=== PATIENT | female | born 1995 | race Caucasian/White ===

== ENCOUNTER 2023-06-14 14:07 | Emergency (ER) | payer BC, SELFPAY ==
[2023-06-14 14:11] VITALS: BP 110/70; PULSE 94; RESP 22; TEMP 37.3; O2SAT 100; BMI 15.0
[2023-06-14 14:19] VITALS: O2SAT 99
[2023-06-14 15:02] LABS: Basophils Percent Auto 0.6 % (0.2-2.0); Eosinophils Percent Auto 0.6 % (0.9-7.0); Hematocrit 40.5 % (36.0-48.0); Immature Granulocytes Abs Auto 0.01 10^3/uL (0.00-0.03); Immature Granulocytes Pct Auto 0.1 % (0.0-0.5); Lymphocytes Absolute Auto 2.2 10^3/uL (1.2-3.8); Lymphocytes Percent Auto 32.3 % (20.5-60.0); Mean Corpuscular HGB Conc 34.6 g/dL (29.9-35.2); Mean Corpuscular Hemoglobin 31.1 pg (26.7-34.0); Mean Platelet Volume 10.4 fL (9.5-13.5); Monocytes Absolute Auto 0.4 10^3/uL (0.3-0.8); Monocytes Percent Auto 5.6 % (1.7-12.0); Neutrophils Absolute Auto 4.1 10^3/uL (1.4-6.5); Neutrophils Percent Auto 60.8 % (43.0-75.0); Platelet Count 269 10^3/uL (150-450); Red Cell Distribution Width 12.1 % (11.0-15.0); White Blood Count 6.8 10^3/uL (4.0-11.0)
--- NOTE | 2023-06-14 15:06 | ED_ITS ---
HPI - General Adult General Chief complaint: Anxiety Stated complaint: SHORTNESS OF BREATH AND NUMBNESS Time Seen by Provider: 06/14/23 14:15 Source: patient and family Mode of arrival: walk-in Limitations: no limitations History of Present Illness HPI narrative: The patient have no previous medical history presented to the ER after she had an episode of numbness that was surrounding her mouth and nose associated with numbness and bilateral hand and generalized weakness that started while she was getting home from practice The patient denies any chest pain nausea vomiting or any other complaints she also denies any similar symptoms before and any symptoms preceding the symptoms earlier today Related Data Home Medications Medication Instructions Recorded Confirmed dextroamphetamine-amphetamine ER 30 mg PO DAILY 06/14/23 06/14/23 20 mg 24hr capsule,extend release norethindrone acetate 1 mg-ethinyl 1 tab PO DAILY 06/14/23 06/14/23 estradiol 20 mcg tablet Allergies Allergy/AdvReac Type Severity Reaction Status Date / Time No Known Drug Allergies Allergy Verified 06/14/23 14:11 Review of Systems ROS Status of ROS 10 or more systems reviewed and unremarkable except as noted in history and below PFSH [facility] Social History Smoking status: Never smoker Exam Narrative Exam Narrative: Nurses notes and vital signs reviewed and patient is not hypoxic. General: Well-appearing and in no apparent distress. Skin: Warm, dry, no pallor noted. No rash. Head: Normocephalic, atraumatic. Neck: Supple, non-tender. Eye: Pupils are equal, round and EOMI. No scleral icterus. Ears, Nose, Mouth, and Throat: TM are clear, no nasal mucosal hypertrophy. Oral mucosa is moist, no posterior oropharynx erythema, uvula is mid-line Cardiovascular: Regular Rate and Rhythm without murmur, gallop or rub. Respiratory: No accessory muscle use or respiratory distress. Lungs are clear to auscultation, no wheezing, rales or rhonchi Chest Wall: no tenderness Back: No midline thoracic or lumbar vertebral tenderness. No CVA tenderness Musculoskeletal: normal ROM, no calf or popliteal tenderness, no lower extremity edema/swelling GI: Abdomen is soft, non-distended. Normal bowel sounds. No masses appreciated. No tenderness to palpation. No rebound, guarding, or rigidity noted. Neurological: A&O x4. No cranial nerve dysfunction observed. No truncal ataxia. Moves all extremities. Sensation intact. Psychiatric: Cooperative and interactive. Normal mood and affect. Constitutional Vital Signs, click to edit/add: Last Vital Signs Temp 99.1 F 06/14/23 14:11 Pulse 94 H 06/14/23 14:11 Resp 22 06/14/23 14:11 BP 110/70 06/14/23 14:11 Pulse Ox 99 06/14/23 14:19 O2 Del Method Room Air 06/14/23 14:19 Course Vital Signs Vital signs: Vital Signs Temperature 99.1 F 06/14/23 14:11 Pulse Rate 94 H 06/14/23 14:11 Respiratory Rate 22 06/14/23 14:11 Blood Pressure 110/70 06/14/23 14:11 Pulse Oximetry 100 06/14/23 14:11 Oxygen Delivery Method Room Air 06/14/23 14:11 Temperature 99.1 F 06/14/23 14:11 Pulse Rate 94 H 06/14/23 14:11 Respiratory Rate 22 06/14/23 14:11 Blood Pressure 110/70 06/14/23 14:11 Pulse Oximetry 99 06/14/23 14:19 Oxygen Delivery Method Room Air 06/14/23 14:19 Medical Decision Making MDM Narrative Medical decision making narrative: The patient blood work-up showed no acute significant pathology I did speak with the patient extensively and she did mention that she had been having similar issues before when she hold her breath while running She will usually get numbness around the face but she never had numbness in her hand right now the patient examination is completely benign The patient numbness and tingling was around the nose as well as bilaterally in the hands The patient was advised with coping mechanisms for anxiety she still need to follow-up with her primary care doctor for further evaluation management The patient is to follow up with primary care physician in next 2-3 days or to return to the emergency department should any of the signs or symptoms worsen or new symptoms develop. The patient agrees with the following Diagnosis and Treatment plan and the patient will be discharged home. At this time the patient is without objective evidence of an acute process requiring hospitalization or inpatient management. The patient has remained hemodynamically stable. No additional indication for emergent studies at this time. I answered all questions. Discussed discharge instructions including standard anticipatory guidance and what should prompt a return to the emergency department, including if they get worse are not getting better or develops any new or concerning symptoms. I've given them specific time frame in which to follow-up, and who to follow-up with. The patient demonstrates understanding. Patient is nontoxic and stable for discharge with outpatient follow-up. Lab Data Labs: Lab Results 06/14/23 Range/Units 14:45 WBC 6.8 (4.0-11.0) 10^3/uL RBC 4.50 (4.20-5.40) 10^6/uL Hgb 14.0 (12.0-16.0) g/dL Hct 40.5 (36.0-48.0) % MCV 90.0 (81.0-99.0) fL MCH 31.1 (26.7-34.0) pg MCHC 34.6 (29.9-35.2) g/dL RDW 12.1 (11.0-15.0) % Plt Count 269 (150-450) 10^3/uL MPV 10.4 (9.5-13.5) fL Neut % (Auto) 60.8 (43.0-75.0) % Lymph % (Auto) 32.3 (20.5-60.0) % [place]annin % (Auto) 5.6 (1.7-12.0) % Eos % (Auto) 0.6 L (0.9-7.0) % Baso % (Auto) 0.6 (0.2-2.0) % Neut # (Auto) 4.1 (1.4-6.5) 10^3/uL Lymph # (Auto) 2.2 (1.2-3.8) 10^3/uL Fannin # (Auto) 0.4 (0.3-0.8) 10^3/uL Eos # (Auto) 0.0 (0.0-0.7) 10^3/uL Baso # (Auto) 0.0 (0.0-0.1) 10^3/uL Abs Immat Gran (auto) 0.01 (0.00-0.03) 10^3/uL Imm/Tot Granulo (auto) 0.1 (0.0-0.5) % Sodium 140 (136-145) mmol/L Potassium 3.9 (3.5-5.1) mmol/L Chloride 107 (98-107) mmol/L Carbon Dioxide 21.1 (21.0-32.0) mmol/L Anion Gap 15.8 BUN 10.0 (7.0-18.0) mg/dL Creatinine 1.07 H (0.55-1.02) mg/dL Est GFR ( Amer) >60 (>=60) Est GFR (Non-Af Amer) >60 (>=60) BUN/Creatinine Ratio 9.3 Glucose 101 (74-106) mg/dL Calcium 8.9 (8.5-10.1) mg/dL Magnesium 2.0 (1.8-2.4) mg/dL Total Bilirubin 0.6 (0.2-1.0) mg/dL AST 15 (15-37) U/L ALT <6 L (14-59) U/L Alkaline Phosphatase 44 L (46-116) U/L Total Protein 7.6 (6.4-8.2) g/dL Albumin 4.1 (3.4-5.0) g/dL Globulin 3.5 g/dL Albumin/Globulin Ratio 1.2 Urine HCG, Qual Negative (NEGATIVE) Discharge Plan Discharge Chief Complaint: Anxiety Clinical Impression: Hyperventilation, Panic disorder Patient Disposition: Home, Self-Care Time of Disposition Decision: 16:01 Mode of Transportation: Private Vehicle Prescriptions / Home Meds: No Action norethindrone ac-eth estradiol 1-20 mg-mcg tablet 1 tab PO DAILY dextroamphetamine-amphetamine 20 mg capsule,extended release 24hr 30 mg PO DAILY Instructions: Anxiolysis in Adults (ED) Stand Alone Forms: Portal Instructions Referrals: Caron Ramos MD [Primary Care Provider] - 1 week Discharge Date/Time: 06/14/23 16:05
[2023-06-14 15:19] LABS: Alanine Aminotransferase <6 U/L (14-59); Albumin Globulin Ratio 1.2; Albumin Level 4.1 g/dL (3.4-5.0); Alkaline Phosphatase 44 U/L (46-116); Anion Gap 15.8; Aspartate Amino Transferase 15 U/L (15-37); BUN Creatinine Ratio 9.3; Bilirubin Total 0.6 mg/dL (0.2-1.0); Calcium 8.9 mg/dL (8.5-10.1); Carbon Dioxide 21.1 mmol/L (21.0-32.0); Chloride 107 mmol/L (98-107); Estimated GFR (African America >60 (>=60); Estimated GFR (Non-African Ame >60 (>=60); Globulin 3.5 g/dL; Glucose 101 mg/dL (74-106); Potassium 3.9 mmol/L (3.5-5.1); Sodium 140 mmol/L (136-145); Total Protein 7.6 g/dL (6.4-8.2)
[2023-06-14 15:50] LABS: HCG Qualitative NEGATIVE (NEGATIVE)
== END 2023-06-14 16:05 | disposition home or self-care (01) ==
PROVIDERS: Emergency Provider Emergency Medicine; PCP Family Medicine
DX: R06.4 Hyperventilation (principal); F41.0 Panic disorder [episodic paroxysmal anxiety]
CPT/HCPCS: 36415; 80053; 83735; 84703; 85025; 99283

== ENCOUNTER 2023-09-04 10:51 | Outpatient (OUT) | payer BC, SELFPAY ==
--- NOTE | 2023-09-04 | US_ITS ---
[address] [address] Patient Name: DEJAN ESCOBEDO MRN: [id number] date: 1995 Sex: F Assigned Patient Location: [place] Current Patient Location: [place] Accession/Order Number: [id number] Exam Date: 09/04/2023 11:04 Report Date: 09/04/2023 12:03 At the request of: DANICA PARADA Procedure: US abdomen limited EXAM: US abdomen limited HISTORY: R10.32 COMPARISON: None. TECHNIQUE: Targeted ultrasound of the left lower quadrant FINDINGS/IMPRESSION: No sonographic evidence of hernia within the left lower abdominal quadrant or inguinal canal. A few prominent lymph nodes. Electronically authenticated by: MARY JANE GIL Date: 09/04/2023 12:03
== END 2023-09-04 10:52 | disposition home or self-care (01) ==
LOC: US 10:51
PROVIDERS: PCP Family Medicine; Visit Provider Family Medicine
DX: R10.32 Left lower quadrant pain (principal)
CPT/HCPCS: 76705

== ENCOUNTER 2023-09-21 08:18 | Outpatient (RCR) | payer BC, SELFPAY | END 2023-09-22 15:50 | disposition home or self-care (01) | LOC: PT 08:18 | PROVIDERS: PCP Family Medicine; Visit Provider Family Medicine | DX: S39.011D Strain of muscle, fascia and tendon of abdomen, subsequent encounter (principal) | CPT/HCPCS: 97161 ==

== ENCOUNTER 2024-08-05 07:50 | Outpatient (OUT) | payer BC, SELFPAY ==
--- NOTE | 2024-08-05 | CT_ITS ---
The [address] [address] Patient Name: DEJAN ESCOBEDO MRN: [id number] date: 1995 Sex: F Assigned Patient Location: CT Current Patient Location: CT Accession/Order Number: [id number] Exam Date: 08/05/2024 08:05 Report Date: 08/05/2024 15:52 At the request of: LASHANDA RICHMOND Procedure: CT soft tissue neck w con EXAMINATION: CT soft tissue neck w con HISTORY: Neck mass. R22.1. Patient states lymph node, BB marker. COMPARISON: None. TECHNIQUE: Axial CT images through the neck with intravenous contrast. Dose reduction techniques were achieved by using: automated exposure control and/or adjustment of mA and /or kV according to patient size and/or use of iterative reconstruction technique. FINDINGS: Metallic BBs visualized in the skin overlying the right side of the neck. There is a right level II lymph node measuring 6 x 12 mm subjacent to the marker. Additional multiple small nonenlarged lymph nodes in the remaining soft tissues of the neck. No abnormal inflammation or fluid collection. The adjacent submandibular glands appear normal. Tiny left thyroid nodule. No lesions in the parotid glands. No lesions in the included lower brain. No lesions in the nasopharynx. Mild prominence of the bilateral palatine tonsils. No lesions. No lesions in the oral cavity, hypopharynx, larynx, or upper trachea. CT/CT soft tissue neck w con IMPRESSION: 1. Multiple small lymph nodes are visualized in the soft tissues of the neck, nonenlarged. This includes a 6 x 12 mm lymph node subjacent to the marker placed at the right side of the neck. 2. No mass lesions, fluid collection in the soft tissues adjacent to the right-sided marker. No right-sided sialoadenitis. Electronically authenticated by: DEMETRIO KWONG Date: 08/05/2024 15:52
--- OUTSIDE RECORDS SUMMARY | 2024-08-05 07:53 | XMS_ITS | CCD ---
Author Organization [facility] Care Team Providers Care Training Administrator Name Role Phone CARIDAD ZAMBRANO Attending Unavailable CARON PARADA Primary Care Unavaila CARON Pierson Primary Care Unavailable SHAN PHILLIP Attending CARON Ayon Primary Care Unavailable SHAN PHILLIP Admitting UnaDR CARON Stewart Attending Unavailable DR CARON PARADA Consulting Unavailable DR CARON PARADA Primary Care Unavailable DR CARON PARADA Admitting Unavailable Caron Parada LASHANDA RICHMOND Attending Unavailable CARON PARADA Allergies Allergy Classification Reported Allergen(s) Allergy Type Date of Onset Reaction(s) Facility (2 sources) patient allergy list reviewed by nurse or physicia Propensity to adverse reactions 9 Comment:Done [employer] Other (2 sources) Allergies Reconciled Propensity to adverse reactions Unknown [employer] Other Medications Current Medications Medication Drug Class(es) Dates Sig (Normalized) Sig (Original) [id number] 200 actuat albuterol 0.09 mg/actuat metered dose inhaler (8 sources) beta2-Adrenergic Agonist Start: 04-21-2024 take 2 puff(s) by inhalation every four hours as needed Albuterol Sulfate Active 2 PUFF INHALATION Every 4 hours April 21, 2024 12:00am [employer] puffs as needed Inhalation every 4 hrs; Note: Source Status: Start; Refills: 1; Qty: 1 Each; Provider: Richard Waite take 2 puff(s) by in halation every four hours as needed Albuterol Sulfate HFA 108 (90 Base) MCG/ACT 2 puffs as needed Inhalation every 4 hrs for 30 days Active take 2 puff(s) by in halation every four hours as needed Albuterol Sulfate HFA 108 (90 Base) MCG/ACT 2 puffs as needed Inhalation every 4 hrs for 30 days Active cefdinir 300 mg oral capsule (2 sources) Cephalosporin Antibacterial Start: 06-22-2024 take 300 mg by mouth twice daily Cefdinir Active 300 MG PO Twice daily June 22, 2024 12:00am doxycycline monohydrate 100 mg oral capsule (4 sources) Tetracycline-class Drug take 1 capsule by mouth every twenty-four hours Doxycycline Monohydrate 100 MG 1 capsule Orally Once a day for 30 days Active Norethindrone Ac-Eth Estradiol (20 sources) Estrogen Start: 06-13-2024 take 1 tablet by mouth once daily Norethindrone Ac-Eth Estradiol Active 0 .ROUTE .COMPLEX June 13, 2024 12:42pm take 1 tablet by mouth once daily Start: 02-08-2024 End: 06-13-2024 take 1 tablet by mouth once daily Norethindrone Ac-Eth Estradiol Discontinued 0 .ROUTE .COMPLEX February 08, 2024 4:40pm June 13, 2024 12:42pm take 1 tablet by mouth once daily Start: 02-08-2024 take 1 tablet by sherri th once daily Norethindrone Ac-Eth Estradiol Active 0 .ROUTE .COMPLEX February 08, 2024 4:40pm take 1 tablet by mouth once daily Start: 01-25-2024 End: 02-08-2024 take 1 tablet by mouth once daily Norethindrone Ac-Eth Estradiol Discontinued 0 .ROUTE .COMPLEX January 25, 2024 4:41pm February 08, 2024 4:40pm take 1 tablet by mouth once daily Start: 01-25-2024 End: 01-25-2024 take 1 tablet by mouth once daily Norethindrone Ac-Eth Estradiol Discontinued 1 TAB PO Daily January 25, 2024 1:00am January 25, 2024 4:41pm take 1 tablet by sherri th every twenty-four hours Loestrin 1/20 (21) 1-20 MG-MCG 1 tablet Orally Once a day for 90 days Active take 1 tablet by sherri th every twenty-four hours Loestrin 12/12 (21) 1-20 MG-MCG 1 tablet Orally Once a day for 90 days Active lisdexamfetamine dimesylate 30 mg oral capsule (20 sources) Central Nervous System Stimulant Start: 06-07-2024 End: 06-28-2024 take 1 capsule by mouth once daily Lisdexamfetamine (Vyvanse) 30 mg capsule Active 30 MG PO Daily June 28, 2024 Start: 01-07-2024 End: 05-30-2024 take 1 capsule by mouth once daily Lisdexamfetamine (Vyvanse) 30 mg capsule Discontinued 30 MG PO Daily January 07, 2024 February 08, 2024 4:40pm Start: 12-10-2023 take 1 capsule by mo uth once daily in the morning Vyvanse 30 MG take 1 capsule by mouth every morning for 30 days Nov, Active Start: 12-09-2023 take 1 capsule by mo uth once daily in the morning Vyvanse 30 MG take 1 capsule by mouth every morning for 30 Nov, Active Start: 11-10-2023 take 1 capsule by mo uth once daily in the morning Vyvanse 30 MG take 1 capsule by mouth every morning for 30 Oct, Active Start: 11-04-2023 take 1 capsule by mo uth once daily in the morning Vyvanse 30 MG take 1 capsule by mouth every morning for 30 Oct, Active Start: 10-05-2023 take 1 capsule by mo uth once daily in the morning Vyvanse 30 MG take 1 capsule by mouth every morning for 30 Sep, Active Start: 09-07-2023 take 1 capsule by mo uth once daily in the morning Vyvanse 30 MG take 1 capsule by mouth every morning for 30 Aug, Active Start: 08-07-2023 take 1 capsule by mo uth once daily in the morning Vyvanse 30 MG take 1 capsule by mouth every morning for 30 Jul, Active Start: 07-06-2023 take 1 capsule by mo uth once daily in the morning Vyvanse 30 MG take 1 capsule by mouth every morning for 30 Jun, Active Start: 05-06-2023 take 1 capsule by mo uth every twenty-four hours Vyvanse 30 MG 1 capsule in the morning Orally Once a day for 30 days Apr, Active Start: 02-26-2023 take 1 capsule by mo uth every twenty-four hours Vyvanse 30 MG 1 capsule in the morning Orally Once a day for 30 days Feb, Active Problems Active Problems Problem Classification Problem Date Documented Date Episodic/Chronic Abdominal pain (3 sources) Right lower quadrant pain; Translations: [Right lower quadrant pain] Onset: 09-06-2014 Episodic Adjustment disorders (2 sources) Adjustment disorder; Translations: [Unspecified adjustment reaction] Onset: 01-20-2017 Chronic Administrative/social admission (2 sources) Pre-employment screening; Translations: [Encounter for pre-employment examination] Episodic Anxiety disorders (2 sources) Anxiety disorder; Translations: [Other specified anxiety disorders] Onset: 01-20-2017 Chronic Asthma (2 sources) Uncomplicated asthma; Translations: [Unspecified asthma, uncomplicated] Chronic Attention-deficit, conduct, and disruptive behavior disorders (3 sources) Attention deficit hyperactivity disorder; Translations: [Attention-deficit hyperactivity disorder, unspecified type] 01-07-2024 Chronic Attention-deficit, conduct, and disruptive behavior disorders (2 sources) Attention-deficit hyperactivity disorder, unspecified type; Translations: [Attention deficit disorder with hyperactivity] 04-22-2024 Chronic Chronic obstructive pulmonary disease and bronchiectasis (2 sources) Bronchitis; Translations: [Bronchitis, not specified as acute or chronic] Episodic Contraceptive and procreative management (2 sources) Surveillance of contraception; Translations: [Encounter for contraceptive management, unspecified] Episodic Deficiency and other anemia (1 source) Anemia, unspecified; Translations: [ANEMIA UNSPECIFIED] Onset: 11-09-2022 Episodic Disorders usually diagnosed in infancy, childhood, or adolescence (17 sources) Other specified behavioral and emotional disorders with onset usually occurring in childhood and adolescence; Translations: [Behavioral and emotional disorder with onset in childhood] Chronic Genitourinary symptoms and ill-defined conditions (4 sources) Genitourinary symptoms; Translations: [Unspecified symptoms and signs involving the genitourinary system] Onset: 05-15-2015 Episodic Headache; including migraine (2 sources) Migraine; Translations: [Migraine, unspecified, not intractable, without status migrainosus] 06-22-2024 Chronic Headache; including migraine (1 source) Headache; including migraine; Translations: [Headache, unspecified] Onset: 11-14-2015 Lymphadenitis (2 sources) Cervical lymphadenopathy; Translations: [Localized enlarged lymph nodes] 06-22-2024 Episodic Menstrual disorders (14 sources) Irregular periods; Translations: [Irregular menstruation, unspecified] Chronic Nonspecific chest pain (2 sources) Chest pain; Translations: [Chest pain, unspecified] Episodic Other connective tissue disease (2 sources) Neuralgia; Translations: [Neuralgia and neuritis, unspecified] Episodic Other endocrine disorders (5 sources) Hypoglycemia, unspecified; Translations: [HYPOGLYCEMIA UNSPECIFIED] Onset: 11-04-2022 Chronic Other endocrine disorders (14 sources) Hypoglycemia; Translations: [Hypoglycemia, unspecified] Chronic Other infections; including parasitic (13 sources) Enterobiasis; 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] Episodic Other infections; including parasitic (2 sources) Enterobiasis; 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] Episodic Other nutritional; endocrine; and metabolic disorders (2 sources) Abnormal weight loss; Translations: [ABNORMAL WEIGHT LOSS] Onset: 11-09-2022 Episodic Other nutritional; endocrine; and metabolic disorders (14 sources) Abnormal weight loss; Translations: [Abnormal weight loss] Episodic Other nutritional; endocrine; and metabolic disorders (1 source) Body mass index less than 20; Translations: [Body mass index (BMI) 19.9 or less, adult] Episodic Other nutritional; endocrine; and metabolic disorders (2 sources) Underweight; Translations: [Underweight] Episodic Other nutritional; endocrine; and metabolic disorders (1 source) Body mass index (BMI) 19.9 or less, adult; Translations: [Body mass index (BMI) 19 or less, adult] Episodic Other skin disorders (1 source) Acne vulgaris Episodic Other skin disorders (2 sources) Acne; Translations: [Acne, unspecified] Episodic Other upper respiratory infections (17 sources) Pharyngitis; Translations: [Acute pharyngitis, unspecified] Onset: 04-29-2016 Episodic Unclassified (2 sources) Need for prophylactic vaccination and inoculation against unspecified single bacterial disease; Translations: [Need for prophylactic vaccination and inoculation against unspecified single bacterial disease] Onset: 03-20-2016 Unclassified (2 sources) Carbuncle and furuncle of upper arm; Translations: [Carbuncle and furuncle of upper arm] Onset: 05-28-2018 Unclassified (1 source) Contact dermatitis and other eczema due to sunburn; Translations: [Contact dermatitis and other eczema due to sunburn] Onset: 04-17-2017 Unclassified (1 source) Personal history of traumatic brain injury; Translations: [Personal history of traumatic brain injury] Onset: 11-13-2015 Viral infection (2 sources) Disease caused by 2019-nCoV; Translations: [COVID-19] Past or Other Problems Problem Classification Problem Date Documented Date Episodic/Chronic Headache; including migraine (1 source) Headache; Translations: [Headache, unspecified] Onset: 11-14-2015 Episodic Intracranial injury (1 source) History of traumatic brain injury; Translations: [Personal history of traumatic brain injury] Onset: 11-13-2015 Episodic Noninfectious gastroenteritis (2 sources) Non-infective enteritis and colitis; Translations: [Noninfective gastroenteritis and colitis, unspecified] Onset: 11-24-2018 Episodic Nonmalignant breast conditions (2 sources) Breast lump; Translations: [Unspecified lump in unspecified breast] Onset: 05-04-2018 Episodic Other inflammatory condition of skin (1 source) Solar erythema; Translations: [Contact dermatitis and other eczema due to sunburn] Onset: 04-17-2017 Episodic Other lower respiratory disease (1 source) Cough; Translations: [Cough] Onset: 01-17-2016 Episodic Other lower respiratory disease (1 source) Cough; Translations: [Cough] Onset: 01-17-2016 Episodic Other non-traumatic joint disorders (2 sources) Arthralgia of the ankle and/or foot; Translations: [Pain in unspecified ankle and joints of unspecified foot] Onset: 01-11-2015 Episodic Other skin disorders (2 sources) Mass in head or neck; Translations: [Swelling, mass, or lump in head and neck] Onset: 05-28-2018 Episodic Unclassified (1 source) SENT BY FOR CAT SCAN Onset: 12-25-2018 Results Test Name Value Interpretation Reference Range Facility INSULINon 11-05-2022 Insulin 2.1 uIU/mL Critically low 2.6-24.9 [facility] Comment on above: Performed By: #### I NSULIN #### [facility] [address] [place] [address] Dr. Smitha Batista CBC AUTO DIFFon 11-04-2022 BASO # 0.0 103/ul Normal 0.0-0.1 [facility] Comment on above: Performed By: #### C BC #### [facility] [address] [place] [address] Dr. Smitha Batista Basophils/100 WBC (Bld) 0.9 % Normal 0.2-2.0 [facility] Comment on above: Performed By: #### C BC #### [facility] [address] [place] [address] Dr. Smitha Batista EO # 0.2 103/ul Normal 0.0-0.7 [facility] Comment on above: Performed By: #### C BC #### [facility] [address] [place] [address] Dr. Smitha Batista Eosinophils/100 WBC (Bld) 3.9 % Normal 0.9-7.0 [facility] Comment on above: Performed By: #### C BC #### [facility] [address] [place] [address] Dr. Smitha Batista Erythrocyte distribution width (RBC) [Ratio] 12.3 % Normal 11.0-15.0 [facility] Comment on above: Performed By: #### C BC #### [facility] [address] [place] [address] Dr. Smitha Batista Hematocrit (Bld) [Volume fraction] 40.1 % Normal 36.0-48.0 [facility] Comment on above: Performed By: #### C BC #### [facility] [address] [place] [address] Dr. Smitha Batista Hemoglobin (Bld) [Mass/Vol] 13.8 g/dL Normal 12.0-16.0 [facility] Comment on above: Performed By: #### C BC #### [facility] [address] [place] [address] Dr. Smitha Batista IG # 0.01 10e3/ul Normal 0.00-0.03 [facility] Comment on above: Performed By: #### C BC #### [facility] [address] [place] [address] Dr. Smitha Batista IG % 0.2 % Normal 0.0-0.5 [facility] Comment on above: Performed By: #### C BC #### [facility] [address] [place] [address] Dr. Smitha Batista LYMPH # 2.0 103/ul Normal 1.2-3.8 [facility] Comment on above: Performed By: #### C BC #### [facility] [address] [place] [address] Dr. Smitha Batista Lymphocytes/100 WBC (Bld) 46.4 % Normal 20.5-60.0 [facility] Comment on above: Performed By: #### C BC #### [facility] [address] [place] [address] Dr. Smitha Batista MANUAL DIFF REQ NO Normal [facility] Comment on above: Performed By: #### C BC #### [facility] [address] [place] [address] Dr. Smitha Batista MCH (RBC) [Entitic mass] 31.0 pg Normal 26.7-34.0 [facility] Comment on above: Performed By: #### C BC #### [facility] [address] [place] [address] Dr. Smitha Batista MCHC (RBC) [Mass/Vol] 34.4 g/dL Normal 29.9-35.2 [facility] Comment on above: Performed By: #### C BC #### [facility] [address] [place] [address] Dr. Smitha Batista MCV (RBC) [Entitic vol] 90.1 fL Normal 81.0-99.0 [facility] Comment on above: Performed By: #### C BC #### [facility] [address] [place] [address] Dr. Smitha Batista MONO # 0.3 103/ul Normal 0.3-0.8 [facility] Comment on above: Performed By: #### C BC #### [facility] [address] [place] [address] Dr. Smitha Batista Monocytes/100 WBC (Bld) 6.9 % Normal 1.7-12.0 [facility] Comment on above: Performed By: #### C BC #### [facility] [address] [place] [address] Dr. Smitha Batista NEUT # 1.8 103/ul Normal 1.4-6.5 [facility] Comment on above: Performed By: #### C BC #### [facility] [address] [place] [address] Dr. Smitha Batista Neutrophils/100 WBC (Bld) 41.7 % Critically low 43.0-75.0 [facility] Comment on above: Performed By: #### C BC #### [facility] [address] [place] [address] Dr. Smitha Batista Platelet mean volume (Bld) [Entitic vol] 12.2 fL Normal 9.5-13.5 [facility] Comment on above: Performed By: #### C BC #### [facility] [address] [place] [address] Dr. Smitha Batista PLT 164 103/ul Normal 150-450 [facility] Comment on above: Performed By: #### C BC #### [facility] [address] [place] [address] Dr. Smitha Batista RBC 4.45 106/ul Normal 4.20-5.40 [facility] Comment on above: Performed By: #### C BC #### [facility] [address] [place] [address] Dr. Smitha Batista WBC 4.3 103/ul Normal 4.0-11.0 [facility] Comment on above: Performed By: #### C BC #### [facility] [address] [place] [address] Dr. Smitha Batista FERRITINon 11-04-2022 Ferritin [Mass/Vol] 105.0 ng/mL Normal 6.2-137.0 [facility] Comment on above: Performed By: #### F T4, FERR #### [facility] [address] [place] [address] Dr. Smitha Batista FREE T4on 11-04-2022 Free T4 [Mass/Vol] 0.98 ng/dL Normal 0.76-1.46 [facility] Comment on above: Performed By: #### F T4, FERR #### [facility] [address] [address] [address] Smitha Batista PROF CHEM 8 (BAS METB)on Anion gap [Moles/Vol] 14.6 mmol/L Normal [facility] Comment on above: Performed By: #### B MP, TSH #### [facility] [address] [address] [address] Smitha Batista Calcium [Mass/Vol] 8.9 mg/dL Normal 8.5-10.1 [facility] Comment on above: Performed By: #### B MP, TSH #### [facility] [address] [address] [address] Smitha Batista Chloride [Moles/Vol] 107 mmol/L Normal 98-107 [facility] Comment on above: Performed By: #### B MP, TSH #### [facility] [address] [address] [address] Smitha Batista CO2 [Moles/Vol] 24.3 mmol/L Normal 21.0-32.0 [facility] Comment on above: Performed By: #### B MP, TSH #### [facility] [address] [address] [address] Smitha Batista Creatinine [Mass/Vol] 0.82 mg/dL Normal 0.55-1.02 [facility] Comment on above: Performed By: #### B MP, TSH #### [facility] [address] [address] [address] Smitha Batista EGFR-AF MAURITIAN >60 Normal >=60 [facility] Comment on above: Performed By: #### B MP, TSH #### [facility] [address] [address] [address] Smitha Batista EGFR-NON AF MAURITIAN >60 Normal >=60 [facility] Comment on above: Performed By: #### B MP, TSH #### [facility] [address] [address] [address] Smitha Batista Glucose [Mass/Vol] 81 mg/dL Normal 74-106 [facility] Comment on above: Performed By: #### B MP, TSH #### [facility] [address] [address] [address] Smitha Batista Potassium [Moles/Vol] 3.9 mmol/L Normal 3.5-5.1 [facility] Comment on above: Performed By: #### B MP, TSH #### [facility] [address] [address] [address] Smitha Batista Sodium [Moles/Vol] 142 mmol/L Normal 136-145 [facility] Comment on above: Performed By: #### B MP, TSH #### [facility] [address] [address] [address] Smitha Batista Urea nitrogen [Mass/Vol] 8.0 mg/dL Normal 7.0-18.0 [facility] Comment on above: Performed By: #### B MP, TSH #### [facility] [address] [address] [address] Smitha Batista Urea nitrogen/Creatinine [Mass ratio] 9.8 mg/mg Normal [facility] Comment on above: Performed By: #### B MP, TSH #### [facility] [address] [place] [address] Dr. Smitha Batista TSHon 11-04-2022 TSH 1.299 uIU/mL Normal 0.358-3.740 [facility] Comment on above: Performed By: #### B MP, TSH #### [facility] [address] [address] [address] Smitha Batista Basic Metabolic Panelon Anion gap molar conc 9.0 mmol/L Normal 6.0-18.0 [facility] Comment on above: Performed By: #### 6 9405-9, 65139-2v2, 26926-9, 03755-7 #### [facility], [address] [place] [address], [place]. Calcium mass conc 9.4 mg/dL Normal 8.9-10.3 [facility] Comment on above: Performed By: #### 6 9405-9, 21422-8i9, 53515-4, 93753-3 #### [facility], [address], [place]. Chloride molar conc 107 mmol/L Normal 98-107 [facility] Comment on above: Performed By: #### 6 9405-9, 86760-0e6, 63361-2, 17253-3 #### [facility], [address] [place] [place], [place]. CO2 molar conc 23 mmol/L Normal 22-32 [facility] Comment on above: Performed By: #### 6 9405-9, 36750-4u2, 98488-9, 31396-0 #### [facility], [address] [place], [place]. Creatinine mass conc 0.91 mg/dL Normal 0.66-1.30 [facility] Comment on above: Performed By: #### 6 9405-9, 29770-6f8, 16007-9, 10011-4 #### [facility], [address]. Glucose mass conc 91 mg/dL Normal 70-99 [facility] Comment on above: Result Comment: U pdated ADA Reference Range A normal fasting glucose concentration is less than 100 mg/dL. An impaired fasting glucose concentration is 100-125 mg/dL. A provisional diagnosis of diabetes mellitus can be made when a fasting glucose concentration is greater than 125 mg/dL. Performed By: #### 6 9405-9, 25654-6z7, 75989-8, 52879-5 #### [facility], [address] [place]. Potassium molar conc 3.8 mmol/L Normal 3.6-5.1 [facility] Comment on above: Performed By: #### 6 9405-9, 37638-8r2, 33291-8, 77427-7 #### [facility], [address] [place], [place]. Sodium molar conc 139 mmol/L Normal 136-145 [facility] Comment on above: Performed By: #### 6 9405-9, 31586-6t5, 56187-3, 43792-2 #### [facility], [address] [place], [place]. Urea nitrogen mass conc (BldV) 10 mg/dL Normal 8-20 [facility] Comment on above: Performed By: #### 6 9405-9, 87308-7v5, 61672-6, 44544-5 #### [facility], [address], [place]. CBC with Differentialon - Basophils #/vol (Bld) 0.00 thou/mcL Normal 0.00-0.20 [facility] Comment on above: Performed By: #### 5 7021-8 #### [facility], [address] [place] [address]. Basophils #/vol (Bld) 0.4 % Normal 0.0-2.0 [facility] Comment on above: Performed By: #### 5 7021-8 #### [facility], [address] [place] [place], [place]. Eosinophils #/vol (Bld) 0.20 thou/mcL Normal 0.00-0.70 [facility] Comment on above: Performed By: #### 5 7021-8 #### [facility], [address], [place]. Eosinophils/100 WBC (Bld) 3.0 % Normal 0.0-7.0 [facility] Comment on above: Performed By: #### 5 7021-8 #### [facility], [address], [place]. Erythrocyte distribution width Entitic volume (RBC) 12.4 % Normal 11.0-14.8 [facility] Comment on above: Performed By: #### 5 7021-8 #### [facility], [address] [place], [place]. Hematocrit Volume Fraction (Bld) 43.2 % Normal 35.0-45.0 [facility] Comment on above: Performed By: #### 5 7021-8 #### [facility], [address] [place], [place]. Hemoglobin mass conc (Bld) 14.5 g/dL Normal 12.0-16.0 [facility] Comment on above: Performed By: #### 5 7021-8 #### [facility], [address] [place], [place]. Lymphocytes #/vol (Bld) 2.20 thou/mcL Normal 1.00-4.80 [facility] Comment on above: Performed By: #### 5 7021-8 #### [facility] [facility], [address] [place], [place]. Lymphocytes/100 WBC (Bld) 37.3 % Normal 22.0-44.0 [facility] Comment on above: Performed By: #### 5 7021-8 #### [facility], [address] [place], [place]. MCH Entitic mass (RBC) 30.9 Picograms Normal 27.0-34.0 [facility] Comment on above: Performed By: #### 5 7021-8 #### [facility], [address] [place], [place]. MCHC mass conc (RBC) 33.5 g/dL Normal 32.0-36.0 [facility] Comment on above: Performed By: #### 5 7021-8 #### [facility], [address] [place], [place]. MCV Entitic volume (RBC) 92.3 fL Normal 80.0-97.0 [facility] Comment on above: Performed By: #### 5 7021-8 #### [facility], [address] [place], [place]. Monocytes #/vol (Bld) 0.50 thou/mcL Normal 0.00-0.90 [facility] Comment on above: Performed By: #### 7021-8 #### [facility], [address] [place], [place]. Monocytes/100 WBC (Bld) 8.2 % Normal 0.0-12.0 [facility] Comment on above: Performed By: #### 7021-8 #### [facility], [address] [place]. Neutrophils #/vol (Bld) 3.10 thou/mcL Normal 1.80-7.70 [facility] Comment on above: Performed By: #### 7021-8 #### [facility], [address] [place], [place]. Neutrophils/100 WBC (Bld) 51.1 % Normal 40.0-70.0 [facility] Comment on above: Performed By: #### 7021-8 #### [facility], [address] [place]. Platelet mean volume Entitic volume (Bld) 8.3 fL Normal 6.2-12.1 [facility] [place] [facility] Comment on above: Performed By: #### 7021-8 #### [facility], [address] [place], [place]. Platelets #/vol (Bld) 221 thou/mcL Normal 142-424 [facility] Comment on above: Performed By: #### 5 7021-8 #### [facility], [address] [place]. RBC #/vol (Bld) 4.68 million/mcL Normal 3.80-5.10 [facility] Comment on above: Performed By: #### 5 7021-8 #### [facility], [address], [place]. WBC #/vol (Bld) 6.0 thou/mcL Normal 4.6-10.2 [facility] Comment on above: Performed By: #### 5 7021-8 #### [facility], [address] [place], [place]. CT Ang Chest w and/or w/o Co ntraston 12-25-2018 CTA Chest vessels WO and W contrast IV EXAMINATION TYPE: CT Ang Chest w and/or w/o Contrast DATE OF EXAM: 12/25/2018 1:48 PM HISTORY: Pulmonary Embolism, COMPARISON: NONE FINDINGS: No pulmonary embolus is identified. No thoracic aortic aneurysm or dissection is seen. No mediastinal or hilar adenopathy is identified. The lung stallworth appear clear. No pleural effusion is identified. IMPRESSION: No acute findings. No pulmonary embolus is identified. [place] thanks you for the opportunity to care for your patient. Workstation ID: [id number] - [id number] FINAL REPORT Dictated By: Billy Guzman MD 12/25/2018 13:59 Assigned Physician: Billy Guzman MD Reviewed and Electronically Signed By: Billy Guzman MD 12/25/2018 14:05 Transcribed by: CHRISTIANO 12/25/2018 13:59 Technologist: JASON PARIKH Normal [facility] Comment on above: Order Comment: For i npatients, Nursing to order and initiate prep per [facility] Prep protocol D-Dimer Quantitativeon 12-25 Fibrin D-dimer Qn (PPP) <150 Normal 150-230 [facility] Comment on above: Result Comment: NORM AL REFERENCE RANGE 150-230 NG/ML CUT OFF 230 NG/ML At this cut off level the negative predictive value for this test is 96-100% for venous thromboembolism(VTE) in patients with a low pre-test probability of deep vein thrombosis(DVT)/pulmonary embolism(PE). Clinical correlation is essential. When utilizing this test to rule out DVT or PE, this test is best used in the Emergency Department setting. These units correspond to ng/mL of D-DU or D-Dimer Units. Performed By: #### 4 8065-7 #### [facility], [address] [place] [address]. ED Pat Vega 12-25-[address] [address] Emergency Department Discharge Instructions FANNY VINNY , Please provide this information to your Primary Care/Specialist Name : VINNY SUAREZ Current Date : 12/25/2018 15:52:28 : 1995 12:00 PM Primary Care Physician: Caron Parada MD Diagnosis : Follow-Up Instructions: FANNYVINNY has been given these follow-up instructions: FOLLOW-UP APPOINTMENTS: Provider: Specialty: Address: Date: Caron Parada MD [facility] [address] [address] (1) Call for an Appointment Comment: early this week or the [facility] Laboratory Orders: Name: Status: Basic Metabolic Panel Completed CBC with Differential Completed D-Dimer Quantitative Completed Urinalysis Manual POCT (CO) Completed Urine Test POCT (CO) Completed Troponin I Completed GFRaa Completed GFRbb Completed Troponin I Completed Radiology Orders: Name: Status: CT Ang Chest w and/or w/o Contrast Completed XR Chest 2 Views Completed Diagnostic Tests: Name: Status: ECG 12 Lead Completed Procedure(s) and Patient Education(s) : Work Release (CO-S) (Custom); Nonspecific Chest Pain EMERGENCY SERVICES MEDICATION LIST Lista de Medicaciones de los Servicios de Emergencia Name VINNY SUAREZ MRN (COL)-[id number] PLEASE READ THE FOLLOWING REGARDING YOUR MEDICATIONS Based on the information available during your visit we have given you the medication instructions below. Continue taking medications you took prior to your visit unless you have been told to change. Please share this information with your own doctor. Carry a list of your medications with you in case of an emergency. Update it when medications are stopped, doses are changed, or new medications (including clyd-fdw-tkqpbye products) are added. If you have any questions, check with your doctor. Por la informaci??n disponible yvon cruz visita, las instrucciones de medicaci??n aparecen debajo. Favor de continuar tomando las medicaciones Ud. angelic?? antes de cruz visita por lo menos que hay cambios. Favor de compartir esta informaci??n con cruz medico. Lleva anderson lista de medicaciones consigo por tanesha de emergenc??a. Actualiza la lista cuando Ud. chi de andrea las medicaciones, si cambian las dosis, o si hay nuevas medicaciones a??adidas (incluyendo medicaciones vendidas sin prescripci??n). Favor de preguntar a cruz medico por cualquier elizabeth. THESE ARE THE MEDICATIONS YOU SHOULD BE TAKING meloxicam (Mobic 7.5 mg oral tablet) 1 Tab(s) By Mouth once a day. Refills: 0. MEDICATIONS GIVEN DURING MEDICAL VISIT None NON-MEDICATION PRESCRIPTION SCHEDULING PHONE NUMBER: MEDICATION CHANGE DETAILS (Not your Final Home Medication List) During the course of your visit, your home medication list was updated with the most current information. The details of those changes are shown below: NEW MEDICATIONS Printed Prescriptions meloxicam (Mobic 7.5 mg oral tablet) 1 Tab(s) By Mouth once a day. Refills: 0. Comment __ UPDATED MEDICATIONS None UNCHANGED MEDICATIONS None STOP TAKING THESE MEDICATIONS None DO NOT TAKE UNTIL YOU TALK TO YOUR DOCTOR None [address] [id number] Emergency Department Discharge Instructions Name: VINNY SUAREZ Current Date: 12/25/2018 15:52:28 : 1995 12:00 PM Primary Physician: Richard LAMBERT , Caron Brower We would like to thank you for choosing [facility] for your emergency medical needs. We examined and treated you today on an emergency basis only. This was not a substitute for, or an effort to provide, complete medical care. In most cases, you must let your doctor (or the doctor we referred you to) check you again. Tell your doctor about any new or lasting problems. We cannot recognize and treat all injuries or illnesses in one emergency department visit. After you leave, you should follow the directions attached. Instructions for obtaining X-rays: When following up with your doctor, you may need to take copies of your x-rays that were done in the Emergency Department. If you didn't receive these upon your discharge from the emergency department, please call . When the final report becomes available and it is reviewed, the emergency department will attempt to contact you if there are any changes in your instructions. It is important that you leave accurate information with us on how to contact you. IF you cannot be contacted, YOU must contact the follow-up doctor that you were assigned to make sure that the final official x-ray report does not require a change in your treatment. Instructions for obtaining medical records: If you need a copy of your medical records for follow-up, please contact the Health Information Management Department at . Their office hours are 8 AM- 4:30 PM, Thursday through Thursday. Please note: Results are not immediately available. Please allow a minimum of 36 hours for documentation and results. If you were prescribed an antibiotic: Antibiotics are life-saving drugs and they need to be used properly. Your team might change your antibiotic because test results show that a different antibiotic would be better to treat your infection. Like all medications, antibiotics have side effects. Some can be serious. This includes the risk of getting an antibiotic-resistant infection later, which may be difficult to treat. Remember to take your antibiotics as prescribed. If you have any questions please talk to your healthcare team. Seatbelts: There is no doubt that seatbelts save lives. Every day, people without seatbelts have more serious injuries. Have everyone buckle up, using age appropriate seatbelts or car seats, to reduce their risk of injury. Smoking: If you do smoke, we encourage you to stop. Smoking affects all aspects of your health and the health of those around you. Call the [employer] at 6-669-PWCK-USA or the [employer] at 5-123-TIZ-0579 for more information. High blood pressure: Your screening blood pressure today was 96 mm Hg / . Hypertension (high blood pressure) is blood pressure over 120/80. People with hypertension should contact their primary care provider within 30 days to follow up. Check your patient portal for additional blood pressure information. Immunizations: Immunization is a way to protect against deadly infections. Discuss this with your child's rear admiral, or Public Health Department. Your family practice doctor can determine if you need pneumonia or flu vaccine. The [facility] Department can be reached at . Domestic Violence: If you are a victim of domestic violence (physical, verbal, or emotional), you are not alone. Discuss this with your physician or a friend and call Choices Hotline ( for assistance and support. You are the most important factor in your recovery. Follow the provided instructions carefully. Take your medications as prescribed. Most importantly, see a doctor again as discussed. If you have problems that we have not discussed, call or visit your doctor right away. If you do not have a primary care physician, we have provided one for you to follow up with. When you call for an appointment, please inform them that you were seen in the emergency department and the date of your visit. If you are unable to reach your doctor and are still experiencing problems, return to the emergency department. For assistance finding a primary care physician, call the Physician Referral Line at . Suicide Hotline: Your mental and emotional well-being is important. If you are in a mental health crisis or are having thoughts of suicide, please call the nationwide suicide hotline, anytime day or night, at 3-275-234-RVIM. Pharmacy Information: Below is a list of 24 hour pharmacies that we are aware of. We suggest that you call the specific pharmacy for their hours before traveling to a location. Hours may vary on holidays. [facility] [address], [place] [address] [phone] [address] [place], [place] [address] [phone] [address] [place], [place] [address] [phone] [address] [place], [place] [phone] [address], [place] [phone] [address] [place], [place] [phone] [place] [address] [phone] Take all medications as directed. If you need prescription assistance, contact the following agencies: ?? Partnership for Prescription Assistance at or www.pparx.org ?? [place] [facility] at or www.Dasdakbestrx.org ?? www.[employer] is a site with many valuable coupons Patient Education Materials VINNY SUAREZ has been given the following patient education materials: [facility] Emergency Department [address] [place], [place] [address] Work Release Form This notice verifies that your employee ~Vinny Suarez~ was seen in this facility on ~12/25/18~. He/she may return to work on 12/26/18 ____with the following restrictions: None: No heavy lifting: (over # pounds) No prolonged standing: Desk Work Only: Other: These restrictions apply through ___. After this date, your employee should be able to participate fully in all work duties. NOTE: If symptoms continue and the employee is unable to perform the full duties of their job by this date, please advise the employee to return to this facility or make an appointment with the referral physician for further evaluation. ~Caridad Zambrano MD~ ED Physician/Provider Cardiovascular Nonspecific Chest Pain Chest pain can be caused by many different conditions. There is always a chance that your pain could be related to something serious, such as a heart attack or a blood clot in your lungs. Chest pain can also be caused by conditions that are not life-threatening. If you have chest pain, it is very important to follow up with your health care provider. CAUSES Chest pain can be caused by: ???Heartburn. ???Pneumonia or bronchitis. ???Anxiety or stress. ???Inflammation around your heart (pericarditis) or lung (pleuritis or pleurisy). ???A blood clot in your lung. ???A collapsed lung (pneumothorax). It can develop suddenly on its own (spontaneous pneumothorax) or from trauma to the chest. ???Shingles infection (varicella-zoster virus). ???Heart attack. ???Damage to the bones, muscles, and cartilage that make up your chest wall. This can include: ???Bruised bones due to injury. ???Strained muscles or cartilage due to frequent or repeated coughing or overwork. ???Fracture to one or more ribs. ???Sore cartilage due to inflammation (costochondritis). RISK FACTORS Risk factors for chest pain may include: ???Activities that increase your risk for trauma or injury to your chest. ???Respiratory infections or conditions that cause frequent coughing. ???Medical conditions or overeating that can cause heartburn. ???Heart disease or family history of heart disease. ???Conditions or health behaviors that increase your risk of developing a blood clot. ???Having had chicken pox (varicella zoster). SIGNS AND SYMPTOMS Chest pain can feel like: ???Burning or tingling on the surface of your chest or deep in your chest. ???Crushing, pressure, aching, or squeezing pain. ???Dull or sharp pain that is worse when you move, cough, or take a deep breath. ???Pain that is also felt in your back, neck, shoulder, or arm, or pain that spreads to any of these areas. Your chest pain may come and go, or it may stay constant. DIAGNOSIS Lab tests or other studies may be needed to find the cause of your pain. Your health care provider may have you take a test called an ambulatory ECG (electrocardiogram). An ECG records your heartbeat patterns at the time the test is performed. You may also have other tests, such as: ???Transthoracic echocardiogram (TTE). During echocardiography, sound waves are used to create a picture of all of the heart structures and to look at how blood flows through your heart. ???Transesophageal echocardiogram (JIA).?This is a more advanced imaging test that obtains images from inside your body. It allows your health care provider to see your heart in finer detail. ???Cardiac monitoring. This allows your health care provider to monitor your heart rate and rhythm in real time. ???Holter monitor. This is a portable device that records your heartbeat and can help to diagnose abnormal heartbeats. It allows your health care provider to track your heart activity for several days, if needed. ???Stress tests. These can be done through exercise or by taking medicine that makes your heart beat more quickly. ???Blood tests. ???Imaging tests. TREATMENT Your treatment depends on what is causing your chest pain. Treatment may include: ???Medicines. These may include: ???Acid blockers for heartburn. ???Anti-inflammatory medicine. ???Pain medicine for inflammatory conditions. ???Antibiotic medicine, if an infection is present. ???Medicines to dissolve blood clots. ???Medicines to treat coronary artery disease. ???Supportive care for conditions that do not require medicines. This may include: ???Resting. ???Applying heat or cold packs to injured areas. ???Limiting activities until pain decreases. HOME CARE INSTRUCTIONS ???If you were prescribed an antibiotic medicine, finish it all even if you start to feel better. ???Avoid any activities that bring on chest pain. ???Do not use any tobacco products, including cigarettes, chewing tobacco, or electronic cigarettes. If you need help quitting, ask your health care provider. ???Do not drink alcohol. ???Take medicines only as directed by your health care provider. ???Keep all follow-up visits as directed by your health care provider. This is important. This includes any further testing if your chest pain does not go away. ???If heartburn is the cause for your chest pain, you may be told to keep your head raised (elevated) while sleeping. This reduces the chance that acid will go from your stomach into your esophagus. ???Make lifestyle changes as directed by your health care provider. These may include: ???Getting regular exercise. Ask your health care provider to suggest some activities that are safe for you. ???Eating a heart-healthy diet. A registered dietitian can help you to learn healthy eating options. ???Maintaining a healthy weight. ???Managing diabetes, if necessary. ???Reducing stress. SEEK MEDICAL CARE IF: ???Your chest pain does not go away after treatment. ???You have a rash with blisters on your chest. ???You have a fever. SEEK IMMEDIATE MEDICAL CARE IF: ???Your chest pain is worse. ???You have an increasing cough, or you cough up blood. ???You have severe abdominal pain. ???You have severe weakness. ???You faint. ???You have chills. ???You have sudden, unexplained chest discomfort. ???You have sudden, unexplained discomfort in your arms, back, neck, or jaw. ???You have shortness of breath at any time. ???You suddenly start to sweat, or your skin gets clammy. ???You feel nauseous or you vomit. ???You suddenly feel light-headed or dizzy. ???Your heart begins to beat quickly, or it feels like it is skipping beats. These symptoms may represent a serious problem that is an emergency. Do not wait to see if the symptoms will go away. Get medical help right away. Call your local emergency services (911 in the [place] Do not drive yourself to the hospital. This information is not intended to replace advice given to you by your health care provider. Make sure you discuss any questions you have with your health care provider. Document Released: 08/19/2006 Document Revised: 11/30/2015 Document Reviewed: 06/15/2015 [employer] Patient Education ?2016 [employer] <><><><><><><><><><><>< ><><><><><><><><><><><> <><> Patient Visit Summary Signature VINNY SUAREZ has been given the following list of patient education materials, prescriptions and follow-up instructions: FANNY Schumacher KENNEDY, have received the above patient education materials/instructions and have verbalized understanding: Date Time Patient Signature Date Time Provider Signature [facility] GFRaaon 12-25-2018 GFR/1.73 sq M predicted among blacks MDRD vol rate/area (S/P/Bld) mL/min/{1.73_m2} [facility] Comment on above: Result Comment: The MDRD equation has not been validated for those over 70 years, women, patients with serious co-morbid conditions, or with extremes of body size, muscle mass of nutritional status. Performed By: #### 6 9405-9, 97001-8s9, 79148-6, 09147-1 #### [facility], [address] [place] [address]. GFRbbon 12-25-2018 GFR/1.73 sq M predicted among non-blacks MDRD vol rate/area (S/P/Bld) mL/min/{1.73_m2} [facility] Comment on above: Performed By: #### 6 9405-9, 26246-5c7, 50477-3, 37311-6 #### [facility], [address] [place] [address]. Pre-Arrival Formon 9 Pre-Arrival Form Pre-Arrival Summary Name: Vinny Suarez Current Date: 12/25/2018 11:47:42 EST Gender: Female Date of : 1995 Age: 23 years Pre-Arrival Type: Referral ETA: 12/25/2018 11:53:00 EST Primary Care Physician: Presenting Problem: Pre-Arrival User: Queenie Bess CNP Referring Source: Location: PreArrival Emergency Department Pre Arrival Form ___ PHYSICIAN REFERRAL: Robert PAGAN Reason for Visit: 3 weeks of CP, SOB, left sided. worse with exertion, mother and father both have had dvt, mother with recent pe. Normal [facility] Troponin Ion 12-25-2018 Troponin I.cardiac mass conc ng/mL Normal <0.06 [facility] Comment on above: Performed By: #### 5 7021-8 #### [facility], [address], [place]. Troponin I.cardiac mass conc ng/mL Normal <0.06 [facility] Comment on above: Performed By: #### 6 9405-9, 83392-0u4, 17513-6, 03548-8 #### [facility], [address] [place], [place]. XR Chest 2 Viewson 9 XR Chest 2 views Two-view chest exam Indication: Chest Pain and shortness of breath COMPARISON: None FINDINGS: The lungs are clear and the costophrenic angles are sharp. The cardiomediastinal silhouette and bones are normal. IMPRESSION: Normal chest. [place] thanks you for the opportunity to care for your patient. Workstation ID: [id number] - [id number] FINAL REPORT Dictated By: Gabe Diaz MD 12/25/2018 13:17 Assigned Physician: Gabe Diaz MD Reviewed and Electronically Signed By: Gabe Diaz MD 12/25/2018 13:18 Transcribed by: [facility] 12/25/2018 13:17 Technologist: FRANTZ Normal [facility] Vital Signs Date Time Vital Sign Value Performing Clinician Facility 06-22-2024 [id number] Body height 167.64 cm [facility] 06-22-2024 09:44-0400 Body mass index (BMI) [Ratio] 15.8 kg/m2 [facility] 06-22-2024 09:44-0400 Body temperature 98.8 [degF] [facility] 06-22-2024 09:44-0400 Body weight 44.62 kg [facility] 06-22-2024 09:44-0400 Diastolic blood pressure 85 mm[Hg] [facility] 06-22-2024 09:44-0400 Heart rate 101 /min [facility] 06-22-2024 09:44-0400 Systolic blood pressure 125 mm[Hg] [facility] 04-22-2024 10:02-0400 Body height 167.64 cm [facility] 04-22-2024 10:02-0400 Body mass index (BMI) [Ratio] 15.7 kg/m2 [facility] 04-22-2024 10:02-0400 Body weight 44.22 kg [facility] 04-22-2024 10:02-0400 Diastolic blood pressure 74 mm[Hg] [facility] 04-22-2024 10:02-0400 Heart rate 82 /min [facility] 04-22-2024 10:02-0400 Systolic blood pressure 105 mm[Hg] [facility] 08-31-2023 09:45-0400 Body height 167.64 cm Caron Parada Other [employer] [facility] [employer] Other 08-31-2023 09:45-0400 Body mass index (BMI) [Ratio] 15.65 kg/m2 Caron Parada Other [employer] Other 08-31-2023 09:45-0400 Body weight 44 kg Caron Parada Other [employer] Other 08-31-2023 09:45-0400 Diastolic blood pressure 71 mm[Hg] Caron Parada Other [employer] Other 08-31-2023 09:45-0400 Systolic blood pressure 102 mm[Hg] Caron Parada Other [employer] Other 02-26-2023 11:30-0400 Body height 167.64 cm Caron Parada Other [employer] Other 02-26-2023 11:30-0400 Body mass index (BMI) [Ratio] 16.3 kg/m2 Caron Parada Other [employer] Other 02-26-2023 11:30-0400 Body weight 45.81 kg Caron Parada Other [employer] Other 02-26-2023 11:30-0400 Diastolic blood pressure 64 mm[Hg] Caron Parada Other [employer] Other 02-26-2023 11:30-0400 SaO2% (BldA) [Mass fraction] 95 % Caron Parada Other [employer] Other 02-26-2023 11:30-0400 Systolic blood pressure 102 mm[Hg] Caron Parada Other [employer] Other Encounters Encounter Date Encounter Type Care Provider Facility Start: 07-08-2024 End: 07-08-2024 ambulatory LASHANDA Brannon TIMMIS Not Available Start: [address] [facility] Work Phone: Start: 2024 Non-patient / Non-visit [facility] [employer] Work Phone: Start: 06-22-2024 End: 06-22-2024 ambulatory [facility] Work Phone: Start: 06-22-2024 End: 06-22-2024 Patient encounter procedure [facility] Work Phone: Start: 04-22-2024 End: 04-22-2024 ambulatory [facility] Work Phone: Start: 04-22-2024 End: 04-22-2024 Patient encounter procedure [facility] Work Phone: Start: 01-25-2024 Non-patient / Non-visit [facility] Work Phone: Start: 12-10-2023 End: 12-10-2023 ambulatory Caron Parada Other [employer] Other Start: 12-10-2023 Telephone encounter Caron Parada [facility] Start: 12-07-2023 End: 12-07-2023 ambulatory Caron Parada Other [employer] Other Start: 12-07-2023 Telephone encounter Caron Parada [facility] Start: 11-10-2023 End: 11-10-2023 ambulatory Caron Parada Other [facility] Other Start: 11-10-2023 Telephone encounter Caron Parada [facility] Start: 11-04-2023 End: 11-04-2023 ambulatory Caron Parada Other [employer] Other Start: 11-04-2023 Telephone encounter Caron Parada [facility] Start: 10-05-2023 End: 10-05-2023 ambulatory Caron Parada Other [employer] Other Start: 10-05-2023 Telephone encounter Caron Parada [facility] Start: 09-16-2023 End: 09-16-2023 ambulatory Caron Parada Other [employer] Other Start: 09-16-2023 Telephone encounter Caron Parada [facility] Start: 09-07-2023 End: 09-07-2023 ambulatory Caron Parada Other [employer] Other Start: 09-07-2023 Telephone encounter Caron Parada [facility] Start: 09-04-2023 End: 09-04-2023 ambulatory Caron Parada Other [employer] Other Start: 09-04-2023 Telephone encounter Caron Parada [facility] Start: 08-31-2023 End: 08-31-2023 ambulatory Caron Parada Other [employer] Other Start: 08-31-2023 Office outpatient vi sit 15 minutes Caron Parada [facility] Start: 08-07-2023 End: 08-07-2023 ambulatory Caron Parada Other [employer] Other Start: 08-07-2023 Telephone encounter Caron Parada [facility] Start: 07-03-2023 End: 07-03-2023 ambulatory Caron Parada Other [facility] Other Start: 07-03-2023 Telephone encounter Caron Parada [facility] Start: 05-06-2023 End: 05-06-2023 ambulatory Caron Parada Other [facility] Other Start: 05-06-2023 Telephone encounter Caron Parada [facility] Start: 02-26-2023 End: 02-26-2023 ambulatory Caron Parada Other [employer] Other Start: 02-26-2023 Office outpatient vi sit 15 minutes Caron Parada [facility] Start: 11-04-2022 End: 11-05-[address] CARON PARADA Facility: Start: 10-28-2022 Adult health examination Caron Parada Other [employer] Other Start: 03-01-2021 Patient encounter procedure CARON PARADA [facility] Start: 02-27-2021 End: 03-03-2021 Patient encounter procedure CARON PARADA [facility] Start: 12-25-2018 End: 12-25-2018 Emergency department patient visit CARIDAD ZAMBRANO Facility:[facility] Plan of Treatment Date Care Activity Detail Author Start: 2024 Patient referral [facility] Work Phone: Patient referral [facility] Work Phone: Immunizations Immunization Date Immunization Notes Care Provider Barb kramer 03-20-2016 meningococcal oligosaccharide (groups A, C, Y and W-135) diphtheria toxoid conjugate vaccine (MCV4O) Caorn Richard Other [facility] Payers Date Payer Category Payer [facility] [id number] 2020 Unknown [id number] 2017 Unknown [id number] 1997 Unknown [id number] 1997 Unknown [id number] 1997 Unknown [id number] [id number]. [id number] 1997 Unknown [id number] 1997 Unknown [id number] 1959 Unknown [id number] Social History Date Type Detail Facility Unknown if ever smoked [employer] Other Sex Assigned At Sex Assigned At Bir th [employer] Other Start: 04-22-2024 Tobacco smoking status NHIS Never smoked tobacco (finding) [facility] Start: 1995 Sex Assigned At Female F [facility] Evaluation note 08-31-2023 Note Date & Type Note Facility 08-31-2023 Evaluation note Encounter Date Diagnosis Assessment Notes Aug, LLQ abdominal pain (ICD-10 - R10.32) Discussed PT for muscle strain v. imaging. Pt opts for imaging w US to r/o enlarged LN or obvious hernia. [facility] Other Evaluation note 05-06-2023 Note Date & Type Note Facility 05-06-2023 Evaluation note Encounter Date Diagnosis Assessment Notes Apr, Attention deficit disorder (ADD) in adult (ICD-10 - F98.8) [facility] Other Evaluation note 02-26-2023 Note Date & Type Note Facility 02-26-2023 Evaluation note Encounter Date Diagnosis Assessment Notes Feb, Attention deficit disorder (ADD) in adult (ICD-10 - F98.8) Pt prefers stopping the Adderall and switching back to Vyvanse with the coupon. Feb, Acne vulgaris (ICD-10 - L70.0) Increase acne. Will continue ocp and add oral antibiotic for a few months. Feb, Irregular menses (ICD-10 - N92.6) continue OCP. Suggested appt w licensing and registration director. [employer] Other Evaluation note Note Date & Type Note Facility Evaluation note No Information [employer] Other Evaluation note Note Date & Type Note Facility Evaluation note No assessment information availa [facility] Work Phone: Evaluation note Note Date & Type Note Facility Evaluation note Diagnosis Onset Date ADHD (attention deficit hype ractivity disorder) [facility] Work Phone: Evaluation note Note Date & Type Note Facility Evaluation note Diagnosis Onset Date ADHD (attention deficit hype ractivity disorder) acute Cervical lymphadenopathy acu te Migraine [facility] Work Phone: History general Narrative - Reported Note Date & Type Note Facility History general Narrative - Reported Type Medical History Attention deficit disorder (ADD) in adult Medical History Pinworms Medical History Pharyngitis Medical History Hypoglycemia Medical History Abnormal loss of weight [facility] Other History general Narrative - Reported Note Date & Type Note Facility History general Narrative - Reported Type Medical History Attention deficit disorder (ADD) in adult Medical History Pinworms Medical History Pharyngitis Medical History Hypoglycemia Medical History Abnormal loss of weight Surgical History Problem Title : past surgical history reviewed, Problem Description : past surgical history reviewed, Problem Comment : reviewed - no changes required, Problem Status : Active, Surgical History Problem Title : surg ical procedures, hx of, Problem Description : surgical procedures, hx of, Problem Comment : none, Problem Status : Active, [facility] Other Hospital Discharge instructions Note Date & Type Note Facility Hospital Discharge instructions Ambulatory OrdersReferral to ENT Time Frame: 06/30/24, Location: None [facility] Work Phone: Summary Purpose Family History No Family History Records Found Relationship Condition Age at Onset Recorded Date/T yumiko Not Specified Malignant neoplasm Unknown Diabetes mellitus Unknown father Hypertension Unknown Relationship Condition Age at Onset Recorded Date/T yumiko maternal grandmother Malignant neoplasm Unknown Diabetes mellitus Unknown father Hypertension Unknown Advance Directives No Advanced Directives Records Found Advance Directive Response Recorded Date/ Time Advance Directives No April 22 9:55am Hospital Course Note EMERGENCY DEPARTMENT DISCHAR GE SUMMARY PATIENT NAME:VINNY SUAREZ AGE: 23 Years SEX: Female PHONE:[phone] DOS: 12/25/2018 11:36 AM : 1995 ATTENDING PHYSICIAN:Caridad Zambrano MD PCP: Richard LAMBERT , Caron Brower CHIEF COMPLAINT: Chest pain Allergies NKA Problems Active No Chronic Problems DISCHARGE DIAGNOSIS: DISCHARGE INSTRUCTIONS: Work Release (CO-S) (Custom); Nonspecific Chest Pain ED PHYSICIAN DOCUMENTATION: History of Present Illness Ms. Suarez is a 23 year old female presenting with chest pain. Patient was apparently referred to this emergency department form an urgent care to rule-out pulmonary embolism due to a family history of blood clots. Patient reports chest pain since 11/30/18, non-radiating, waxing and waning, currently rates it 2/10, though it gets up to 6/10 at night. She states it is not worsened with cough or inspiration, and she denies any hemoptysis. She denies any recent travel, bedrest, fractures, surgery, hormone treatments, or leg s (more content not included)... Chief Complaint and Reason for Visit Chief Complaint Amb Documentation medication discussion Chief Complaint medication discussio n neck, chin swelling , discuss headaches Reason for Visit ADHD (attention defi cit hyperactivity disorder) Chief Complaint medication discussio n neck, chin swelling , discuss headaches Reason for Visit ADHD (attention defi cit hyperactivity disorder) Cervical lymphadenopathy Migraine Additional Source Comments INFORMATION SOURCE (unrecogn ized section and content) DATE CREATED AUTHOR 01/11/2019 Cheryl Corrales [facility] DATE CREATED AUTHOR AUTHOR'S ORGANIZ ATION 03/01/2021 [facility] DATE CREATED AUTHOR AUTHOR'S ORGANIZ ATION 03/03/2021 [facility] DATE CREATED AUTHOR AUTHOR'S ORGANIZ ATION 01/19/2023 [facility] DATE CREATED AUTHOR AUTHOR'S ORGANIZ ATION 07/10/2024 [facility] EPIC REASON FOR VISIT (unrecogniz ed section and content) MEDICATION CHANGESRefillRefi llRefillherniarefillnormal USPT orderrefillrefillrefillrefillRefill Care Teams (unrecognized sec tion and content) Team Status: Active Member Role Status Dates Caron Parada MD Primary Care Provider Active Team Status: Inactive Member Role Status Dates Caron Parada MD Primary Care Provide r, Attending Provider Active Start: April 22, 2024 End: April 22, 2024 Team Status: Inactive Member Role Status Dates Caron Parada MD Primary Care Provide r, Attending Provider Active Start: June 22, 2024 End: June 22, 2024 Team Status: Active Member Role Status Dates Caron Parada MD Primary Care Provider Active Start: January 25, 2024 MARIAN Knapp Attending Provider Active Start : January 25, 2024 Team Status: Active Member Role Status Dates Caron Parada MD Primary Care Provide r, Attending Provider Active Start: 2024 Goals (unrecognized section and content) Goals may be documented in a n alternate section FOR RECORDS PERTAINING TO PATIENTS WHO ARE OR HAVE BEEN ENROLLED IN A CHEMICAL DEPENDENCY/SUBSTANCEABUSE PROGRAM, SOME INFORMATION MAY BE OMITTED. This clinical summary was aggregated from multiple sources. Caution should be exercised in using it in the provision of clinical care. This summary normalizes information from multiple sources, and as a consequence, information in this document may materially change the coding, format and clinical context of patient data. In addition, data may be omitted in some cases. CLINICAL DECISIONS SHOULD BE BASED ON THE PRIMARY CLINICAL RECORDS. [facility]. provides no warranty or guarantee of the accuracy or completeness of information in this document.
== END 2024-08-05 07:51 | disposition home or self-care (01) ==
LOC: CT 07:50
PROVIDERS: PCP Family Medicine; Visit Provider Otolaryngology
DX: R22.1 Localized swelling, mass and lump, neck (principal)
CPT/HCPCS: 70491; Q9967

== ENCOUNTER 2024-12-12 09:06 | Outpatient (OUT) | payer BC, SELFPAY ==
--- OUTSIDE RECORDS SUMMARY | 2024-12-12 09:11 | XMS_ITS | CCD ---
Author Organization [facility] Care Team Providers Care [employer] Name Role Phone CARIDAD ZAMBRANO Attending Unavailable CARON PARADA Primary Care Unavaila ble CARON PARADA Primary Care Unavailable SHAN PHILLIP Attending Unava ilCARON Reddy Primary Care Unavailable SHAN PHILLIP Admitting Unava iljames PARADA, DR CARON Waite Attending Unavailable KARMA, DR CARON Waite Consulting Unavailable KARMA, DR CARON Waite Primary Care Unavailable KARMA, DR CARON Waite Admitting Unavailable Caron Parada Unavailable MARTHA RICHMOND Attending Unavailable CARON PARADA Referring Unavailable MARTHA RICHMOND Attending Unavailable CARON PARADA Referring Unavailable SELF, SELF Referring Unavailable SAM MASTERSON Attending Unavailable Unavailable Primary Care Provider Unavailtali Parada MD, Caron Primary Care Provider Allergies Allergy Classification Reported Allergen(s) Allergy Type Date of Onset Reaction(s) Facility (2 sources) patient allergy list reviewed by nurse or physicia Propensity to adverse reactions 9 Comment:Done [employer] Other (2 sources) Allergies Reconciled Propensity to adverse reactions Unknown [employer] Other (2 sources) Shellfish-Deriv ed Products Propensity to adverse reactions 4 Diarrhea, Itching, Unknown [facility] Medications Current Medications Medication Drug Class(es) Dates Sig (Normalized) Sig (Original) [id number] actuat albuterol 0.09 mg/actuat metered dose inhaler (11 sources) beta2-Adrenergic Agonist Start: 04-21-2024 take 2 puff(s) by inhalation every four hours as needed Albuterol Sulfate 90 mcg/actuation HFA aerosol inhaler Active 2 PUFF INHALATION Every 4 hours April 20, 2024 11:00pm [employer] puffs as needed Inhalation every 4 hrs; Note: Source Status: Start; Refills: 1; Qty: 1 Each; Provider: Karma Waite take 2 puff(s) by in halation every six hours albuterol HFA 90 mcg/act inhaler Inhale 2 puffs every 6 (six) hours if needed for shortness of breath Active take 2 puff(s) by in halation every four hours as needed Albuterol Sulfate HFA 108 (90 Base) MCG/ACT 2 puffs as needed Inhalation every 4 hrs for 30 days Active take 2 puff(s) by in halation every four hours as needed Albuterol Sulfate HFA 108 (90 Base) MCG/ACT 2 puffs as needed Inhalation every 4 hrs for 30 days Active doxycycline monohydrate 100 mg oral capsule (4 sources) Tetracycline-class Drug take 1 capsule b y mouth every twenty-four hours Doxycycline Monohydrate 100 MG 1 capsule Orally Once a day for 30 days Active ethinyl estradiol 0.02 mg / norethindrone acetate 1 mg oral tablet (20 sources) Estrogen Start: 024 norethindrone-eth inyl estradiol (Microgestin /20) 1-20 MG-MCG tablet Take 1 tablet by mouth Daily 06/13/2024 Active Start: 06-13-2024 take 1 tablet by sherri th once daily Norethindrone Ac-Eth Estradiol 1-20 mg-mcg tablet Active 0 .ROUTE .COMPLEX 84 June 13, 2024 11:42am take 1 tablet by mouth once daily Start: 06-13-2024 take 1 tablet by sherri th once daily Norethindrone Ac-Eth Estradiol Active 0 .ROUTE .COMPLEX June 13, 2024 12:42pm take 1 tablet by mouth once daily Start: 02-08-2024 End: 06-13-2024 take 1 tablet by mouth once daily Norethindrone Ac-Eth Estradiol 1-20 mg-mcg tablet Discontinued 0 .ROUTE .COMPLEX 84 February 08, 2024 3:40pm June 13, 2024 11:42am take 1 tablet by mouth once daily Start: 02-08-2024 End: 06-13-2024 take 1 tablet by mouth once daily Norethindrone Ac-Eth Estradiol Discontinued 0 .ROUTE .COMPLEX 84 February 08, 2024 4:40pm June 13, 2024 12:42pm take 1 tablet by mouth once daily Start: 02-08-2024 take 1 tablet by sherri th once daily Norethindrone Ac-Eth Estradiol Active 0 .ROUTE .COMPLEX February 08, 2024 4:40pm take 1 tablet by mouth once daily Start: 01-25-2024 End: 02-08-2024 take 1 tablet by mouth once daily Norethindrone Ac-Eth Estradiol 1-20 mg-mcg tablet Discontinued 0 .ROUTE .COMPLEX January 25, 2024 3:41pm February 08, 2024 3:40pm take 1 tablet by mouth once daily Start: 01-25-2024 End: 02-08-2024 take 1 tablet by mouth once daily Norethindrone Ac-Eth Estradiol Discontinued 0 .ROUTE .COMPLEX January 25, 2024 4:41pm February 08, 2024 4:40pm take 1 tablet by mouth once daily Start: 01-25-2024 End: 01-25-2024 take 1 tablet by mouth once daily Norethindrone Ac-Eth Estradiol 1-20 mg-mcg tablet Discontinued 1 TAB PO Daily January 25, 2024 12:00am January 25, 2024 3:41pm Start: 01-25-2024 End: 01-25-2024 take 1 tablet [...] (20 sources) Central Nervous System Stimulant Start: 09-29-2024 take 1 capsule by mouth once daily Lisdexamfetamine (Vyvanse) 30 mg capsule Active 30 MG PO Daily September 29, 2024 Start: 09-27-2024 End: 09-22-2024 take 1 capsule by mouth once daily Lisdexamfetamine (Vyvanse) 30 mg capsule Discontinued 30 MG PO Daily September 27, 2024 September 22, 2024 3:22pm Start: 06-07-2024 End: 09-22-2024 take 1 capsule by mouth once daily Lisdexamfetamine (Vyvanse) 30 mg capsule Discontinued 30 MG PO Daily August 29, 2024 September 22, 2024 3:17pm Start: 01-07-2024 End: 05-30-2024 take 1 capsule by mouth once daily Lisdexamfetamine (Vyvanse) 30 mg capsule Discontinued 30 MG PO Daily January 07, 2024 February 08, 2024 3:40pm Start: 12-10-2023 take 1 capsule by mo [...] every morning for 30 Jul, Active Start: 02-26-2023 take 1 capsule by mo uth once daily in the morning Vyvanse 30 MG take 1 capsule by mouth every morning for 30 Jun, Active Completed/Discontinued Medications Medication Drug Class(es) Dates Sig (Normalized) Sig (Original) cefdinir 300 mg oral capsule (3 sources) Cephalosporin Antibacterial Start: 06-22-2024 End: 10-10-2024 take 1 capsule by mouth twice daily Cefdinir 300 mg capsule Discontinued 300 MG PO Twice daily June 21, 2024 11:00pm October 10, 2024 8:34am Problems Active Problems Problem Classification Problem Date [...] Chronic Attention-deficit, conduct, and disruptive behavior disorders (6 sources) Attention deficit hyperactivity disorder; Translations: [Attention-deficit hyperactivity disorder, unspecified type] Onset: 07-05-2024 01-07-2024 Chronic Attention-deficit, conduct, and disruptive behavior [...] system] Onset: 05-15-2015 Episodic Headache; including migraine (5 sources) Migraine; Translations: [Migraine, unspecified, not intractable, without status migrainosus] Onset: 07-05-2024 06-22-2024 Chronic Headache; including migraine (1 source) Headache; including migraine; Translations: [Headache, unspecified] Onset: 11-14-2015 Lymphadenitis (6 sources) Cervical lymphadenopathy; Translations: [Localized enlarged lymph nodes] Onset: 07-05-2024 06-22-2024 Episodic Menstrual disorders (14 sources) Irregular periods; Translations: [Irregular menstruation, unspecified] Chronic Other connective tissue disease (2 sources) Neuralgia; [...] sources) Acne; Translations: [Acne, unspecified] Episodic Other skin disorders (2 sources) Localized swelling, mass and lump, neck; Translations: [Localized swelling, mass and lump, neck] Onset: 11-07-2024 Episodic Other skin disorders (1 source) Finding of neck region; Translations: [Localized swelling, mass and lump, neck] 11-06-2024 Episodic Other skin disorders (5 sources) Mass of neck; Translations: [Localized swelling, mass and lump, neck] Onset: 07-08-2024 11-07-2024 Episodic Other upper respiratory infections (17 sources) [...] lump in unspecified breast] Onset: 05-04-2018 Episodic Nonspecific chest pain (4 sources) Chest pain; Translations: [Chest pain, unspecified] Onset: 06-07-2020 07-05-2024 Episodic Other inflammatory condition of skin (1 [...] 11-05-2022 Insulin 2.1 uIU/mL Critically low 2.6-24.9 [facility] Comment on above: Performed By: #### I NSULIN #### [facility] [address] [place] [address] Dr. Smitha Batista CBC AUTO DIFFon 11-04-2022 BASO # 0.0 103/ul Normal 0.0-0.1 [facility] Comment on above: Performed By: #### C BC #### [facility] [address] [place] [address] Dr. Smitha Batista Basophils/100 WBC (Bld) 0.9 % Normal 0.2-2.0 [facility] Comment on above: Performed By: #### C BC #### [facility] [address] [place] [address] Dr. Smitha Batista EO # 0.2 103/ul Normal 0.0-0.7 [facility] Comment on above: Performed By: #### C BC #### [facility] [address] [place] [address] Dr. Smitha Batista Eosinophils/100 WBC (Bld) 3.9 % Normal 0.9-7.0 [facility] Comment on above: Performed By: #### C BC #### [facility] [address] [place] [address] Dr. Smitha Batista Erythrocyte distribution width (RBC) [Ratio] 12.3 % Normal 11.0-15.0 [facility] Comment on above: Performed By: #### C BC #### [facility] [address] [place] [address] Dr. Smitha Batista Hematocrit (Bld) [Volume fraction] 40.1 % Normal 36.0-48.0 [facility] Comment on above: Performed By: #### C BC #### [facility] [address] [place] [address] Dr. Smitha Batista Hemoglobin (Bld) [Mass/Vol] 13.8 g/dL Normal 12.0-16.0 [facility] Comment on above: Performed By: #### C BC #### [facility] [address] [place] [address] Dr. Smitha Batista IG # 0.01 10e3/ul Normal 0.00-0.03 [facility] Comment on above: Performed By: #### C BC #### [facility] [address] [place] [address] Dr. Smitha Batista IG % 0.2 % Normal 0.0-0.5 [facility] Comment on above: Performed By: #### C BC #### [facility] [address] [place] [address] Dr. Smitha Batista LYMPH # 2.0 103/ul Normal 1.2-3.8 [facility] Comment on above: Performed By: #### C BC #### [facility] [address] [place] [address] Dr. Smitha Batista Lymphocytes/100 WBC (Bld) 46.4 % Normal 20.5-60.0 [facility] Comment on above: Performed By: #### C BC #### [facility] [address] [place] [address] Dr. Smitha Batista MANUAL DIFF REQ NO Normal [facility] Comment on above: Performed By: #### C BC #### [facility] [address] [place] [address] Dr. Smitha Batista MCH (RBC) [Entitic mass] 31.0 pg Normal 26.7-34.0 [facility] Comment on above: Performed By: #### C BC #### [facility] [address] [place] [address] Dr. Smitha Batista MCHC (RBC) [Mass/Vol] 34.4 g/dL Normal 29.9-35.2 [facility] Comment on above: Performed By: #### C BC #### [facility] [address] [address] [address] Smitha Batista MCV (RBC) [Entitic vol] 90.1 fL Normal 81.0-99.0 [facility] Comment on above: Performed By: #### C BC #### [facility] [address] [address] [address] Smitha Batista MONO # 0.3 103/ul Normal 0.3-0.8 [facility] Comment on above: Performed By: #### C BC #### [facility] [address] [address] [address] Smitha Batista Monocytes/100 WBC (Bld) 6.9 % Normal 1.7-12.0 [facility] Comment on above: Performed By: #### C BC #### [facility] [address] [place] [address] Dr. Smitha Batista NEUT # 1.8 103/ul Normal 1.4-6.5 [facility] Comment on above: Performed By: #### C BC #### [facility] [address] [place] [address] Dr. Smitha Batista Neutrophils/100 WBC (Bld) 41.7 % Critically low 43.0-75.0 [facility] Comment on above: Performed By: #### C BC #### [facility] [address] [place] [address] Dr. Smitha Batista Platelet mean volume (Bld) [Entitic vol] 12.2 fL Normal 9.5-13.5 [facility] Comment on above: Performed By: #### C BC #### [facility] [address] [place] [address] Dr. Smitha Batista PLT 164 103/ul Normal 150-450 [facility] Comment on above: Performed By: #### C BC #### [facility] [address] [place] [address] Dr. Smitha Batista RBC 4.45 106/ul Normal 4.20-5.40 [facility] Comment on above: Performed By: #### C BC #### [facility] [address] [place] [address] Dr. Smitha Batista WBC 4.3 103/ul Normal 4.0-11.0 [facility] Comment on above: Performed By: #### C BC #### [facility] [address] [place] [address] Dr. Smitha Batista FERRITINon 11-04-2022 Ferritin [Mass/Vol] 105.0 ng/mL Normal 6.2-137.0 [facility] Comment on above: Performed By: #### F T4, FERR #### [facility] [address] [place] [address] Dr. Smitha Batista FREE T4on 11-04-2022 Free T4 [Mass/Vol] 0.98 ng/dL Normal 0.76-1.46 [facility] Comment on above: Performed By: #### F T4, FERR #### [facility] [address] [place] [address] Dr. Smitha Batista PROF CHEM 8 (BAS METB)on Anion gap [Moles/Vol] 14.6 mmol/L Normal [facility] Comment on above: Performed By: #### B MP, TSH #### [facility] [address] [place] [address] Dr. Smitha Batista Calcium [Mass/Vol] 8.9 mg/dL Normal 8.5-10.1 [facility] Comment on above: Performed By: #### B MP, TSH #### [facility] [address] [place] [address] Dr. Smitha Batista Chloride [Moles/Vol] 107 mmol/L Normal 98-107 [facility] Comment on above: Performed By: #### B MP, TSH #### [facility] [address] [place] [address] Dr. Smitha Batista CO2 [Moles/Vol] 24.3 mmol/L Normal 21.0-32.0 [facility] Comment on above: Performed By: #### B MP, TSH #### [facility] [address] [place] [address] Dr. Smitha Batista Creatinine [Mass/Vol] 0.82 mg/dL Normal 0.55-1.02 [facility] Comment on above: Performed By: #### B MP, TSH #### [facility] [address] [address] [address] Smitha Batista EGFR-AF SOUTH AFRICAN >60 Normal >=60 [facility] Comment on above: Performed By: #### B MP, TSH #### [facility] [address] [address] [address] Smitha Batista EGFR-NON AF SOUTH AFRICAN >60 Normal >=60 [facility] Comment on above: Performed By: #### B MP, TSH #### [facility] [address] [address] [address] Smitha Batista Glucose [Mass/Vol] 81 mg/dL Normal 74-106 [facility] Comment on above: Performed By: #### B MP, TSH #### [facility] [address] [address] [address] Smitha Batista Potassium [Moles/Vol] 3.9 mmol/L Normal 3.5-5.1 [facility] Comment on above: Performed By: #### B MP, TSH #### [facility] [address] [address] [address] Smitha Batista Sodium [Moles/Vol] 142 mmol/L Normal 136-145 [facility] Comment on above: Performed By: #### B MP, TSH #### [facility] [address] [address] [address] Smitha Batista Urea nitrogen [Mass/Vol] 8.0 mg/dL Normal 7.0-18.0 [facility] Comment on above: Performed By: #### B MP, TSH #### [facility] [address] [address] [address] Smitha Batista Urea nitrogen/Creatinine [Mass ratio] 9.8 mg/mg Normal [facility] Comment on above: Performed By: #### B MP, TSH #### [facility] [address] [address] [address] Smitha Batista TSHon 11-04-2022 TSH 1.299 uIU/mL Normal 0.358-3.740 [facility] Comment on above: Performed By: #### B MP, TSH #### [facility] [address] [place], [place] [address] Dr. Smitha Batista Basic Metabolic Panelon Anion gap molar conc 9.0 mmol/L Normal 6.0-18.0 [facility] Comment on above: Performed By: #### 6 9405-9, 56403-8f9, 72297-8, 84684-3 #### [facility], [address], [place]. Calcium mass conc 9.4 mg/dL Normal 8.9-10.3 [facility] Comment on above: Performed By: #### 6 9405-9, 89311-7e4, 70263-8, 83888-1 #### [facility], [address]. Chloride molar conc 107 mmol/L Normal 98-107 [facility] Comment on above: Performed By: #### 6 9405-9, 02738-0c2, 58180-5, 62510-5 #### [facility], [address] [place], [place]. CO2 molar conc 23 mmol/L Normal 22-32 [facility] Comment on above: Performed By: #### 6 9405-9, 12694-5i2, 09745-7, 80511-7 #### [facility], [address] [place], [place]. Creatinine mass conc 0.91 mg/dL Normal 0.66-1.30 [facility] Comment on above: Performed By: #### 6 9405-9, 69300-6e0, 30862-1, 32791-1 #### [facility], [address]. Glucose mass conc 91 mg/dL Normal 70-99 [facility] Comment on above: Result Comment: U pdated ADA Reference Range A normal fasting glucose concentration is less than 100 mg/dL. An impaired fasting glucose concentration is 100-125 mg/dL. A provisional diagnosis of diabetes mellitus can be made when a fasting glucose concentration is greater than 125 mg/dL. Performed By: #### 6 9405-9, 18128-5o1, 64973-8, 45990-7 #### [facility], [address] [place], [place]. Potassium molar conc 3.8 mmol/L Normal 3.6-5.1 [facility] Comment on above: Performed By: #### 6 9405-9, 73504-2g3, 44214-1, 72992-0 #### [facility], [address], [place]. Sodium molar conc 139 mmol/L Normal 136-145 [facility] Comment on above: Performed By: #### 6 9405-9, 85655-1f4, 65167-3, 63199-8 #### [facility], [address], [place]. Urea nitrogen mass conc (BldV) 10 mg/dL Normal 8-20 [facility] Comment on above: Performed By: #### 6 9405-9, 46940-7d5, 02846-8, 49043-7 #### [facility], [address], [place]. CBC with Differentialon 02-0 Basophils #/vol (Bld) 0.00 thou/mcL Normal 0.00-0.20 [facility] Comment on above: Performed By: #### 5 7021-8 #### [facility], [address], [place]. Basophils #/vol (Bld) 0.4 % Normal 0.0-2.0 [facility] Comment on above: Performed By: #### 5 7021-8 #### [facility], [address], [place]. Eosinophils #/vol (Bld) 0.20 thou/mcL Normal 0.00-0.70 [facility] Comment on above: Performed By: #### 5 7021-8 #### [facility], [address]. Eosinophils/100 WBC (Bld) 3.0 % Normal 0.0-7.0 [facility] Comment on above: Performed By: #### 70-8 #### [facility], [facility] [address]. Erythrocyte distribution width Entitic volume (RBC) 12.4 % Normal 11.0-14.8 [facility] Comment on above: Performed By: #### 7021-8 #### [facility], [facility] [place] [place]. Hematocrit Volume Fraction (Bld) 43.2 % Normal 35.0-45.0 [facility] Comment on above: Performed By: #### 7021-8 #### [facility], [facility] [place], [place]. Hemoglobin mass conc (Bld) 14.5 g/dL Normal 12.0-16.0 [facility] Comment on above: Performed By: #### 5 7021-8 #### [facility], [facility] [address] [place], [place]. Lymphocytes #/vol (Bld) 2.20 thou/mcL Normal 1.00-4.80 [facility] Comment on above: Performed By: #### 5 7021-8 #### [facility], [address] [facility] [address] [place], [place]. Lymphocytes/100 WBC (Bld) 37.3 % Normal 22.0-44.0 [facility] Comment on above: Performed By: #### 5 7021-8 #### [facility], [address]. MCH Entitic mass (RBC) 30.9 Picograms Normal 27.0-34.0 [facility] Comment on above: Performed By: #### 5 7021-8 #### [facility], [address] [facility] [address]. MCHC mass conc (RBC) 33.5 g/dL Normal 32.0-36.0 [facility] [place] [facility] Comment on above: Performed By: #### 5 7021-8 #### [facility], [address] [address] [place], [place]. MCV Entitic volume (RBC) 92.3 fL Normal 80.0-97.0 [facility] Comment on above: Performed By: #### 5 7021-8 #### [facility], [facility] [address] [address]. Monocytes #/vol (Bld) 0.50 thou/mcL Normal 0.00-0.90 [facility] Comment on above: Performed By: #### 5 7021-8 #### [facility], [facility] [place]. Monocytes/100 WBC (Bld) 8.2 % Normal 0.0-12.0 [facility] Comment on above: Performed By: #### 5 7021-8 #### [facility], [address] [facility] [address]. Neutrophils #/vol (Bld) 3.10 thou/mcL Normal 1.80-7.70 [facility] Comment on above: Performed By: #### 5 7021-8 #### [facility], [address] [facility] [address]. Neutrophils/100 WBC (Bld) 51.1 % Normal 40.0-70.0 [facility] Comment on above: Performed By: #### 5 7021-8 #### [facility], [address] [address]. Platelet mean volume Entitic volume (Bld) 8.3 fL Normal 6.2-12.1 [facility] Comment on above: Performed By: #### 5 7021-8 #### [facility], [address], [place]. Platelets #/vol (Bld) 221 thou/mcL Normal 142-424 [facility] Comment on above: Performed By: #### 5 7021-8 #### [facility], [address] [facility] [place], [place]. RBC #/vol (Bld) 4.68 million/mcL Normal 3.80-5.10 [facility] Comment on above: Performed By: #### 5 7021-8 #### [facility], [address], [place]. WBC #/vol (Bld) 6.0 thou/mcL Normal 4.6-10.2 [facility] Comment on above: Performed By: #### 5 7021-8 #### [facility], [address] [place] [address]. [address] Ang Chest w and/or w/o Co [...] acute findings. No pulmonary embolus is identified. [place] thanks you for the opportunity to care for your patient. Workstation ID: [id number] - [id number] FINAL REPORT Dictated By: Billy Guzman MD 12/25/2018 13:59 Assigned Physician: Billy Guzman MD Reviewed and Electronically Signed By: Billy Guzman MD 12/25/2018 14:05 Transcribed by: CHRISTIANO 12/25/2018 13:59 Technologist: KATI,JASON Normal [facility] Comment on above: Order Comment: For i npatients, Nursing to order and initiate prep per [facility] Prep protocol D-Dimer Quantitativeon 12-25 Fibrin D-dimer Qn (PPP) <150 Normal 150-230 [facility] Comment on above: Result Comment: NORM [...] Units. Performed By: #### 4 8065-7 #### [facility], [address] [place] [address]. ED Pat Eduon 12-25-2018 ED Pat [address] [address] Emergency Department Discharge Instructions VINNY SUAREZ , Please provide this information to your Primary Care/Specialist Name : VINNY SUAREZ Current Date : 12/25/2018 15:52:28 : 1995 12:00 PM Primary Care Physician: Caron Parada MD Diagnosis : Follow-Up Instructions: VINNY SUAREZ has been given these follow-up instructions: FOLLOW-UP APPOINTMENTS: Provider: Specialty: Address: Date: Caron Parada MD [facility] [address] [place] [address] (1) Call for an Appointment Comment: early this week or the [facility] Laboratory Orders: Name: Status: Basic Metabolic Panel [...] [facility] Name VINNY SUAREZ MRN [facility]-[id number] PLEASE READ THE FOLLOWING REGARDING YOUR MEDICATIONS [...] doses are changed, or new medications (including bwgu-[id number] products) are added. If you have any [...] UNTIL YOU TALK TO YOUR DOCTOR None [place] [address] [place] [address] Emergency Department Discharge Instructions Name: VINNY SUAREZ Current Date: 12/25/2018 15:52:28 : 1995 12:00 PM Primary Physician: Karma LAMBERT , Caron Brower We would like to thank you for choosing [facility] for your emergency medical needs. We examined [...] health of those around you. Call the [place] [employer] at 5-525-EOQA-USA or the [place] [employer] at 5-379-IPS-3066 for more information. High blood pressure: Your [...] deadly infections. Discuss this with your child's picu nurse, or Public Health Department. Your family practice doctor can determine if you need pneumonia or flu vaccine. The [facility] Department can be reached at . Domestic [...] suicide hotline, anytime day or night, at 9-020-366-KGAM. Pharmacy Information: Below is a list of 24 hour pharmacies that we are aware of. We suggest that you call the specific pharmacy for their hours before traveling to a location. Hours may vary on holidays. [facility] Pharmacy [facility] [address] [place], [place] [phone] [place], [place] [address] [phone] [place], [place] [phone] [address], [place] [phone] [address], [place] [phone] [address], [place] [phone] [address] [place], [place] [phone] Take all medications as directed. If you need prescription assistance, contact the following agencies: ?? Partnership for Prescription Assistance at or www.Conmiox.org ?? [place] [facility] at or www.Ikariarx.org ?? www.DrivenBIRParantez.Giggem is a site with many valuable coupons Patient Education Materials VINNY SUAREZ has been given the following patient education materials: [facility] Emergency Department [address], [place] [address] Work Release Form This notice verifies that [...] 08/19/2006 Document Revised: 11/30/2015 Document Reviewed: 06/15/2015 [employer] Interactive Patient Education ?2016 [employer] <><><><><><><><><><><>< ><><><><><><><><><><><> <><> Patient Visit Summary Signature VINNY SUAREZ has been given the following list of patient education materials, prescriptions and follow-up instructions: ERICK Schumacher KENNEDY, have received the above patient education materials/instructions and have verbalized understanding: Date Time Patient Signature Date Time Provider Signature [facility] GFRaaon 12-25-2018 GFR/1.73 sq M predicted among blacks MDRD vol rate/area (S/P/Bld) mL/min/{1.73_m2} [facility] Comment on above: Result Comment: The MDRD equation has not been validated for those over 70 years, women, patients with serious co-morbid conditions, or with extremes of body size, muscle mass of nutritional status. Performed By: #### 6 9405-9, [id number], 73067-1, 44811-8 #### [facility], [address] [place] [address]. GFRbbon 12-25-2018 GFR/1.73 sq M predicted among non-blacks MDRD vol rate/area (S/P/Bld) mL/min/{1.73_m2} [facility] Comment on above: Performed By: #### 6 9405-9, [id number], 59563-8, 52306-5 #### [facility], [address] [place] [address]. Pre-Arrival Formon 9 Pre-Arrival Form Pre-Arrival Summary [...] had dvt, mother with recent pe. Normal [facility] Troponin Ion 12-25-2018 Troponin I.cardiac mass conc ng/mL Normal <0.06 [facility] Comment on above: Performed By: #### 5 7021-8 #### [facility], [address], [place]. Troponin I.cardiac mass conc ng/mL Normal <0.06 [facility] Comment on above: Performed By: #### 6 9405-9, [id number], 44716-7, 14327-5 #### [facility], [address], [place]. XR Chest 2 Viewson 9 XR Chest 2 views Two-view chest exam Indication: Chest Pain and shortness of breath COMPARISON: None FINDINGS: The lungs are clear and the costophrenic angles are sharp. The cardiomediastinal silhouette and bones are normal. IMPRESSION: Normal chest. [place] thanks you for the opportunity to care for your patient. Workstation ID: [id number] FINAL REPORT Dictated By: Gabe Diaz MD 12/25/2018 13:17 Assigned Physician: Gabe Diaz MD Reviewed and Electronically Signed By: Gabe Diaz MD 12/25/2018 13:18 Transcribed by: CHRISTIANO 12/25/2018 13:17 Technologist: FRANTZ Joyce [facility] Vital Signs Date Time Vital Sign Value Performing Clinician Facility 11-07-2024 09:17-0500 Body height 167.6 cm Sam Masterson MD Work Phone: [facility] 11-07-2024 09:17-0500 Body mass index (BMI) [Ratio] 15.98 kg/m2 Sam Masterson MD Work Phone: [facility] 11-07-2024 09:17-0500 Body temperature 98.2 [degF] Sam Masterson MD Work Phone: [facility] 11-07-2024 09:17-0500 Body weight 44.91 kg Sam Masterson MD Work Phone: [facility] 10-10-2024 08:30-0500 Body height 167.64 cm [facility] 10-10-2024 08:30-0500 Body mass index (BMI) [Ratio] 16 kg/m2 [facility] 10-10-2024 08:30-0500 Body weight 45.01 kg [facility] 10-10-2024 08:30-0500 Diastolic blood pressure 76 mm[Hg] [facility] 10-10-2024 08:30-0500 Heart rate 97 /min [facility] 10-10-2024 08:30-0500 Systolic blood pressure 110 mm[Hg] [facility] 08-19-2024 09:57-0400 Body height 167.6 cm Martha Richmond MD Work Phone: [facility] 08-19-2024 09:57-0400 Body mass index (BMI) [Ratio] 15.98 kg/m2 Martha Richmond MD Work Phone: [facility] 08-19-2024 09:57-0400 Body weight 44.91 kg Martha Richmond MD Work Phone: [facility] 08-19-2024 09:57-0400 Diastolic blood pressure 77 mm[Hg] Martha Richmond MD Work Phone: [facility] 08-19-2024 09:57-0400 Systolic blood pressure 113 mm[Hg] Martha Richmond MD Work Phone: [facility] 06-22-2024 09:44-0400 Body height 167.64 cm [facility] 06-22-2024 09:44-0400 Body mass index (BMI) [Ratio] 15.8 kg/m2 [facility] 06-22-2024 09:44-0400 Body temperature 98.8 [degF] [facility] 06-22-2024 09:44-0400 Body weight 44.62 kg [facility] 06-22-2024 09:44-0400 Diastolic blood pressure 85 mm[Hg] [facility] 06-22-2024 09:44-0400 Heart rate 101 /min [facility] 06-22-2024 09:44-0400 Systolic blood pressure 125 mm[Hg] [facility] 04-22-2024 10:02-0400 Body height 167.64 cm [facility] 04-22-2024 10:02-0400 Body mass index (BMI) [Ratio] 15.7 kg/m2 [facility] 04-22-2024 10:02-0400 Body weight 44.22 kg [facility] 04-22-2024 10:02-0400 Diastolic blood pressure 74 mm[Hg] [facility] 04-22-2024 10:02-0400 Heart rate 82 /min [facility] 04-22-2024 10:02-0400 Systolic blood pressure 105 mm[Hg] [facility] 08-31-2023 09:45-0400 Body height 167.64 cm Caron Parada Other [employer] Other 08-31-2023 09:45-0400 Body mass index (BMI) [Ratio] 15.65 kg/m2 Caron Parada Other [employer] Other 08-31-2023 09:45-0400 Body weight 44 kg Caron Parada Other [employer] Other 08-31-2023 09:45-0400 Diastolic blood pressure 71 mm[Hg] Caron Parada Other [employer] Other 08-31-2023 09:45-0400 Systolic blood pressure 102 mm[Hg] Caron Parada Other [employer] Other 02-26-2023 11:30-0400 Body height 167.64 cm Caron Parada Other [employer] Other 02-26-2023 11:30-0400 Body mass index (BMI) [Ratio] 16.3 kg/m2 Caron Parada Other [employer] Other 02-26-2023 11:30-0400 Body weight 45.81 kg Caron Parada Other [employer] Other 02-26-2023 11:30-0400 Diastolic blood pressure 64 mm[Hg] Caron Parada Other [employer] Other 02-26-2023 11:30-0400 SaO2% (BldA) [Mass fraction] 95 % Caron Parada Other [employer] Other 02-26-2023 11:30-0400 Systolic blood pressure 102 mm[Hg] Caron Parada Other [employer] Other Encounters Encounter Date Encounter Type Care Provider Facility Start: 11-07-2024 End: 11-07-2024 Office outpatient new 45 minutes Sam Masterson MD Work Phone: [facility] Comment on above: Localized swelling, mass and lump, neck (Primary Dx); Pulsatile neck mass Start: 11-07-2024 ambulatory SELF SELF [facility] Start: 10-10-2024 End: 10-10-2024 ambulatory [facility] Work Phone: Start: 10-10-2024 End: 10-10-2024 Patient encounter procedure [facility] Physician [facility] Work Phone: Start: 10-06-2024 Non-patient / Non-visit [facility] Physician [facility] Work Phone: Start: 08-19-2024 End: 08-19-2024 ambulatory MARTHA Brannon TIMMIS Not Available Start: 08-19-2024 End: 08-19-2024 Office outpatient visit 15 minutes Martha Richmond MD Work Phone: [facility] Comment on above: Neck mass (Primary D x) Start: 07-08-2024 End: 07-08-2024 ambulatory MARHTA H TIMMIS Not Available Start: 2024 ambulatory [facility] Work Phone: Start: 2024 Non-patient / Non-visit [facility] Physician [facility] Work Phone: Start: 06-22-2024 End: 06-22-2024 ambulatory [facility] Work Phone: Start: 06-22-2024 End: 06-22-2024 Patient encounter procedure [facility] Physician [facility] Work Phone: Start: 04-22-2024 End: 04-22-2024 ambulatory [facility] Work Phone: Start: 04-22-2024 End: 04-22-2024 Patient encounter procedure [facility] Physician [facility] Work Phone: Start: 01-25-2024 Non-patient / Non-visit [facility] Physician [facility] Work Phone: Start: 12-10-2023 End: 12-10-2023 ambulatory Caron Parada Other [employer] Other Start: 12-10-2023 Telephone encounter Caron Parada [facility] Start: 12-07-2023 End: 12-07-2023 ambulatory Caron Parada Other [employer] Other Start: 12-07-2023 Telephone encounter Caron Parada [facility] Start: 11-10-2023 End: 11-10-2023 ambulatory Caron Parada Other [employer] Other Start: 11-10-2023 Telephone encounter Caron Parada [facility] Start: 11-04-2023 End: 11-04-2023 ambulatory Caron Parada Other [employer] Other Start: 11-04-2023 Telephone encounter Caron Parada [facility] Start: 10-05-2023 End: 10-05-2023 ambulatory Caron Parada Other [employer] Other Start: 10-05-2023 Telephone encounter Caron Parada [facility] Start: 09-16-2023 End: 09-16-2023 ambulatory Caron Parada Other [employer] Other Start: 09-16-2023 Telephone encounter Caron Parada [facility] Start: 09-07-2023 End: 09-07-2023 ambulatory Caron Parada Other [employer] Other Start: 09-07-2023 Telephone encounter Caron Parada [facility] Start: 09-04-2023 End: 09-04-2023 ambulatory Caron Parada Other [employer] Other Start: 09-04-2023 Telephone encounter Caron Parada [facility] Start: 08-31-2023 End: 08-31-2023 ambulatory Caron Parada Other [employer] Other Start: 08-31-2023 Office outpatient vi sit 15 minutes Caron Parada [facility] Start: 08-07-2023 End: 08-07-2023 ambulatory Caron Parada Other [employer] Other Start: 08-07-2023 Telephone encounter Caron Karma [facility] Start: 07-03-2023 End: 07-03-2023 ambulatory Caron Parada Other [employer] Other Start: 07-03-2023 Telephone encounter Caron Karma [facility] Start: 05-06-2023 End: 05-06-2023 ambulatory Caron Parada Other [employer] Other Start: 05-06-2023 Telephone encounter Caron Karma [facility] Start: 02-26-2023 End: 02-26-2023 ambulatory Caron Parada Other [employer] Other Start: 02-26-2023 Office outpatient vi sit 15 minutes Caron Parada [facility] Start: 11-04-2022 End: 11-05-[address] CARON PARADA Facility: Start: 10-28-2022 Adult health examination Caron Parada Other [employer] Other Start: 03-01-2021 Patient encounter procedure CARON PARADA [facility] Start: 02-27-2021 End: 03-03-2021 Patient encounter procedure CARON PARADA [facility] Start: 12-25-2018 End: 12-25-2018 Emergency department patient visit CARIDAD ZAMBRANO Facility:[facility] Plan of Treatment Date Care Activity Detail Author Start: 11-07-2024 End: 11-07-2025 CTA Neck vessels WO and W contrast IV CT ANGIO NECK Imaging Routine Localized swelling, mass and lump, neck Pulsatile neck mass Expected: 11/07/2024, Expires: 11/07/2025 [facility] Comment on above: Expected: 11/07/2024 , Expires: 11/07/2025 Start: 10-10-2024 Patient referral [facility] Work Phone: Start: 07-24-2024 COVID-19 VACCINE ( season) COVID-19 VACCINE ( season) [facility] Start: 07-24-2024 Influenza vaccination INFLUENZA VACC INE (#1) [facility] Start: 2024 Patient referral [facility] Work Phone: Start: 2018 Screening for malign ant neoplasm of cervix CERVICAL CANCER SCREENING DISCUSSION [facility] Start: 2016 Hepatitis B vaccination HEP B VACCINE (1 of 3 - 19+ 3-dose series) [facility] Start: 2016 Third diphtheria, tetanus and acellular pertussis (DTaP) vaccination TDAP (ADULT) [facility] Start: 2012 HIV screening HIV SCREENING DISCUSSION [facility] Start: 1995 Hepatitis C screening HEPATITI S C VIRUS SCREENING [facility] Start: 1997 Tetanus vaccination TETANUS [facility] Patient referral [facility] Work Phone: Immunizations Immunization Date Immunization Notes Care Provider Fa williams 03-20-2016 meningococcal oligosaccharide (groups A, C, Y and W-135) diphtheria toxoid conjugate vaccine (MCV4O) Caron Parada Other [facility] Payers Date Payer Category Payer Unknown [id number] 2024 [facility] [id number] 2020 Unknown [id number] 2017 Unknown [id number] 1995 Unknown [id number] 2.16.8 [id number] 1997 Unknown [id number] [id number]. [id number] 1997 Unknown [id number] [id number]. [id number] 1997 Unknown [id number] [id number] [id number] 1997 Unknown [id number] 2.16.84 [id number] 1997 Unknown [id number] 2.16.84 [id number] 1997 Unknown [id number] [id number] 1959 Unknown [id number] Social History Date Type Detail Facility Unknown if ever smoked [employer] Other Start: 07-08-2024 End: 11-07-2024 Sex Assigned At [employer] Other Start: 04-22-2024 End: 07-05-2024 Tobacco smoking status NHIS Never smoked tobacco (finding) [facility] Start: 1995 Sex Assigned At Female [facility] Start: 10-10-2024 Sex Female (finding) [facility] Start: 07-05-2024 End: 11-07-2024 Tobacco use and exposure Smokeless tobacco non-user [facility] Start: 07-08-2024 End: 11-07-2024 History of Social function [facility] Start: 1995 Sex assigned at Not on file [facility] Start: 11-04-2024 Gender identity Identifies as female gender (finding) [facility] Start: 11-04-2024 Sexual orientation Heterosexual (finding) [facility] Start: 08-19-2024 Alcoholic beverage intake Ex-drinker (finding) [facility] Start: 07-08-2024 Alcohol Comment Very rare [facility] Clinical Notes 02-26-2023 to 11-07-2024 Sam Masterson MD - 11/07/2024 9:45 AM Lucy Bob - 11/07/2024 9:45 AM Charu Richmond MD - 08/19/2024 9:50 AM EDT Note Date & Type Note Facility 11-07-2024 History of Presen t illness Narrative ENT History & Physical Chief Complaint: New Patient (Swollen lymph node ) Referring Provider: Self, Self HPI: Vinny Suarez is a 29 y.o. female who presents with neck mass. Reports it occurred after a long run. Was seen by [facility] ENT where a CT neck was obtained but showed no adenopathy. She reports she will frequently get swelling in her right neck usually after exercise but sometimes for no reason while lying in bed. She notes that she has significant pain and discomfort in the neck in the area of swelling, she reports it feels like it's going to burst. No history of connective tissue disease, nonsmoker. She runs about 4-5 miles a day. The following areas of the chart have been personally reviewed: Tobacco Allergies Meds Problems Med Hx Surg Hx Fam Hx Review of Systems: General: Negative Eyes: Negative ENT: Per HPI Heart: Negative Respiratory: Negative GI: Negative : Negative Skin: Negative Neuro: Negative Psych: Negative Endocrine: Negative Heme/lymph: Negative Past Medical History: No past medical history on file. Past Surgical History: No past surgical history on file. Medications: Current Outpatient Medications Medication Sig Lisdexamfetamine (Vyvanse) 30 MG capsule Take by mouth daily every morning. Allergies: Not on File Family History: History reviewed. No pertinent family history. Social History: Social History Tobacco Use Smoking status: Never Smokeless tobacco: Never Objective: Vitals: 11/07/24 0917 Temp: 98.2 F (36.8 C) General: No acute distress Head: Normocephalic, atraumatic Face: Bilateral symmetric movement, sensation intact Eyes: Extraocular movements intact, no scleral icterus Ears: No external deformity. LEFT ear canal patent, tympanic membrane midposition, pearly brandon, and without effusion RIGHT ear canal patent, tympanic membrane midposition, pearly brandon, and without effusion Nose: Nasal cavities patent, no lesions Mouth: Moist mucous membranes, no lesions Neck: Supple, nontender, no lymphadenopathy; pulsatile mass right neck level II Cardiovascular: Intact peripheral perfusion Pulmonary: Equal chest rise, nonlabored respirations, no stridor Skin: Warm and dry, no lesions of the head and neck Neuro: Alert and oriented, no cranial nerve deficits Psych: Normal affect Prior CT neck dated 08/05/24 report reviewed: IMPRESSION: 1. Multiple small lymph nodes are visualized in the soft tissues of the neck, nonenlarged. This includes a 6 x 12 mm lymph node subjacent to the marker placed at the right side of the neck. 2. No mass lesions, fluid collection in the soft tissues adjacent to the right-sided marker. No right-sided sialoadenitis. Assessment and Plan: Vinny was seen today for new patient. Diagnoses and all orders for this visit: Localized swelling, mass and lump, neck - CT ANGIO NECK; Future Pulsatile neck mass - CT ANGIO NECK; Future -- Neck mass, which seems to enlarge in high cardiac output states or when lying flat, suggestive of jugular vein distension or aneurysm, or other vascular abnormality. Prior CT did not show any lesions but patient reports the scan was done while she was feeling at baseline. -- Recommend CT angiogram / CT venogram to further evaluate. Will call with CT results Sam Masterson MD HISTORY OF PRESENT ILLNESS- Vinny Suarez is a 29 y.o. female who comes in with the following complaint(s): swollen lymph node Believes she has a swollen lymph node on right side of neck, does have CT scan with her today documented in this encounter [facility] 08-19-2024 History of Presen t illness Narrative Subjective Patient ID: Vinny Suarez is a 29 y.o. female who presents for Neck Mass (Follow up [facility] 08/05) CT neck reviewed and no abnormality evident, but pt adamant her neck feels swollen with sx exacerbated by running. Family History Problem Relation Name Age of Onset Other (HTN) Father Robel Suarez Hypertension Father Robel Suarez Cancer Maternal Grandmother Peyton Barahona Diabetes Maternal Grandmother Peyton Barahona Migraines Mother Kika Suarez Active Ambulatory Problems Diagnosis Date Noted ADHD (attention deficit hyperactivity disorder) ([facility]) 07/05/2024 Cervical lymphadenopathy 07/05/2024 Chest pain 06/07/2020 Migraine ([facility]) 07/05/2024 Neck mass 07/08/2024 Resolved Ambulatory Problems Diagnosis Date Noted No Resolved Ambulatory Problems Past Medical History: Diagnosis Date GERD (gastroesophageal reflux disease) 2019 Past Surgical History: Procedure Laterality Date CT ANGIOGRAM CHEST 12/25/2018 CT ANGIOGRAM CHEST 12/25/2018 TYMPANOSTOMY TUBE PLACEMENT Allergies Allergen Reactions Shellfish-Derived Products Diarrhea, Itching and Unknown Current Outpatient Medications on File Prior to Visit Medication Sig Dispense Refill albuterol HFA 90 mcg/act inhaler Inhale 2 puffs every 6 (six) hours if needed for shortness of breath lisdexamfetamine (Vyvanse) 30 MG capsule Take 30 mg by mouth in the morning. norethindrone-ethinyl estradiol (Microgestin 12/12) 1-20 MG-MCG tablet Take 1 tablet by mouth Daily No current facility-administered medications on file prior to visit. Objective Last Recorded Vitals Vitals: 08/19/24 0957 BP: 113/77 ENT Physical Exam Constitutional Appearance: patient appears well-developed, well-nourished and well-groomed, Communication/Voice: communication appropriate for developmental age; vocal quality normal; Neck Neck: neck normal; neck palpation normal; Thyroid: thyroid normal; Assessment/Plan Diagnoses and all orders for this visit: Neck mass Pt reassured that her CT scan is normal, but since she continues to perceive sig sx. I will get a second opinion at [facility]. documented in this encounter [facility] 08-31-2023 Evaluation note Encounter Date Diagnosis Assessment Notes Aug, LLQ abdominal pain (ICD-10 - R10.32) Discussed PT for muscle strain v. imaging. Pt opts for imaging w US to r/o enlarged LN or obvious hernia. [employer] Other 06-14-2023 Evaluation note* Encounter Date Diagnosis Assessment Notes Treatment Notes Treatment Clinical Notes Apr, Attention deficit disorder (ADD) in adult (ICD-10 - F98.8) [employer] Other 04-06-2023 Evaluation note* Encounter Date Diagnosis Assessment Notes Treatment Notes Treatment Clinical Notes Feb, Attention deficit disorder (ADD) in adult (ICD-10 - F98.8) Pt prefers stopping the Adderall and switching back to Vyvanse with the coupon. Feb, Acne vulgaris (ICD-10 - L70.0) Increase acne. Will continue ocp and add oral antibiotic for a few months. Feb, Irregular menses (ICD-10 - N92.6) continue OCP. Suggested appt w field identification specialist. [employer] Other Evaluation noteNo InformationNort [place] Other Evaluation noteNo assessment information available [facility] Work Phone: Evaluation note* Diagnosis Onset Date Resolution Status ADHD (attention deficit hyperactivity disorder) acute [facility] Work Phone: Evaluation note* Diagnosis Onset Date Resolution Status ADHD (attention deficit hyperactivity disorder) acute Cervical lymphadenopathy acu te Migraine acute [facility] Work Phone: Evaluation note* Diagnosis Onset Date Resolution Status Admit Date Cervical lymphadenopathy acute October 10, 2024 8:23am [facility] Work Phone: Evaluation note* Diagnosis Localized swelling, mass and lump, neck- Primary Swelling, mass, or lump in head and neck Pulsatile [facility] Neck mass- Primary Swelling, mass, or lump in head and neck documented in this encounter [facility] HealthcareHistory general Narrative - Reported* Type Description Date Medical History Attention deficit disorder (ADD) in adult Medical History Pinworms Medical History Pharyngitis Medical History Hypoglycemia Medical History Abnormal loss of weight [employer] Other History general Narrative - Reported* Type Description Date Medical History Attention deficit disorder (ADD) in [...] Comment : none, Problem Status : Active, [employer] Other Hospital Discharge instructionsAmbulatory Orders* Referral to ENT Time Frame: 06/30/24, Location: None [facility] Work Phone: Hospital Discharge instructionsAmbulatory Orders* Referral to ENT Time Frame: 10/10/24, Location: None [facility] Work Phone: Summary Purpose Family History Relationship Condition Age at Onset Recorded Date/T yumiko Not Specified Malignant neoplasm Unknown Diabetes mellitus Unknown father Hypertension Unknown Relationship Condition Age at Onset Recorded Date/T yumiko maternal grandmother Malignant neoplasm Unknown Diabetes mellitus Unknown father Hypertension Unknown Advance Directives Advance Directive Response Recorded Date/ Time Advance Directives No April 22 9:55am Advance Directive Response Recorded Date/ Time Advance Directives No April 22 8:55am Hospital Course Note EMERGENCY DEPARTMENT DISCHAR GE SUMMARY PATIENT NAME:VINNY SUAREZ AGE: 23 Years SEX: Female PHONE:[id number] DOS: 12/25/2018 11:36 AM : 1995 ATTENDING PHYSICIAN:Caridad Zambrano MD PCP: Karma LAMBERT , Caron Brower CHIEF COMPLAINT: Chest [...] defi cit hyperactivity disorder) Cervical lymphadenopathy Migraine Chief Complaint Admit Date CC Adult Risk Stratification October 062023 2:15pm Med f/u October 10, 2024 8:23am Reason for Visit Admit Date Cervical lymphadenopathy October 10, 2024 8:23am Reason for Referral Specialty Diagnoses / Procedures Referred By Contac t Referred To Contact Diagnoses Localized swelling, mass and lump, neck Pulsatile neck mass Procedures CT ANGIO NECK CHG CT ANGIOGRAPHY NECK W/CONTRAST/NONCONTRAST Sam Masterson MD [address] [place] [address] Referral ID Status Reason Start Date Expiration Date V isits Requested Visits Authorized [id number] New Request 11/07/2024 12/02/2025 1 1 Additional Source Comments INFORMATION SOURCE (unrecogn ized section and content) DATE CREATED AUTHOR 01/11/2019 [facility] DATE CREATED AUTHOR AUTHOR'S ORGANIZ ATION 03/01/2021 [facility] DATE CREATED AUTHOR AUTHOR'S ORGANIZ ATION 03/03/2021 [facility] DATE CREATED AUTHOR AUTHOR'S ORGANIZ ATION [facility]/19/2023 [facility] DATE CREATED AUTHOR AUTHOR'S ORGANIZ ATION 08/20/2024 [facility] EPIC DATE CREATED AUTHOR AUTHOR'S ORGANIZ ATION 11/08/2024 [facility] REASON FOR VISIT (unrecogniz ed section and content) Reason Comments New Patient Swollen lymph node Specialty Diagnoses / Procedures Referred By Contac t Referred To Contact Otolaryngology Diagnoses Localized enlarged lymph nodes Caron Parada MD [address] [facility] [place] [address] Sam Masterson MD [address] [place] [id number] Referral ID Status Reason Start Date Expiration Date Visits Re quested Visits Authorized [id number] Closed 10/13/2024 11/07/2025 1 1 Reason Comments Neck Mass Follow up [facility] 07/24 3 Care Teams (unrecognized sec tion and content) Team Status: Active Member Role Status Dates Caron Parada MD Primary Care Provider Active Team Status: Active Member Role Status Dates Caron Parada MD Primary Care Provide r, Attending Provider Active Start: October 06, 2024 Team Status: Inactive Member Role Status Nasim Parada MD Primary Care Provide r, Attending Provider Active Start: October 10, 2024 End: October 10, 2024 Team Status: Inactive Member Role Status Nasim Parada MD Primary Care Provide r, Attending Provider Active Start: April 22, 2024 End: April 22, 2024 Team Status: Inactive Member Role Status Nasim Parada MD Primary Care Provide r, Attending Provider Active Start: June 22, 2024 End: June 22, 2024 Team Status: Active Member Role Status Nasim Parada MD Primary Care Provider Active Start: January 25, 2024 MARIAN Knapp Attending Provider Active Start : January 25, 2024 Team Status: Active Member Role Status Nasim Parada MD Primary Care Provide r, Attending Provider Active Start: 2024 [employer] Relationship Specialty Start Date End Date Caron Parada MD [address] [place] [id number] PCP - General Family Medicine 07/01/24 Goals (unrecognized section and content) Goals may [...] BE BASED ON THE PRIMARY CLINICAL RECORDS. [facility] [employer] [facility]. provides no warranty or guarantee of the accuracy or completeness of information in this document.
--- NOTE | 2024-12-12 09:50 | CT_ITS ---
The [address] [address] Patient Name: DEJAN ESCOBEDO MRN: [id number] date: 1995 Sex: F Assigned Patient Location: CT Current Patient Location: Accession/Order Number: [id number] Exam Date: 12/12/2024 09:35 Report Date: 12/15/2024 05:23 At the request of: AMAURI KUMAR Procedure: CT angio neck EXAMINATION: CT angio neck HISTORY: Localized Swelling, Mass And Lump Neck R22.1 ; patient describes palpable lump on right side of neck for several months COMPARISON: No relevant comparison available. TECHNIQUE: Multiplanar CT imaging without and with IV contrast. Multi-planar/3-D imaging to optimize visualization of vascular anatomy. Percent stenosis is based on NASCET criteria. Dose reduction techniques were achieved by using automated exposure control and/or adjustment of mA and/or kV according to patient size and/or use of iterative reconstruction technique. FINDINGS: RIGHT INTERNAL CAROTID: No hemodynamically significant stenosis or dissection. EXTERNAL CAROTID: No hemodynamically significant stenosis or dissection. COMMON CAROTID: No hemodynamically significant stenosis or dissection. VERTEBRAL: No hemodynamically significant stenosis or dissection. LEFT INTERNAL CAROTID: No hemodynamically significant stenosis or dissection. EXTERNAL CAROTID: No hemodynamically significant stenosis or dissection. COMMON CAROTID: No hemodynamically significant stenosis or dissection. VERTEBRAL: No hemodynamically significant stenosis or dissection. OTHER: Skin surface marker localizing the patient's palpable lump is positioned over the right submandibular gland. No appreciable abnormality of the gland, enlarged lymph nodes, mass, fluid collection. CT/CT angio neck IMPRESSION: 1. No abnormal or suspicious findings to account for patient's palpable lump. 2. Normal CT angiography of the neck. Electronically authenticated by: AKIN NAM Date: 12/15/2024 05:23
== END 2024-12-12 09:07 | disposition home or self-care (01) ==
LOC: CT 09:07
PROVIDERS: PCP Family Medicine
DX: R22.1 Localized swelling, mass and lump, neck (principal)
CPT/HCPCS: 70498; Q9967

== ENCOUNTER 2025-06-26 10:59 | Outpatient (OUT) | payer BC, SELFPAY ==
--- NOTE | 2025-06-26 11:07 | XR_ITS ---
The [address] [address] Patient Name: DEJAN ESCOBEDO MRN: [id number] date: 1995 Sex: F Assigned Patient Location: RAD Current Patient Location: [facility] Accession/Order Number: [id number] Exam Date: 06/26/2025 12:49 Report Date: 06/26/2025 12:51 At the request of: JAMILAH VILLALPANDO DPFela Procedure: XR foot RT min 3V RIGHT FOOT - 3 views CLINICAL HISTORY: Right foot pain no known injury. COMPARISON: None FINDINGS: No focal soft tissue abnormality. No acute bony process is seen. Joint spaces appear maintained. XR/XR foot RT min 3V IMPRESSION: NO ACUTE BONY PROCESS. Impression dictated by: Rufina García Jr.OChristina 06/26/2025 12:51 PM Dictation Location: [place] [address] Electronically authenticated by: [id number] Y Date: 06/26/2025 12:51
--- OUTSIDE RECORDS SUMMARY | 2025-06-26 11:25 | XMS_ITS | CCD ---
Author Organization [facility] Care Team Providers Care Management Recruiter Name Role Phone CARIDAD ZAMBRANO Attending Unavailable CARON PARADA Primary Care Unavaila CARON Pierson Primary Care Unavailable SHAN PHILLIP Attending Unava [...] MASTERSON Attending Unavailable Unavailable Primary Care Provider UnavailCaron Johnson MD Primary Care Provider Caron Parada MD Primary Care Provider Caron Parada MD Attending Provider [phone] Allergies Allergy Classification Reported Allergen(s) Allergy Type Date of Onset Reaction(s) Facility (2 sources) patient allergy list reviewed by nurse or physicia Propensity to adverse reactions 9 Comment:Done [employer] Other (2 sources) Allergies Reconciled Propensity to adverse reactions Unknown [employer] Other (2 sources) Shellfish-Deriv ed Products Propensity to adverse reactions 4 Diarrhea, Itching, Unknown [facility] Medications Current Medications Medication Drug Class(es) Dates Sig (Normalized) Sig (Original) [id number] 200 actuat albuterol 0.09 mg/actuat metered dose inhaler (15 sources) beta2-Adrenergic Agonist Start: 04-27-2025 take 1 puff(s) by inhalation every four hours Albuterol Sulfate 90 mcg/actuation HFA aerosol inhaler Active 2 PUFF INHALATION Every 4 hours 8.5 April 27, 2025 8:38am Complies with drug therapy Start: 04-21-2024 End: 04-27-2025 take 2 puff(s) by inhalation every four hours as needed Albuterol Sulfate 90 mcg/actuation HFA aerosol inhaler Discontinued 2 PUFF INHALATION Every 4 hours April 21, 2024 12:00am April 27, 2025 8:39am [employer] puffs as needed Inhalation every 4 [...] Norethindrone Ac-Eth Estradiol (20 sources) Estrogen Start: 2024 take 1 tablet by mouth once daily Norethindrone Ac-Eth Estradiol 1-20 mg-mcg tablet Active 0 .ROUTE .COMPLEX 84 May 29, 2025 4:26pm take 1 tablet by mouth once daily Complies with drug therapy Start: 06-13-2024 norethindrone- ethinyl estradiol (Microgestin 1/20) 1-20 MG-MCG tablet Take 1 tablet by mouth Daily 06/13/2024 Active Start: 06-13-2024 End: 05-29-2025 take 1 tablet by mouth once daily Norethindrone Ac-Eth Estradiol 1-20 mg-mcg tablet Discontinued 0 .ROUTE .COMPLEX 84 June 13, 2024 12:42pm May 29, 2025 4:27pm take 1 tablet by mouth once daily Start: 06-13-2024 take 1 tablet by sherri th once daily Norethindrone Ac-Eth Estradiol 1-20 mg-mcg tablet Active 0 [address] [place] [id number] June 13, 2024 12:42pm take 1 tablet by mouth once daily Start: 06-13-2024 take 1 tablet by sherri th once daily Norethindrone Ac-Eth Estradiol 1-20 mg-mcg tablet Active 0 [address] [id number] June 13, 2024 11:42am take 1 tablet by mouth once daily Start: 06-13-2024 take 1 tablet by sherri th once daily Norethindrone Ac-Eth Estradiol Active 0 [address] [address] [id number] June 13, 2024 12:42pm take 1 tablet by mouth once daily Start: 02-08-2024 End: 06-13-2024 take 1 tablet by mouth once daily Norethindrone Ac-Eth Estradiol 1-20 mg-mcg tablet Discontinued 0 [address] [id number] February 08, 2024 4:40pm June 13, 2024 12:42pm take 1 tablet by mouth once daily Start: 02-08-2024 End: 06-13-2024 take 1 tablet by mouth once daily Norethindrone Ac-Eth Estradiol 1-20 mg-mcg tablet Discontinued 0 [address] [place] [id number] February 08, 2024 3:40pm June 13, 2024 11:42am take 1 tablet by mouth once daily Start: 02-08-2024 End: 06-13-2024 take 1 tablet by mouth once daily Norethindrone Ac-Eth Estradiol Discontinued 0 [address] [id number] February 08, 2024 4:40pm June 13, 2024 12:42pm take 1 tablet by mouth once daily Start: 02-08-2024 take 1 tablet by sherri th once daily Norethindrone Ac-Eth Estradiol Active 0 [address] [id number] February 08, 2024 4:40pm take 1 tablet by mouth once daily Start: 01-25-2024 End: 02-08-2024 take 1 tablet by mouth once daily Norethindrone Ac-Eth Estradiol 1-20 mg-mcg tablet Discontinued 0 [address] [place] [id number] January 25, 2024 4:41pm February 08, 2024 4:40pm take 1 tablet by mouth once daily Start: 01-25-2024 End: 02-08-2024 take 1 tablet by mouth once daily Norethindrone Ac-Eth Estradiol 1-20 mg-mcg tablet Discontinued 0 .ROUTE .[place] 84 January 25, 2024 3:41pm February 08, 2024 3:40pm take 1 tablet by mouth once daily Start: 01-25-2024 End: 02-08-2024 take 1 tablet by mouth once daily Norethindrone Ac-Eth Estradiol Discontinued 0 .ROUTE .[place] 84 January 25, 2024 4:41pm February 08, 2024 4:40pm take 1 tablet by mouth once daily Start: 01-25-2024 End: 01-25-2024 take 1 tablet by mouth once daily Norethindrone Ac-Eth Estradiol 1-20 mg-mcg tablet Discontinued 1 TAB PO Daily January 25, 2024 1:00am January 25, 2024 4:41pm Start: 01-25-2024 End: 01-25-2024 take 1 tablet [...] (20 sources) Central Nervous System Stimulant Start: 05-30-2025 End: 06-01-2025 take 1 capsule by mouth once daily Lisdexamfetamine (Vyvanse) 30 mg capsule Active 30 MG PO Daily June 01, 2025 Complies with drug therapy Start: 05-30-2025 take 1 capsule by mo [facility] once daily Lisdexamfetamine (Vyvanse) 30 mg capsule Active 30 MG PO Daily May 30, 2025 Start: 12-29-2024 End: 05-03-2025 take 1 capsule by mouth once daily Lisdexamfetamine (Vyvanse) 30 mg capsule Discontinued 30 MG PO Daily April 27, 2025 May 03, 2025 11:30am Start: 11-29-2024 End: 11-29-2024 take 1 capsule by mouth once daily Lisdexamfetamine (Vyvanse) 30 mg capsule Discontinued 30 MG PO Daily November 29, 2024 November 29, 2024 9:47am Start: 09-29-2024 End: 12-29-2024 take 1 capsule by mouth once daily Lisdexamfetamine (Vyvanse) 30 mg capsule Discontinued 30 MG PO Daily October 25, 2024 November 29, 2024 9:47am Start: 09-27-2024 End: 09-22-2024 take 1 capsule by mouth once daily Lisdexamfetamine (Vyvanse) 30 mg capsule Discontinued 30 MG PO Daily September 27, 2024 September 22, 2024 4:22pm Start: 09-27-2024 End: 09-22-2024 take 1 capsule by mouth once daily Lisdexamfetamine (Vyvanse) 30 mg capsule Discontinued 30 MG PO Daily September 27, 2024 September 22, 2024 4:22pm Start: 09-27-2024 End: 09-22-2024 take 1 capsule by mouth once daily Lisdexamfetamine (Vyvanse) 30 mg capsule Discontinued 30 MG PO Daily September 27, 2024 September 22, 2024 3:22pm Start: 06-07-2024 End: 09-22-2024 take 1 capsule by mouth once daily Lisdexamfetamine (Vyvanse) 30 mg capsule Discontinued 30 MG PO Daily August 29, 2024 September 22, 2024 4:17pm Start: 01-07-2024 End: 05-30-2024 take 1 capsule [...] every morning for 30 Nov, Active Start: 02-26-2023 take 1 capsule by mo uth once daily in the morning Vyvanse 30 MG take 1 capsule by mouth every morning for 30 Oct, Active Completed/Discontinued Medications Medication Drug Class(es) Dates Sig (Normalized) Sig (Original) amoxicillin 875 mg oral tablet (2 sources) Penicillin-class Antibacterial Start: 10-25-2024 End: 05-03-2025 take 1 tablet by mouth twice daily Amoxicillin 875 mg tablet Discontinued 875 MG PO Twice daily 14 October 25, 2024 1:00am May 03, 2025 11:00am cefdinir 300 mg oral capsule (5 sources) Cephalosporin Antibacterial Start: 06-22-2024 End: 10-10-2024 take 1 capsule by mouth twice daily Cefdinir 300 mg capsule Discontinued 300 MG PO Twice daily June 22, 2024 12:00am October 10, 2024 9:34am fluticasone propionate 0.05 mg/actuat metered dose nasal spray (2 sources) Corticosteroid Start: 10-25-2024 End: 05-03-2025 take 1 spray(s) nasal route twice daily Fluticasone Propionate (Flonase Allergy Relief) 50 mcg/actuation spray,suspension Discontinued 1 SPRAY INTRANASAL Twice daily October 25, 2024 1:00am May 03, 2025 11:00am administer into each nostril Problems Active Problems Problem Classification Problem Date [...] Chronic Attention-deficit, conduct, and disruptive behavior disorders (9 sources) Attention deficit hyperactivity disorder; Translations: [Attention-deficit [...] system] Onset: 05-15-2015 Episodic Headache; including migraine (7 sources) Migraine; Translations: [Migraine, unspecified, not intractable, without status migrainosus] Onset: 07-05-2024 06-22-2024 Chronic Headache; including migraine (1 source) Headache; including migraine; Translations: [Headache, unspecified] Onset: 11-14-2015 Lymphadenitis (9 sources) Cervical lymphadenopathy; Translations: [Localized enlarged lymph [...] Translations: [Acute pharyngitis, unspecified] Onset: 04-29-2016 Episodic Otitis media and related conditions (4 sources) Dysfunction of eustachian tube; Translations: [Unspecified Eustachian tube disorder, unspecified ear] 10-25-2024 Episodic Unclassified (2 sources) Need for prophylactic [...] Insulin 2.1 uIU/mL Critically low 2.6-24.9 [facility] Comment on above: Performed By: #### I NSULIN #### [facility] [address] [place] [address] Dr. Smitha Batista CBC AUTO DIFFon 11-04-2022 BASO # 0.0 103/ul Normal 0.0-0.1 [facility] Comment on above: Performed By: #### C BC #### [facility] [address] [place] [address] Dr. Smitha Batista Basophils/100 WBC (Bld) 0.9 % Normal 0.2-2.0 [facility] Comment on above: Performed By: #### C BC #### [facility] [address] [place] [address] Dr. Smitha Batista EO # 0.2 103/ul Normal 0.0-0.7 [facility] Comment on above: Performed By: #### C BC #### [facility] [address] [place] [address] Dr. Smitha Batista Eosinophils/100 WBC (Bld) 3.9 % Normal 0.9-7.0 [facility] Comment on above: Performed By: #### C BC #### [facility] [address] [place] [address] Dr. Smitha Batista Erythrocyte distribution width (RBC) [Ratio] 12.3 % Normal 11.0-15.0 [facility] Comment on above: Performed By: #### C BC #### [facility] [address] [place] [address] Dr. Smitha Batista Hematocrit (Bld) [Volume fraction] 40.1 % Normal 36.0-48.0 [facility] Comment on above: Performed By: #### C BC #### [facility] [address] [place] [address] Dr. Smitha Batista Hemoglobin (Bld) [Mass/Vol] 13.8 g/dL Normal 12.0-16.0 [facility] Comment on above: Performed By: #### C BC #### [facility] [address] [place] [address] Dr. Smitah Batista IG # 0.01 10e3/ul Normal 0.00-0.03 [facility] Comment on above: Performed By: #### C BC #### [facility] [address] [place] [address] Dr. Smitha Batista IG % 0.2 % Normal 0.0-0.5 [facility] Comment on above: Performed By: #### C BC #### [facility] [address] [place] [address] Dr. Smitha Batista LYMPH # 2.0 103/ul Normal 1.2-3.8 [facility] Comment on above: Performed By: #### C BC #### [facility] [address] [place] [address] Dr. Smitha Batista Lymphocytes/100 WBC (Bld) 46.4 % Normal 20.5-60.0 [facility] Comment on above: Performed By: #### C BC #### [facility] [address] [place] [address] Dr. Smitha Batista MANUAL DIFF REQ NO Normal [facility] Comment on above: Performed By: #### C BC #### [facility] [address] [place] [address] Dr. Smitha Batista MCH (RBC) [Entitic mass] 31.0 pg Normal 26.7-34.0 [facility] Comment on above: Performed By: #### C BC #### [facility] [address] [place] [address] Dr. Smitha Batista MCHC (RBC) [Mass/Vol] 34.4 g/dL Normal 29.9-35.2 [facility] Comment on above: Performed By: #### C BC #### [facility] [address] [place] [address] Dr. Smitha Batista MCV (RBC) [Entitic vol] 90.1 fL Normal 81.0-99.0 [facility] Comment on above: Performed By: #### C BC #### [facility] [address] [place] [address] Dr. Smitha Batista MONO # 0.3 103/ul Normal 0.3-0.8 [facility] Comment on above: Performed By: #### C BC #### [facility] [address] [place] [address] Dr. Smitha Batista Monocytes/100 WBC (Bld) 6.9 % Normal 1.7-12.0 [facility] Comment on above: Performed By: #### C BC #### [facility] [address] [place] [address] Dr. Smitha Batista NEUT # 1.8 103/ul Normal 1.4-6.5 [facility] Comment on above: Performed By: #### C BC #### [facility] [address] [place] [address] Dr. Smitha Batista Neutrophils/100 WBC (Bld) 41.7 % Critically low 43.0-75.0 [facility] Comment on above: Performed By: #### C BC #### [facility] [address] [place] [address] Dr. Smitha Batista Platelet mean volume (Bld) [Entitic vol] 12.2 fL Normal 9.5-13.5 [facility] Comment on above: Performed By: #### C BC #### [facility] [address] [place] [address] Dr. Smitha Batista PLT 164 103/ul Normal 150-450 [facility] Comment on above: Performed By: #### C BC #### [facility] [address] [place] [address] Dr. Smitha Batista RBC 4.45 106/ul Normal 4.20-5.40 [facility] Comment on above: Performed By: #### C BC #### [facility] [address] [place] [address] Dr. Smitha Batista WBC 4.3 103/ul Normal 4.0-11.0 [facility] Comment on above: Performed By: #### C BC #### [facility] [address] [place] [address] Dr. Smitha Batista FERRITINon 11-04-2022 Ferritin [Mass/Vol] 105.0 ng/mL Normal 6.2-137.0 [facility] Comment on above: Performed By: #### F T4, FERR #### [facility] [address] [place] [address] Dr. Smitha Batista FREE T4on 11-04-2022 Free T4 [Mass/Vol] 0.98 ng/dL Normal 0.76-1.46 [facility] Comment on above: Performed By: #### F T4, FERR #### [facility] [address] [place] [address] Dr. Smitha Batista PROF CHEM 8 (BAS METB)on Anion gap [Moles/Vol] 14.6 mmol/L Normal [facility] Comment on above: Performed By: #### B MP, TSH #### [facility] [address] [address] [address] Smitha Batista Calcium [Mass/Vol] 8.9 mg/dL Normal 8.5-10.1 [facility] Comment on above: Performed By: #### B MP, TSH #### [facility] [address] [place] [address] Dr. Smitha Batista Chloride [Moles/Vol] 107 mmol/L Normal 98-107 [facility] Comment on above: Performed By: #### B MP, TSH #### [facility] [address] [place] [address] Dr. Smitha Batista CO2 [Moles/Vol] 24.3 mmol/L Normal 21.0-32.0 [facility] Comment on above: Performed By: #### B MP, TSH #### [facility] [address] [place] [address] Dr. Smitha Batista Creatinine [Mass/Vol] 0.82 mg/dL Normal 0.55-1.02 [facility] Comment on above: Performed By: #### B MP, TSH #### [facility] [address] [place] [address] Dr. Smitha Batista EGFR-AF MALDIVIAN >60 Normal >=60 [facility] Comment on above: Performed By: #### B MP, TSH #### [facility] [address] [place] [address] Dr. Smitha Batista EGFR-NON AF MALDIVIAN >60 Normal >=60 [facility] Comment on above: Performed By: #### B MP, TSH #### [facility] [address] [id number] [address] Smitha Batista Glucose [Mass/Vol] 81 mg/dL Normal 74-106 [facility] Comment on above: Performed By: #### B MP, TSH #### [facility] [address] [address] [address] Smitha Batista Potassium [Moles/Vol] 3.9 mmol/L Normal 3.5-5.1 [facility] Comment on above: Performed By: #### B MP, TSH #### [facility] [address] [address] [address] Smitha Batista Sodium [Moles/Vol] 142 mmol/L Normal 136-145 [facility] Comment on above: Performed By: #### B GEORGINA, TSH #### [facility] [address] [address] [address] Smitha Batista Urea nitrogen [Mass/Vol] 8.0 mg/dL Normal 7.0-18.0 [facility] Comment on above: Performed By: #### B MP, TSH #### [facility] [address] [address] [address] Smitha Batista Urea nitrogen/Creatinine [Mass ratio] 9.8 mg/mg Normal [facility] Comment on above: Performed By: #### B GEORGINA, TSH #### [facility] [address] [address] [address] Smitha Batista TSHon 11-04-2022 TSH 1.299 uIU/mL Normal 0.358-3.740 [facility] Comment on above: Performed By: #### B MP, TSH #### [facility] [address] [address] [address] Smitha Batista Basic Metabolic Panelon Anion gap molar conc 9.0 mmol/L Normal 6.0-18.0 [facility] Comment on above: Performed By: #### 6 9405-9, 64884-3k4, 07393-5, 14179-1 #### [facility], [address] [place] [address]. Calcium mass conc 9.4 mg/dL Normal 8.9-10.3 [facility] Comment on above: Performed By: #### 6 9405-9, 13136-0k2, 70069-0, 72196-7 #### [facility], [address], [place]. Chloride molar conc 107 mmol/L Normal 98-107 [facility] Comment on above: Performed By: #### 6 9405-9, 80609-7a9, 95904-1, 84243-6 #### [facility], [address], [place]. CO2 molar conc 23 mmol/L Normal 22-32 [facility] Comment on above: Performed By: #### 6 9405-9, 03400-9b4, 03795-1, 45519-2 #### [facility], [address], [place]. Creatinine mass conc 0.91 mg/dL Normal 0.66-1.30 [facility] Comment on above: Performed By: #### 6 9405-9, 48331-5v8, 11199-2, 35217-9 #### [facility], [address], [place]. Glucose mass conc 91 mg/dL Normal 70-99 [facility] Comment on above: Result Comment: U pdated ADA Reference Range A normal fasting glucose concentration is less than 100 mg/dL. An impaired fasting glucose concentration is 100-125 mg/dL. A provisional diagnosis of diabetes mellitus can be made when a fasting glucose concentration is greater than 125 mg/dL. Performed By: #### 6 9405-9, 66043-8d4, 07011-5, 87561-0 #### [facility], [address], [place]. Potassium molar conc 3.8 mmol/L Normal 3.6-5.1 [facility] Comment on above: Performed By: #### 6 9405-9, 58458-6q3, 80742-1, 80090-3 #### [facility], [address] [place], [place]. Sodium molar conc 139 mmol/L Normal 136-145 [facility] Comment on above: Performed By: #### 6 9405-9, 24583-5u8, 37022-3, 42014-0 #### [facility], [address] [place], [place]. Urea nitrogen mass conc (BldV) 10 mg/dL Normal 8-20 [facility] Comment on above: Performed By: #### 6 9405-9, 91492-1n0, 80826-9, 01305-5 #### [facility], [address] [place], [place]. CBC with Differentialon 02-0 Basophils #/vol (Bld) 0.00 thou/mcL Normal 0.00-0.20 [facility] Comment on above: Performed By: #### 5 7021-8 #### [facility], [address] [place], [place]. Basophils #/vol (Bld) 0.4 % Normal 0.0-2.0 [facility] Comment on above: Performed By: #### 5 7021-8 #### [facility], [address] [place], [place]. Eosinophils #/vol (Bld) 0.20 thou/mcL Normal 0.00-0.70 [facility] Comment on above: Performed By: #### 5 7021-8 #### [facility], [address] [place], [place]. Eosinophils/100 WBC (Bld) 3.0 % Normal 0.0-7.0 [facility] Comment on above: Performed By: #### 5 7021-8 #### [facility], [address], [place]. Erythrocyte distribution width Entitic volume (RBC) 12.4 % Normal 11.0-14.8 [facility] Comment on above: Performed By: #### 5 7021-8 #### [facility], [address] [place], [place]. Hematocrit Volume Fraction (Bld) 43.2 % Normal 35.0-45.0 [facility] Comment on above: Performed By: #### 5 7021-8 #### [facility], [facility] [place], [place]. Hemoglobin mass conc (Bld) 14.5 g/dL Normal 12.0-16.0 [facility] Comment on above: Performed By: #### 7021-8 #### [facility], [address] [place], [place] [address]. Lymphocytes #/vol (Bld) 2.20 thou/mcL Normal 1.00-4.80 [facility] Comment on above: Performed By: #### 5 7021-8 #### [facility], [facility] [place] Lymphocytes/100 WBC (Bld) 37.3 % Normal 22.0-44.0 [facility] Comment on above: Performed By: #### 5 7021-8 #### [facility], [facility] [place], [place]. MCH Entitic mass (RBC) 30.9 Picograms Normal 27.0-34.0 [facility] Comment on above: Performed By: #### 5 7021-8 #### [facility], [address] [place], [place]. MCHC mass conc (RBC) 33.5 g/dL Normal 32.0-36.0 [facility] Comment on above: Performed By: #### 5 7021-8 #### [facility], [address]. MCV Entitic volume (RBC) 92.3 fL Normal 80.0-97.0 [facility] Comment on above: Performed By: #### 5 7021-8 #### [facility], [address] [facility] Monocytes #/vol (Bld) 0.50 thou/mcL Normal 0.00-0.90 [facility] Comment on above: Performed By: #### 5 7021-8 #### [facility], [facility] Monocytes/100 WBC (Bld) 8.2 % Normal 0.0-12.0 [facility] Comment on above: Performed By: #### 5 7021-8 #### [facility], [facility] Neutrophils #/vol (Bld) 3.10 thou/mcL Normal 1.80-7.70 [facility] Comment on above: Performed By: #### 5 7021-8 #### [facility], [address] [place] [address]. Neutrophils/100 WBC (Bld) 51.1 % Normal 40.0-70.0 [facility] Comment on above: Performed By: #### 5 7021-8 #### [facility], [facility] [place] Platelet mean volume Entitic volume (Bld) 8.3 fL Normal 6.2-12.1 [facility] Comment on above: Performed By: #### 5 7021-8 #### [facility], [facility] Platelets #/vol (Bld) 221 thou/mcL Normal 142-424 [facility] Comment on above: Performed By: #### 5 7021-8 #### [facility], [address] [facility] RBC #/vol (Bld) 4.68 million/mcL Normal 3.80-5.10 [facility] Comment on above: Performed By: #### 5 7021-8 #### [facility], [address], [place]. WBC #/vol (Bld) 6.0 thou/mcL Normal 4.6-10.2 [facility] Comment on above: Performed By: #### 5 7021-8 #### [facility], [address], [place] Ang Chest w and/or w/o [...] acute findings. No pulmonary embolus is identified. [place] thanks you for the opportunity to care for your patient. Workstation ID: [id number] FINAL REPORT Dictated By: Billy Guzman MD 12/25/2018 13:59 Assigned Physician: Billy Guzman MD Reviewed and Electronically Signed By: Billy Guzman MD 12/25/2018 14:05 Transcribed by: CHRISTIANO 12/25/2018 13:59 Technologist: JASON PARIKH [facility] Comment on above: Order Comment: For i npatients, Nursing to order and [facility] D-Dimer Quantitativeon 12-25 Fibrin D-dimer Qn (PPP) <150 Normal 150-230 [facility] Comment on above: Result Comment: NORM [...] Units. Performed By: #### 4 [id number] #### [facility] [address] [place] [address]. ED Pat Vega 12-25-2018 ED [facility] [address], [place] [address] Emergency Department Discharge Instructions VINNY SUAREZ , Please provide this information to your Primary Care/Specialist Name : VINNY SUAREZ Current Date : 12/25/2018 15:52:28 : 1995 12:00 PM Primary Care Physician: Karma LAMBERT , Caron Brower Diagnosis : Follow-Up Instructions: VINNY SUAREZ has been given these follow-up instructions: FOLLOW-UP APPOINTMENTS: Provider: Specialty: Address: Date: Caron Parada MD [facility] [address] [id number] (1) Call for an Appointment Comment: early this week or the [facility] Orders: Name: Status: Basic Metabolic Panel [...] Servicios de Emergencia Name VINNY SUAREZ MRN (COL)-[id number] PLEASE READ THE FOLLOWING REGARDING YOUR MEDICATIONS [...] doses are changed, or new medications (including afpd-kqq-ldxnkme products) are added. If you have any [...] UNTIL YOU TALK TO YOUR DOCTOR None [place] [id number] Emergency Department Discharge Instructions Name: VINNY SUAREZ Current Date: 12/25/2018 15:52:28 : 1995 12:00 PM Primary Physician: Karma LAMBERT , Caron Brower We would like to thank you for choosing [facility] for your emergency medical needs. We [...] health of those around you. Call the [place] [employer] at 6-064-XWMB-USA or the [place] [employer] at 3-031-AVH-8762 for more information. High blood pressure: Your [...] deadly infections. Discuss this with your child's commercial loan collection officer, or Public Health Department. Your family practice doctor can determine if you need pneumonia or flu vaccine. The [facility] Department can be reached at . [...] suicide hotline, anytime day or night, at 1-370-168-SAOR. Pharmacy Information: Below is a list of 24 hour pharmacies that we are aware of. We suggest that you call the specific pharmacy for their hours before traveling to a location. Hours may vary on holidays. [facility] [address], [place] [phone] [address] [place], [place] [address] [phone] [address] [place], [place] [address] [phone] [address] [place], [place] [phone] [address], [place] [phone] [address], [place] [phone] [place] [address] [phone] Take all medications as directed. If you need prescription assistance, contact the following agencies: ?? [facility] for Prescription Assistance at or www.pparx.org ?? [facility] Best Rx at or www.Audit Verifybestrx.org ?? www.Off & AwayRx.ShootHome is a site with many valuable coupons Patient Education Materials VINNY SUAREZ has been given the following patient education materials: [facility] Emergency Department [address], [place] [address] Work Release Form This notice verifies that [...] 08/19/2006 Document Revised: 11/30/2015 Document Reviewed: 06/15/2015 [employer] Interactive Patient Education ?2016 [employer] <><><><><><><><><><><>< ><><><><><><><><><><><> <><> Patient Visit Summary Signature VINNY SUAREZ has been given the following list of patient education materials, prescriptions and follow-up instructions: IFANNY KENNEDY, have received the above patient education materials/instructions and have verbalized understanding: Date Time Patient Signature Date Time Provider Signature [facility] GFRaaon 12-25-2018 GFR/1.73 sq M predicted among blacks MDRD vol rate/area (S/P/Bld) mL/min/{1.73_m2} [facility] Comment on above: Result Comment: The MDRD equation has not been validated for those over 70 years, women, patients with serious co-morbid conditions, or with extremes of body size, muscle mass of nutritional status. Performed By: #### 6 9405-9, [id number], 06902-4, 27599-4 #### [facility] [address] [place] [address]. GFRbbon 12-25-2018 GFR/1.73 sq M predicted among non-blacks MDRD vol rate/area (S/P/Bld) mL/min/{1.73_m2} [facility] Comment on above: Performed By: #### 6 9405-9, [id number], 26660-6, 01329-0 #### [facility] [address] [place] [address]. Pre-Arrival Formon 9 Pre-Arrival Form Pre-Arrival Summary [...] had dvt, mother with recent pe. [facility] Troponin Ion 12-25-2018 Troponin I.cardiac mass conc ng/mL Normal <0.06 [facility] Comment on above: Performed By: #### 5 7021-8 #### [facility], [address], [place]. Troponin I.cardiac mass conc ng/mL Normal <0.06 [facility] Comment on above: Performed By: #### 6 9405-9, [id number], 32055-5, 47524-3 #### [facility], [address] [facility] [place] [place] XR Chest 2 Viewson 9 XR Chest 2 views Two-view chest exam Indication: Chest Pain and shortness of breath COMPARISON: None FINDINGS: The lungs are clear and the costophrenic angles are sharp. The cardiomediastinal silhouette and bones are normal. IMPRESSION: Normal chest. [place] thanks you for the opportunity to care for your patient. Workstation ID: [id number] FINAL REPORT Dictated By: Gabe Diaz MD 12/25/2018 13:17 Assigned Physician: Gabe Diaz MD Reviewed and Electronically Signed By: Gabe Diaz MD 12/25/2018 13:18 Transcribed by: CHRISTIANO 12/25/2018 13:17 Technologist: FRANTZ [facility] Vital Signs Date Time Vital Sign Value Performing Clinician Facility 06-19-2025 11: Body height 167.64 cm Caron Parada MD Work Phone: [facility] 06-19-2025 11:040 Body mass index (BMI) [Ratio] 16.7 kg/m2 Caron Parada MD Work Phone: [facility] 06-19-2025 11: Body weight 46.89 kg Caron Parada MD Work Phone: [facility] 06-19-2025 11:21-0400 Diastolic blood pressure 73 mm[Hg] Caron Parada MD Work Phone: [facility] 06-19-2025 11:21-0400 Heart rate 102 /min Caron Parada MD Work Phone: [facility] 06-19-2025 11:21-0400 Systolic blood pressure 106 mm[Hg] Caron Parada MD Work Phone: [facility] 05-03-2025 10:57-0400 Body height 167.64 cm [facility] 05-03-2025 10:57-0400 Body mass index (BMI) [Ratio] 16.7 kg/m2 [facility] 05-03-2025 10:57-0400 Body weight 46.83 kg [facility] 05-03-2025 10:57-0400 Diastolic blood pressure 88 mm[Hg] [facility] 05-03-2025 10:57-0400 Heart rate 114 /min [facility] 05-03-2025 10:57-0400 Systolic blood pressure 124 mm[Hg] [facility] 11-07-2024 09:17-0500 Body height 167.6 cm Sam Masterson MD Work Phone: [facility] 11-07-2024 09:17-0500 Body mass index (BMI) [Ratio] 15.98 kg/m2 Sam Masterson MD Work Phone: [facility] 11-07-2024 09:17-0500 Body temperature 98.2 [degF] Sam Masterson MD Work Phone: [facility] 11-07-2024 09:17-0500 Body weight 44.91 kg Sam Masterson MD Work Phone: [facility] 10-10-2024 08:30-0500 Body height 167.64 cm [facility] 10-10-2024 08:30-0500 Body mass index (BMI) [Ratio] 16 kg/m2 [facility] 10-10-2024 08:30-0500 Body weight 45.01 kg [facility] 10-10-2024 08:30-0500 Diastolic blood pressure 76 mm[Hg] [facility] 10-10-2024 08:30-0500 Heart rate 97 /min [facility] 10-10-2024 08:30-0500 Systolic blood pressure 110 mm[Hg] [facility] 08-19-2024 09:57-0400 Body height 167.6 cm Martha Richmond MD Work Phone: [facility] 08-19-2024 09:57-0400 Body mass index (BMI) [Ratio] 15.98 kg/m2 Martha Richmond MD Work Phone: [facility] 08-19-2024 09:57-0400 Body weight 44.91 kg Martha Richmond MD Work Phone: [facility] 08-19-2024 09:57-0400 Diastolic blood pressure 77 mm[Hg] Martha Richmond MD Work Phone: [facility] 08-19-2024 09:57-0400 Systolic blood pressure 113 mm[Hg] Martha Richmond MD Work Phone: [facility] 06-22-2024 09:44-0400 Body height 167.64 cm [facility] 06-22-2024 09:44-0400 Body mass index (BMI) [Ratio] 15.8 kg/m2 [facility] 06-22-2024 09:44-0400 Body temperature 98.8 [degF] [facility] 06-22-2024 09:44-0400 Body weight 44.62 kg [facility] 06-22-2024 09:44-0400 Diastolic blood pressure 85 mm[Hg] [facility] 06-22-2024 09:44-0400 Heart rate 101 /min [facility] 06-22-2024 09:44-0400 Systolic blood pressure 125 mm[Hg] [facility] 04-22-2024 10:02-0400 Body height 167.64 cm [facility] 04-22-2024 10:02-0400 Body mass index (BMI) [Ratio] 15.7 kg/m2 [facility] 04-22-2024 10:02-0400 Body weight 44.22 kg [facility] 04-22-2024 10:02-0400 Diastolic blood pressure 74 mm[Hg] [facility] 04-22-2024 10:02-0400 Heart rate 82 /min [facility] 04-22-2024 10:02-0400 Systolic blood pressure 105 mm[Hg] [facility] 08-31-2023 09:45-0400 Body height 167.64 cm Caron Parada Other [facility] [employer] Other 08-31-2023 09:45-0400 Body mass index (BMI) [Ratio] 15.65 kg/m2 Caorn Parada Other [employer] Other 08-31-2023 09:45-0400 Body weight 44 kg Caron Parada Other [employer] Other 08-31-2023 09:45-0400 Diastolic blood pressure 71 mm[Hg] Caron Parada Other [employer] Other 08-31-2023 09:45-0400 Systolic blood pressure 102 mm[Hg] Caron Parada Other [employer] Other 02-26-2023 11:30-0400 Body height 167.64 cm Caron Parada Other [employer] Other 02-26-2023 11:30-0400 Body mass index (BMI) [Ratio] 16.3 kg/m2 Caron Parada Other [employer] Other 02-26-2023 11:30-0400 Body weight 45.81 kg Caron Parada Other [employer] Other 02-26-2023 11:30-0400 Diastolic blood pressure 64 mm[Hg] Caron Parada Other [employer] Other 02-26-2023 11:30-0400 SaO2% (BldA) [Mass fraction] 95 % Caron Parada Other [employer] Other 02-26-2023 11:30-0400 Systolic blood pressure 102 mm[Hg] Caron Parada Other [employer] Other Encounters Encounter Date Encounter Type Care Provider Facility Start: 06-19-2025 End: 06-19-2025 ambulatory Caron Parada MD Work Phone: [facility] Work Phone: Start: 06-19-2025 End: 06-19-2025 Patient encounter procedure Caron Parada MD [facility] Work Phone: Start: 05-03-2025 Patient encounter status Caron Parada MD Work Phone: [facility] Start: 05-03-2025 End: 05-03-2025 ambulatory [facility] [place] Work Phone: Start: 05-03-2025 End: 05-03-2025 Patient encounter procedure [facility] Work Phone: Start: 05-03-2025 End: 05-03-2025 Patient encounter status Caron Parada MD [facility] Start: 11-07-2024 End: 11-07-2024 Office outpatient new 45 minutes Sam Masterson MD Work Phone: [facility] Comment on above: Localized swelling, mass and lump, neck (Primary Dx); Pulsatile neck mass Start: 11-07-2024 ambulatory [facility] Start: 10-10-2024 End: 10-10-2024 ambulatory [facility] [place] Work Phone: Start: 10-10-2024 End: 10-10-2024 Patient encounter procedure [facility] Work Phone: Start: 10-06-2024 Non-patient / Non-visit [facility] Work Phone: Start: 08-19-2024 End: 08-19-2024 ambulatory MARTHA H TIMMIS Not Available Start: 08-19-2024 End: 08-19-2024 Office outpatient visit 15 minutes Martha Richmond MD Work Phone: [facility] Comment on above: Neck mass (Primary D x) Start: 07-08-2024 End: 07-08-2024 ambulatory MARTHA H TIMMIS Not Available Start: 2024 ambulatory [facility] Work Phone: Start: 2024 Non-patient / Non-visit [facility] Work Phone: Start: 06-22-2024 End: 06-22-2024 ambulatory [facility] [place] Work Phone: Start: 06-22-2024 End: 06-22-2024 Patient encounter procedure [facility] Work Phone: Start: 04-22-2024 End: 04-22-2024 ambulatory [facility] [place] Work Phone: Start: 04-22-2024 End: 04-22-2024 Patient encounter procedure [facility] Work Phone: Start: 01-25-2024 Non-patient / Non-visit [facility] Work Phone: Start: 12-10-2023 End: 12-10-2023 ambulatory Caron Parada Other [employer] [employer] Other Start: 12-10-2023 Telephone encounter Caron Parada [facility] Start: 12-07-2023 End: 12-07-2023 ambulatory Caron Parada Other [employer] Other Start: 12-07-2023 Telephone encounter Caron Parada [facility] Start: 11-10-2023 End: 11-10-2023 ambulatory Caron Parada Other [employer] Other Start: 11-10-2023 Telephone encounter Caron Parada [facility] Start: 11-04-2023 End: 11-04-2023 ambulatory Caron Parada Other [employer] Other Start: 11-04-2023 Telephone encounter Caron Parada [facility] Start: 10-05-2023 End: 10-05-2023 ambulatory Caron Parada Other [employer] Other Start: 10-05-2023 Telephone encounter Caron Parada [facility] Start: 09-16-2023 End: 09-16-2023 ambulatory Caron Parada Other [employer] Other Start: 09-16-2023 Telephone encounter Caron Parada [facility] Start: 09-07-2023 End: 09-07-2023 ambulatory Caron Parada Other [employer] Other Start: 09-07-2023 Telephone encounter Caron Parada [facility] Start: 09-04-2023 End: 09-04-2023 ambulatory Caron Parada Other [employer] Other Start: 09-04-2023 Telephone encounter Caron Parada [facility] Start: 08-31-2023 End: 08-31-2023 ambulatory Caron Parada Other [employer] Other Start: 08-31-2023 Office outpatient vi sit 15 minutes Caron Parada [facility] Start: 08-07-2023 End: 08-07-2023 ambulatory Caron Parada Other [employer] Other Start: 08-07-2023 Telephone encounter Caron Parada [facility] Start: 07-03-2023 End: 07-03-2023 ambulatory Caron Parada Other [employer] Other Start: 07-03-2023 Telephone encounter Caron Parada [facility] Start: 05-06-2023 End: 05-06-2023 ambulatory Caron Parada Other [employer] Other Start: 05-06-2023 Telephone encounter Caron Parada [facility] Start: 02-26-2023 End: 02-26-2023 ambulatory Caron Parada Other [employer] Other Start: 02-26-2023 Office outpatient vi sit 15 minutes Caron Parada [facility] Start: 11-04-2022 End: 11-05-[address] CARON PARADA Facility: Start: 10-28-2022 Adult health examination Caron Parada Other [employer] Other Start: 03-01-2021 Patient encounter procedure CARON PARADA [facility] Start: 02-27-2021 End: 03-03-2021 Patient encounter procedure CARON PARADA [facility] Start: 12-25-2018 End: 12-25-2018 Emergency department patient visit CARIDAD ZAMBRANO Facility:[facility] Plan of Treatment Date Care Activity Detail Author Start: 11-07-2024 End: 11-07-2025 CTA Neck vessels WO and W contrast IV CT ANGIO NECK Imaging Routine Localized swelling, mass and lump, neck Pulsatile neck mass Expected: 11/07/2024, Expires: 11/07/2025 [facility] Comment on above: Expected: 11/07/2024 , Expires: 11/07/2025 Start: 10-10-2024 Patient referral [facility] Work Phone: Start: 07-24-2024 COVID-19 VACCINE ( season) COVID-19 VACCINE ( season) [facility] Start: 07-24-2024 Influenza vaccination INFLUENZA VACC INE (#1) [facility] Start: 2024 Patient referral [facility] Work Phone: Start: 2018 Screening for malign ant neoplasm of cervix CERVICAL CANCER SCREENING DISCUSSION [facility] Start: 2016 Hepatitis B vaccination HEP B VACCINE (1 of 3 - 19+ 3-dose series) [facility] Start: 2016 Third diphtheria, tetanus and acellular pertussis (DTaP) vaccination TDAP (ADULT) [facility] Start: 2012 HIV screening HIV SCREENING DISCUSSION [facility] Start: 1997 Hepatitis C screening HEPATITI S C VIRUS SCREENING [facility] Start: 1997 Tetanus vaccination TETANUS [facility] Patient referral [facility] Work Phone: Immunizations Immunization Date Immunization Notes Care Provider Barb kramer 03-20-2016 meningococcal oligosaccharide (groups A, C, Y and W-135) diphtheria toxoid conjugate vaccine (MCV4O) Caron Parada Other [facility] Payers Date Payer Category Payer Unknown [id number] 2024 [facility] [id number] 2020 Unknown [id number] 2017 Unknown [id number] 1995 Unknown [id number] [id number] 1997 Unknown [id number] [id number]. [id number] 1997 Unknown [id number] [id number]. [id number] 1997 Unknown [id number] 1997 Unknown [id number] 2.16.84 [id number] 1997 Unknown [id number] [id number] [id number] 1997 Unknown [id number] [id number] 1959 Unknown [id number] Social History Date Type Detail Facility Unknown if ever smoked [facility] [employer] Other Start: 07-08-2024 End: 11-07-2024 Sex Assigned At [employer] Other Start: 04-22-2024 End: 07-05-2024 Tobacco smoking status NHIS Never smoked tobacco (finding) [facility] Start: 1995 Sex Assigned At Female F [facility] Start: 10-10-2024 End: 05-03-2025 Sex Female (finding) [facility] Start: 07-05-2024 End: 11-07-2024 Tobacco use and exposure Smokeless tobacco non-user [facility] Start: 07-08-2024 End: 11-07-2024 History of Social function [facility] Start: 1995 Sex assigned at Not on file [facility] Start: 11-04-2024 Gender identity Identifies as female gender (finding) [facility] Start: 11-04-2024 Sexual orientation Heterosexual (fin ding) [facility] Start: 08-19-2024 Alcoholic beverage intake Ex-drinker (finding) [facility] Start: 07-08-2024 Alcohol Comment Very rare [facility] NEGATED: Highlighted row [facility] NEGATED: Highlighted row N [facility] Clinical Notes 02-26-2023 to 05-03-2025 Note Date & Type Note Facility 05-03-2025 Evaluation note Diagnosis Onset Date Resolution ADHD (attention deficit hyperactivity disorder) acute April 10:57am Cervical lymphadenopathy acute May 03, 2025 10:57am Wellness examination acute May 03, 2025 10:57am [facility] Work Phone: [phone] 605-387712-16-2024 History of Present illness Narrative* Sam Masterson MD - 11/07/2024 9:45 AM EST ENT History & Physical Chief Complaint: New Patient (Swollen lymph node ) Referring Provider: Self, Self HPI: Vinny Suarez is a 29 y.o. female who presents with neck mass. Reports it occurred after a long run. Was [facility] by [facility] where a CT neck was [...] ear canal patent, tympanic membrane midposition, pearly branodn, and without effusion RIGHT ear canal patent, [...] call with CT results Sam Masterson MD * Ney Bob - 11/07/2024 9:45 AM EST HISTORY OF PRESENT ILLNESS- Vinny Suarez is a 29 y.o. female who comes in with the following complaint(s): swollen lymph node Believes she has a swollen lymph node on right side of neck, does have CT scan with her today [facility] History of Present illness Narrative* Martha Richmond MD - 08/19/2024 9:50 AM EDT Subjective Patient ID: Vinny Suarez is a 29 y.o. female who presents for Neck Mass (Follow up [facility] 08/05) CT neck reviewed and no abnormality evident, but pt adamant her neck feels swollen with sx exacerbated by running. Family History Problem Relation Name Age of Onset Other (HTN) Father Robel Suarez Hypertension Father Robel Suarez Cancer Maternal Grandmother Peyton Barahona Diabetes Maternal Grandmother Peyton Barahona Migraines Mother Kika Suarez Active Ambulatory Problems Diagnosis Date Noted ADHD (attention deficit hyperactivity disorder) ([facility]) 07/05/2024 Cervical lymphadenopathy 07/05/2024 Chest pain 06/07/2020 Migraine ([facility]) 07/05/2024 Neck mass 07/08/2024 Resolved Ambulatory Problems [...] [facility] at [facility]. [facility] [id number] Evaluation note* Encounter Date Diagnosis Assessment Notes Treatment Notes Treatment Clinical Notes Aug, LLQ abdominal pain (ICD-10 - R10.32) Discussed PT for muscle strain v. imaging. Pt opts for imaging w US to r/o enlarged LN or obvious hernia. [employer] Other 06-14-2023 Evaluation note* Encounter Date Diagnosis Assessment Notes Treatment Notes Treatment Clinical Notes Apr, Attention deficit disorder (ADD) in adult (ICD-10 - F98.8) [employer] Other 04-06-2023 Evaluation note* Encounter Date Diagnosis [...] - N92.6) continue OCP. 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 [employer] Other Evaluation noteNo InformationNort [employer] Other Evaluation noteNo assessment information available [facility] Work Phone: Evaluation note* Diagnosis Onset Date Resolution Status ADHD (attention deficit hyperactivity disorder) acute [facility] Work Phone: Evaluation note* Diagnosis Onset Date Resolution Status ADHD (attention deficit hyperactivity disorder) acute Cervical lymphadenopathy acu te Migraine acute [facility] Work Phone: Evaluation note* Diagnosis Onset Date Resolution Status Admit Date Cervical lymphadenopathy acute October 10, 2024 8:23am [facility] Work Phone: Evaluation note* Diagnosis Localized swelling, mass and lump, neck- Primary Swelling, mass, or lump in head and neck Pulsatile neck mass documented in this encounter [facility] Diagnosis Neck mass- Primary Swelling, mass, or lump in head and neck documented in this encounter [facility] N[facility] - Reported* Type Description Date Medical History Attention deficit disorder (ADD) in adult Medical History Pinworms Medical History Pharyngitis Medical History Hypoglycemia Medical History Abnormal loss of weight [employer] Other History general Narrative - Reported* Type [...] Comment : none, Problem Status : Active, [employer] Other Hospital Discharge instructionsAmbulatory Orders* Referral to ENT Time Frame: 06/30/24, Location: None [facility] Work Phone: Hospital Discharge instructionsAmbulatory Orders* Referral to ENT Time Frame: 10/10/24, Location: None [facility] Work Phone: Reason for referral (narrative)No reason for referral information [facility] Work Phone: Summary Purpose Family History Relationship Condition Age at Onset Recorded Date/T yumiko Not Specified Malignant neoplasm Unknown Diabetes mellitus Unknown father Hypertension Unknown Relationship Condition Age at Onset Recorded Date/T yumiko maternal grandmother Malignant neoplasm Unknown Diabetes mellitus Unknown father Hypertension Unknown Advance Directives Advance Directive Response Recorded Date/ Time Advance Directives No April 22 4 9:55am Advance Directive Response Recorded Date/ Time Advance Directives No April 22 4 8:55am Hospital Course Note EMERGENCY DEPARTMENT DISCHAR GE SUMMARY PATIENT NAME:VINNY SUAREZ AGE: 23 Years SEX: Female PHONE:[phone] DOS: 12/25/2018 11:36 AM : 1995 ATTENDING PHYSICIAN:Caridad Zambrano MD PCP: Caron Parada MD CHIEF COMPLAINT: Chest pain Allergies NKA Problems [...] Date Cervical lymphadenopathy October 10, 2024 8:23am Chief Complaint Admit Date wellness May 03, 2025 10:5 7am Chief Complaint Admit Date wellness May 03, 2025 10:5 7am Right foot pain, high heart rate with ex ercise June 19, 2025 11:20am Reason for Visit Admit Date ADHD (attention deficit hyperactivity di sorder) May 03, 2025 10:57am Cervical lymphadenopathy May 03, 2025 10:57am Wellness examination May 03, 2025 10: 57am Reason for Referral Specialty Diagnoses / Procedures Referred By Contac t Referred To Contact Diagnoses Localized swelling, mass and lump, neck Pulsatile neck mass Procedures CT ANGIO NECK CHG CT ANGIOGRAPHY NECK W/CONTRAST/NONCONTRAST Sam Masterson MD [address] [facility] [place] [address] [place] [address] Referral ID Status Reason Start Date Expiration Date V isits Requested Visits Authorized [id number] New Request 11/07/2024 12/02/2025 1 1 Additional Source Comments INFORMATION SOURCE (unrecogn ized section and content) DATE CREATED AUTHOR 01/11/2019 [facility] DATE CREATED AUTHOR AUTHOR'S ORGANIZ ATION 03/01/2021 [facility] DATE CREATED AUTHOR AUTHOR'S ORGANIZ ATION 03/03/2021 [facility] DATE CREATED AUTHOR AUTHOR'S ORGANIZ ATION 01/19/2023 [facility] pital DATE CREATED AUTHOR AUTHOR'S ORGANIZ ATION 08/20/2024 [facility] EPIC DATE CREATED AUTHOR AUTHOR'S ORGANIZ ATION 11/08/2024 [facility] REASON FOR VISIT (unrecogniz ed section and content) Reason Comments New Patient Swollen lymph node Specialty Diagnoses / Procedures Referred By Siria feliz Referred To Contact Otolaryngology Diagnoses Localized enlarged lymph nodes Caron Parada MD [address] [facility] [place] [address] Sam Masterson MD [address] [place] [address] Referral ID Status Reason Start Date Expiration Date Visits Re quested Visits Authorized [id number] Closed 10/13/2024 11/07/2025 1 1 Reason Comments Neck Mass Follow up [facility] 07/24 3 Care Teams (unrecognized sec tion and content) Team Status: Active Member Role Status Dates Caron Parada MD Primary Care Provider Active Team Status: Inactive Member Role Status Dates Caron Parada MD Primary Care Provide r, Attending Provider Active Start: May 03, 2025 End: May 03, 2025 Team Status: Active Member Role Status Dates [...] Provide r, Attending Provider Active Start: 2024 Management Recruiter Relationship Specialty Start Date End Date Caron Parada MD [address] [facility] [place] [id number] PCP - General Family Medicine 07/01/24 Team Status: Inactive Member Role Status Dates Caron Parada MD Primary Care Provider Active Start: May 03, 2025 End: May 03, 2025 Caron Parada MD Attending Provider Active St art: May 03, 2025 End: May 03, 2025 Team Status: Inactive Member Role Status Dates Caron Parada MD Primary Care Provider Active Start: June 19, 2025 End: June 19, 2025 Caron Parada MD Attending Provider Active St art: June 19, 2025 End: June 19, 2025 Goals (unrecognized section and content) Goals may [...] BE BASED ON THE PRIMARY CLINICAL RECORDS. [facility] [employer] provides no warranty or guarantee of the accuracy or completeness of information in this document.
== END 2025-06-26 11:00 | disposition home or self-care (01) ==
LOC: RAD 11:02
PROVIDERS: PCP Family Medicine; Visit Provider Podiatrist Foot & Ankle Surgery
DX: M79.671 Pain in right foot (principal)
CPT/HCPCS: 73630

== ENCOUNTER 2025-07-28 13:58 | Outpatient (OUT) | payer BC, SELFPAY ==
--- OUTSIDE RECORDS SUMMARY | 2019-03-28 06:30 | XMS_ITS | Continuity of Care Document ---
Author Organization [facility] Address [address] [place] [address] Phone Care Team Providers Care Turkey Cleaner Name Role Phone Alfred Landry Unavailable Unavailable Procedures Procedure Date IMMUNIZATION ADMIN, EACH ADD HEP A VACCINE, ADULT IM IMMUNIZATION ADMIN TYPHOID VACCINE, IM Advance Directives Directive Yes / No Effective Date File Name No Information Encounters Encounter Description Practice Location Reason(s) For Visit Diagnoses Date Provider Providers Copied on Encounter [facility], [address] [place], [place], [id number], [place] tel:[phone] [facility] No Information Oxana BERNAL Alfred. [address] [place], [place], [id number], [place]. tel:[phone] Family History Family Member Type Diagnosis Age At Onset No Information Immunizations Vaccine Date Status Comments Typhoid administered Source: New Imm unization Record Hep A (adult) administered Source: New Im munization Record Payers Payer name Insurance type Covered constitution party ID Authoriza grecia(s) Medical [place] CI [id number] Social History Type Description Quantity Date Captured [...]
--- OUTSIDE RECORDS SUMMARY | 2025-07-21 10:20 | XMS_ITS | Encounter Summary ---
Author Organization [facility] Address [address] [place] [address] Care Team Providers Care Director Of Parks And Recreation Name Role Phone Caron Ramos MD Primary Care Provider [phone] Reason for Referral * Cardiac Stress Testing (Routine) - Pending Review Specialty Diagnoses / Procedures Referred By Siria feliz Referred To Contact Cardiology Diagnoses Tachycardia Cardiac arrhythmia, unspecified cardiac arrhythmia type Procedures Cardiac event monitor Shanti Romero MD [address] [facility] [address] [place] [address] Phone: tel: fax: Referral ID Status Reason Start Date Expiration Date V isits Requested Visits Authorized [id number] Pending Review 07/21/2025 07/21/2026 1 1 * Imaging (Routine) - Pending Review Specialty Diagnoses / Procedures Referred By Siria feliz Referred To Contact Cardiology Diagnoses Tachycardia Cardiac arrhythmia, unspecified cardiac arrhythmia type Procedures Complete Echo (TTE) w/wo Imaging Agent, Strain, 3D, Bubble Study Shanti Romero MD [address] [facility] [address] [place] [address] Phone: tel: fax: Referral ID Status Reason Start Date Expiration Date Visits Requested Visits Authorized [id number] Pending Review Perform Procedure 07/21/2025 07/21/2026 1 1 * (Routine) - Pending Review Specialty Diagnoses / Procedures Referred By Siria t Referred To Contact Diagnoses Tachycardia Procedures ECG 12 lead unit performed Shanti Romero MD [address] [facility] [address] [address] Phone: tel: fax: Referral ID Status Reason Start Date Expiration Date V isits Requested Visits Authorized [id number] Pending Review 07/21/2025 07/21/2026 1 1 Reason for Visit * Reason Comments New patient to re-establish care Rapid Heart Rate High heart rate when running [employer] Anxiety Encounter Details Date Type Department Care Team (Late st Contact Info) Description 07/21/2025 10:20 AM EDT Office Visit [facility] [address] [place] [address] Shanti Romero MD [address] [facility] [address] [address] Tachycardia (Primary Dx); Cardiac arrhythmia, unspecified cardiac arrhythmia type Social History Tobacco Use Types Packs/Day Years Used Date Smoking Tobacco: Never Smokeless Tobacco: Never Tobacco Cessation:Counseling Given: Not Answered Alcohol Use Standard Drinks/Week Comments Yes 0 (1 standard drink = 0.6 oz pur e alcohol) occasional Comments Unknown Sex and Gender Information Value Date Recorded Sex Assigned at Female 07/18/2025 1:36 PM EDT Legal Sex Female 12:27 AM EDT Gender Identity Female 07/18/2025 1:36 PM EDT Sexual Orientation Heterosexual or Straight 06/24 1:36 PM EDT documented as of this encounter Last Filed Vital Signs Vital Sign Reading Time Taken Comments Blood Pressure 132/86 07/21/2025 10:25 AM EDT Pulse 80 07/21/2025 10:25 AM EDT Temperature - - Respiratory Rate - - Oxygen Saturation 100% 07/21/2025 10:25 AM EDT Inhaled Oxygen Concentration - - Weight 48.1 kg (106 lb) 07/21/2025 10:25 AM EDT Height 167.6 cm (5' 6 ) 07/21/2025 10:25 AM EDT Body Mass Index 17.11 07/21/2025 10:25 AM EDT documented in this encounter Plan of Treatment Upcoming Encounters Date Type Department Care Team (Late st Contact Info) Description 09/29/2025 3:00 PM EST Office Visit [facility] at [facility] [address] [place] [address] Shanti Romero MD [address] [facility] [address] [place] [address] Scheduled Orders Name Type Priority Associated Diagnoses Orde r Schedule Complete Echo (TTE) w/wo Imaging Agent, Strain, 3D, Bubble Study Echocardiography Routine Tachycardia Cardiac arrhythmia, unspecified cardiac arrhythmia type Expected: 07/21/2025 (Approximate), Expires: 07/21/2027 Cardiac event monitor Cardiac Services Routine Tachycardia Cardiac arrhythmia, unspecified cardiac arrhythmia type Expected: 07/21/2025 (Approximate), Expires: 07/21/2027 CBC and differential Lab Routine Tachycardia Cardiac arrhythmia, unspecified cardiac arrhythmia type Expected: 07/21/2025 (Approximate), Expires: 07/21/2026 TSH Lab Routine Tachycardia Cardiac arrhythmia, unspecified cardiac arrhythmia type Expected: 07/21/2025 (Approximate), Expires: 07/21/2026 Basic metabolic panel Lab Routine Tachycardia Cardiac arrhythmia, unspecified cardiac arrhythmia type Expected: 07/21/2025 (Approximate), Expires: 07/21/2026 Magnesium Lab Routine Tachycardia Cardiac arrhythmia, unspecified cardiac arrhythmia type Expected: 07/21/2025 (Approximate), Expires: 07/21/2026 documented as of this encounter Procedures Procedure Name Priority Date/Time Associated Diagnosis Comments ECG 12 LEAD UNIT PERFORMED Routine 07/21/2025 10:53 AM EDT Tachycardia documented in this encounter Results * ECG 12 lead unit performed (07/21/2025 10:53 AM EDT) us Shanti Romero MD ECG ORDERABLES Final Result documented in this encounter Visit Diagnoses Diagnosis Tachycardia- Primary Unspecified tachycardia Cardiac arrhythmia, unspecified cardiac arrhythmia type documented in this encounter Care Teams Director Of Parks And Recreation Relationship Specialty Start Date End Date Caron Ramos MD [address] [facility] [address] PCP - General 07/21/25 documented as of this encounter
--- OUTSIDE RECORDS SUMMARY | 2025-07-28 14:02 | XMS_ITS | Clinical Summary ---
Author Organization [facility] Address [address] [place] [address] Care Team Providers Care Molded Parts Inspector Name Role Phone Caron Ramos MD Primary Care Provider [phone] Social History Tobacco Use Types Packs/Day Years Used Date Smoking Tobacco: Never Assessed Comments Unknown Sex and Gender Information Value Date Recorded Sex Assigned at Not on file Legal Sex Female 12:49 PM EDT Gender Identity Female 08/04/2019 12:47 PM EDT Sexual Orientation Not on file Plan of Treatment Health Maintenance Due Date Last Done Comments Wellness Visit 2000 Depression Screening/Follow-Up (PHQ-2/9) 2009 HIV Screening 2012 Hepatitis C Screening 2015 Pap Smear 2018 Tetanus: Every 10yrs 04/15/2020 04/15/2010 COVID-19 Vaccine (3 - 2024-2 6 season) 2025 01/17/2021, 12/28/2020 Influenza Vaccine (#1) 2025 Pneumococcal Vaccine: Ped or At-Risk Aged Out No longer eligible b ased on patient's age to complete this topic Insurance [employer] PPO ACCESS/TPA [facility] SUPERMED HMO Care Teams Molded Parts Inspector Relationship Specialty Start Date End Date Caron Ramos MD [facility] [facility] [place] [address] PCP - General Family Medicine 02/27/21
--- OUTSIDE RECORDS SUMMARY | 2025-07-28 14:02 | XMS_ITS | Clinical Summary ---
Author Organization [facility] Address [address] [place] [address] Care Team Providers Care Packaging Technician Name Role Phone Caron Ramos MD Primary Care Provider [phone] Allergies Active Allergy Reactions Criticality Noted Date Comments Shellfish-Derived Products Diarrhea,Itching,Unknown 08/19/2024 Medications albuterol HFA 90 mcg/act inhaler Inhale 2 puffs every 6 (six) hours if needed for shortness of breath Active lisdexamfetamin e (Vyvanse) 30 MG capsule Take 30 mg by mouth in the morning. Active norethindrone-e thinyl estradiol (Microgestin 12/12) 1-20 MG-MCG tablet Take 1 tablet by mouth Daily 4 Active Active Problems Problem Noted Date Diagnosed Date Neck mass 07/08/2024 ADHD (attention deficit hyperactivity disorder) 07/05/2024 Cervical lymphadenopathy 07/05/2024 Migraine 07/05/2024 Chest pain 06/07/2020 Family History Medical History Relation Name Comments HTN Father Robel Suarez Hypertension Father Robel Black Cancer Maternal Grandmother Peyton Barahona Diabetes Maternal Grandmother Peyton Barahona Migraines Mother Kika Suarez Relation Name Status Comments Father Robel Black Maternal Grandmother Peyton Barahona Mother Kika Suarez Social History Tobacco Use Types Packs/Day Years Used Date Smoking Tobacco: Never Smokeless Tobacco: Never Tobacco Cessation:Counseling Given: Not Answered Alcohol Use Standard Drinks/Week Comments Not Currently 0 (1 standard drink = 0.6 oz pur e alcohol) Very rare Comments Unknown Sex and Gender Information Value Date Recorded Sex Assigned at Not on file Legal Sex Female 8:14 PM EDT Gender Identity Not on file Sexual Orientation Not on file Last Filed Vital Signs Vital Sign Reading Time Taken Comments Blood Pressure 113/77 08/19/2024 9:57 AM EDT Pulse - - Temperature - - Respiratory Rate - - Oxygen Saturation - - Inhaled Oxygen Concentration - - Weight 44.9 kg (99 lb) 08/19/2024 9:57 AM EDT Height 167.6 cm (5' 6 ) 08/19/2024 9:57 AM EDT Body Mass Index 15.98 08/19/2024 9:57 AM EDT Plan of Treatment Health Maintenance Due Date Last Done Comments Influenza Vaccine (#1) 2025 Insurance BCBS Care Teams Packaging Technician Relationship Specialty Start Date End Date Caron Ramos MD PCP - General Family Medicine 07/01/24
--- OUTSIDE RECORDS SUMMARY | 2025-07-28 14:02 | XMS_ITS | Encounter Summary ---
Author Organization [facility] Address [address] [place] [address] Care Team Providers Care Auto Damage Appraiser Name Role Phone Caron Ramos MD Primary Care Provider [phone] Encounter Details Date Type Department Care Team (Late st Contact Info) Description 08/05/2024 Clinisync Result Encounter [facility] External Department Unsolicited Martha Rebolledo MD [address] [place] [id number] Social History Tobacco Use Types Packs/Day Years Used Date Smoking Tobacco: Never Smokeless Tobacco: Never Alcohol Use Standard Drinks/Week Comments Not Currently 0 (1 standard drink = 0.6 oz pur e alcohol) Very rare Comments Unknown Sex and Gender Information Value Date Recorded Sex Assigned at Not on file Legal Sex Female 8:14 PM EDT Gender Identity Not on file Sexual Orientation Not on file documented as of this encounter Plan of Treatment Not on file documented as of this encounter Procedures Procedure Name Priority Date/Time Associated Diagnosis Comments CT SOFT TISSUE NECK W IV CONTRAST 08/05/2024 3:52 PM EDT documented in this encounter Results * CT soft tissue neck w IV contrast (08/05/2024 3:52 PM EDT) Anatomical Region Laterality Modality Head, Neck Computed Tomogra phy 08/05/2024 3:52 PM EDT Narrative 08/05/2024 3:54 PM EDT The [address] [address] [address] Scan Report Signed Patient: DEJAN ESCOBEDO MR#: [id number] : 1995 Acct:[id number] Age/Sex: 29 / F ADM Date: 08/05/24 Loc: CT Attending Dr: Martha Rebolledo M.D. Ordering Physician: Martha Rebolledo M.D. Date of Service: 08/05/24 Procedure(s): CT soft tissue neck w con Accession Number(s): [id number] cc: Caron Ramos M.D. [place] [address] Patient Name: DEJAN ESCOBEDO MRN: [id number] date: 1995 Sex: F Assigned Patient Location: CT Current Patient Location: CT Accession/Order Number: [id number] Exam Date: 08/05/2024 08:05 Report Date: 08/05/2024 15:52 At the request of: MARTHA REBOLLEDO Procedure: CT soft tissue neck w con EXAMINATION: CT soft tissue neck w con HISTORY: Neck mass. R22.1. Patient states lymph node, BB marker. COMPARISON: None. TECHNIQUE: Axial CT images through the neck with intravenous contrast. Dose reduction techniques were achieved by using: automated exposure control and/or adjustment of mA and /or kV according to patient size and/or use of iterative reconstruction technique. FINDINGS: Metallic BBs visualized in the skin overlying the right side of the neck. There is a right level II lymph node measuring 6 x 12 mm subjacent to the marker. Additional multiple small nonenlarged lymph nodes in the remaining soft tissues of the neck. No abnormal inflammation or fluid collection. The adjacent submandibular glands appear normal. Tiny left thyroid nodule. No lesions in the parotid glands. No lesions in the included lower brain. No lesions in the nasopharynx. Mild prominence of the bilateral palatine tonsils. No lesions. No lesions in the oral cavity, hypopharynx, larynx, or upper trachea. CT/CT soft tissue neck w con IMPRESSION: 1. Multiple small lymph nodes are visualized in the soft tissues of the neck, nonenlarged. This includes a 6 x 12 mm lymph node subjacent to the marker placed at the right side of the neck. 2. No mass lesions, fluid collection in the soft tissues adjacent to the right-sided marker. No right-sided sialoadenitis. Electronically authenticated by: DEMETRIO ZARATE Date: 08/05/2024 15:52 Dictated By: Demetrio Zarate M.D. Signed By: 08/05/244 DD/ 51 TD/TT: Adult Education Teacher: Procedure Note Radiology, Radiologist, MD - 08/05/2024 [place] [address] CT Scan Report Signed Patient: DEJAN ESCOBEDO MMR#: [id number] : 1995Acct:[id number] Age/Sex: 29 FADM Date: 08/05/24 Loc: CT Attending Dr: Martha Rebolledo M.D. Ordering Physician: Martha Rebolledo M.D. Date of Service: 08/05/24 Procedure(s): CT soft tissue neck w con Accession Number(s): [id number] cc: Caron Ramos M.D. The [place] [id number] Patient Name: DEJAN ESCOBEDO MRN: [id number] date: 1995 Sex: F Assigned Patient Location: CT Current Patient Location: CT Accession/Order Number: [id number] Exam Date: 08/05/2024 08:05 Report Date: 08/05/2024 15:52 At the request of: MARTHA REBOLLEDO Procedure: CT soft tissue neck w con EXAMINATION: CT soft tissue neck w con HISTORY: Neck mass. R22.1. Patient states lymph node, BB marker. COMPARISON: None. TECHNIQUE: Axial CT images through the neck with intravenous contrast. Dose reduction techniques were achieved by using: automated exposurecontrol and/or adjustment of mA and /or kV according to patient size and/or use of iterative reconstruction technique. FINDINGS: Metallic BBs visualized in the skin overlying the right side ofthe neck. There is a right level II lymph node measuring 6 x 12 mm subjacentto the marker. Additional multiple small nonenlarged lymph nodes in the remaining soft tissues of the neck. No abnormal inflammation or fluid collection. The adjacent submandibular glands appear normal. Tiny left thyroid nodule. No lesionsin the parotid glands. No lesions in the included lower brain. No lesions in the nasopharynx. Mild prominence of the bilateral palatine tonsils. Nolesions. No lesions in the oral cavity, hypopharynx, larynx, or upper trachea. CT/CT soft tissue neck w con IMPRESSION: 1. Multiple small lymph nodes are visualized in the soft tissues of theneck, nonenlarged. This includes a 6 x 12 mm lymph node subjacent to the marker placed at the right side of the neck. 2. No mass lesions, fluid collection in the soft tissues adjacent to the right-sided marker. No right-sided sialoadenitis. Electronically authenticated by: DEMETRIO ZARATE Date: 08/05/2024 15:52 Dictated By: Demetrio Zarate M.D. Signed By:08/05/24 1554 DD/ 51 TD/TT: Adult Education Teacher: Martha Rebolledo MD IMG CT PROCEDURES Final Resul t documented in this encounter Visit Diagnoses Not on filedocumented in this encounter Care Teams Auto Damage Appraiser Relationship Specialty Start Date End Date Caron Ramos MD PCP - General Family Medicine 07/01/24 documented as of this encounter
--- OUTSIDE RECORDS SUMMARY | 2025-07-28 14:03 | XMS_ITS | Clinical Summary ---
Author Organization [facility] Address [address] [place] [address] Care Team Providers Care Camp Recreation Specialist Name Role Phone Caron Ramos MD Primary Care Provider [phone] Allergies Active Allergy Reactions Criticality Noted Date Comments Shellfish Containing Products Diarrhea,Itching,Unknown 08/19/2024 Medications lisdexamfetamine (Vyvanse) 30 mg capsule Take 30 mg by mouth in the morning. Active Junel 12/12, , 1-20 mg-mcg tablet Take 1 tablet by mouth in the morning. Active albuterol 90 mcg/actuation inhaler Inhale 2 puffs in the morning, noon, at afternoon, at bedtime,. Active Active Problems Problem Noted Date Diagnosed Date Neck mass 07/08/2024 ADHD (attention deficit hyperactivity disorder) 07/05/2024 Cervical lymphadenopathy 07/05/2024 Migraine 07/05/2024 Chest pain 06/07/2020 Encounters Date Type Department Care Team Description 07/21/2025 10:20 AM EDT Office Visit [facility] [address] [place] [address] Shanti Romero MD Tachycardia (Primary Dx); Cardiac arrhythmia, unspecified cardiac arrhythmia type from Last 3 Months Family History Medical History Relation Name Comments Alcohol abuse Father Relation Name Status Comments Father Alive Mother Alive Social History Tobacco Use Types Packs/Day Years [...] Heterosexual or Straight 06/24 1:36 PM EDT Last Filed Vital Signs Vital Sign Reading [...] Mass Index 17.11 07/21/2025 10:25 AM EDT Plan of Treatment Upcoming Encounters Date Type Department Care Team (Late st Contact Info) Description 09/29/2025 3:00 PM EST Office Visit [facility] [address] [place] [address] Shanti Romero MD [address] [place] [address] Health Maintenance Due Date Last Done Comments Depression Screening 2009 Varicella Vaccines (1 of 2 - 13+ 2-dose series) 2010 Pap Smear 2018 Adult Tetanus 2019 04/15/2010 COVID-19 Vaccine ( season) 2025 11/18/2021, 01/17/2021, 12/28/2020 Influenza Vaccine (#1) 2025 Zoster Vaccines (1 of 2) 2047 HIB Vaccines Completed 08/12/1999, 01/21, 1997, Additional history exists IPV Vaccines Completed 02/20/2003, 07/25, 1997, Additional history exists Meningococcal Vaccine Aged Out 04/15/2010 No jaquan lakesha eligible based on patient's age to complete this topic HPV Vaccines Aged Out No longer eligi ble based on patient's age to complete this topic Meningococcal B Vaccine Aged Out No l onger eligible based on patient's age to complete this topic Pneumococcal Vaccine: Pediatrics (0 to 5 Years) and At-Risk Patients (6 to 64 Years) Aged Out No longer eligible based on patient's age to complete this topic Rotavirus Vaccines Aged Out No longer eligible based on patient's age to complete this topic Procedures Procedure Name Priority Date/Time Associated Diagnosis Comments ECG 12 LEAD UNIT PERFORMED Routine 07/21/2025 10:53 AM EDT Tachycardia from Last 3 Months Results * ECG 12 lead unit performed (07/21/2025 10:53 AM EDT) Shanti Romero MD ECG ORDERABLES Final Result from Last 3 Months Insurance [facility] Care Teams Camp Recreation Specialist Relationship Specialty Start Date End Date Caron Ramos MD [address] PCP - General 07/21/25
--- OUTSIDE RECORDS SUMMARY | 2025-07-28 14:03 | XMS_ITS | Clinical Summary ---
Author Organization [facility] Address [address] [place] [address] Care Team Providers Care Edge Cutting Machine Operator Name Role Phone Unavailable Primary Care Provider Unavailabl e Medications Lisdexamfetamine (Vyvanse) 30 MG capsule Take by mouth daily every morning. Active Active Problems No known active problems Social History Tobacco Use Types Packs/Day Years Used Date Smoking Tobacco: Never Smokeless Tobacco: Never Tobacco Cessation:Counseling Given: Not Answered Comments Unknown Sex and Gender Information Value Date Recorded Sex Assigned at Not on file Legal Sex Female 3:00 PM EST Gender Identity Female 11/04/2024 8:19 AM EST Sexual Orientation Straight 11/04/2024 8: 19 AM EST Last Filed Vital Signs Vital Sign Reading Time Taken Comments Blood Pressure - - Pulse - - Temperature 36.8 C (98.2 F) 11/07/2024 9:17 AM EST Respiratory Rate - - Oxygen Saturation - - Inhaled Oxygen Concentration - - Weight 44.9 kg (99 lb) 11/07/2024 9:17 AM EST Height 167.6 cm (5' 6 ) 11/07/2024 9:17 AM EST Body Mass Index 15.98 11/07/2024 9:17 AM EST Plan of Treatment Health Maintenance Due Date Last Done Comments HEPATITIS C VIRUS SCREENING 1995 TETANUS 1997 HIV SCREENING DISCUSSION 2012 HEP B VACCINE (1 of 3 - 19+ 3-dose series) 2016 TDAP (ADULT) 2016 CERVICAL CANCER SCREENING DISCUSSION 2018 HPV VACCINE (1 - 3-dose SCDM series) 2024 COVID-19 VACCINE ( - 2023-2 5 season) 2025 INFLUENZA VACCINE (#1) 2025 PNEUMOCOCCAL VACCINE SERIES Aged Out No longer eligible based on patient's age to complete this topic Insurance [facility] PPO POS
--- OUTSIDE RECORDS SUMMARY | 2025-07-28 14:11 | XMS_ITS | CCD ---
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 Name Role Phone CARIDAD ZAMBRANO Attending Unavailable CARON PARADA Primary Care Unavaila ble CARON PARADA Primary Care Unavailable SHAN PHILLIP Attending Unava ilable CARON PARADA Primary Care Unavailable SHAN PHILLIP Admitting Unava [...] Provider UnavailCaron Johnson MD Primary Care Provider [phone] Caron Parada MD Primary Care Provider Caron Parada MD Attending Provider JOHN MONCADA Attending Unavailable Allergies Allergy Classification Reported Allergen(s) Allergy Type Date of Onset Reaction(s) Facility (2 sources) patient allergy list reviewed by nurse or physicia Propensity to adverse reactions 9 Comment:Done [employer] Other (2 sources) Allergies Reconciled Propensity to adverse reactions Unknown [employer] Other (2 sources) Shellfish-Deriv ed Products Propensity to adverse reactions 4 Diarrhea, Itching, Unknown [facility] (1 source) SHELLFISH CONTAINING PRODUCTS; Translations: [SHELLFISH CONTAINING PRODUCTS] Propensity to adverse reactions to drug (disorder) [facility] Repository Medications Current Medications Medication Drug Class(es) Dates Sig (Normalized) Sig (Original) [id number] 200 actuat albuterol 0.09 mg/actuat metered dose [...] .ROUTE .COMPLEX 84 June 13, 2024 12:42pm take 1 tablet by mouth once daily Start: 06-13-2024 take 1 tablet by sherri th once daily Norethindrone Ac-Eth Estradiol 1-20 mg-mcg tablet Active 0 .ROUTE .COMPLEX 84 June 13, 2024 11:42am take 1 tablet by mouth once daily Start: 06-13-2024 take 1 tablet by sherri once daily Norethindrone Ac-Eth Estradiol Active 0 .ROUTE .COMPLEX 84 June 13, 2024 12:42pm take 1 tablet [...] Norethindrone Ac-Eth Estradiol Active 0 .ROUTE .COMPLEX 84 February 08, 2024 4:40pm take 1 tablet [...] Start: 05-30-2025 take 1 capsule by mo [facility] once daily Lisdexamfetamine (Vyvanse) 30 mg capsule [...] tablet Discontinued 875 MG PO Twice daily 05 06October 25, 2024 1:00am May 03, 2025 11:00am [...] [Attention deficit disorder with hyperactivity] 04-22-2024 Chronic Cardiac dysrhythmias (2 sources) Cardiac arrhythmia, unspecified; Translations: [Cardiac arrhythmia, unspecified] Onset: 07-21-2025 Chronic Cardiac dysrhythmias (2 sources) Tachycardia, unspecified; Translations: [Tachycardia, unspecified] Onset: 07-21-2025 Episodic Chronic obstructive pulmonary disease and bronchiectasis (2 [...] 11-05-2022 Insulin 2.1 uIU/mL Critically low 2.6-24.9 [facility] Comment on above: Performed By: #### I NSULIN #### [facility] [address] [place] [address] Dr. Smitha Batista CBC AUTO DIFFon 11-04-2022 BASO # 0.0 103/ul Normal 0.0-0.1 [facility] Comment on above: Performed By: #### C BC #### [facility] [address] [place] [address] Dr. Smitha Batista Basophils/100 WBC (Bld) 0.9 % Normal 0.2-2.0 [facility] Comment on above: Performed By: #### C BC #### [facility] [address] [place] [address] Dr. Smitha Batista EO # 0.2 103/ul Normal 0.0-0.7 [facility] Comment on above: Performed By: #### C BC #### [facility] [address] [place] [address] Dr. Smitha Batista Eosinophils/100 WBC (Bld) 3.9 % Normal 0.9-7.0 [facility] Comment on above: Performed By: #### C BC #### [facility] [address] [place] [address] Dr. Smitha Batitsa Erythrocyte distribution width (RBC) [Ratio] 12.3 % Normal 11.0-15.0 [facility] Comment on above: Performed By: #### C BC #### [facility] [address] [place] [address] Dr. Smitha Batista Hematocrit (Bld) [Volume fraction] 40.1 % Normal 36.0-48.0 [facility] Comment on above: Performed By: #### C BC #### [facility] [address] [address] [address] Smitha Batista Hemoglobin (Bld) [Mass/Vol] 13.8 g/dL Normal 12.0-16.0 [facility] Comment on above: Performed By: #### C BC #### [facility] [address] [address] [address] Smitha Batista IG # 0.01 10e3/ul Normal 0.00-0.03 [facility] Comment on above: Performed By: #### C BC #### [facility] [address] [place] [address] Dr. Smitha Batista IG % 0.2 % Normal 0.0-0.5 [facility] Comment on above: Performed By: #### C BC #### [facility] [address] [place] [address] Dr. Smitha Batista LYMPH # 2.0 103/ul Normal 1.2-3.8 [facility] Comment on above: Performed By: #### C BC #### [facility] [address] [place] [address] Dr. Smitha Batista Lymphocytes/100 WBC (Bld) 46.4 % Normal 20.5-60.0 [facility] Comment on above: Performed By: #### C BC #### [facility] [address] [place] [address] Dr. Smitha Batista MANUAL DIFF REQ NO Normal [facility] Comment on above: Performed By: #### C BC #### [facility] [address] [place] [address] Dr. Smitha Batista MCH (RBC) [Entitic mass] 31.0 pg Normal 26.7-34.0 [facility] Comment on above: Performed By: #### C BC #### [facility] [address] [place] [address] Dr. Smitha Batista MCHC (RBC) [Mass/Vol] 34.4 g/dL Normal 29.9-35.2 [facility] Comment on above: Performed By: #### C BC #### [facility] [address] [address] [address] Smitha Batista MCV (RBC) [Entitic vol] 90.1 fL Normal 81.0-99.0 [facility] Comment on above: Performed By: #### C BC #### [facility] [address] [address] [address] Smitha Batista MONO # 0.3 103/ul Normal 0.3-0.8 [facility] Comment on above: Performed By: #### C BC #### [facility] [address] [address] [address] Smitha Batista Monocytes/100 WBC (Bld) 6.9 % Normal 1.7-12.0 [facility] Comment on above: Performed By: #### C BC #### [facility] [address] [place] [address] Dr. Smitha Batista NEUT # 1.8 103/ul Normal 1.4-6.5 [facility] Comment on above: Performed By: #### C BC #### [facility] [address] [place] [address] Dr. Smitha Batista Neutrophils/100 WBC (Bld) 41.7 % Critically low 43.0-75.0 [facility] Comment on above: Performed By: #### C BC #### [facility] [address] [place] [address] Dr. Smitha Batista Platelet mean volume (Bld) [Entitic vol] 12.2 fL Normal 9.5-13.5 [facility] Comment on above: Performed By: #### C BC #### [facility] [address] [place] [address] Dr. Smitha Batista PLT 164 103/ul Normal 150-450 [facility] Comment on above: Performed By: #### C BC #### [facility] [address] [place] [address] Dr. Smitha Batista RBC 4.45 106/ul Normal 4.20-5.40 [facility] Comment on above: Performed By: #### C BC #### [facility] [address] [place] [address] Dr. Smitha Batista WBC 4.3 103/ul Normal 4.0-11.0 [facility] Comment on above: Performed By: #### C BC #### [facility] [address] [place] [address] Dr. Smitha Batista FERRITINon 11-04-2022 Ferritin [Mass/Vol] 105.0 ng/mL Normal 6.2-137.0 [facility] Comment on above: Performed By: #### F T4, FERR #### [facility] [address] [place] [address] Dr. Smitha Batista FREE T4on 11-04-2022 Free T4 [Mass/Vol] 0.98 ng/dL Normal 0.76-1.46 [facility] [place] [facility] Comment on above: Performed By: #### F T4, FERR #### [facility] [address] [place] [address] Dr. Smitha Batista PROF CHEM 8 (BAS METB)on Anion gap [Moles/Vol] 14.6 mmol/L Normal [facility] Comment on above: Performed By: #### B MP, TSH #### [facility] [address] [place] [address] Dr. Smitha Batista Calcium [Mass/Vol] 8.9 mg/dL Normal 8.5-10.1 [facility] [place] [facility] Comment on above: Performed By: #### B MP, TSH #### [facility] [address] [place] [address] Dr. Smitha Batista Chloride [Moles/Vol] 107 mmol/L Normal 98-107 [facility] Comment on above: Performed By: #### B MP, TSH #### [facility] [address] [place] [address] Dr. Smitha Batista CO2 [Moles/Vol] 24.3 mmol/L Normal 21.0-32.0 [facility] Comment on above: Performed By: #### B MP, TSH #### [facility] [address] [place] [address] Dr. Smitha Batista Creatinine [Mass/Vol] 0.82 mg/dL Normal 0.55-1.02 [facility] Comment on above: Performed By: #### B MP, TSH #### [facility] [address] [address] [address] Smitha Batista EGFR-AF ALGERIAN >60 Normal >=60 [facility] Comment on above: Performed By: #### B MP, TSH #### [facility] [address] [address] [address] Smitha Batista EGFR-NON AF ALGERIAN >60 Normal >=60 [facility] Comment on above: Performed By: #### B MP, TSH #### [facility] [address] [address] [address] Smitha Batista Glucose [Mass/Vol] 81 mg/dL Normal 74-106 [facility] Comment on above: Performed By: #### B MP, TSH #### [facility] [address] [address] [address] Smitha Batista Potassium [Moles/Vol] 3.9 mmol/L Normal 3.5-5.1 [facility] Comment on above: Performed By: #### B MP, TSH #### [facility] [address] [place] [address] Dr. Smitha Batista Sodium [Moles/Vol] 142 mmol/L Normal 136-145 [facility] Comment on above: Performed By: #### B MP, TSH #### [facility] [address] [address] [address] Smitha Batista Urea nitrogen [Mass/Vol] 8.0 mg/dL Normal 7.0-18.0 [facility] Comment on above: Performed By: #### B MP, TSH #### [facility] [address] [address] [address] Smitha Batista Urea nitrogen/Creatinine [Mass ratio] 9.8 mg/mg Normal [facility] Comment on above: Performed By: #### B MP, TSH #### [facility] [address] [address] [address] Smitha Batista TSHon 11-04-2022 TSH 1.299 uIU/mL Normal 0.358-3.740 [facility] Comment on above: Performed By: #### B MP, TSH #### [facility] [address] [address] [address] Smitha Batista Basic Metabolic Panelon 020 Anion gap molar conc 9.0 mmol/L Normal 6.0-18.0 [facility] Comment on above: Performed By: #### 6 9405-9, 11523-6x4, 96676-7, 68004-6 #### [facility], [address], [place]. Calcium mass conc 9.4 mg/dL Normal 8.9-10.3 [facility] Comment on above: Performed By: #### 6 9405-9, 83548-2f7, 12456-9, 23657-0 #### [facility], [address] [place]. Chloride molar conc 107 mmol/L Normal 98-107 [facility] Comment on above: Performed By: #### 6 9405-9, 76731-9e9, 04582-8, 81697-6 #### [facility], [address] CO2 molar conc 23 mmol/L Normal 22-32 [facility] Comment on above: Performed By: #### 6 9405-9, 25930-7i9, 04231-6, 13292-1 #### [facility], [address], [place]. Creatinine mass conc 0.91 mg/dL Normal 0.66-1.30 [facility] Comment on above: Performed By: #### 6 9405-9, 94777-5b7, 59614-0, 55376-3 #### [facility], [address], [place]. Glucose mass conc 91 mg/dL Normal 70-99 [facility] Comment on above: Result Comment: U pdated ADA Reference Range A normal fasting glucose concentration is less than 100 mg/dL. An impaired fasting glucose concentration is 100-125 mg/dL. A provisional diagnosis of diabetes mellitus can be made when a fasting glucose concentration is greater than 125 mg/dL. Performed By: #### 6 9405-9, 25395-2s6, 86468-3, 67766-7 #### [facility], [address] [place], [place]. Potassium molar conc 3.8 mmol/L Normal 3.6-5.1 [facility] Comment on above: Performed By: #### 6 9405-9, 85800-8f1, 15829-7, 47956-5 #### [facility], [address] [place], [place]. Sodium molar conc 139 mmol/L Normal 136-145 [facility] Comment on above: Performed By: #### 6 9405-9, 02333-6o6, 66982-7, 21995-1 #### [facility], [address] [place], [place]. Urea nitrogen mass conc (BldV) 10 mg/dL Normal 8-20 [facility] Comment on above: Performed By: #### 6 9405-9, 30406-5k3, 38702-0, 96368-2 #### [facility], [address] [place], [place]. CBC with Differentialon 02-0 Basophils #/vol (Bld) 0.00 thou/mcL Normal 0.00-0.20 [facility] Comment on above: Performed By: #### 5 7021-8 #### [facility], [address] [place], [place]. Basophils #/vol (Bld) 0.4 % Normal 0.0-2.0 [facility] Comment on above: Performed By: #### 5 7021-8 #### [facility], [address] [place], [place]. Eosinophils #/vol (Bld) 0.20 thou/mcL Normal 0.00-0.70 [facility] Comment on above: Performed By: #### 5 7021-8 #### [facility], [address]. Eosinophils/100 WBC (Bld) 3.0 % Normal 0.0-7.0 [facility] Comment on above: Performed By: #### 5 7021-8 #### [facility], [facility] [address]. Erythrocyte distribution width Entitic volume (RBC) 12.4 % Normal 11.0-14.8 [facility] Comment on above: Performed By: #### 5 7021-8 #### [facility], [facility] [place]. Hematocrit Volume Fraction (Bld) 43.2 % Normal 35.0-45.0 [facility] Comment on above: Performed By: #### 5 7021-8 #### [facility], [facility] [place], [place]. Hemoglobin mass conc (Bld) 14.5 g/dL Normal 12.0-16.0 [facility] Comment on above: Performed By: #### 5 7021-8 #### [facility], [facility] [address] [place], [place]. Lymphocytes #/vol (Bld) 2.20 thou/mcL Normal 1.00-4.80 [facility] Comment on above: Performed By: #### 5 7021-8 #### [facility], [address] [place], [place]. Lymphocytes/100 WBC (Bld) 37.3 % Normal 22.0-44.0 [facility] Comment on above: Performed By: #### 5 7021-8 #### [facility], [address]. MCH Entitic mass (RBC) 30.9 Picograms Normal 27.0-34.0 [facility] Comment on above: Performed By: #### 5 7021-8 #### [facility], [address] [place], [place]. MCHC mass conc (RBC) 33.5 g/dL Normal 32.0-36.0 [facility] Comment on above: Performed By: #### 70-8 #### [facility], [address] [place], [place]. MCV Entitic volume (RBC) 92.3 fL Normal 80.0-97.0 [facility] Comment on above: Performed By: #### 7021-8 #### [facility], [address]. Monocytes #/vol (Bld) 0.50 thou/mcL Normal 0.00-0.90 [facility] Comment on above: Performed By: #### 5 7021-8 #### [facility], [address] [place], [place]. Monocytes/100 WBC (Bld) 8.2 % Normal 0.0-12.0 [facility] Comment on above: Performed By: #### 5 7021-8 #### [facility], [address] [place], [place]. Neutrophils #/vol (Bld) 3.10 thou/mcL Normal 1.80-7.70 [facility] Comment on above: Performed By: #### 5 7021-8 #### [facility], [address] [place], [place]. Neutrophils/100 WBC (Bld) 51.1 % Normal 40.0-70.0 [facility] Comment on above: Performed By: #### 5 7021-8 #### [facility], [address], [place]. Platelet mean volume Entitic volume (Bld) 8.3 fL Normal 6.2-12.1 [facility] Comment on above: Performed By: #### 5 7021-8 #### [facility], [address] [place], [place]. Platelets #/vol (Bld) 221 thou/mcL Normal 142-424 [facility] Comment on above: Performed By: #### 5 7021-8 #### [facility], [address] [facility], [place], [place]. RBC #/vol (Bld) 4.68 million/mcL Normal 3.80-5.10 [facility] Comment on above: Performed By: #### 5 7021-8 #### [facility], [address] [place] [address]. WBC #/vol (Bld) 6.0 thou/mcL Normal 4.6-10.2 [facility] Comment on above: Performed By: #### 5 7021-8 #### [facility], [address] [place] [address]. CT Ang Chest w and/or w/o Co [...] acute findings. No pulmonary embolus is identified. Morris thanks you for the opportunity to care for your patient. Workstation ID: [id number] - [id number] FINAL REPORT Dictated By: Billy Guzman MD 12/25/2018 13:59 Assigned Physician: Billy Guzman MD Reviewed and Electronically Signed By: Billy Guzman MD 12/25/2018 14:05 Transcribed by: CHRISTIANO 12/25/2018 13:59 Technologist: EG,AW Normal [facility] Comment on above: Order Comment: For i npatients, Nursing to order and initiate prep per [facility] Prep protocol D-Dimer Quantitativeon 12-25 Fibrin D-dimer Qn (PPP) <150 Normal 150-230 [facility] Comment on above: Result Comment: NORM [...] Units. Performed By: #### 4 8065-7 #### [address] ED Pat Eduon 12-25-2018 ED Pat [address] [address] Emergency Department Discharge Instructions VINNY SUAREZ , Please provide this information to your Primary Care/Specialist Name : VINNY SUAREZ Current Date : 12/25/2018 15:52:28 : 1995 12:00 PM Primary Care Physician: Caron Parada MD Diagnosis : Follow-Up Instructions: VINNY SUAREZ has been given these follow-up instructions: FOLLOW-UP APPOINTMENTS: Provider: Specialty: Address: Date: Caron Parada MD Family Practice [address] [place] [address] (1) Call for an Appointment Comment: early this week or the [facility] Laboratory Orders: Name: Status: Basic Metabolic [...] Servicios de Emergencia Name VINNY SUAREZ MRN [facility]-[id number] PLEASE READ THE FOLLOWING REGARDING YOUR MEDICATIONS [...] doses are changed, or new medications (including bguq-hof-piwjvli products) are added. If you have any [...] UNTIL YOU TALK TO YOUR DOCTOR [address] [address] Emergency Department Discharge Instructions Name: VINNY SUAREZ Current Date: 12/25/2018 15:52:28 : 1995 12:00 PM Primary Physician: Karma LAMBERT , Caron Brower We would like to thank you for choosing [facility] for your emergency medical needs. We [...] of those around you. Call the [employer] at 7-323-SSQD-[place] or the [employer] at 6-971-ORU-3207 for more information. High blood pressure: Your [...] deadly infections. Discuss this with your child's sanitary landfill operator, or Public Health Department. Your family practice doctor can determine if you need pneumonia or flu vaccine. The [facility] Department can be reached at . [...] suicide hotline, anytime day or night, at 7-640-037-VBTM. Pharmacy Information: Below is a list of 24 hour pharmacies that we are aware of. We suggest that you call the specific pharmacy for their hours before traveling to a location. Hours may vary on holidays. [facility] [address] [place], [place] [phone] [place], [place] [phone] [place], [place] [phone] [address], [place] [phone] [address], [place] [phone] [address], [place] [phone] [address] [place], [place] [phone] Take all medications as directed. If you need prescription assistance, contact the following agencies: ?? Partnership for Prescription Assistance at or www.[employer] Softwarex.org ?? [place] at or www.Parabelstrx.org ?? www.[employer] is a site with many valuable coupons Patient Education Materials VINNY SUAREZ has been given the following patient education materials: [facility] Emergency Department [address] [place], [place] [address] Work Release Form This notice verifies that [...] 08/19/2006 Document Revised: 11/30/2015 Document Reviewed: 06/15/2015 [employer] Patient Education ?2016 [employer]vier Inc. <><><><><><><><><><><>< ><><><><><><><><><><><> <><> Patient Visit Summary Signature VINNY SUAREZ has been given the following list of patient education materials, prescriptions and follow-up instructions: FANNY SchumacherVINNY, have received the above patient education materials/instructions and have verbalized understanding: Date Time Patient Signature Date Time Provider Signature [facility] GFRaaon 12-25-2018 GFR/1.73 sq M predicted among blacks MDRD vol rate/area (S/P/Bld) mL/min/{1.73_m2} [facility] Comment on above: Result Comment: The MDRD equation has not been validated for those over 70 years, women, patients with serious co-morbid conditions, or with extremes of body size, muscle mass of nutritional status. Performed By: #### 6 9405-9, 08413-9a7, 27190-9, 16605-4 #### [facility], [address] [place] [address]. GFRbbon 12-25-2018 GFR/1.73 sq M predicted among non-blacks MDRD vol rate/area (S/P/Bld) mL/min/{1.73_m2} [facility] Comment on above: Performed By: #### 6 9405-9, 89002-4w1, 70736-3, 24675-3 #### [facility], [address] [place] [address]. Pre-Arrival Formon 9 Pre-Arrival Form Pre-Arrival Summary [...] had dvt, mother with recent pe. Normal [facility] Troponin Ion 12-25-2018 Troponin I.cardiac mass conc ng/mL Normal <0.06 [facility] Comment on above: Performed By: #### 5 7021-8 #### [facility], [address] [place], [place]. Troponin I.cardiac mass conc ng/mL Normal <0.06 [facility] Comment on above: Performed By: #### 6 9405-9, 62912-3i5, 89076-9, 15596-5 #### [facility], [address] [place], [place]. XR Chest 2 Viewson 9 XR Chest 2 views Two-view chest exam Indication: Chest Pain and shortness of breath COMPARISON: None FINDINGS: The lungs are clear and the costophrenic angles are sharp. The cardiomediastinal silhouette and bones are normal. IMPRESSION: Normal chest. [facility] thanks you for the opportunity to care for your patient. Workstation ID: [id number] - [id number] FINAL REPORT Dictated By: Gabe Diaz MD 12/25/2018 13:17 Assigned Physician: Gabe Diaz MD Reviewed and Electronically Signed By: Gabe Diaz MD 12/25/2018 13:18 Transcribed by: CHRISTIANO 12/25/2018 13:17 Technologist: FRANTZ Joyce [facility] Vital Signs Date Time Vital Sign Value Performing Clinician Facility 06-19-2025 11:21-0400 Body height 167.64 cm Caron Parada MD Work Phone: [facility] 06-19-2025 11:21-0400 Body mass index (BMI) [Ratio] 16.7 kg/m2 Caron Parada MD Work Phone: [facility] 06-19-2025 11:21-0400 Body weight 46.89 kg Caron Parada MD Work Phone: [facility] 06-19-2025 11:21-0400 Diastolic blood pressure 73 mm[Hg] Caron Parada MD Work Phone: [facility] 06-19-2025 11:21-0400 Heart rate 102 /min Caron Parada MD Work Phone: [facility] 06-19-2025 11:21-0400 Systolic blood pressure 106 mm[Hg] Caron Parada MD Work Phone: [facility] 05-03-2025 10:57-0400 Body height 167.64 cm [facility] [facility] 05-03-2025 10:57-0400 Body mass index (BMI) [Ratio] 16.7 kg/m2 [facility] 05-03-2025 10:57-0400 Body weight 46.83 kg [facility] 05-03-2025 10:57-0400 Diastolic blood pressure 88 mm[Hg] [facility] 05-03-2025 10:57-0400 Heart rate 114 /min [facility] 05-03-2025 10:57-0400 Systolic blood pressure 124 mm[Hg] [facility] 11-07-2024 09:17-0500 Body height 167.6 cm Sam Masterson MD Work Phone: [facility] 11-07-2024 09:17-0500 Body mass index (BMI) [Ratio] 15.98 kg/m2 Sam Masterson MD Work Phone: [facility] 11-07-2024 09:17-0500 Body temperature 98.2 [degF] Sam Masterson MD Work Phone: [facility] 11-07-2024 09:17-0500 Body weight 44.91 kg Sam Masterson MD Work Phone: [facility] 10-10-2024 08:30-0500 Body height 167.64 cm [facility] 10-10-2024 08:30-0500 Body mass index (BMI) [Ratio] 16 kg/m2 [facility] 10-10-2024 08:30-0500 Body weight 45.01 kg [facility] 10-10-2024 08:30-0500 Diastolic blood pressure 76 mm[Hg] [facility] 10-10-2024 08:30-0500 Heart rate 97 /min [facility] 10-10-2024 08:30-0500 Systolic blood pressure 110 mm[Hg] [facility] 08-19-2024 09:57-0400 Body height 167.6 cm Martha Richmond MD Work Phone: [facility] 08-19-2024 09:57-0400 Body mass index (BMI) [Ratio] 15.98 kg/m2 Martha Richmond MD Work Phone: [facility] 08-19-2024 09:57-0400 Body weight 44.91 kg Martha Richmond MD Work Phone: [facility] 08-19-2024 09:57-0400 Diastolic blood pressure 77 mm[Hg] Martha Richmond MD Work Phone: [facility] 08-19-2024 09:57-0400 Systolic blood pressure 113 mm[Hg] Martha Richmond MD Work Phone: [facility] 06-22-2024 09:44-0400 Body height 167.64 cm [facility] 06-22-2024 09:44-0400 Body mass index (BMI) [Ratio] 15.8 kg/m2 [facility] 06-22-2024 09:44-0400 Body temperature 98.8 [degF] [facility] 06-22-2024 09:44-0400 Body weight 44.62 kg [facility] 06-22-2024 09:44-0400 Diastolic blood pressure 85 mm[Hg] [facility] 06-22-2024 09:44-0400 Heart rate 101 /min [facility] 06-22-2024 09:44-0400 Systolic blood pressure 125 mm[Hg] [facility] 04-22-2024 10:02-0400 Body height 167.64 cm [facility] 04-22-2024 10:02-0400 Body mass index (BMI) [Ratio] 15.7 kg/m2 [facility] 04-22-2024 10:02-0400 Body weight 44.22 kg [facility] 04-22-2024 10:02-0400 Diastolic blood pressure 74 mm[Hg] [facility] 04-22-2024 10:02-0400 Heart rate 82 /min [facility] 04-22-2024 10:02-0400 Systolic blood pressure 105 mm[Hg] [facility] 08-31-2023 09:45-0400 Body height 167.64 cm Caron Parada Other [facility] [employer] Other 08-31-2023 09:45-0400 Body mass index (BMI) [Ratio] 15.65 kg/m2 Caron Parada Other [employer] Other 08-31-2023 09:45-0400 Body weight 44 kg Caron Parada Other [employer] Other 08-31-2023 09:45-0400 Diastolic blood pressure 71 mm[Hg] Caron Parada Other [employer] Other 08-31-2023 09:45-0400 Systolic blood pressure 102 mm[Hg] Caron Parada Other [employer] Other 02-26-2023 11:30-0400 Body height 167.64 cm Caron Parada Other [employer] Other 02-26-2023 11:30-0400 Body mass index (BMI) [Ratio] 16.3 kg/m2 Caron Parada Other [employer] Other 02-26-2023 11:30-0400 Body weight 45.81 kg Caron Parada Other [employer] Other 02-26-2023 11:30-0400 Diastolic blood pressure 64 mm[Hg] Caron Parada Other [employer] Other 02-26-2023 11:30-0400 SaO2% (BldA) [Mass fraction] 95 % Caron Parada Other [employer] Other 02-26-2023 11:30-0400 Systolic blood pressure 102 mm[Hg] Caron Parada Other [employer] Other Encounters Encounter Date Encounter Type Care Provider Facility Start: 07-21-2025 End: 07-21-2025 ambulatory [facility] Start: 06-19-2025 End: 06-19-2025 ambulatory Caron Parada MD Work Phone: [facility] Work Phone: Start: 06-19-2025 End: 06-19-2025 Patient encounter procedure Caron Parada MD -[facility] Work Phone: Start: 05-03-2025 Patient encounter status Caron Parada MD Work Phone: [facility] Start: 05-03-2025 End: 05-03-2025 ambulatory [facility] Work Phone: Start: 05-03-2025 End: 05-03-2025 Patient encounter procedure [facility] Work Phone: Start: 05-03-2025 End: 05-03-2025 Patient encounter status Caron Parada MD [facility] Start: 11-07-2024 End: 11-07-2024 Office outpatient new 45 minutes Sam Masterson MD Work Phone: [facility] Ot[facility] Comment on above: Localized swelling, mass and lump, neck (Primary Dx); Pulsatile neck mass Start: 11-07-2024 ambulatory SELF SELF [facility] Start: 10-10-2024 End: 10-10-2024 ambulatory [facility] Work Phone: Start: 10-10-2024 End: 10-10-2024 Patient encounter procedure [facility] Work Phone: Start: 10-06-2024 Non-patient / Non-visit [facility] Work Phone: Start: 08-19-2024 End: 08-19-2024 ambulatory MARTHA H TIMMIS Not Available Start: 08-19-2024 End: 08-19-2024 Office outpatient visit 15 minutes Martha Richmond MD Work Phone: [facility] ERICH SALAZAR Comment on above: Neck mass (Primary D x) Start: 07-08-2024 End: 07-08-2024 ambulatory MARTHA MEEKMIS Not Available Start: 2024 ambulatory [facility] Work Phone: Start: 2024 Non-patient / Non-visit [facility] Work Phone: Start: 06-22-2024 End: 06-22-2024 ambulatory [facility] Work Phone: Start: 06-22-2024 End: 06-22-2024 Patient encounter procedure [facility] Work Phone: Start: 04-22-2024 End: 04-22-2024 ambulatory [facility] Work Phone: Start: 04-22-2024 End: 04-22-2024 Patient encounter procedure [facility] Work Phone: Start: 01-25-2024 Non-patient / Non-visit [facility] Work Phone: Start: 12-10-2023 End: 12-10-2023 ambulatory Caron Parada Other [employer] Other Start: 12-10-2023 Telephone encounter Caron Karma [facility] Start: 12-07-2023 End: 12-07-2023 ambulatory Caron Karma Other [employer] Other Start: 12-07-2023 Telephone encounter Caron Karma [facility] Start: 11-10-2023 End: 11-10-2023 ambulatory Caron Karma Other [employer] Other Start: 11-10-2023 Telephone encounter Caron Parada [facility] Start: 11-04-2023 End: 11-04-2023 ambulatory Caron Karma Other [employer] Other Start: 11-04-2023 Telephone encounter Caron Parada [facility] Start: 10-05-2023 End: 10-05-2023 ambulatory Caron Parada Other [employer] Other Start: 10-05-2023 Telephone encounter Caron Parada [facility] Start: 09-16-2023 End: 09-16-2023 ambulatory Caron Parada Other [employer] Other Start: 09-16-2023 Telephone encounter Caron Parada [facility] Start: 09-07-2023 End: 09-07-2023 ambulatory Carno Karma Other [employer] Other Start: 09-07-2023 Telephone encounter Caron Parada [facility] Start: 09-04-2023 End: 09-04-2023 ambulatory Caron Parada Other [employer] Other Start: 09-04-2023 Telephone encounter Caron Parada [facility] Start: 08-31-2023 End: 08-31-2023 ambulatory Caron Parada Other [employer] Other Start: 08-31-2023 Office outpatient vi sit 15 minutes Caron Parada [facility] Start: 08-07-2023 End: 08-07-2023 ambulatory Caron Parada Other [employer] Other Start: 08-07-2023 Telephone encounter Caron Parada [facility] Start: 07-03-2023 End: 07-03-2023 ambulatory Caron Parada Other [employer] Other Start: 07-03-2023 Telephone encounter Caron Parada [facility] Start: 05-06-2023 End: 05-06-2023 ambulatory Caron Parada Other [employer] Other Start: 05-06-2023 Telephone encounter Caron Parada [facility] Start: 02-26-2023 End: 02-26-2023 ambulatory Caron Parada Other [employer] Other Start: 02-26-2023 Office outpatient vi sit 15 minutes Caron Parada [facility] Start: 11-04-2022 End: 11-05-[address] CARON PARADA Facility: Start: 10-28-2022 Adult health examination Caron Parada Other [employer] Other Start: 03-01-2021 Patient encounter procedure CARON PARADA [facility] Start: 02-27-2021 End: 03-03-2021 Patient encounter procedure CARON PARADA [facility] Start: 12-25-2018 End: 12-25-2018 Emergency department patient visit CARIDAD ZAMBRANO Facility:[facility] Plan of Treatment Date Care Activity Detail Author Start: 11-07-2024 End: 11-07-2025 CTA Neck vessels WO and W contrast IV CT ANGIO NECK Imaging Routine Localized swelling, mass and lump, neck Pulsatile neck mass Expected: 11/07/2024, Expires: 11/07/2025 [facility] Comment on above: Expected: 11/07/2024 , Expires: 11/07/2025 Start: 10-10-2024 Patient referral [facility] Work Phone: Start: 07-24-2024 COVID-19 VACCINE ( season) COVID-19 VACCINE () [facility] Start: 07-24-2024 Influenza vaccination INFLUENZA VACC INE (#1) [facility] Start: 2024 Patient referral [facility] Work Phone: Start: 2018 Screening for malign ant neoplasm of cervix CERVICAL CANCER SCREENING DISCUSSION [facility] Start: 2016 Hepatitis B vaccination HEP B VACCINE (1 of 3 - 19+ 3-dose series) [facility] Start: 2016 Third diphtheria, tetanus and acellular pertussis (DTaP) vaccination TDAP (ADULT) [facility] Start: 2012 HIV screening HIV SCREENING DISCUSSION [facility] Start: 1997 Hepatitis C screening HEPATITI S C VIRUS SCREENING [facility] Start: 1997 Tetanus vaccination TETANUS [facility] Patient referral [facility] Work Phone: Immunizations Immunization Date Immunization Notes Care Provider Barb kramer 03-20-2016 meningococcal oligosaccharide (groups A, C, Y and W-135) diphtheria toxoid conjugate vaccine (MCV4O) Caron Parada Other [facility] Payers Date Payer Category Payer Unknown [id number] 2024 [facility] [id number] 2020 Unknown [id number] 2017 Unknown [id number] 1997 Unknown [id number] 1997 Unknown [id number] [id number]. [id number] 1997 Unknown [id number] [id number]. [id number] 1997 Unknown [id number] 1997 Unknown [id number] 1997 Unknown [id number] [id number] 1997 Unknown [id number] [id number] 1959 Unknown [id number] Social History Date Type Detail Facility Unknown if ever smoked [employer] Other Start: 07-08-2024 End: 11-07-2024 Sex Assigned At [employer] Other Start: 04-22-2024 End: 07-05-2024 Tobacco smoking status AZIS Never smoked tobacco (finding) [facility] Start: 1995 Sex Assigned At Female F [facility] Start: 10-10-2024 End: 05-03-2025 Sex Female (finding) [facility] Start: 07-05-2024 End: 11-07-2024 Tobacco use and exposure Smokeless tobacco non-user [facility] Start: 07-08-2024 End: 11-07-2024 History of Social function [facility] Start: 1995 Sex assigned at Not on file [facility] Start: 11-04-2024 Gender identity Identifies as female gender (finding) [facility] Start: 11-04-2024 Sexual orientation Heterosexual (brain hanson) [facility] Start: 08-19-2024 Alcoholic beverage intake Ex-drinker (finding) [facility] Start: 07-08-2024 Alcohol Comment Very rare [facility] NEGATED: Highlighted row [facility] NEGATED: Highlighted row N [facility] Clinical Notes 02-26-2023 to 05-03-2025 Note Date & Type Note Facility 05-03-2025 Evaluation note Diagnosis Onset Date Resolution ADHD (attention deficit hyperactivity disorder) acute April 10:57am Cervical lymphadenopathy acute May 03, 2025 10:57am Wellness examination acute May 03, 2025 10:57am [facility] Work Phone: 1([phone] 388-299812-16-2024 History of Present illness Narrative* Sam Masterson MD - 11/07/2024 9:45 AM EST ENT History & Physical Chief Complaint: New Patient (Swollen lymph node ) Referring Provider: Self, Self HPI: Vinny Suarez is a 29 y.o. female who presents with neck mass. Reports it occurred after a long run. Was seen by [facility] ENT where a CT neck was obtained [...] scan with her today documented in this [facility]09-27-2024 History of Present illness Narrative* Martha Richmond MD - 08/19/2024 9:50 AM EDT Subjective Patient ID: Vinny Suarez is a 29 y.o. female who presents for Neck Mass (Follow up [facility] 08/05) CT neck reviewed and no abnormality evident, but pt adamant her neck feels swollen with sx exacerbated by running. Family History Problem Relation Name Age of Onset Other (HTN) Father Robel Suarez Hypertension Father Robel Suarez Cancer Maternal Grandmother Peyton Barahona Diabetes Maternal Grandmother Peyton Barahona Migraines Mother Kika Suarez Active Ambulatory Problems Diagnosis Date Noted ADHD (attention deficit hyperactivity disorder) ([facility]) 07/05/2024 Cervical lymphadenopathy 07/05/2024 Chest pain 06/07/2020 Migraine ([facility]) 07/05/2024 Neck mass 07/08/2024 Resolved [...] mouth in the morning. norethindrone-ethinyl estradiol (Microgestin 1/20) 1-20 MG-MCG tablet Take [...] I will get a second opinion at [facility]. documented in this encounterNOExcelsior Springs Medical [id number] Evaluation note* Encounter Date Diagnosis Assessment Notes Treatment Notes Treatment Clinical Notes Aug, LLQ abdominal pain (ICD-10 - R10.32) Discussed PT for muscle strain v. imaging. Pt opts for imaging w US to r/o enlarged LN or obvious hernia. [facility] Other 06-14-2023 Evaluation note* Encounter Date Diagnosis Assessment Notes Treatment Notes Treatment Clinical Notes Apr, Attention deficit disorder (ADD) in adult (ICD-10 - F98.8) [facility] [employer] Other 04-06-2023 Evaluation note* Encounter Date Diagnosis [...] - N92.6) continue OCP. Suggested appt w drapery estimator. [employer] Other [facility]No [facility] [employer] Other Evaluation noteNo assessment information available [facility] Work Phone: Evaluation note* Diagnosis Onset Date Resolution Status ADHD (attention deficit hyperactivity disorder) acute [facility] Work Phone: Evaluation note* Diagnosis Onset Date Resolution Status ADHD (attention deficit hyperactivity disorder) acute Cervical lymphadenopathy acu te Migraine acute [facility] Work Phone: Evaluation note* Diagnosis Onset Date Resolution Status Admit Date Cervical lymphadenopathy acute October 10, 2024 8:23am [facility] Work Phone: Evaluation note* Diagnosis Localized swelling, mass and lump, neck- Primary Swelling, mass, or lump in head and neck Pulsatile neck mass documented in this encounter [facility]* Diagnosis Neck mass- Primary Swelling, mass, or lump in head and neck documented in this encounter [facility] HealthcareHistory general Narrative - Reported* Type Description Date Medical History Attention deficit disorder (ADD) in adult Medical History Pinworms Medical History Pharyngitis Medical History Hypoglycemia Medical History Abnormal loss of weight [facility] [employer] Other History general Narrative - Reported* Type [...] Comment : none, Problem Status : Active, [employer] Other Hospital Discharge instructionsAmbulatory Orders* Referral to ENT Time Frame: 06/30/24, Location: None [facility] Work Phone: Hospital Discharge instructionsAmbulatory Orders* Referral to ENT Time Frame: 10/10/24, Location: None [facility] Work Phone: Reason for referral (narrative)No reason for referral information availableL[facility] Work Phone: Summary Purpose Family History No [...] DEPARTMENT DISCHAR GE SUMMARY PATIENT NAME:VINNY SUAREZ MRN: ([id number] AGE: 23 Years SEX: Female PHONE:[phone] DOS: 12/25/2018 11:36 AM : 1995 ATTENDING [...] CT ANGIOGRAPHY NECK W/CONTRAST/NONCONTRAST Sam Masterson MD [address] [place] [id number] Referral ID Status Reason Start Date Expiration Date V isits Requested Visits Authorized [id number] New Request 11/07/2024 12/02/2025 1 1 Additional Source Comments INFORMATION SOURCE (unrecogn ized section and content) DATE CREATED AUTHOR 01/11/2019 [facility] DATE CREATED AUTHOR AUTHOR'S ORGANIZ ATION 03/01/2021 [facility] DATE CREATED AUTHOR AUTHOR'S ORGANIZ ATION 03/03/2021 [facility] DATE CREATED AUTHOR AUTHOR'S ORGANIZ ATION 01/19/2023 [facility] DATE CREATED AUTHOR AUTHOR'S ORGANIZ ATION 08/20/2024 [facility] EPIC DATE CREATED AUTHOR AUTHOR'S ORGANIZ ATION 11/08/2024 [facility] DATE CREATED AUTHOR AUTHOR'S ORGANIZ ATION 07/23/2025 [facility] REASON FOR VISIT (unrecogniz ed section and content) Reason Comments New Patient Swollen lymph node Specialty Diagnoses / Procedures Referred By Contac t Referred To Contact Otolaryngology Diagnoses Localized enlarged lymph nodes Caron Parada MD [address] [facility] [place] [address] Sam Masterson MD [address] [place] [id number] Referral ID Status Reason Start Date Expiration Date Visits Re quested Visits Authorized [id number] Closed 10/13/2024 11/07/2025 1 1 Reason Comments Neck Mass Follow up [facility] 07/24 3 Care Teams (unrecognized sec tion [...] Team Status: Inactive Member Role Status Dates Caorn Parada MD Primary Care Provide r, Attending [...] Provide r, Attending Provider Active Start: 2024 [employer] Relationship Specialty Start Date End Date Caron Parada MD [address] [place] [id number] PCP - General Family Medicine 07/01/24 Team [...] BE BASED ON THE PRIMARY CLINICAL RECORDS. [facility]. provides no warranty or guarantee of the accuracy or completeness of information in this document.
[2025-07-28 14:27] LABS: Hematocrit 40.3 % (36.0-48.0); Hemoglobin 13.8 g/dL (12.0-16.0); Immature Granulocytes Abs Auto 0.02 10^3/uL (0.00-0.03); Immature Granulocytes Pct Auto 0.3 % (0.0-0.5); Lymphocytes Absolute Auto 2.3 10^3/uL (1.2-3.8); Mean Corpuscular HGB Conc 34.2 g/dL (29.9-35.2); Mean Corpuscular Hemoglobin 31.4 pg (26.7-34.0); Mean Corpuscular Volume 91.8 fL (81.0-99.0); Platelet Count 247 10^3/uL (150-450); Red Blood Count 4.39 10^6/uL (4.20-5.40); White Blood Count 7.7 10^3/uL (4.0-11.0)
[2025-07-28 14:50] LABS: Anion Gap 13.4; Blood Urea Nitrogen 12.0 mg/dL (7.0-18.0); Calcium 9.1 mg/dL (8.5-10.1); Carbon Dioxide 27.7 mmol/L (21.0-32.0); Chloride 107 mmol/L (98-107); Estimated GFR (African America >60 (>=60 mL/min/1.73m^2); Estimated GFR (Non-African Ame >60 (>=60 mL/min/1.73m^2); Glucose 119 mg/dL (74-106); Magnesium 1.8 mg/dL (1.8-2.4); Potassium 4.1 mmol/L (3.5-5.1); Sodium 144 mmol/L (136-145); Thyroid Stimulating Hormone 1.100 uIU/mL (0.358-3.740)
== END 2025-07-28 13:59 | disposition home or self-care (01) ==
LOC: LAB 14:00
PROVIDERS: PCP Family Medicine; Visit Provider Internal Medicine Cardiovascular Disease
DX: R00.0 Tachycardia, unspecified (principal); I49.9 Cardiac arrhythmia, unspecified
CPT/HCPCS: 36415; 80048; 83735; 84443; 85025

== ENCOUNTER 2025-08-18 13:52 | Outpatient (OUT) | payer BC, SELFPAY ==
--- OUTSIDE RECORDS SUMMARY | 2025-08-18 13:56 | XMS_ITS | CCD ---
Author Organization [facility] Inform ion [facility] Care Team Providers Care Circulation Manager Name Role Phone CARIDAD ZAMBRANO Attending Unavailable [...] Provider Caron Parada MD Primary Care Provider Carno Parada MD Attending Provider JOHN MONCADA Attending Unavailable Allergies Allergy Classification Reported Allergen(s) Allergy Type Date of Onset Reaction(s) Facility (2 sources) patient allergy list reviewed by nurse or physicia Propensity to adverse reactions 9 Comment:Done [facility] Other (2 sources) Allergies Reconciled Propensity to adverse reactions Unknown [facility] Other (2 sources) Shellfish-Deriv ed Products Propensity to adverse reactions 4 Diarrhea, Itching, Unknown [facility] (1 source) SHELLFISH CONTAINING PRODUCTS; Translations: [SHELLFISH CONTAINING PRODUCTS] Propensity to adverse reactions to drug (disorder) [facility] Repository Medications Current Medications Medication Drug Class(es) Dates Sig (Normalized) Sig (Original) [id number] 200 actuat albuterol 0.09 mg/actuat metered dose [...] Start: 05-30-2025 take 1 capsule by mo [facility] once daily Lisdexamfetamine (Vyvanse) 30 mg capsule [...] Test Name Value Interpretation Reference Range Facility 36on 08-09-2025 36 Regarding lab result s from 07/28/2025: MD Rosa Mcgregor MA All labs are good. Patient informed. Says she hasn't been contacted by [facility] to schedule echo yet. I LM with scheduling. Normal [facility] Office Visiton 07-21-2025 Follow-up visit [id number] Aracelis Suarez 1995 F Date Provider Department Center 07/21/2025 [id number] MONCADA [facility] Family History Problem Relation Age of Onset Alcohol abuse Father Family Status - Relation Status Age at Mother Alive Father Alive Level of Service:[id number] [place] OFFICE/OUTPATIENT NEW LOW MDM 30 MINUTES Reason for Visit and Comments: New patient to re-establish care [Other] Rapid Heart Rate [014834] High heart rate when running [Other] ADHS [Other] Anxiety [9] Normal [facility] INSULINon 11-05-2022 Insulin 2.1 uIU/mL Critically low 2.6-24.9 [facility] Comment on above: Performed By: #### I NSULIN #### [facility] [address] [place] [address] Dr. Smitha Batista CBC AUTO DIFFon 11-04-2022 BASO # 0.0 103/ul Normal 0.0-0.1 [facility] Comment on above: Performed By: #### C BC #### [facility] [address] [place] [address] Dr. Smitha Batista Basophils/100 WBC (Bld) 0.9 % Normal 0.2-2.0 [facility] Comment on above: Performed By: #### C BC #### [facility] [address] [place] [address] Dr. Smitha Batista EO # 0.2 103/ul Normal 0.0-0.[address] [facility] Comment on above: Performed By: #### C BC #### [facility] [address] [place] [address] Dr. Smitha Batista Eosinophils/100 WBC (Bld) 3.9 % Normal 0.9-7.0 [facility] Comment on above: Performed By: #### C BC #### [facility] [address] [place] [address] Dr. Smitha Batista Erythrocyte distribution width (RBC) [Ratio] 12.3 % Normal 11.0-15.0 [facility] Comment on above: Performed By: #### C BC #### [facility] [address] [place] [address] Dr. Smitha Batista Hematocrit (Bld) [Volume fraction] 40.1 % Normal 36.0-48.0 [facility] Comment on above: Performed By: #### C BC #### [facility] [address] [place] [address] Dr. Smitha Batista Hemoglobin (Bld) [Mass/Vol] 13.8 g/dL Normal 12.0-16.0 [facility] Comment on above: Performed By: #### C BC #### [facility] [address] [place] [address] Dr. Smitha Batista IG # 0.01 10e3/ul Normal 0.00-0.03 [facility] Comment on above: Performed By: #### C BC #### [facility] [address] [place] [address] Dr. Smitha Batista IG % 0.2 % Normal 0.0-0.[address] [facility] Comment on above: Performed By: #### C BC #### [facility] [address] [place] [address] Dr. Smitha Batista LYMPH # 2.0 103/ul Normal 1.2-3.[address] [facility] Comment on above: Performed By: #### C BC #### [facility] [address] [place] [address] Dr. Smitha Batista Lymphocytes/100 WBC (Bld) 46.4 % Normal 20.5-60.0 [facility] Comment on above: Performed By: #### C BC #### [facility] [address] [place] [address] Dr. Smitha Batista MANUAL DIFF REQ NO Normal [facility] Comment on above: Performed By: #### C BC #### [facility] [address] [place] [address] Dr. Smitha Batista MCH (RBC) [Entitic mass] 31.0 pg Normal 26.7-34.0 [facility] Comment on above: Performed By: #### C BC #### [facility] [address] [place] [address] Dr. Smitha Batista MCHC (RBC) [Mass/Vol] 34.4 g/dL Normal 29.9-35.2 [facility] Comment on above: Performed By: #### C BC #### [facility] [address] [place] [address] Dr. Smitha Batista MCV (RBC) [Entitic vol] 90.1 fL Normal 81.0-99.0 [facility] Comment on above: Performed By: #### C BC #### [facility] [address] [place] [address] Dr. Smitha Batista MONO # 0.3 103/ul Normal 0.3-0.8 [facility] Comment on above: Performed By: #### C BC #### [facility] [address] [place] [address] Dr. Smitha Batista Monocytes/100 WBC (Bld) 6.9 % Normal 1.7-12.0 [facility] Comment on above: Performed By: #### C BC #### [facility] [address] [place] [address] Dr. Smitha Batista NEUT # 1.8 103/ul Normal 1.4-6.5 [facility] Comment on above: Performed By: #### C BC #### [facility] [address] [place] [address] Dr. Smitha Batista Neutrophils/100 WBC (Bld) 41.7 % Critically low 43.0-75.0 [facility] Comment on above: Performed By: #### C BC #### [facility] [address] [place] [address] Dr. Smitha Batista Platelet mean volume (Bld) [Entitic vol] 12.2 fL Normal 9.5-13.5 [facility] Comment on above: Performed By: #### C BC #### [facility] [address] [place] [address] Dr. Smitha Batista PLT 164 103/ul Normal 150-450 [facility] Comment on above: Performed By: #### C BC #### [facility] [address] [place] [address] Dr. Smitha Batista RBC 4.45 106/ul Normal 4.20-5.40 [facility] Comment on above: Performed By: #### C BC #### [facility] [address] [place] [address] Dr. Smitha Batista WBC 4.3 103/ul Normal 4.0-11.0 [facility] Comment on above: Performed By: #### C BC #### [facility] [address] [place] [address] Dr. Smitha Batista FERRITINon 11-04-2022 Ferritin [Mass/Vol] 105.0 ng/mL Normal 6.2-137.0 [facility] Comment on above: Performed By: #### F T4, FERR #### [facility] [address] [place] [address] Dr. Smitha Batista FREE T4on 11-04-2022 Free T4 [Mass/Vol] 0.98 ng/dL Normal 0.76-1.46 [facility] Comment on above: Performed By: #### F T4, FERR #### [facility] [address] [place] [address] Dr. Smitha Batista PROF CHEM 8 (BAS METB)on Anion gap [Moles/Vol] 14.6 mmol/L Normal [facility] Comment on above: Performed By: #### B MP, TSH #### [facility] [address] [place], [place] [id number] Dr. Smitha Batista Calcium [Mass/Vol] 8.9 mg/dL Normal 8.5-10.1 [facility] Comment on above: Performed By: #### B MP, TSH #### [facility] [address] [place] [address] Dr. Smitha Batista Chloride [Moles/Vol] 107 mmol/L Normal 98-[address] [facility] Comment on above: Performed By: #### B MP, TSH #### [facility] [address] [place] [address] Dr. Smitha Batista CO2 [Moles/Vol] 24.3 mmol/L Normal 21.0-32.0 [facility] Comment on above: Performed By: #### B GEORGINA, TSH #### [facility] [address] [place] [address] Dr. Smitha Batista Creatinine [Mass/Vol] 0.82 mg/dL Normal 0.55-1.[address] [facility] Comment on above: Performed By: #### B GEORGINA, TSH #### [facility] [address] [place] [address] Dr. Smitha Batista EGFR-AF BRITISH >60 Normal >=60 [facility] Comment on above: Performed By: #### B GEORGINA, TSH #### [facility] [address] [place] [address] Dr. Smitha Batista EGFR-NON AF BRITISH >60 Normal >=[address] [facility] Comment on above: Performed By: #### B GEORGINA, TSH #### [facility] [address] [address] [address] Smitha Batista Glucose [Mass/Vol] 81 mg/dL Normal 74-106 [facility] Comment on above: Performed By: #### B GEORGINA, TSH #### [facility] [address] [place] [address] Dr. Smitha Batista Potassium [Moles/Vol] 3.9 mmol/L Normal 3.5-5.[address] [facility] Comment on above: Performed By: #### B GEORGINA, TSH #### [facility] [address] [place] [address] Dr. Smitha Batista Sodium [Moles/Vol] 142 mmol/L Normal 136-145 [facility] Comment on above: Performed By: #### B GEORGINA, TSH #### [facility] [address] [address] [address] Smitha Batista Urea nitrogen [Mass/Vol] 8.0 mg/dL Normal 7.0-18.0 [facility] Comment on above: Performed By: #### B GEORGINA, TSH #### [facility] [address] [address] [address] Smitha Batista Urea nitrogen/Creatinine [Mass ratio] 9.8 mg/mg Normal [facility] Comment on above: Performed By: #### B GEORGINA, TSH #### [facility] [address] [address] [address] Smitha Batista TSHon 11-04-2022 TSH 1.299 uIU/mL Normal 0.358-3.740 [facility] Comment on above: Performed By: #### B GEORGINA, TSH #### [facility] [address] [address] [address] Smitha Batista Basic Metabolic Panelon Anion gap molar conc 9.0 mmol/L Normal 6.0-18.0 [facility] Comment on above: Performed By: #### 6 9405-9, 10980-7q7, 20386-8, 13546-1 #### [facility], [address] [place], [place]. Calcium mass conc 9.4 mg/dL Normal 8.9-10.3 [facility] Comment on above: Performed By: #### 6 9405-9, 54217-3c2, 37049-4, 33699-6 #### [facility], [address] [place], [place]. Chloride molar conc 107 mmol/L Normal 98-107 [facility] Comment on above: Performed By: #### 6 9405-9, 37290-0r9, 43659-9, 97525-3 #### [facility], [address] [place], [place]. CO2 molar conc 23 mmol/L Normal 22-32 [facility] Comment on above: Performed By: #### 6 9405-9, 91532-3a9, 62153-1, 85958-2 #### [facility], [address], [place]. Creatinine mass conc 0.91 mg/dL Normal 0.66-1.30 [facility] Comment on above: Performed By: #### 6 9405-9, 09399-5x8, 83257-0, 34905-6 #### [facility], [address] [place] [address]. Glucose mass conc 91 mg/dL Normal 70-99 [facility] Comment on above: Result Comment: U pdated ADA Reference Range A normal fasting glucose concentration is less than 100 mg/dL. An impaired fasting glucose concentration is 100-125 mg/dL. A provisional diagnosis of diabetes mellitus can be made when a fasting glucose concentration is greater than 125 mg/dL. Performed By: #### 6 9405-9, 10515-7s8, 24963-2, 97078-6 #### [facility], [address] [place] [address]. Potassium molar conc 3.8 mmol/L Normal 3.6-5.1 [facility] Comment on above: Performed By: #### 6 9405-9, 29259-5h1, 12719-8, 26675-7 #### [facility], [address] [place], [place]. Sodium molar conc 139 mmol/L Normal 136-145 [facility] Comment on above: Performed By: #### 6 9405-9, 23969-6e8, 21011-6, 62577-9 #### [facility], [address] [place], [place]. Urea nitrogen mass conc (BldV) 10 mg/dL Normal 8-20 [facility] Comment on above: Performed By: #### 6 9405-9, 81431-1l5, 75957-3, 40677-2 #### [facility], [address] [place] [address]. CBC with Differentialon - Basophils #/vol (Bld) 0.00 thou/mcL Normal 0.00-0.20 [facility] Comment on above: Performed By: #### 5 7021-8 #### [facility], [address] [place] [address]. Basophils #/vol (Bld) 0.4 % Normal 0.0-2.0 [facility] Comment on above: Performed By: #### 5 7021-8 #### [facility], [address] [place] [address]. Eosinophils #/vol (Bld) 0.20 thou/mcL Normal 0.00-0.70 [facility] Comment on above: Performed By: #### 5 7021-8 #### [facility], [address] [place] [address]. Eosinophils/100 WBC (Bld) 3.0 % Normal 0.0-7.0 [facility] Comment on above: Performed By: #### 5 7021-8 #### [facility], [address] [place] [address]. Erythrocyte distribution width Entitic volume (RBC) 12.4 % Normal 11.0-14.8 [facility] Comment on above: Performed By: #### 5 7021-8 #### [facility], [address] [place] [address]. Hematocrit Volume Fraction (Bld) 43.2 % Normal 35.0-45.0 [facility] Comment on above: Performed By: #### 5 7021-8 #### [facility], [facility] [place]. Hemoglobin mass conc (Bld) 14.5 g/dL Normal 12.0-16.0 [facility] Comment on above: Performed By: #### 5 7021-8 #### [facility], [address] [facility] [place]. Lymphocytes #/vol (Bld) 2.20 thou/mcL Normal 1.00-4.80 [facility] Comment on above: Performed By: #### 5 70-8 #### [facility], [address] [facility] [place]. Lymphocytes/100 WBC (Bld) 37.3 % Normal 22.0-44.0 [facility] Comment on above: Performed By: #### 70-8 #### [facility], [facility] MCH Entitic mass (RBC) 30.9 Picograms Normal 27.0-34.0 [facility] Comment on above: Performed By: #### 5 7021-8 #### [facility], [facility] [place] MCHC mass conc (RBC) 33.5 g/dL Normal 32.0-36.0 [facility] Comment on above: Performed By: #### 5 7021-8 #### [facility], [facility] [place] MCV Entitic volume (RBC) 92.3 fL Normal 80.0-97.0 [facility] Comment on above: Performed By: #### 5 7021-8 #### [facility], [address] [facility]. Monocytes #/vol (Bld) 0.50 thou/mcL Normal 0.00-0.90 [facility] Comment on above: Performed By: #### 5 7021-8 #### [facility], [address]. Monocytes/100 WBC (Bld) 8.2 % Normal 0.0-12.0 [facility] Comment on above: Performed By: #### 5 7021-8 #### [facility], [address] [facility] [place]. Neutrophils #/vol (Bld) 3.10 thou/mcL Normal 1.80-7.70 [facility] Comment on above: Performed By: #### 5 7021-8 #### [facility], [address] [place], [place]. Neutrophils/100 WBC (Bld) 51.1 % Normal 40.0-70.0 [facility] Comment on above: Performed By: #### 5 7021-8 #### [facility], [address] [place] [address]. Platelet mean volume Entitic volume (Bld) 8.3 fL Normal 6.2-12.1 [facility] Comment on above: Performed By: #### 7021-8 #### [facility], [address] [place] [address]. Platelets #/vol (Bld) 221 thou/mcL Normal 142-424 [facility] Comment on above: Performed By: #### 5 7021-8 #### [facility], [address] [place], [place] [address]. RBC #/vol (Bld) 4.68 million/mcL Normal 3.80-5.10 [facility] Comment on above: Performed By: #### 5 7021-8 #### [facility], [address] [facility] [place] WBC #/vol (Bld) 6.0 thou/mcL Normal 4.6-10.2 [facility] Comment on above: Performed By: #### 5 7021-8 #### [facility], [facility] [place] CT Ang Chest w and/or w/o [...] acute findings. No pulmonary embolus is identified. [facility] thanks you for the opportunity to care for your patient. Workstation ID: [id number] - [id number] FINAL REPORT Dictated By: Billy Guzman MD 12/25/2018 13:59 Assigned Physician: Billy Guzman MD Reviewed and Electronically Signed By: Billy Guzman MD 12/25/2018 14:05 Transcribed by: CHRISTIANO 12/25/2018 13:59 Technologist: JASON PARIKH Normal [facility] Comment on above: Order Comment: For i npatients, Nursing to order and initiate prep per [facility] Prep protocol D-Dimer Quantitativeon 12-25 Fibrin D-dimer Qn (PPP) <150 Normal 150-230 [facility] Comment on above: Result Comment: NORM [...] Units. Performed By: #### 4 8065-7 #### [facility], [address] [place] [address]. ED Pat Eduon 12-25-2018 ED [address] [address] Emergency Department Discharge Instructions VINNY SUAREZ , Please provide this information to your Primary Care/Specialist Name : VINNY SUAREZ Current Date : 12/25/2018 15:52:28 : 1995 12:00 PM Primary Care Physician: Caron Parada MD Diagnosis : Follow-Up Instructions: VINNY SUAREZ has been given these follow-up instructions: FOLLOW-UP APPOINTMENTS: Provider: Specialty: Address: Date: Caron Parada MD Family Practice [address] [facility] [address] (1) Call for an Appointment Comment: early this week or the [facility] Laboratory Orders: Name: Status: Basic [...] Servicios de Emergencia Name VINNY SUAREZ MRN ([facility])-[id number] PLEASE READ THE FOLLOWING REGARDING YOUR MEDICATIONS [...] doses are changed, or new medications (including bptp-zyn-itnjfwd products) are added. If you have any [...] Mouth once a day. Refills: 0. Comment ____ UPDATED MEDICATIONS None UNCHANGED MEDICATIONS None STOP TAKING THESE MEDICATIONS None DO NOT TAKE UNTIL YOU TALK TO YOUR DOCTOR None [place] [address] Emergency Department Discharge Instructions Name: VINNY SUAREZ Current Date: 12/25/2018 15:52:28 : 1995 12:00 PM Primary Physician: Karma LAMBERT , Caron Brower We would like to thank you for choosing [facility] for your emergency medical needs. We [...] health of those around you. Call the [place] [employer] at 9-600-MBHH-USA or the [place] at 4-201-UID-8905 for more information. High blood pressure: Your [...] deadly infections. Discuss this with your child's certified pharmacy technician, or Public Health Department. Your family practice doctor can determine if you need pneumonia or flu vaccine. The [facility] Department can be reached at . Domestic [...] suicide hotline, anytime day or night, at 7-139-522-ULWN. Pharmacy Information: Below is a list of 24 hour pharmacies that we are aware of. We suggest that you call the specific pharmacy for their hours before traveling to a location. Hours may vary on holidays. [facility] [address], [place] [phone] [address] [place], [place] [address] [phone] [address], [place] [address] [phone] [address] [place], [place] [phone] [address] [place], [place] [phone] [address] [place], [place] [phone] [place] [phone] Take all medications as directed. If you need prescription assistance, contact the following agencies: ?? Partnership for Prescription Assistance at or www.pparx.org ?? [place] [facility] at or www.Hi-Lo Lodgebestrx.org ?? www.[employer] is a site with many valuable coupons Patient Education Materials VINNY SUAREZ has been given the following patient education materials: [facility] Emergency Department [address] [place], [place] [address] Work Release Form This notice verifies that your employee ~Vinny Suarez~ was seen in this facility on ~12/25/18~. He/she may return to work on 12/26/18 with the following restrictions: None: No heavy lifting: (over # pounds) No prolonged standing: Desk Work Only: Other: These restrictions apply through ____. After this date, your employee should be [...] 08/19/2006 Document Revised: 11/30/2015 Document Reviewed: 06/15/2015 [employer] Interactive Patient Education ?2016 [employer] <><><><><><><><><><><> <><><><><><><><><><><> <><><> Patient Visit Summary Signature VINNY SUAREZ has been given the following list of patient education materials, prescriptions and follow-up instructions: IFANNY KENNEDY, have received the above patient education materials/instructions and have verbalized understanding: Date Time Patient Signature Date Time Provider Signature Normal [facility] GFRaaon 12-25-2018 GFR/1.73 sq M predicted among blacks MDRD vol rate/area (S/P/Bld) mL/min/{1.73_m2} Normal [facility] Comment on above: Result Comment: The MDRD equation has not been validated for those over 70 years, women, patients with serious co-morbid conditions, or with extremes of body size, muscle mass of nutritional status. Performed By: #### 6 9405-9, 93898-8n4, 51928-9, 79214-8 #### [facility], [address] [place], [place]. GFRbbon 12-25-2018 GFR/1.73 sq M predicted among non-blacks MDRD vol rate/area (S/P/Bld) mL/min/{1.73_m2} Normal [facility] Comment on above: Performed By: #### 6 9405-9, 69010-7o7, 52749-5, 42130-2 #### [facility], [address] [place], [place]. Pre-Arrival Formon 9 Pre-Arrival Form Pre-Arrival Summary Name: Vinny Suarez Current Date: 12/25/2018 11:47:42 EST Gender: Female Date of : 1995 Age: 23 years Pre-Arrival Type: Referral ETA: 12/25/2018 11:53:00 EST Primary Care Physician: Presenting Problem: Pre-Arrival User: Queenie Bess CNP Referring Source: Location: PreArrival Emergency Department Pre Arrival Form PHYSICIAN REFERRAL: Robert PAGAN Reason for Visit: 3 weeks of CP, SOB, left sided. worse with exertion, mother and father both have had dvt, mother with recent pe. Normal [facility] Troponin Ion 12-25-2018 Troponin I.cardiac mass conc ng/mL Normal <0.06 [facility] Comment on above: Performed By: #### 5 7021-8 #### [facility], [address] [facility] [place] Troponin I.cardiac mass conc ng/mL Normal <0.06 [facility] Comment on above: Performed By: #### 6 9405-9, 49858-8i7, 03532-2, 62491-8 #### [facility], [address] [place], [place]. XR Chest 2 Viewson 9 XR Chest 2 views Two-view chest exam Indication: Chest Pain and shortness of breath COMPARISON: None FINDINGS: The lungs are clear and the costophrenic angles are sharp. The cardiomediastinal silhouette and bones are normal. IMPRESSION: Normal chest. [facility] thanks you for the opportunity to care for your patient. Workstation ID: [id number] - [id number] FINAL REPORT Dictated By: Gabe Diaz MD 12/25/2018 13:17 Assigned Physician: Gabe Diaz MD Reviewed and Electronically Signed By: Gabe Diaz MD 12/25/2018 13:18 Transcribed by: CHRISTIANO 12/25/2018 13:17 Technologist: SB Normal [facility] Vital Signs Date Time Vital Sign Value Performing Clinician Facility 06-19-2025 11:21040 Body height 167.64 cm Caron Parada MD Work Phone: [facility] 06-19-2025 11:21-040 Body mass index (BMI) [Ratio] 16.7 kg/m2 Caron Parada MD Work Phone: [facility] 06-19-2025 11:21040 Body weight 46.89 kg Caron Parada MD Work Phone: [facility] 06-19-2025 11:21-0400 Diastolic blood pressure 73 mm[Hg] Caron Parada MD Work Phone: [facility] 06-19-2025 11:21-0400 Heart rate 102 /min Caron Parada MD Work Phone: [facility] 06-19-2025 11:21-0400 Systolic blood pressure 106 mm[Hg] Caron Parada MD Work Phone: [facility] 05-03-2025 10:57-0400 Body height 167.64 cm [facility] 05-03-2025 10:57-0400 Body mass index (BMI) [Ratio] 16.7 kg/m2 [facility] 05-03-2025 10:57-0400 Body weight 46.83 kg [facility] 05-03-2025 10:57-0400 Diastolic blood pressure 88 mm[Hg] [facility] 05-03-2025 10:57-0400 Heart rate 114 /min [facility] 05-03-2025 10:57-0400 Systolic blood pressure 124 mm[Hg] [facility] 11-07-2024 09:17-0500 Body height 167.6 cm Sam Masterson MD Work Phone: [facility] 11-07-2024 09:17-0500 Body mass index (BMI) [Ratio] 15.98 kg/m2 Sam Masterson MD Work Phone: [facility] 11-07-2024 09:17-0500 Body temperature 98.2 [degF] Sam Masterson MD Work Phone: [facility] 11-07-2024 09:17-0500 Body weight 44.91 kg Sam Masterson MD Work Phone: [facility] 10-10-2024 08:30-0500 Body height 167.64 cm [facility] 10-10-2024 08:30-0500 Body mass index (BMI) [Ratio] 16 kg/m2 [facility] 10-10-2024 08:30-0500 Body weight 45.01 kg [facility] 10-10-2024 08:30-0500 Diastolic blood pressure 76 mm[Hg] [facility] 10-10-2024 08:30-0500 Heart rate 97 /min [facility] 10-10-2024 08:30-0500 Systolic blood pressure 110 mm[Hg] [facility] 08-19-2024 09:57-0400 Body height 167.6 cm Martha Richmond MD Work Phone: [facility] 08-19-2024 09:57-0400 Body mass index (BMI) [Ratio] 15.98 kg/m2 Martha Richmond MD Work Phone: [facility] 08-19-2024 09:57-0400 Body weight 44.91 kg Martha Richmond MD Work Phone: [facility] 08-19-2024 09:57-0400 Diastolic blood pressure 77 mm[Hg] Martha Richmond MD Work Phone: [facility] 08-19-2024 09:57-0400 Systolic blood pressure 113 mm[Hg] Martha Richmond MD Work Phone: [facility] 06-22-2024 09:44-0400 Body height 167.64 cm [facility] 06-22-2024 09:44-0400 Body mass index (BMI) [Ratio] 15.8 kg/m2 [facility] 06-22-2024 09:44-0400 Body temperature 98.8 [degF] [facility] 06-22-2024 09:44-0400 Body weight 44.62 kg [facility] 06-22-2024 09:44-0400 Diastolic blood pressure 85 mm[Hg] [facility] 06-22-2024 09:44-0400 Heart rate 101 /min [facility] 06-22-2024 09:44-0400 Systolic blood pressure 125 mm[Hg] [facility] 04-22-2024 10:02-0400 Body height 167.64 cm [facility] 04-22-2024 10:02-0400 Body mass index (BMI) [Ratio] 15.7 kg/m2 [facility] 04-22-2024 10:02-0400 Body weight 44.22 kg [facility] 04-22-2024 10:02-0400 Diastolic blood pressure 74 mm[Hg] [facility] 04-22-2024 10:02-0400 Heart rate 82 /min [facility] 04-22-2024 10:02-0400 Systolic blood pressure 105 mm[Hg] [facility] 08-31-2023 09:45-0400 Body height 167.64 cm Caron Parada Other [facility] Other 08-31-2023 09:45-0400 Body mass index (BMI) [Ratio] 15.65 kg/m2 Caron Parada Other [facility] Other 08-31-2023 09:45-0400 Body weight 44 kg Caron Parada Other [facility] Other 08-31-2023 09:45-0400 Diastolic blood pressure 71 mm[Hg] Caron Parada Other [facility] Other 08-31-2023 09:45-0400 Systolic blood pressure 102 mm[Hg] Caron Parada Other [facility] Other 02-26-2023 11:30-0400 Body height 167.64 cm Caron Parada Other [facility] Other 02-26-2023 11:30-0400 Body mass index (BMI) [Ratio] 16.3 kg/m2 Caron Parada Other [facility] Other 02-26-2023 11:30-0400 Body weight 45.81 kg Caron Parada Other [facility] Other 02-26-2023 11:30-0400 Diastolic blood pressure 64 mm[Hg] Caron Parada Other [facility] Other 02-26-2023 11:30-0400 SaO2% (BldA) [Mass fraction] 95 % Caron Parada Other [facility] Other 02-26-2023 11:30-0400 Systolic blood pressure 102 mm[Hg] Caron Parada Other [facility] Other Encounters Encounter Date Encounter Type Care Provider Facility Start: 07-21-2025 End: 07-21-2025 ambulatory [facility] Start: 06-19-2025 End: 06-19-2025 ambulatory Caron Parada MD Work Phone: [facility] Work Phone: Start: 06-19-2025 End: 06-19-2025 Patient encounter procedure Caron Parada MD -[facility] Work Phone: Start: 05-03-2025 Patient encounter status Caron Parada MD Work Phone: [facility] Start: 05-03-2025 End: 05-03-[address] [facility] Work Phone: Start: 05-03-2025 End: 05-03-2025 Patient encounter procedure [facility] Physician [facility] Work Phone: Start: 05-03-2025 End: 05-03-2025 Patient encounter status Caron Parada MD [facility] Start: 11-07-2024 End: 11-07-2024 Office outpatient new 45 minutes Sam Masterson MD Work Phone: [facility] Otolaryngology Comment on above: Localized swelling, mass and lump, neck (Primary Dx); Pulsatile neck mass Start: 11-07-2024 ambulatory SELF SELF [facility] Start: 10-10-2024 End: 10-10-[address] [facility] Work Phone: Start: 10-10-2024 End: 10-10-2024 Patient encounter procedure [facility] Physician [facility] Work Phone: Start: 10-06-2024 Non-patient / Non-visit [facility] Physician [facility] Work Phone: Start: 08-19-2024 End: 08-19-2024 ambulatory MARTHA RICHMOND Not Available Start: 08-19-2024 End: 08-19-2024 Office outpatient visit 15 minutes Martha Richmond MD Work Phone: [facility] Comment on above: Neck mass (Primary D x) Start: 07-08-2024 End: 07-08-2024 ambulatory MARTHA RICHMOND Not Available Start: 2024 ambulatory [facility] Work Phone: Start: 2024 Non-patient / Non-visit [facility] Physician [facility] Work Phone: Start: 06-22-2024 End: 06-22-[address] [facility] Work Phone: Start: 06-22-2024 End: 06-22-2024 Patient encounter procedure [facility] Physician [facility] Work Phone: Start: 04-22-2024 End: 04-22-[address] [facility] Work Phone: Start: 04-22-2024 End: 04-22-2024 Patient encounter procedure [facility] Work Phone: Start: 01-25-2024 Non-patient / Non-visit [facility] Work Phone: Start: 12-10-2023 End: 12-10-2023 ambulatory Caron Parada Other [facility] Other Start: 12-10-2023 Telephone encounter Caron Parada [facility] Start: 12-07-2023 End: 12-07-2023 ambulatory Caron Parada Other [facility] Other Start: 12-07-2023 Telephone encounter Caron Parada [facility] Start: 11-10-2023 End: 11-10-2023 ambulatory Caron Parada Other [facility] Other Start: 11-10-2023 Telephone encounter Caron Parada [facility] Start: 11-04-2023 End: 11-04-2023 ambulatory Caron Parada Other [facility] Other Start: 11-04-2023 Telephone encounter Caron Parada [facility] Start: 10-05-2023 End: 10-05-2023 ambulatory Caron Parada Other [facility] Other Start: 10-05-2023 Telephone encounter Caron Parada [facility] Start: 09-16-2023 End: 09-16-2023 ambulatory Caron Parada Other [facility] Other Start: 09-16-2023 Telephone encounter Caron Parada [facility] Start: 09-07-2023 End: 09-07-2023 ambulatory Caron Parada Other [facility] Other Start: 09-07-2023 Telephone encounter Caron Parada [facility] Start: 09-04-2023 End: 09-04-2023 ambulatory Caron Parada Other [facility] Other Start: 09-04-2023 Telephone encounter Caron Parada [facility] Start: 08-31-2023 End: 08-31-2023 ambulatory Caron Parada Other [facility] Other Start: 08-31-2023 Office outpatient vi sit 15 minutes Caron Karma [facility] Start: 08-07-2023 End: 08-07-2023 ambulatory Caron Parada Other [facility] Other Start: 08-07-2023 Telephone encounter Caron Parada [facility] Start: 07-03-2023 End: 07-03-2023 ambulatory Caron Parada Other [facility] Other Start: 07-03-2023 Telephone encounter Caron Parada [facility] Start: 05-06-2023 End: 05-06-2023 ambulatory Caron Parada Other [facility] Other Start: 05-06-2023 Telephone encounter Caron Parada [facility] Start: 02-26-2023 End: 02-26-2023 ambulatory Caron Parada Other [facility] Other Start: 02-26-2023 Office outpatient vi sit 15 minutes Caron Parada [facility] Start: 11-04-2022 End: 11-05-[address] CARON PARADA Facility: Start: 10-28-2022 Adult health examination Caron Parada Other [facility] Other Start: 03-01-2021 Patient encounter procedure CARON PARADA [facility] Start: 02-27-2021 End: 03-03-2021 Patient encounter procedure CARON PARADA [facility] Start: 12-25-2018 End: 12-25-2018 Emergency department patient visit CARIDAD ZAMBRANO Facility:[facility] Plan of Treatment Date Care Activity Detail Author Start: 11-07-2024 End: 11-07-2025 CTA Neck vessels WO and W contrast IV CT ANGIO NECK Imaging Routine Localized swelling, mass and lump, neck Pulsatile neck mass Expected: 11/07/2024, Expires: 11/07/2025 [facility] Comment on above: Expected: 11/07/2024 , Expires: 11/07/2025 Start: 10-10-2024 Patient referral [facility] Work Phone: Start: 07-24-2024 COVID-19 VACCINE ( season) COVID-19 VACCINE ( season) [facility] Start: 07-24-2024 Influenza vaccination INFLUENZA VACC INE (#1) [facility] Start: 2024 Patient referral [facility] Work Phone: Start: 2018 Screening for malign ant neoplasm of cervix CERVICAL CANCER SCREENING DISCUSSION [facility] Start: 2016 Hepatitis B vaccination HEP B VACCINE (1 of 3 - 19+ 3-dose series) [facility] Start: 2016 Third diphtheria, tetanus and acellular pertussis (DTaP) vaccination TDAP (ADULT) [facility] Start: 2012 HIV screening HIV SCREENING DISCUSSION [facility] Start: 1997 Hepatitis C screening HEPATITI S C VIRUS SCREENING [facility] Start: 1997 Tetanus vaccination TETANUS [facility] Patient referral [facility] Work Phone: Immunizations Immunization Date Immunization Notes Care Provider Barb kramer 03-20-2016 meningococcal oligosaccharide (groups A, C, Y and W-135) diphtheria toxoid conjugate vaccine (MCV4O) Caron Parada Other [facility] Payers Date Payer Category Payer Unknown [id number] 2024 [email or web address] [id number] 2020 Unknown [id number] 2017 Unknown [id number] 1997 Unknown [id number] 1997 Unknown [id number] [id number]. [id number] 1997 Unknown [id number] [id number]. [id number] 1997 Unknown [id number] [id number] [id number] 1997 Unknown [id number] [id number] [id number] 1997 Unknown [id number] [id number] [id number] 1997 Unknown [id number] [id number] 1959 Unknown [id number] Social History Date Type Detail Facility Unknown if ever smoked [facility] [employer] Other Start: 07-08-2024 End: 11-07-2024 Sex Assigned At [facility] Other Start: 04-22-2024 End: 07-05-2024 Tobacco smoking status NHIS Never smoked tobacco (finding) [facility] Start: 1995 Sex Assigned At Female F [facility] Start: 10-10-2024 End: 05-03-2025 Sex Female (finding) [facility] Start: 07-05-2024 End: 11-07-2024 Tobacco use and exposure Smokeless tobacco non-user [facility] Start: 07-08-2024 End: 11-07-2024 History of Social function [facility] Start: 1995 Sex assigned at Not on file [facility] Start: 11-04-2024 Gender identity Identifies as female gender (finding) [facility] Start: 11-04-2024 Sexual orientation Heterosexual (fin ding) [facility] Start: 08-19-2024 Alcoholic beverage intake Ex-drinker (finding) [facility] Start: 07-08-2024 Alcohol Comment Very rare [facility] NEGATED: Highlighted row [facility] NEGATED: Highlighted row N [facility] Clinical Notes 02-26-2023 to 07-21-2025 Note Date & Type Note Facility 07-21-2025 Note [facility] Note Reason for cardiology consult: Tachycardia Chief Complaint: Increased heart rate with activity HPI: Vinny Suarez is a 30 y.o. female without prior cardiac history, she has history of ADHD and she has been on Vyvanse for a long time. She is a runner for a long time but she noted lately that her heart rate will go up to 190 and never did that before the highest she went to was 160-170 and she feels more tired and drained when she runs. She denies any associated chest pain or shortness of breath. She denies any change in her appetite. She thinks that her weight is up a little bit. She denies any significant palpitation. She denies dizziness. No change in her current medication doses. She has been drinking more water than usual but her heart rate keeps going up to 190. Despite that her heart rate has been so high however she continues to run but lately she had an ankle and foot injury therefore she has been biking instead of running. She denies having COVID infection. She does not drink a lot of caffeine. Other than that she denies orthopnea or paroxysmal nocturnal dyspnea or legs edema or legs discomfort on exertion She reports that she had right neck swelling and she had workup which did not show any abnormality She denies smoking, alcohol or illicit drugs Regarding family history: no significant cardiac history in the family. Mother has ulcerative colitis Cardiology ROS: GENERAL: Denies fever, chills, night sweats, weight loss. HEENT: Denies changes in vision, photophobia, changes in hearing, epistaxis, oral bleeding. CARDIOVASCULAR: Denies chest pain, exertional dyspnea, orthopnea/PND, lower extremity edema, palpitations, lightheadedness/dizziness. RESPIRATORY: Denies SOB, coughing, wheezing GI: Denies abdominal pain, nausea/vomiting, heartburn, melena/hematochezia. RENAL: Denies dysuria, hematuria, flank pain. MSK: Denies muscle weakness/pain, arthralgias/joint pain. NEUROLOGIC: Denies LOC, weakness, numbness, headaches. SKIN: Denies abnormal rashes or bleeding. PSYCH: Denies significant anxiety, depression, sleep disturbances. Past Medical History She has a past medical history of Acne and ADHD. Surgical History She has a past surgical history that includes [place] tooth extraction. Social History She reports that she has never smoked. She has never used smokeless tobacco. She reports current alcohol use. She reports that she does not use drugs. Family History Family History[1] Allergies Shellfish containing products Medications Current Medications[2] Last Recorded Vitals Visit Vitals BP 132/86 (BP Location: Left arm, Patient Position: Sitting) Pulse 80 Ht 1.676 m (5' 6 ) Wt 48.1 kg (106 lb) SpO2 100% BMI 17.11 kg/m??? Smoking Status Never BSA 1.5 m??? Physical Examination: GENERAL: alert and oriented x3, well developed, in no acute distress. HEAD: atraumatic, normocephalic. EYES: PACO, EOMI. NECK: trachea midline, no JVD present, no carotid bruits present. CARDIAC: S1, S2 present. RRR. No murmur, rubs, or gallops. RESPIRATORY: CTAB, no increased effort of breathing, no rales, rhonchi, or wheezing. ABDOMEN: soft, nontender, nondistended. EXTREMITIES: no lower extremity edema, peripheral pulses are 2+ bilaterally. No rash/skin discoloration present. NEURO: strength/sensation equal and symmetric in bilateral upper and lower extremities. PSYCH: appropriate mood, affect, and judgement. Labs: CBC: No results found for: WBC , RBC , HGB , HCT , MCV , RDW , PLT PT/INR No results found for: PT , INR BMP: No results found for: NA , K , CL , BUN , CREATININE , EGFR , GLU LFTs: No results found for: BILITOT , BILIDIR , ALKPHOS , GGT , AST , ALT , ALBUMIN , PROT Lipids: No results found for: CHOL No results found for: HDL No results found for: LDLCALC No results found for: TRIG No components found for: CHOLHDL EVIE: No results found for: TSH HBA1c: No results found for: HGBA1C BNP: No results found for: BNP Last Images: EKG today 07/21/2025 showed normal sinus rhythm, heart rate 84 bpm, normal EKG CT angio 12/15/[address] [facility] [address] soft tissue of the neck with IV contrast at [facility] 08/05/2020 for next IMPRESSION: 1. Multiple small lymph nodes are visualized in the soft tissues of the neck, nonenlarged. This includes a 6 x 12 mm lymph node subjacent to the marker placed at the right side of the neck. 2. No mass lesions, fluid collection in the soft tissues adjacent to the right-sided marker. No right-sided sialoadenitis. Neck CT 06/25/2018 CONCLUSION: 1. Slightly asymmetric and prominent right level 2 lymph node which appears to correspond to the patient's area of swelling. No abnormal appearance of the lymph node other than slightly asymmetric prominence compared to the left side. Assessment and Plan: Tachyc (more content not included)... [facility] 05-03-2025 Evaluation note Diagnosis Onset Date Resolution ADHD (attention deficit hyperactivity disorder) acute April 10:57am Cervical lymphadenopathy acute May 03, 2025 10:57am Wellness examination acute May 03, 2025 10:57am [facility] Work Phone: [phone]) 745-256812-16-2024 History of Present illness Narrative* Sam Masterson MD - 11/07/2024 9:45 AM EST ENT History & Physical Chief Complaint: New Patient (Swollen lymph node ) Referring Provider: Self, Self HPI: Vinny Suarez is a 29 y.o. female who presents with neck mass. Reports it occurred after a long run. Was seen by [facility] where a CT neck was obtained [...] scan with her today documented [facility] this [facility]09-27-2024 History of Present illness Narrative* Martha Richmond MD - 08/19/2024 9:50 AM EDT Subjective Patient ID: Vinny Suarez is a 29 y.o. female who presents for Neck Mass (Follow up CT [facility] 08/05) CT neck reviewed and no abnormality evident, but pt adamant her neck feels swollen with sx exacerbated by running. Family History Problem Relation Name Age of Onset Other (HTN) Father Robel Suarez Hypertension Father Robel Suarez Cancer Maternal Grandmother Peyton Barahona Diabetes Maternal Grandmother Peyton Barahona Migraines Mother Kika Suarez Active Ambulatory Problems Diagnosis Date Noted ADHD (attention deficit hyperactivity disorder) ([facility] 07/05/2024 Cervical lymphadenopathy 07/05/2024 Chest pain 06/07/2020 Migraine (CMS/HCC) 07/05/2024 Neck mass 07/08/2024 Resolved Ambulatory Problems [...] mouth in the morning. norethindrone-ethinyl estradiol (Microgestin 20) 1-20 MG-MCG tablet Take 1 tablet by [...] [facility] at [id number] Evaluation note* Encounter Date Diagnosis Assessment Notes Treatment Notes Treatment Clinical Notes Aug, LLQ abdominal pain (ICD-10 - R10.32) Discussed PT for muscle strain v. imaging. Pt opts for imaging w US to r/o enlarged LN or obvious hernia. [facility] Other 06-14-2023 Evaluation note* Encounter Date Diagnosis Assessment Notes Treatment Notes Treatment Clinical Notes Apr, Attention deficit disorder (ADD) in adult (ICD-10 - F98.8) [facility] [employer] Other 04-06-2023 Evaluation note* Encounter Date Diagnosis [...] - N92.6) continue OCP. Suggested appt w obstetrician/gynecologist. [facility] Other Evaluation noteNo InformationNort [employer] Other Evaluation noteNo assessment information available [facility] Work Phone: Evaluation note* Diagnosis Onset Date Resolution Status ADHD (attention deficit hyperactivity disorder) acute [facility] Work Phone: Evaluation note* Diagnosis Onset Date Resolution Status ADHD (attention deficit hyperactivity disorder) acute Cervical lymphadenopathy acu te Migraine acute [facility] Work Phone: Evaluation note* Diagnosis Onset Date Resolution Status Admit Date Cervical lymphadenopathy acute October 10, 2024 8:23am [facility] Work Phone: Evaluation note* Diagnosis Localized swelling, mass and lump, neck- Primary Swelling, mass, or lump in head and neck Pulsatile neck mass [facility] Neck mass- Primary Swelling, mass, or lump in head and neck [facility] - Reported* Type Description Date Medical History Attention deficit disorder (ADD) in adult Medical History Pinworms Medical History Pharyngitis Medical History Hypoglycemia Medical History Abnormal loss of weight [facility] Other History general Narrative - Reported* Type [...] Comment : none, Problem Status : Active, [facility] Other Hospital Discharge instructionsAmbulatory Orders* Referral to ENT Time Frame: 06/30/24, Location: None [facility] Work Phone: Hospital Discharge instructionsAmbulatory Orders* Referral to ENT Time Frame: 10/10/24, Location: None [facility] Work Phone: Reason for referral (narrative)No reason for referral [facility] Work Phone: Summary Purpose Family History No [...] NAME:VINNY SUAREZ AGE: 23 Years SEX: Female PHONE:[phone] DOS: 12/25/2018 11:36 AM : 1995 ATTENDING [...] Referral Specialty Diagnoses / Procedures Referred By Siria t Referred To Contact Diagnoses Localized swelling, mass and lump, neck Pulsatile neck mass Procedures CT ANGIO NECK CHG CT ANGIOGRAPHY NECK W/CONTRAST/NONCONTRAST Sam Masterson MD [address] [place] [address] Referral ID Status Reason Start Date Expiration Date V isits Requested Visits Authorized [id number] New Request 11/07/2024 12/02/2025 1 1 Additional Source Comments INFORMATION SOURCE (unrecogn ized section and content) DATE CREATED AUTHOR 01/11/2019 [facility] DATE CREATED AUTHOR AUTHOR'S ORGANIZ ATION 03/01/2021 [facility] DATE CREATED AUTHOR AUTHOR'S ORGANIZ ATION 03/03/[address] [facility] DATE CREATED AUTHOR AUTHOR'S ORGANIZ ATION 01/19/2023 [facility] DATE CREATED AUTHOR AUTHOR'S ORGANIZ ATION 08/20/2024 [facility] EPIC DATE CREATED AUTHOR AUTHOR'S ORGANIZ ATION 11/08/2024 [facility] DATE CREATED AUTHOR AUTHOR'S ORGANIZ ATION 08/11/2025 [facility] REASON FOR VISIT (unrecogniz ed section and content) Reason Comments New Patient Swollen lymph node Specialty Diagnoses / Procedures Referred By Contac t Referred To Contact Otolaryngology Diagnoses Localized enlarged lymph nodes Caron Parada MD [address] [place] [address] [place] [address] Sam Masterson MD [id number] [facility] [place] [address] Referral ID Status Reason Start Date Expiration Date Visits Re quested Visits Authorized [id number] Closed 10/13/2024 11/07/2025 1 1 Reason Comments Neck Mass Follow up [facility] 07/24 3 Care Teams (unrecognized sec tion and content) Team Status: Active Member Role Status Dates Caron Parada MD Primary Care Provider Active Team Status: Inactive Member Role Status Dates Caron Pardaa MD Primary Care Provide r, Attending Provider [...] Provide r, Attending Provider Active Start: 2024 Circulation Manager Relationship Specialty Start Date End Date Caron Parada MD [address] [facility] [place] [id number] PCP - General Family Medicine 07/01/24 Team [...] BE BASED ON THE PRIMARY CLINICAL RECORDS. [facility]. provides no warranty or guarantee of the accuracy or completeness of information in this document.
--- NOTE | 2025-08-18 14:05 | CA_ITS ---
Patient Name: DEJAN ESCOBEDO MR#: [id number] : 1995 Exam Date: 08/18/2025 Ordering Doctor: DR. JOHN MONCADA M.D. ECHOCARDIOGRAM REPORT PROCEDURE: CA ECHO DOPPLER COMPLETE INDICATIONS: Tachycardia, cardiac arrhythmia COMPARISON: None. DESCRIPTION: COMPLETE ECHOCARDIOGRAM Real-time transthoracic echocardiography with 2D, M-mode, spectral and color flow Doppler performed. QUALITY: Technical quality was good. LEFT VENTRICLE: Normal chamber size. Normal left ventricular wall thickness. Global left ventricular systolic function is normal. LV EF: Estimated left ventricular ejection fraction is 55-60%. DIASTOLIC: Normal diastolic function. ATRIAL SEPTUM: LEFT ATRIUM: Normal chamber size. RIGHT ATRIUM: Normal chamber size. RIGHT VENTRICLE: Normal chamber size. Normal right ventricular systolic function. TRICUSPID VALVE: Normal mobility and thickness. No stenosis with trivial regurgitation. No evidence of pulmonary hypertension. RVSP 20 mmHg. MITRAL VALVE: Mildly thickened with normal mobility. No evidence of mitral valve stenosis. There is no mitral annular calcification. Trivial mitral regurgitation. AORTIC VALVE: Normal trileaflet appearance. No visible sclerosis. Normal leaflet mobility. No evidence of aortic valve stenosis. No aortic regurgitation. AORTIC ROOT: Normal diameter and appearance, measuring 2.7 cm. The ascending aorta is normal in size measuring 2.5 cm. PULMONIC VALVE: Normal thickness and mobility. No stenosis. Mild regurgitation. PERICARDIUM: No evidence of pericardial effusion. IVC: Normal size measuring 2.0 cm with partial collapse. PLEURA: Possible pleural effusion. CONCLUSION: 1. Normal ventricular size and systolic function. Estimated LVEF is 55 to 60%. 2. Normal diastolic function. 3. No significant valvular dysfunction. 4. No pericardial effusion. 5. Normal right-sided pressures. 6. Possible pleural effusion. Dedicated chest imaging would help clarify. Adult Echocardiography Procedure Report Left Ventricle LVEDD (3.7 - 5.6 cm): 4.03 cm LVESD (2.2 - 4.0 cm): 2.53 cm LVIVS thickness (0.6 - 1.2 cm): 0.56 cm LVPW thickness (0.5 - 1.0 cm): 0.58 cm LVOT Max Gradient: 2.48 mm[Hg], 2.24 mm[Hg] LVOT Area (cm2): 0.77 m/s Peak Velocity (LVOT): 0.79 m/s, 0.75 m/s Mean Velocity (LVOT): 0.54 m/s LVOT Diameter 1.80 cm Left Ventricular Ejection Fraction: 55-60 % Left Atrium LA Volume Index (2D A2C): 25.97 ml/m2 Left Atrium Systolic Dimension: 2.94 cm Mitral Valve MV E to A Ratio: 1.91 Mitral Valve A-Wave Peak Velocity: 0.44 m/s Mitral Valve E-Wave Peak Velocity: 0.84 m/s Right Ventricle RV Internal Diastolic Dimension: 2.64 cm Aorta AO Root Diam: 2.68 cm Ascending Ao Diam: 2.50 cm Aortic Valve AoV Area (Peak Abilio): 1.84 cm2, 1.88 cm2 AoV Area (VTI): 1.78 cm2, 1.78 cm2 Peak Velocity(Antegrade Flow): 1.06 m/s Peak Gradient(Antegrade Flow): 4.50 mm[Hg] Mean Velocity(Antegrade Flow): 0.76 m/s Mean Gradient(Antegrade Flow): 2.64 mm[Hg] Velocity Time Integral: 20.37 cm Tricuspid Valve Peak Velocity (Regurgitant Flow): 1.81 m/s, 1.76 m/s Pulmonic Valve Mean Gradient: 1.75 mm[Hg] Mean Velocity: 0.63 m/s Peak Velocity: 0.84 m/s, 0.91 m/s Peak Gradient: 3.32 mm[Hg], 2.82 mm[Hg] Right Atrium Right Atrium Systolic Pressure: 27.66 ml, 27.66 ml Dictated by: Freddy Garcia M.D. on 08/18/2025 at 16:52 Approved by: Freddy Garcia M.D. on 08/18/2025 at 16:57
== END 2025-08-18 13:53 | disposition home or self-care (01) ==
LOC: CARD 13:53
PROVIDERS: PCP Family Medicine; Visit Provider Internal Medicine Cardiovascular Disease
DX: R00.0 Tachycardia, unspecified (principal); I49.9 Cardiac arrhythmia, unspecified
CPT/HCPCS: 93306

== ENCOUNTER 2025-09-29 08:25 | Outpatient (OUT) | payer BC, SELFPAY ==
--- OUTSIDE RECORDS SUMMARY | 2019-03-28 05:30 | XMS_ITS | Continuity of Care Document ---
Author Organization [facility] Address [address] [place] [address] Phone Care Team Providers Care Brick Paving Checker Name Role Phone Alfred Landry Unavailable Unavailable Procedures Procedure Date IMMUNIZATION ADMIN, EACH ADD HEP A VACCINE, ADULT IM IMMUNIZATION ADMIN TYPHOID VACCINE, IM Advance Directives Directive Yes / No Effective Date File Name No Information Encounters Encounter Description Practice Location Reason(s) For Visit Diagnoses Date Provider Providers Copied on Encounter [facility], [address] [place], [place], [id number], [place] tel:[phone] [facility] No Information Oxana BERNAL Alfred. [address] [place], [place], [id number], [place]. tel:[phone] Family History Family Member Type Diagnosis Age At Onset No Information Immunizations Vaccine Date Status Comments Typhoid administered Source: New Imm unization Record Hep A (adult) administered Source: New Im munization Record Payers Payer name Insurance type Covered alliance party ID Authoriza grecia(s) Medical [place] CI [id number] Social History Type Description Quantity Date Captured [...]
--- OUTSIDE RECORDS SUMMARY | 2025-09-15 05:44 | XMS_ITS | Continuity of Care Document ---
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 Name Role Phone Caron Ramos MD Primary Care Provider Caron Ramos MD Attending Provider Shanti Romero MD Attending Provider Kayla Fitzpatrick APRN Attending Provider Care Teams Patient Care Team Team Status: Active Member Role/Relationship Status Dates Caron Ramos MD Primary Care Provider Active Visit Care Team Team Status: Inactive Member Role/Relationship Status Dates Caron Ramos MD Primary Care Provider Active Start: June 19, 2025 End: June 19, 2025Pop Vieira ProviderActiveStart: June 19, 2025 End: June 19, 2025 Patient Care Team Team Status: Active Member Role/Relationship Status Dates Caron Ramos MD Primary Care Provider Active Start: July 28, 2025 Pop Mcgregor ProviderActiveStart: July 28, 2025 Patient Care Team Team Status: Inactive Member Role/Relationship Status Dates Caron Ramos MD Primary Care Provider Active Start: September 15, 2025 End: September 15, 2025Bang Awad ProviderActiveStart: September 15, 2025 End: September 15, 2025 Chief Complaint and Reason for Visit Chief Complaint Admit Date Right foot pain, high heart rate with ex ercise June 19, 2025 11:20am Sore throat September 15, 2025 1 0:16am Reason for Visit Admit Date ADHD (attention deficit hyperactivity di sorder) June 19, 2025 11:20am Right foot pain June 19, 2025 11:2 0am Tachycardia June 19, 2025 11:2 0am Strep pharyngitis September 15, 2025 1 0:16am Allergies, Adverse Reactions, Alerts Allergen Type Severity Reaction Last Updated Verified Status shellfish derived Allergy Unknown Unknown Reaction O ctober 2024 10:22am Yes Active Social History Smoking Status Status Start Date End Date Date of Observa tion Never smoked tobacco (finding) April 22, 2024 10:07am Observation Status Observation Response Date of Response Legal Sex [facility] (finding) [facility] Family History Relationship Condition Age at Onset Recorded Date/T yumiko maternal grandmother Malignant neoplasm Unknown Diabetes mellitusUnknownfatherHypertensionUnknown Problems Active Problems Problem Diagnosis/Recorded Date Onset Date Stat Wellness examination May 03, 2025 12:42pm Unknown Active Migraine June 22, 2024 1:58pm Unknown Activ e Cervical lymphadenopathy June 22, 2024 1:57pm Unknow n Active Tachycardia June 19, 2025 12:25pm Unknown Acti ve Right foot pain June 19, 2025 12:24pm Unknown A ctive ADHD (attention deficit hype ractivity disorder) January 07, 2024 2:19pm Unknown Active Inactive/Resolved Problems Problem Diagnosis/Recorded Date Onset Date Stat us Eustachian tube dysfunction October 25, 2024 4:51pm Unknown Resolved Otitis media, left October 25, 2024 4:50pm Unknown Resolved Medications Medication Status Dose Units Route Directions Qty Days Refills S tart Date Stop Date End Date Reason(s) Instructions Adherence Norethindrone Ac-Eth Estradiol 1-20 mg-mcg tablet Disc ontinued 0 .ROUTE.GEXKDVF333Bueht 2023 4:41pmMarch 2023 4:40pmtake 1 tablet by mouth once dailyLisdexamfetamine (Vyvanse) 30 mg pfchfgtVzvfbyfmbsyc02QUCKPmtrr 05191Tcker pril 2023 9:40pmAttention deficit hyperactivity disorder (ADHD) Attention-deficit hyperactivity disorder, unspecified typeNorethindrone Ac-Eth Estradiol 1-20 mg-mcg tabletDiscontinued0.ROUTE.QWKIVMH175Xqjft 2023 4:40pmJuly 2023 12:42pmtake 1 tablet by mouth once dailyLisdexamfetamine (Vyvanse) 30 mg ysrafkfEiiesmlfiekx55DNKUErfjt12792Mmsqq 2023May 2023 3:12pmAttention deficit hyperactivity disorder (ADHD) Attention-deficit hyperactivity disorder, unspecified typeLisdexamfetamine (Vyvanse) 30 mg iyppleiQiuiygbpvkck76TMKJBixbk07587Lbi 2023June 2023 3:02pmAttention deficit hyperactivity disorder (ADHD) Attention-deficit hyperactivity disorder, unspecified typeLisdexamfetamine (Vyvanse) 30 mg kdadyluUsbaehktiegq59RQNELumid24490Fhtw 2023July 2023 1:09pmAttention deficit hyperactivity disorder (ADHD) Attention-deficit hyperactivity disorder, unspecified typeLisdexamfetamine (Vyvanse) 30 mg mggjasqSjuzjdtzizku51FCUODhmng92342Ggia ugust 2023 9:53amAttention deficit hyperactivity disorder (ADHD) Attention-deficit hyperactivity disorder, unspecified typeNorethindrone Ac-Eth Estradiol 1-20 mg-mcg tabletDiscontinued0.ROUTE.HQAGVLM466Qdtr 2023 12:42pmJuly 2024 4:27pmtake 1 tablet by mouth once dailyLisdexamfetamine (Vyvanse) 30 mg ypaxvrkXtyjfftnhmon73USGDYlonh30837Bycfei 2023September 2023 8:39amAttention deficit hyperactivity disorder (ADHD) Attention-deficit hyperactivity disorder, unspecified typeLisdexamfetamine (Vyvanse) 30 mg flcapwjGgsmbdofwvih21NPGUYesvb87447Iepgyyvpv 2023October 2023 1:02pmAttention deficit hyperactivity disorder (ADHD) Attention-deficit hyperactivity disorder, unspecified typeLisdexamfetamine (Vyvanse) 30 mg tldhqcjDgozjwashxwz68EWDYGqcni64316Cqxfhvc 2023October 2023 4:17pmAttention deficit hyperactivity disorder (ADHD) Attention-deficit hyperactivity disorder, unspecified typeLisdexamfetamine (Vyvanse) 30 mg ydeztgyFmveejlkgqsk11QFBBNlgdv86363Ujdjyxwg 2023October 2023 4:22pmAttention deficit hyperactivity disorder (ADHD) Attention-deficit hyperactivity disorder, unspecified typeLisdexamfetamine (Vyvanse) 30 mg aiqvbwkSfmdeisczlpe97GXTTOqomi36604Arjqgbow ecember 2023 5:25pmAttention deficit hyperactivity disorder (ADHD) Attention-deficit hyperactivity disorder, unspecified typeLisdexamfetamine (Vyvanse) 30 mg nuqyoaxHhpytzjeeuqg36RGRCAzmgt82355Qdbyezx 2024January 2024 9:47amAttention deficit hyperactivity disorder (ADHD) Attention-deficit hyperactivity disorder, unspecified typeLisdexamfetamine (Vyvanse) 30 mg jymdgsnLgpajylivmva34RKPQJfjno01592Owgnvhl 2024February 2024 1:46pmAttention deficit hyperactivity disorder (ADHD) Attention-deficit hyperactivity disorder, unspecified typeLisdexamfetamine (Vyvanse) 30 mg usjlfmxSfhiqctwswmu72DFMKLbctw45091Vizmxlkk 2024March 2024 9:26amAttention deficit hyperactivity disorder (ADHD) Attention-deficit hyperactivity disorder, unspecified typeLisdexamfetamine (Vyvanse) 30 mg fryypvsBnbskmxixjeg05BNYSRgabn08257Tivvp pril 2024 2:03pmAttention deficit hyperactivity disorder (ADHD) Attention-deficit hyperactivity disorder, unspecified typeLisdexamfetamine (Vyvanse) 30 mg jiwantnFzchpxlthbkw23ZYLXMviyv44503Ylpuc 2024May 2024 10:39amAttention deficit hyperactivity disorder (ADHD) Attention-deficit hyperactivity disorder, unspecified typeLisdexamfetamine (Vyvanse) 30 mg noqjdvlVejqexfvjaiv59HJFPUnifd82866Ydq 2024June 2024 8:38amAttention deficit hyperactivity disorder (ADHD) Attention-deficit hyperactivity disorder, unspecified typeAlbuterol Sulfate 90 mcg/actuation HFA aerosol glbktuwXvmqsx5PCGECRLIBYZRQDPsowa 4 hours8.50June 2024 8:38amComplies with drug therapyLisdexamfetamine (Vyvanse) 30 mg capsule Cnjbpffgfsnn13AJLPBmzrz19774Afnr 2024June 2024 11:30amAttention deficit hyperactivity disorder (ADHD) Attention-deficit hyperactivity disorder, unspecified typeNorethindrone Ac-Eth Estradiol 1-20 mg-mcg tabletActive0.ROUTE.FZNEHAC644Ntdp 2024 4:26pmtake 1 tablet by mouth once dailyComplies with drug therapyLisdexamfetamine (Vyvanse) 30 mg qpqocqwLaioyvnyxftm95PVNNJicbs79937Azwb 2024July 2024 12:23pm Attention deficit hyperactivity disorder (ADHD) Attention-deficit hyperactivity disorder, unspecified typeLisdexamfetamine (Vyvanse) 30 mg ryemsnlYlolwpwyhxmy86CZBGYyuhf93976Bewuhndwq 2024September 2024 10:01amAttention deficit hyperactivity disorder (ADHD) Attention-deficit hyperactivity disorder, unspecified typeLisdexamfetamine (Vyvanse) 30 mg tudoaxqXymohnfqrfxm43QYSILkcvo81935Qbszrsela 2024October 2024 1:03pmAttention deficit hyperactivity disorder (ADHD) Attention-deficit hyperactivity disorder, unspecified typeLisdexamfetamine (Vyvanse) 30 mg stqbpmjInoomd19LQPHZkofq16409Bumpllm ttention deficit hyperactivity disorder (ADHD) Attention-deficit hyperactivity disorder, unspecified typeComplies with drug therapyNorethindrone Ac-Eth Estradiol 1-20 mg-mcg hxevtrAvuxisqehduy9UZMWAQtmir January 25, 2024 1:00amMarch 2023 4:41pmAlbuterol Sulfate 90 mcg/actuation HFA aerosol mkzbrbcErnkwwkqgwze8OQNOXUVLSAKOEMDirfx 4 hoursMay 2023 12:00amJune 2024 8:39amFreeTextSi puffs as needed Inhalation every 4 hrs; Note: Source Status: Start; Refills: 1; Qty:1 Each; Provider: Richard Reardon ECefdinir 300 mg dfckjkfHtbuupogsuwb376CRSGOraev jrlwp385Ngpt 2023 12:00am October 10, 2024 9:34amLisdexamfetamine (Vyvanse) 30 mg jqhpjctBgplvzaavadu50 EDHWVrucf30205Nhex 2024July 2024 10:41amAttention deficit hyperactivity disorder (ADHD) Attention-deficit hyperactivity disorder, unspecified typeMeloxicam 15 mg tablet ActiveMGPOOctober 2024 12:00amComplies with drug therapyAmoxicillin 500 mg rgwgrjpCochtd090VXGMRxwtm ktotd07563Tlzjsmp 2024 12:00amComplies with drug therapyLisdexamfetamine (Vyvanse) 30 mg iptgpgpXcmtvnogpkpq12NZRQSitsb6Oobrmjgh 2023 1:00amFebruary 2023 2:20pmLisdexamfetamine (Vyvanse) 30 mg hororbvVicgjslcdcph87MGFUHdwof99600Broivwqh 2023March 2023 4:40pm Attention deficit hyperactivity disorder (ADHD) Attention-deficit hyperactivity disorder, unspecified typeAmoxicillin 875 mg lbznawOvjhtnppbspk753OTUVEwxpq edkqw9677BfwgsvjyOctober 25, 2024 1:00amJune 2024 11:00amLeft otitis media Otitis media, unspecified, left earFluticasone Propionate (Flonase Allergy Relief) 50 mcg/actuation spray,ffievdghynXmszkbzwmsge5QVOBXTVKTJRANNYMbbzl daily 162October 25, 2024 1:00amJune 2024 11:00amDysfunction of eustachian tube Unspecified Eustachian tube disorder, unspecified earadminister into each nostrilLisdexamfetamine (Vyvanse) 30 mg vbvdhfgZzavvxzwuvob97JDQXMphgg02301 October 25ecember 2023 5:27pmAttention deficit hyperactivity disorder (ADHD) Attention-deficit hyperactivity disorder, unspecified typeLisdexamfetamine (Vyvanse) 30 mg agygqshLraaoaadgekt94XTGIXmubg66815Ukchsapr 2023January 2024 9:47amAttention deficit hyperactivity disorder (ADHD) Attention-deficit hyperactivity disorder, unspecified typeLisdexamfetamine (Vyvanse) 30 mg mmsfkeyTfjpgqepyikd83PRVADknmm04079Hjdpho 2024September 2024 10:00amAttention deficit hyperactivity disorder (ADHD) Attention-deficit hyperactivity disorder, unspecified type Immunizations Immunization Event Date Not Given Reason Dose Number Registered Nurse Maternal Child Lot Number Reason(s) Given Vaccine Information Statement (VIS) Detail Administration Location Meningococcal MCV4O March 20, 2016 Procedures Procedure Date Performed Status Quick Strep (POC) September 15, 2025 completed Relevant Diagnostic Tests and/or Laboratory Data Laboratory Results Test Collection Date/Time Result Date/Time Result Interpretation Reference Range Result Comment Performing Site Thyroid Stimulating Hormone July 28, 2025 2:11pm July 28, 2025 2:11pm 1.100 u[iU]/mL 0.358-3.740Magnesium LevelSept2024 2:11pmSept2024 2:11pm 1.8 mg/dL1.8-2.4Anion GapSept2024 2:11pmSept2024 2:11pm 13.4Basophils # (Auto)July 28, 2025 2:11pmSept2024 2:11pm0.1 10 3/uL0.0-0.1BUN/Creatinine RatioSept2024 2:11pmSept2024 2:11pm12.4Basophils (%) (Auto)July 28, 2025 2:11pmSept2024 2:11pm0.6 %0.2-2.0Blood Urea NitrogenSept2024 2:11pmSept2024 2:11pm12.0 mg/dL7.0-18.0Eosinophils # (Auto)July 28, 2025 2:11pm July 28, 2025 2:11pm0.1 10 3/uL0.0-0.7Calcium LevelSept2024 2:11pmSept2024 2:11pm9.1 mg/dL8.5-10.1Eosinophils (%) (Auto)July 28, 2025 2:11pmSept2024 2:11pm1.8 %0.9-7.0Chloride LevelSept2024 2:11pmSept2024 2:21pp643 mmol/Q13-515ShgrimzemsDmipvxkmd 5th, 2025 2:11pmSept2024 2:11pm40.3 %36.0-48.0Carbon Dioxide Level July 28, 2025 2:11pmSept2024 2:11pm27.7 mmol/L21.0-32.0 HemoglobinSept2024 2:11pmSept2024 2:11pm13.8 g/dL12.0-16.0 CreatinineSept2024 2:11pmSept2024 2:11pm0.97 mg/dL 0.55-1.02Immature Granulocyte # (Auto)July 28, 2025 2:11pmSept2024 2:11pm0.02 10 3/uL0.00-0.03Estimated GFR ()July 28, 2025 2:11pmSept2024 2:11pm>60>=60 mL/min/1.73m 2Immature Granulocyte % (Auto)July 28, 2025 2:11pmSept2024 2:11pm0.3 %0.0-0.5 Estimated GFR (Non- AmericanSept2024 2:11pmSept2024 2:11pm>60>=60 mL/min/1.73m 2Lymphocytes # (Auto)July 28, 2025 2:11pm July 28, 2025 2:11pm2.3 10 3/uL1.2-3.8Glucose LevelSept2024 2:11pmSept2024 2:81yx006 mg/dLAbove high jyrvge73-205Sbampjifqfo (%) (Auto)July 28, 2025 2:11pmSept2024 2:11pm29.8 %20.5-60.0 Potassium LevelSept2024 2:11pmSept2024 2:11pm4.1 mmol/L 3.5-5.1Mean Corpuscular HemoglobinSept, 2024 2:11pmSept2024 2:11pm31.4 pg26.7-34.0Sodium LevelSept2024 2:11pmSept2024 2:74qs353 mmol/W887-386Xtrd Corpuscular Hemoglobin ConcentSept2024 2:11pmSept2024 2:11pm34.2 g/dL29.9-35.2Mean Corpuscular Volume July 28, 2025 2:11pmSept2024 2:11pm91.8 fL81.0-99.0Monocytes # (Auto)July 28, 2025 2:11pmSept2024 2:11pm0.5 10 3/uL0.3-0.8 Monocytes (%) (Auto)July 28, 2025 2:11pmSept2024 2:11pm6.2 % 1.7-12.0Mean Platelet VolumeSept2024 2:11pmSept2024 2:11pm 11.2 fL9.5-13.5Neutrophils # (Auto)July 28, 2025 2:11pmSept2024 2:11pm4.7 10 3/uL1.4-6.5Neutrophils (%) (Auto)July 28, 2025 2:11pm July 28, 2025 2:11pm61.3 %43.0-75.0Platelet CountSept2024 2:11pmSept2024 2:91nd639 10 3/dU753-258Wxp Blood CountSept2024 2:11pmSept2024 2:11pm4.39 10 6/uL4.20-5.40Red Cell Distribution WidthSept2024 2:11pmSept2024 2:11pm11.6 %11.0-15.0 Corrected White Blood CountSeptember 2024 2:11pmSeptember 2024 2:11pm 7.7 10 3/uL4.0-11.0 Microbiology Results Procedure Source Result Collection Date/Time Result Date/Time Result Comment Performing Site Quick Strep (POC) Throat September 15, 2025 10:25amOctober 2024 10:36am Vital Signs Vital Reading Result Reference Range Collection Date/Time Height 66 [in_i] June 19, 2025 11:22chGnxyfw12.89 kgJuly 2024 11:21amHeart Ihrs325 /min 60-100July 2024 11:21amBP Pzlcyxeo443 mm[Hg]100-140July 2024 11:21am BP Ktcpmngyy74 mm[Hg]60-100July 2024 11:21amBMI (Body Mass Index)16.7 kg/m2July 2024 11:70wnIdmxyj55 [in_i]September 15, 2025 10:51qiSttucv43.25 kgOctober 2024 10:22amBody Sbdbqhxrbrt43.4 [degF]97.6-99.0October 2024 10:22amHeart Zmoa319 /uns68-292Zzjduco 2024 10:22amRespiratory rate18 /gjc16-68Umuehbr 2024 10:22amOxygen saturation by Pulse vhvvbcuk91 % 95-100October 2024 10:22amBP Onnkrctk365 mm[Hg]100-140October 2024 10:22amBP Iiayplmkb30 mm[Hg]60-100October 2024 10:22amBMI (Body Mass Index)17.2 kg/v8Cnkudni 2024 10:22am Advance Directives Advance Directive Response Recorded Date/ Time Advance Directives No April 22 9:55am Insurance Providers Guarantor Vinny Suarez Address [address] [place] [address] [facility] [address] Info.Home Phone: Payer Group Member ID Coverage Type Subscriber Relationship to Subscriber Effective Date Expiration Date Divina LUCAS [id number] Black Id: [id number] [address] [place] [address] Home Phone: self Encounters Encounter Location(s) Arrival/Admit Date Discharge/Departure Date Discharge/Departure Disposition Provider(s) Departed Physician/ Provider Office Visit -[facility] June 19, 2025 11:20am June 19, 2025 11:55am Discharged to home care or self care (routine discharge) Caron Ramos MD Non-patient / [facility]-visit [facility] 2:11pm AMEYA Mcgregoreparted Physician/Provider Office Visit-[facility] September 15, 2025 10:16amOctober 2024 10:43amDischarged to home care or self care (routine discharge)Kayla Fitzpatrick , SARAHY Recent Diagnosis Onset Date Admit Date ADHD (attention deficit hyperactivity disorder) Unknown June 19, 2025 11:20am Right foot pain Unknown June 19, 2025 11:20am Tachycardia Unknown June 19, 2025 11:20am Strep pharyngitis Unknown September 15, 2025 10:16am Assessments Diagnosis Onset Date Resolution Status Admit Date ADHD (attention deficit hyperactivity di sorder) acuteJuly 2024 11:20amRight foot painacuteJuly 2024 11:20am TachycardiaacuteJuly 2024 11:20amStrep pharyngitisnoneactiveOctober 2024 10:16am Plan of Treatment Author Kayla Fitzpatrick [facility]Authored[facility] 2024 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 Patient denies any other symptoms other than sore throat. No allergies to any antibiotics, test for strep today is positive. Prescription for Amoxicillin. Take antibiotic with food as directed, complete entire course even if feeling better. Contagious for 24 hours after starting antibiotic. Discussed good hand hygiene and infection control. New tooth brush and wash linens after 2-3 days of being on antibiotic to prevent reinfection. Supportive care as directed. Push fluids and rest. Eat soft foods and liquids that are easy to swallow. Tylenol/Motrin as needed for fever or discomfort. Use of throat lozenges and warm salt water gargles encouraged. Symptoms should improve in the next 24-48 hours, eval by PCP or UC if symptoms have not improved with treatment. Immediate eval if difficultly managing oral secretions, drooling, unilateral neck swelling, hot potato voice, persistent fever, neck pain/stiffness, severe headache, lethargy. Patient verbalizes understanding and is agreeable to treatment plan. Author Caron Ramos [facility] HospitalAuthoredJuly 2024 12:36pmDiscussed her low dose stimulant could cause tachycardia, but dose and med have not changed and symptoms are new. She is not interested in trying a different treatment at this time. Leaving for vacation on 06/28 and doesn't want to be without medication. 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 Rx sent today w those instructions. OARRS reviewed. Referral to Dr. Crowe. Referral to Cardiology. Pt agrees. Future Tests Future scheduled test information is unavailable Pending Tests Pending diagnostic test information is unavailable Future Visits Future appointment information is unavailable Future Procedures Future procedure information is unavailable Future Medications Future medication information is unavailable Patient Instructions Instruction Admit Date Strep throat - ED discharge instructions September 15, 2025 10:16am
--- OUTSIDE RECORDS SUMMARY | 2025-09-29 08:29 | XMS_ITS | Patient Health Record ---
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 Name Role Phone Ryan Crowe Unavailable [phone] Allergies Allergen (clinical drug ingredient) Drug/Non Drug Allergy documented on EMR Reaction Allergy Type Onset Date Status Shellfish (FN) Shellfish-derived Products Unknown Drug Allergy Active Reason For Referral No Information Medications Medication SIG (Take, Route, Frequency, Duration) Notes Start Date End Date Status Meloxicam 15 MG Tablet 1 tablet Orally daily; Du ration: 30 days 5ActiveAlbuterol Sulfate HFA 108 (90 Base) MCG/ACT Aerosol Solution INHALE 2 PUFFS BY MOUTH EVERY 4 HOURS Inhalation; Duration: 17 DaysActiveVyvanse 30 MG CapsuleOral; Duration: 30 DaysActiveJunel 1/20 1-20 MG-MCG TabletOral; Duration: 84 DaysActive Social History Section Notes: Patient is a nonsmoker. No alcohol use. Patient is a nonsmoker. No alcohol use. Encounters Encounter Location Date Provider Diagnosis [facility] [address] [address], [facility] [place] [address] 06/26/2025 Ryan Crowe Arthritis of right foot M19.071 and Sprain of ligament of tarsometatarsal joint of right foot, sequela S93.621S [facility] [address] [address], [facility] [place] [address] 08/11/2025 Ryan Crowe Arthritis of right foot M19.071 and Sprain of ligament of tarsometatarsal joint of right foot, sequela S93.621S Assessments Encounter Date Diagnosis (ICD Code) Assessment Notes Treatment Notes Treatment Clinical Notes Section Notes 06/26/2025 Arthritis of right foot (ICD-10 - M19.071) Patient was seen and evaluated. Patient education provided and all questions answered to satisfaction. I recommended nonsurgical treatment at this time. Treatment advices included: - RICE therapy as well as shoe and activity modification - Recommended OTC orthotics and a handout was provided regarding spenco and powerstep inserts - Discussed medications and potential side effect. Medication(s) recommended/prescribed: meloxicam.She may also attempt OTC voltaren topical - Imaging ordered: right foot xray was obtained and reviewed today and demonstrates midfoot DJD with slight widening of the 1st-2nd metatarsal bases. No acute fracture. This xray was compared to xrays obtained in 2019 and there is progression of DJD at tarsometatarsal joints. - MRI was ordered and she will call once this study is obtained to review the findings. - No impact exercise until f/u 06/26/2025Sprain of ligament of tarsometatarsal joint of right foot, sequela (ICD-10 - S93.621S)5Arthritis of right foot (ICD-10 - M19.071)Patient has failed to respond to nonsurgical care over the last 6+ weeks (treatments attempted listed in HPI). I recommended an MRI which was declined by insurance at last visit. MRI was reordered and she will f/u after it is obtained. 08/11/2025Sprain of ligament of tarsometatarsal joint of right foot, sequela (ICD-10 - S93.621S) Plan Of Treatment No Information Insurance Providers Payer Name Payer Address Payer Phone Subscriber Number Group Number Insured Name Patient Relationship to Insured Coverage Start Date Coverage End Date [facility] and [facility] [address] [place] [address] [id number] Sharona Suarez - patient is the insured Medical (General) History Medical History History ICD Code Asthma ADHDSurgical History Surgery Date(Month/Year) Riley Teeth
--- OUTSIDE RECORDS SUMMARY | 2025-09-29 08:29 | XMS_ITS | Encounter Summary ---
Author Organization [facility] Address [address] [place] [address] Care Team Providers Care Blanking Press Operator Name Role Phone Caron Ramos MD Primary Care Provider [phone] Encounter Details DateTypeDepartmentCare Team (Latest Contact Info)Znfnejflavj06/13/2024Clinisync Result Encounter [facility] Unsolicited Martha Rebolledo MD [address] [facility] [address] [place] [address] Social History Tobacco UseTypesPacks/DayYears UsedDateSmoking Tobacco: NeverSmokeless Tobacco: NeverAlcohol UseStandard Drinks/WeekCommentsNot Currently0 (1 standard drink = 0.6 oz pure alcohol)Very rareCommentsUnknownSex and Gender Information ValueDate RecordedSex Assigned at BirthNot on fileLegal DfcWbcuwj82/15/2023 8:14 PM EDTGender IdentityNot on fileSexual OrientationNot on filedocumented as of this encounter Plan of Treatment Not on file documented as of this encounter Procedures Procedure NamePriorityDate/TimeAssociated DiagnosisCommentsCT SOFT TISSUE NECK W IV CMRRQMOG16/13/2024 3:52 PM EDT documented in this encounter Results * CT soft tissue neck w IV contrast (08/05/2024 3:52 PM EDT)Anatomical Region LateralityModalityHead, NeckComputed TomographySpecimen (Source)Anatomical Location / LateralityCollection Method / VolumeCollection TimeReceived Time 08/05/2024 3:52 PM EDT Narrative 08/05/2024 3:54 PM EDT [facility] ?[address] ? [place] [address] ? CT Scan Report ? Signed ? Patient: BLACK,DEJAN M ?MR#: [id number] ?? : 1995 ?Acct:[id number] ?? Age/Sex: 29 / F ?ADM Date: 08/05/ ?? Loc: CT ? Attending Dr: Martha Rebolledo M.D. ? Ordering Physician: Martha Rebolledo M.D. ?? Date of Service: 08/05/24 ?? Procedure(s): CT soft tissue neck w con ?? Accession Number(s): [id number] ? cc: Caron Ramos M.D. ? [facility] ? [address] ? [place] [address] ? Patient Name: ?? DEJAN ESCOBEDO ? MRN: [facility]:[id number] ? date: 1995 ?Sex: F ?? Assigned Patient Location: CT ?? Current Patient Location: CT ?? Accession/Order Number: [id number] ?? Exam Date: 08/05/2024 ??08:05 ?Report Date: 08/05/2024 ??15:52 ? At the request of: ?? MARTHA ??YI ? Procedure: ??CT soft tissue neck w con ? EXAMINATION: CT soft tissue neck w con ? HISTORY: Neck mass. R22.1. Patient states lymph node, BB marker. ? COMPARISON: None. ? TECHNIQUE: Axial CT images through the neck with intravenous contrast. ? Dose reduction techniques were achieved by using: automated exposure control ?? and/or adjustment of mA and /or kV according to patient size and/or use of ?? iterative reconstruction technique. ? FINDINGS: Metallic BBs visualized in the skin overlying the right side of the ?? neck. There is a right level II lymph node measuring 6 x 12 mm subjacent to ?? the ?? marker. Additional multiple small nonenlarged lymph nodes in the remaining ?? soft ?? tissues of the neck. No abnormal inflammation or fluid collection. The ?? adjacent ?? submandibular glands appear normal. Tiny left thyroid nodule. No lesions in ?? the ?? parotid glands. No lesions in the included lower brain. No lesions in the ?? nasopharynx. Mild prominence of the bilateral palatine tonsils. No lesions. No ? lesions in the oral cavity, hypopharynx, larynx, or upper trachea. ? CT/CT soft tissue neck w con ?? IMPRESSION: ? 1. Multiple small lymph nodes are visualized in the soft tissues of the neck, ?? nonenlarged. This includes a 6 x 12 mm lymph node subjacent to the marker ?? placed at the right side of the neck. ? 2. No mass lesions, fluid collection in the soft tissues adjacent to the ?? right-sided marker. No right-sided sialoadenitis. ? Electronically authenticated by: DEMETRIO ??YEH ?? Date: 08/05/2024 ??15:52 ? Dictated By: ?Demetrio Zarate M.D. ? Signed By: ?08/05/24 1554 ? DD/ 1552 ? TD/TT: ? Django Developer: Procedure Note Radiology, Radiologist, - 08/05/2024 [place] [address] CT Scan Report Signed Patient: DEJAN ESCOBEDO MMR#: [id number] : 1995Acct:[id number] Age/Sex: 29 / FADM Date: 08/05/24 Loc: CT Attending Dr: Martha Rebolledo M.D. Ordering Physician: Martha Rebolledo M.D. Date of Service: 08/05/24 Procedure(s): CT soft tissue neck w con Accession Number(s): [id number] cc: Caron Ramos M.D. The [address] [address] Patient Name: DEJAN ESCOBEDO MRN: [id number] date: 1995 Sex: F Assigned Patient Location: CT Current Patient Location: CT Accession/Order Number: [id number] Exam Date: 08/05/2024 08:05 Report Date: 08/05/2024 [...] 15:52 Dictated By: Demetrio Zarate M.D. Signed By:08/05/244 DD/ 51 TD/TT: Django Developer: Authorizing ProviderResult TypeResult StatusHilayvonne Rebolledo MDIMG CT PROCEDURES Final Result documented in this encounter Visit Diagnoses Not on filedocumented in this encounter Care Teams Team MemberRelationshipSpecialtyStart DateEnd Date Caron Ramos MD PCP - GeneralFamily Medicine07/01/24documented as of this encounter
--- OUTSIDE RECORDS SUMMARY | 2025-09-29 08:29 | XMS_ITS | Clinical Summary ---
Author Organization [facility] Address [address] [place] [address] Care Team Providers Care Director Blood Bank Name Role Phone Caron Ramos MD Primary Care Provider [phone] Allergies Active AllergyReactionsCriticalityNoted DateCommentsShellfish Protein-Containing Drug ProductsDiarrhea,Itching,Qfgaljy2908/19/2024 Medications MedicationSigDispense QuantityRefillsLast FilledStart DateEnd DateStatus albuterol HFA 90 mcg/act inhaler Inhale 2 puffs every 6 (six) hours if needed for shortness of breathActive lisdexamfetamine (Vyvanse) 30 MG capsule Take 30 mg by mouth in the morning.Active norethindrone-ethinyl estradiol (Microgestin 12/12) 1-20 MG-MCG tablet Take 1 tablet by mouth Daily06/13/2024ctive Active Problems ProblemNoted DateDiagnosed DateNeck mass07/08/2024DHD (attention deficit hyperactivity disorder)4Cervical /13/2024Migraine 4Chest pain06/07/2020 Family History Medical HistoryRelationNameCommentsHTNFatherMichael BlackHypertensionFather Robel BlackCancerMaternal GrandmotherSharon WeberDiabetesMaternal Grandmother Peyton BarahonaMigrainesMotherTerri BlackRelationNameStatusCommentsFatherMichael BlackMaternal GrandmotherSharon WeberMotherTerri Black Social History Tobacco UseTypesPacks/DayYears UsedDateSmoking Tobacco: NeverSmokeless Tobacco: Never Tobacco Cessation:Counseling Given: Not Answered Alcohol UseStandard Drinks/WeekCommentsNot Currently0 (1 standard drink = 0.6 oz pure alcohol)Very rareCommentsUnknownSex and Gender InformationValueDate RecordedSex Assigned at BirthNot on fileLegal FlmZnlhvw92/15/2023 8:14 PM EDT Gender IdentityNot on fileSexual OrientationNot on file Last Filed Vital Signs Vital SignReadingTime TakenCommentsBlood Zhgkodvn351/77008/19/2024 9:57 AM EDT Pulse--Temperature--Respiratory Rate--Oxygen Saturation--Inhaled Oxygen Concentration--Fnwpwe40.9 kg (99 lb)08/19/2024 9:57 AM IYTBiovif156.6 cm (5' 6 ) 08/19/2024 9:57 AM EDTBody Mass Index15.98008/19/2024 9:57 AM EDT Plan of Treatment Not on file Insurance Care Teams Team MemberRelationshipSpecialtyStart DateEnd Caron Ramos MD PCP - GeneralFamily Medicine07/01/24
--- OUTSIDE RECORDS SUMMARY | 2025-09-29 08:29 | XMS_ITS | Encounter Summary ---
Author Organization [facility] Address [address] [place] [address] Care Team Providers Care Cylinder Press Feeder Name Role Phone Caron Ramos MD Primary Care Provider [phone] Encounter Details DateTypeDepartmentCare Team (Latest Contact Info)Olhgryzuwii72/06/2025Telephone [facility] [address] [place] [address] Rosaline King MA Social History Tobacco UseTypesPacks/DayYears UsedDateSmoking Tobacco: NeverSmokeless Tobacco: NeverAlcohol UseStandard Drinks/WeekCommentsYes0 (1 standard drink = 0.6 oz pure alcohol)occasionalCommentsUnknownSex and Gender InformationValueDate RecordedSex Assigned at JmfowJdsiim87/26/2025 1:36 PM EDTLegal SexFemale 05/22/2022 12:27 AM EDTGender NapyleuiPpwbah08/26/2025 1:36 PM EDTSexual OrientationHeterosexual or Vnoerfpp39/26/2025 1:36 PM EDTdocumented as of this encounter Miscellaneous Notes * Addendum Note - Rosa Mcdaniel MA - 09/28/2025 3:14 PM ESTAddended by: ROSA MCDANIEL on: 09/28/2025 03:14 PM Modules accepted: Orders * Telephone Encounter - Rosaline King MA - 09/28/2025 12:57 PM EST Images from the original note were not included. MD Rosaline Mcgregor MA Overall normal but it mention possible pleural effusions therefore please obtain chest x-ray PA andlateral and today diagnosis pleural effusion on echo LVM for patient to call for test results Spoke to patient, advised patient of her Echo results per Dr. Truong request Patient will come in early on 09/29/2025 before her appointment and conway\ve chest X-ray. documented in this encounter Plan of Treatment DateTypeDepartmentCare Team (Latest Contact Info)Faxyspglkma74/07/2025 3:00 PM ESTOffice Visit [facility] [address] [place] [address] Shanti Romero MD [address] [place] [address] MS:[address] [place] [address] NameTypePriorityAssociated DiagnosesOrder ScheduleXR ribs 4 views bilateral with chest paImagingRoutine Pleural effusion Expected: 09/28/2025, Expires: 09/28/2026documented as of this encounter Visit Diagnoses Diagnosis Pleural effusion- Primary Unspecified pleural effusion documented in this encounter Care Teams Team MemberRelationshipSpecialtyStart DateEnd Date Caron Ramos MD [address] [facility] [address] PCP - General07/21/25documented as of this encounter
--- OUTSIDE RECORDS SUMMARY | 2025-09-29 08:29 | XMS_ITS | Clinical Summary ---
Author Organization [facility] Address [address] [place] [address] Care Team Providers Care Chicken Sexer Name Role Phone Caron Ramos MD Primary Care Provider [phone] Social History Tobacco UseTypesPacks/DayYears UsedDateSmoking Tobacco: Never Assessed CommentsUnknownSex and Gender InformationValueDate RecordedSex Assigned at Not on fileLegal DhqGedojo17/12/2019 12:49 PM EDTGender FfayczdsDzttim34/12/2019 12:47 PM EDTSexual OrientationNot on file Plan of Treatment Health MaintenanceDue DateLast DoneCommentsWellness Visit2000Depression Screening/Follow-Up (PHQ-2/9)2009Varicella Vaccines (1 of 2 - 13+ 2-dose series)2010HIV Kuinsljet93/08/2012Hepatitis C Oqqatfaad40/08/2015Pap Smear 2018Tetanus/Diphtheria/Pertussis (7 - Td or Tdap), 02/20/2003, 08/12/1999, Additional history existsHPV Vaccines (1 - 3-dose SCDM series)2024OVID-19 Vaccine (3 - 2024- season)/, 12/28/2020Influenza Vaccine (#1)2025Zoster Vaccines (1 of 2)2047RSV Vaccines (1 - 1-dose 75+ series)2072Hepatitis B VaccinesCompleted 02/05/1998, 1995, 1997HIB AcgiwygfZzyswbtjb26/20/1999, 02/05/1998, 1997, Additional history existsIPV YrgqffzoRlrznjlbb83/31/2003, 08/12/1999, 1997, Additional history existsMMR VaccinesCompleted 02/20/2003, 08/12/1999Meningococcal ACWY VaccineAged Out04/15/2010No longer eligible based on patient's age to complete this topicHepatitis A VaccinesAged Out03/28/2019No longer eligible based on patient's age to complete this topic Meningococcal B VaccineAged OutNo longer eligible based on patient's age to complete this topicPneumococcal VaccineAged OutNo longer eligible based on patient's age to complete this topicRotavirus VaccinesAged OutNo longer eligible based on patient's age to complete this topic Insurance * Guarantor: Vinny Escobedo TypeRelation to PatientDate of BirthPhone Billing AddressPersonal/[id number] (Home) [address] [place] [id number] Care Teams Team MemberRelationshipSpecialtyStart DateEnd Date Caron Ramos MD [address] [place] [id number] [facility]
--- OUTSIDE RECORDS SUMMARY | 2025-09-29 08:30 | XMS_ITS | Clinical Summary ---
Author Organization [facility] Address [address] [place] [address] Care Team Providers Care Sonoscope Operator Name Role Phone Caron Ramos MD Primary Care Provider [phone] Allergies Active AllergyReactionsCriticalityNoted DateCommentsShellfish Containing ProductsDiarrhea,Itching,Emhzqmp8808/19/2024 Medications MedicationSigDispense QuantityRefillsLast FilledStart DateEnd DateStatus lisdexamfetamine (Vyvanse) 30 mg capsule Take 30 mg by mouth in the morning.Active Junel 12/12, , 1-20 mg-mcg tablet Take 1 tablet by mouth in the morning.Active albuterol 90 mcg/actuation inhaler Inhale 2 puffs in the morning, noon, at afternoon, at bedtime,.Active Active Problems ProblemNoted DateDiagnosed FlfoRchuitjakua74/08/2025Neck mass07/08/2024DHD (attention deficit hyperactivity disorder)07/05/2024ervical lymphadenopathy 07/05/20243226Ydkewlnm87/13/2024 Resolved Problems ProblemNoted DateDiagnosed DateResolved DateChest pain/06/2025 Encounters DateTypeDepartmentCare HxheWkrimmdyejl62/06/2025Telephone [facility] [address] [place] [address] Rosaline King MA 08/09/2025Telephone [facility] [address] [place] [address] Rosa Pham MA 07/21/2025 10:20 AM EDTOffice Visit [facility] [address] [place] [address] Shanti Romero MD Tachycardia (Primary Dx); Cardiac arrhythmia, unspecified cardiac arrhythmia type; Attention deficit hyperactivity disorder (ADHD), unspecified ADHD type; Neck massfrom Last 3 Months Family History Medical HistoryRelationNameCommentsAlcohol abuseFatherRelationNameStatusComments FatherAliveMotherAlive Social History Tobacco UseTypesPacks/DayYears UsedDateSmoking Tobacco: NeverSmokeless Tobacco: Never Tobacco Cessation:Counseling Given: Not Answered Alcohol UseStandard Drinks/WeekCommentsYes0 (1 standard drink = 0.6 oz pure alcohol)occasionalCommentsUnknownSex and Gender InformationValueDate RecordedSex Assigned at YozqeJorqjk36/26/2025 1:36 PM EDTLegal SexFemale 05/22/2022 12:27 AM EDTGender CczuxmdgDumuar84/26/2025 1:36 PM EDTSexual OrientationHeterosexual or Twozjxht98/26/2025 1:36 PM EDT Last Filed Vital Signs Vital SignReadingTime TakenCommentsBlood Xoquwigj498/8607/21/2025 10:25 AM EDT Cfhlc7039/29/2025 10:25 AM EDTTemperature--Respiratory Rate--Oxygen Saturation 100%07/21/2025 10:25 AM EDTInhaled Oxygen Concentration--Cywunk77.1 kg (106 lb) 07/21/2025 10:25 AM VMIKzgeaf798.6 cm (5' 6 )07/21/2025 10:25 AM EDTBody Mass Index17.11007/21/2025 10:25 AM EDT Plan of Treatment DateTypeDepartmentCare Team (Latest Contact Info)Xegxokcgixj76/07/2025 3:00 PM ESTOffice Visit [facility] [address] [place] [address] Shanti Romero MD [address] [place] [address] MS:[address] [place] [address] Health MaintenanceDue DateLast DoneCommentsDepression Akkfjqbcr51/08/2009 Varicella Vaccines (1 of 2 - 13+ 2-dose series)2010Pap Smear2018 Adult Wqyezhu32HPV Vaccines (1 - 3-dose SCDM series)2024 COVID-19 Vaccine ( - season)/, 01/17/2021, 12/28/2020Influenza Vaccine (#1)2025Zoster Vaccines (1 of 2)2047HIB XpxrrhgzMjkyhkxin42/20/1999, 02/05/1998, 1997, Additional history exists IPV SeucqncbOffikyfui80/31/2003, 08/12/1999, 1997, Additional history existsMeningococcal JxvwsieUlxateyjq67/28/2016, 04/15/2010Meningococcal B VaccineAged OutNo longer eligible based on patient's age to complete this topic Pneumococcal Vaccine: Pediatrics (0 to 5 Years) and At-Risk Patients (6 to 64 Years)Aged OutNo longer eligible based on patient's age to complete this topic Rotavirus VaccinesAged OutNo longer eligible based on patient's age to complete this topic Procedures Procedure NamePriorityDate/TimeAssociated DiagnosisCommentsECG 12-LEADRoutine 07/31/2025 4:46 PM EDT Tachycardia ECG 12 LEAD UNIT DWOIDAPDZHzatldh27/29/2025 10:53 AM EDT Tachycardia from Last 3 Months Results * ECG 12 lead (07/31/2025 4:46 PM EDT)Specimen (Source)Anatomical Location / LateralityCollection Method / VolumeCollection TimeReceived Time Shanti De Leon MD - 07/31/2025 4:46 PM EDT Sinus rhythm, heart rate 84 bpm, normal EKG Authorizing ProviderResult TypeResult StatusShanti Romero MDECG ORDERABLESFinal Result * ECG 12 lead unit performed (07/21/2025 10:53 AM EDT)Specimen (Source) Anatomical Location / LateralityCollection Method / VolumeCollection Time Received Time Narrative Authorizing ProviderResult TypeResult StatusShanti BRISCOE ORDERABLESFinal Result from Last 3 Months Insurance Care Teams Team MemberRelationshipSpecialtyStart DateEnd Date Caron Ramos MD [address] [facility] [address] PCP - General07/21/25
--- OUTSIDE RECORDS SUMMARY | 2025-09-29 08:30 | XMS_ITS | CCD ---
Author Organization [facility] Care Team Providers Care Inside Sales Supervisor Name Role Phone CARIDAD ZAMBRANO Attending Unavailable DANICA PARADA Primary Care Unavaila ble DANICA PARADA Primary Care Unavailable SHAN PHILLIP Attending Unava ilDANICA Reddy Primary Care Unavailable SHAN PHILLIP Admitting Unava iljames PARADA, DR DANICA Waite Attending Unavailable KARMA, DR DANICA Waite Consulting Unavailable KARMA, DR DANICA Waite Primary Care Unavailable KARMA, DR DANICA Waite Admitting Unavailable Danica Parada Unavailable LASHANDA RICHMOND Attending Unavailable DANICA PARADA Referring Unavailable LASHANDA RICHMOND Attending Unavailable DANICA PARADA Referring Unavailable SELF, SELF Referring Unavailable SHALINI MASTERSON Attending Unavailable Unavailable Primary Care Provider UnavailDanica Johnson MD Primary Care Provider Danica Parada MD Primary Care Provider [phone] Danica Parada MD Attending Provider JOHN ROMERO Attending Unavailable Danica Parada MD Primary Care Provider [phone] Danica Parada MD Attending Provider John Romero MD Attending Provider Kayla Fitzpatrick APRN Attending Provider [phone] Danica Parada MD Primary Care Provider Allergies Allergy ClassificationReported Allergen(s)Allergy TypeDate of OnsetReaction(s) Facility (2 sources)patient allergy list reviewed by nurse or physiciaPropensity to adverse mcvpwungu54-87-6858Llmmcww:51 Auto Other (2 sources)Allergies ReconciledPropensity to adverse reactionsBaker [facility] HospitalnoSaint [facility] Sakti3 Other (2 sources)Shellfish-Derived ProductsPropensity to adverse gndcmcmpy19-61-3597 Diarrhea, Itching, UnknownNOMS Healthcare (1 source)SHELLFISH CONTAINING PRODUCTS; Translations: [SHELLFISH CONTAINING PRODUCTS]Propensity to adverse reactions to drug (disorder)74-05-7693XpyrzrpxtmGrant [facility] (1 source)Shellfish Protein-Containing Drug Zjbishhd89-73-3786Uwcmgsjn, Itching, UnknownNOMS Healthcare Medications Current Medications MedicationDrug Class(es)DatesSig (Normalized)Sig (Original)[id number] 200 actuat albuterol 0.09 mg/actuat metered dose inhaler (18 sources)beta2-Adrenergic AgonistStart: 93-98-7712jbwc 1 puff(s) by inhalation every four hoursAlbuterol Sulfate 90 mcg/actuation HFA aerosol inhaler Active 2 PUFF INHALATION Every 4 hours 8.5 0Jun2024 8:38am Complies with drug therapyStart: 04-21-2024 End: 37-37-7679iapn 2 puff(s) by inhalation every four hours as neededAlbuterol Sulfate 90 mcg/actuation HFA aerosol inhaler Discontinued 2 PUFF INHALATION Every 4 hoursMay 2023 12:00am April 27, 2025 8:39am FreeTextSi puffs as needed Inhalation every 4 hrs;Note: Source Status: Start; Refills: 1; Qty: 1 Each; Provider: Karma Perez 2 puff(s) by inhalation every six hours albuterol HFA 90 mcg/act inhaler Inhale 2 puffs every 6 (six) hours if needed for shortness of breath Activetake 2 puff(s) by inhalation every four hours as neededAlbuterol Sulfate HFA 108 (90 Base) MCG/ACT 2 puffs as needed Inhalation every 4 hrs for 30 days Activetake 2 puff(s) by inhalation every four hours as neededAlbuterol Sulfate HFA 108 (90 Base) MCG/ACT 2 puffs as needed Inhalation every 4 hrs for 30 days Activeamoxicillin 500 mg oral capsule (4 sources)Penicillin-class AntibacterialStart: 29-71-1270ugfj 1 capsule by mouth twice dailyAmoxicillin 500 mg capsule Active 500 MG PO Twice daily 20 10 0 September 15, 2025 12:00am Complieswith drug therapyStart: 10-25-2024 End: 32-28-3136tbcp 1 tablet by mouth twice dailyAmoxicillin 875 mg tablet Discontinued 875 MG PO Twice daily 14 7 0 October 25, 2024 1:00am May 03, 2025 11:00am Left otitis media Otitis media, unspecified, left eardoxycycline monohydrate 100 mg oral capsule (4 sources)Tetracycline-class Drugtake 1 capsule by mouth every twenty-four hoursDoxycycline Monohydrate 100 MG 1 capsule Orally Once a day for 30 days ActiveNorethindrone Ac-Eth Estradiol (20 sources)EstrogenStart: 41-29-7767bhmi 1 tablet by mouth once daily Norethindrone Ac-Eth Estradiol 1-20 mg-mcg tablet Active 0 .ROUTE .COMPLEX 84 May 29, 2025 4:26pm take 1 tablet by mouth once daily Complies with drug therapyStart: 99-26-0316ooai 1 tablet by mouth once dailyNorethindrone Ac-Eth Estradiol 1-20 mg-mcg tablet Active 0 .ROUTE .COMPLEX 84 May 29, 2025 4:26pm take 1 tablet by mouth once daily Complies with drug therapyStart: 06-13-2024 norethindrone-ethinyl estradiol (Microgestin 1/20) 1-20 MG-MCG tablet Take 1 tablet by mouth Daily 06/13/2024 ActiveStart: 06-13-2024 End: 77-34-3247njkv 1 tablet by mouth once dailyNorethindrone Ac-Eth Estradiol 1-20 mg-mcg tablet Discontinued 0 .ROUTE .COMPLEX 84 June 13, 2024 12:42pm May 29, 2025 4:27pm take 1 tablet by mouth once dailyStart: 06-13-2024 End: 96-39-8818wmut 1 tablet by mouth once dailyNorethindrone Ac-Eth Estradiol 1-20 mg-mcg tablet Discontinued 0 .ROUTE .COMPLEX 84 June 132:42pm May 29, 2025 4:27pm take 1 tablet by mouth once dailyStart: 61-73-5399sflh 1 tablet by mouth once dailyNorethindrone Ac-Eth Estradiol 1-20 mg-mcg tablet Active 0 .ROUTE .COMPLEX 84 June 13, 2024 12:42pm take 1 tablet by mouth once daily Start: 30-19-2801osex 1 tablet by mouth once dailyNorethindrone Ac-Eth Estradiol 1-20 mg-mcg tablet Active 0 .ROUTE .COMPLEX 84 June 13, 2024 11:42am take 1 tablet by mouth once dailyStart: 98-95-2803cvyq 1 tablet by mouth once daily Norethindrone Ac-Eth Estradiol Active 0 .ROUTE .COMPLEX 84 June 13, 2024 12:42pm take 1 tablet bymouth once dailyStart: 02-08-2024 End: 03-05-8905ohvb 1 tablet by mouth once dailyNorethindrone Ac-Eth Estradiol 1-20 mg-mcg tablet Discontinued 0 .ROUTE .COMPLEX 84 February 08, 2024 4:40pm June 13, 2024 12:42pm take 1 tablet by mouth once dailyStart: 02-08-2024 End: 93-84-8967augr 1 tablet by mouth once dailyNorethindrone Ac-Eth Estradiol 1-20 mg-mcg tablet Discontinued 0 .ROUTE .COMPLEX 84 February 08, 2024 4:40pm June 13, 2024 12:42pm take 1 tablet by mouth once dailyStart: 02-08-2024 End: 29-64-7860smny 1 tablet by mouth once dailyNorethindrone Ac-Eth Estradiol 1-20 mg-mcg tablet Discontinued 0 .ROUTE .COMPLEX 84 February 08, 2024 3:40pm June 13, 2024 11:42am take 1 tablet by mouth once dailyStart: 02-08-2024 End: 59-13-2831lfpj 1 tablet by mouth once dailyNorethindrone Ac-Eth Estradiol Discontinued 0 .ROUTE .COMPLEX 84 February 08, 2024 4:40pm May 12:42pm take 1 tablet by mouth once dailyStart: 10-09-9087hbxn 1 tablet by mouth once dailyNorethindrone Ac-Eth Estradiol Active 0 .ROUTE .COMPLEX 84 February 08, 2024 4:40pm take 1 tablet bymouth once dailyStart: 01-25-2024 End: 76-92-6942kmgz 1 tablet by mouth once dailyNorethindrone Ac-Eth Estradiol 1-20 mg-mcg tablet Discontinued 0 .ROUTE .COMPLEX 84 0 January 25, 2024 4:41pm February 08, 2024 4:40pm take 1 tablet by mouth once dailyStart: 01-25-2024 End: 11-10-7827tfsv 1 tablet by mouth once dailyNorethindrone Ac-Eth Estradiol 1-20 mg-mcg tablet Discontinued 0 .ROUTE .COMPLEX 84 January 2444:41pm February 08, 2024 4:40pm take 1 tablet by mouth once dailyStart: 01-25-2024 End: 32-74-1338njte 1 tablet by mouth once dailyNorethindrone Ac-Eth Estradiol 1-20 mg-mcg tablet Discontinued 0 .ROUTE .COMPLEX 84 January 2443:41pm February 08, 2024 3:40pm take 1 tablet by mouth once dailyStart: 01-25-2024 End: 56-97-9305myof 1 tablet by mouth once dailyNorethindrone Ac-Eth Estradiol Discontinued 0 .ROUTE .COMPLEX 84 January 25, 2024 4:41pm January 4:40pm take 1 tablet by mouth once dailyStart: 01-25-2024 End: 87-31-2851gxfo 1 tablet by mouth once dailyNorethindrone Ac-Eth Estradiol 1-20 mg-mcg tablet Discontinued 1 TAB PO Daily January 25, 2024 1:00am January 25, 2024 4:41pmStart: 01-25-2024 End: 38-33-4761rvmd 1 tablet by mouth once dailyNorethindrone Ac-Eth Estradiol 1-20 mg-mcg tablet Discontinued 1 TAB PO Daily January 25, 2024 12:00am January 25, 2024 3:41pmStart: 01-25-2024 End: 60-08-2807bnvz 1 tablet by mouth once dailyNorethindrone Ac-Eth Estradiol Discontinued 1 TAB PO Daily January 25, 2024 1:00am January 25, 2024 4:41pmtake 1 tablet by mouth every twenty-four hoursLoestrin 1/20 (21) 1-20 MG-MCG 1 tablet Orally Once a day for 90 days Activetake 1 tablet by mouth every twenty-four hoursLoestrin 1/20 (21) 1-20 MG-MCG 1 tablet Orally Once a day for 90 days Activelisdexamfetamine dimesylate 30 mg oral capsule (20 sources)Central Nervous System StimulantStart: 85-53-5931hqzr 1 capsule by mouth once dailyLisdexamfetamine (Vyvanse) 30 mg capsule Active 30 MG PO Daily 30 30 August 23, 2025 Attention deficit hyperactivity disorder (ADHD) Attention-deficit hyperactivity disorder, unspecified type Complies with drug therapyStart: 07-26-2025 End: 13-43-7781djst 1 capsule by mouth once dailyLisdexamfetamine (Vyvanse) 30 mg capsule Discontinued 30 MG PO Daily 30 30 July 26, 2024July 26, 2025 10:01am Attention deficit hyperactivity disorder (ADHD) Attention- deficit hyperactivity disorder, unspecified typeStart: 06-27-2025 End: 05-22-2940quxq 1 capsule by mouth once dailyLisdexamfetamine (Vyvanse) 30 mg capsule Discontinued 30 MG PO Daily 30 30 0 July 26, 2024August 23, 2025 1:03pm Attention deficit hyperactivity disorder (ADHD) Attention-deficit hyperactivity disorder, unspecified typeStart: 05-30-2025 End: 40-39-9547mvda 1 capsule by mouth once dailyLisdexamfetamine (Vyvanse) 30 mg capsule Discontinued 30 MG PO Daily 30 30 0 June 01, 2025 June 19, 2025 12:23pm Attention deficit hyperactivity disorder (ADHD) Attention-deficit hyperactivity disorder, unspecified typeStart: 72-73-5470vuwa 1 capsule by mouth once dailyLisdexamfetamine (Vyvanse) 30 mg capsule Active 30 MG PO Daily 30 30 May 30, 2025Start: 12-29-2024 End: 67-73-9243yckr 1 capsule by mouth once dailyLisdexamfetamine (Vyvanse) 30 mg capsule Discontinued 30 MG PO Daily 30 30 0 April 27, 2025 May 03, 2025 11:30am Attention deficit hyperactivity disorder (ADHD) Attention-deficit hyperactivity disorder, unspecified typeStart: 11-29-2024 End: 57-52-3074uvap 1 capsule by mouth once dailyLisdexamfetamine (Vyvanse) 30 mg capsule Discontinued 30 MG PO Daily 30 30 November 29, 2024 November 29, 2024 9:47am Attention deficit hyperactivity disorder (ADHD) Attention-deficit hyperactivitydisorder, unspecified typeStart: 09-29-2024 End: 11-59-6032ldas 1 capsule by mouth once dailyLisdexamfetamine (Vyvanse) 30 mg capsule Discontinued 30 MG PO Daily 30 30 October 25, 2024 November 29, 2024 9:47am Attention deficit hyperactivity disorder (ADHD) Attention-deficit hyperactivity disorder, unspecified typeStart: 09-27-2024 End: 97-95-8970mfav 1 capsule by mouth once dailyLisdexamfetamine (Vyvanse) 30 mg capsule Discontinued 30 MG PO Daily 30 30 September 27, 2024 September 22, 2024 4:22pm Attention deficit hyperactivity disorder (ADHD) Attention-deficit hyperactivity disorder, unspecified typeStart: 09-27-2024 End: 85-67-0591terb 1 capsule by mouth once dailyLisdexamfetamine (Vyvanse) 30 mg capsule Discontinued 30 MG PO Daily 30 September 27, 2024 September 22, 2024 4:22pmStart: 09-27-2024 End: 57-53-9991qtuf 1 capsule by mouth once dailyLisdexamfetamine (Vyvanse) 30 mg capsule Discontinued 30 MG PO Daily 30 September 27, 2024 September 22, 2024 4:22pmStart: 09-27-2024 End: 14-13-4253riig 1 capsule by mouth once dailyLisdexamfetamine (Vyvanse) 30 mg capsule Discontinued 30 MG PO Daily 30 September 27, 2024 September 22, 2024 3:22pmStart: 06-07-2024 End: 70-54-6688gaot 1 capsule by mouth once dailyLisdexamfetamine (Vyvanse) 30 mg capsule Discontinued 30 MG PO Daily 30 30 August 29, 2024 September 22, 2024 4:17pm Attention deficit hyperactivity disorder (ADHD) Attention-deficit hyperactivity disorder, unspecified typeStart: 01-07-2024 End: 06-28-1229vpsj 1 capsule by mouth once dailyLisdexamfetamine (Vyvanse) 30 mg capsule Discontinued 30 MG PO Daily 30 January 07, 2024 February 08, 2024 4:40pm Attention deficit hyperactivity disorder (ADHD) Attention-deficit hyperactivity disorder, unspecified typeStart: 89-68-7566kkfo 1 capsule by mouth once daily in the morningVyvanse 30 MG take 1 capsule by mouth every morning for 30 days Nov, ActiveStart: 98-90-3249tefx 1 capsule by mouth once daily in the morningVyvanse 30 MG take 1 capsule by mouth every morning for 30 Nov, ActiveStart: 99-12-6812eayh 1 capsule by mouth once daily in the morning Vyvanse 30 MG take 1 capsule by mouth every morning for 30 Oct, Active meloxicam 15 mg oral tablet (1 source)Nonsteroidal Anti-inflammatory DrugStart: 12-98-7840Oxozhqxqi 15 mg tablet Active MG PO September 15, 2025 12:00am Complies with drug therapy Completed/Discontinued Medications MedicationDrug Class(es)DatesSig (Normalized)Sig (Original)cefdinir 300 mg oral capsule (6 sources)Cephalosporin AntibacterialStart: 06-22-2024 End: 22-83-9887fxgc 1 capsule by mouth twice dailyCefdinir 300 mg capsule Discontinued 300 MG PO Twice daily 14 0 June 22, 2024 12:00am October 10, 2024 9:34amfluticasone propionate 0.05 mg/actuat metered dose nasal spray (3 sources)CorticosteroidStart: 10-25-2024 End: 44-14-8769wapa 1 spray(s) nasal route twice dailyFluticasone Propionate (Flonase Allergy Relief) 50 mcg/actuation spray,suspension Discontinued 1 SPRAY INTRANASAL Twice daily 16 October 25, 2024 1:00am May 03, 2025 11:00am Dysfunction of eustachian tube Unspecified Eustachian tube disorder, unspecified ear administer into each nostril Problems Active Problems Problem ClassificationProblemDateDocumented DateEpisodic/ChronicAbdominal pain (3 sources)Right lower quadrant pain; Translations: [Right lower quadrant pain] Onset: 18-36-0010CfaalshuGveuracwgm disorders (2 sources)Adjustment disorder; Translations: [Unspecified adjustment reaction] Onset: 06-92-2734NraxvfvFpjqgpqmrruezr/social admission (2 sources)Pre-employment screening; Translations: [Encounter for pre-employment examination]EpisodicAnxiety disorders (2 sources)Anxiety disorder; Translations: [Other specified anxiety disorders] Onset: 22-22-9663FoxjfrvCtukwh (2 sources)Uncomplicated asthma; Translations: [Unspecified asthma, uncomplicated]ChronicAttention-deficit, conduct, and disruptive behavior disorders (12 sources)Attention deficit hyperactivity disorder; Translations: [Attention- deficit hyperactivity disorder, unspecified type]Onset: 597738-74-8852 ChronicAttention-deficit, conduct, and disruptive behavior disorders (2 sources)Attention-deficit hyperactivity disorder, unspecified type; Translations: [Attention deficit disorder with hyperactivity]56-44-6120Mojffos Cardiac dysrhythmias (2 sources)Cardiac arrhythmia, unspecified; Translations: [Cardiac arrhythmia, unspecified]Onset: 67-40-0784LhwixgiChrdpwj dysrhythmias (4 sources)Tachycardia, unspecified; Translations: [Tachycardia]Onset: 15-40-1080EwnmzxcrUbytayv obstructive pulmonary disease and bronchiectasis (2 sources)Bronchitis; Translations: [Bronchitis, not specified as acute or chronic]EpisodicContraceptive and procreative management (2 sources)Surveillance of contraception; Translations: [Encounter for contraceptive management, unspecified]EpisodicDeficiency and other anemia (1 source)Anemia, unspecified; Translations: [ANEMIA UNSPECIFIED]Onset: 32-42-9429ZhjwrumcNqtzvyief usually diagnosed in infancy, childhood, or adolescence (17 sources)Other specified behavioral and emotional disorders with onset usually occurring in childhood and adolescence; Translations: [Behavioral and emotional disorder with onset in childhood]ChronicGenitourinary symptoms and ill-defined conditions (4 sources)Genitourinary symptoms; Translations: [Unspecified symptoms and signs involving the genitourinary system]Onset: 34-87-1947CobqxjiqWyzxywwd; including migraine (9 sources)Migraine; Translations: [Migraine, unspecified, not intractable, without status migrainosus]Onset: 938055-53-9144BbmkctjWwdrtaqs; including migraine (1 source)Headache; including migraine; Translations: [Headache, unspecified] Onset: 20-03-0027Hvixscpeb disorders (14 sources)Irregular periods; Translations: [Irregular menstruation, unspecified]ChronicOther connective tissue disease (2 sources)Neuralgia; Translations: [Neuralgia and neuritis, unspecified] EpisodicOther connective tissue disease (2 sources)Pain in right foot; Translations: [Pain in right foot]06-19-2025 EpisodicOther endocrine disorders (5 sources)Hypoglycemia, unspecified; Translations: [HYPOGLYCEMIA UNSPECIFIED] Onset: 37-16-4303MuhclkmVpkub endocrine disorders (14 sources)Hypoglycemia; Translations: [Hypoglycemia, unspecified]ChronicOther infections; including parasitic (13 sources)Enterobiasis; 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]EpisodicOther infections; including parasitic (2 sources)Enterobiasis; 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]EpisodicOther nutritional; endocrine; and metabolic disorders (2 sources)Abnormal weight loss; Translations: [ABNORMAL WEIGHT LOSS]Onset: 13-76-0119VidtbneeTsvmm nutritional; endocrine; and metabolic disorders (14 sources)Abnormal weight loss; Translations: [Abnormal weight loss]Episodic Other nutritional; endocrine; and metabolic disorders (1 source)Body mass index less than 20; Translations: [Body mass index (BMI) 19.9 or less, adult]EpisodicOther nutritional; endocrine; and metabolic disorders (2 sources)Underweight; Translations: [Underweight]EpisodicOther nutritional; endocrine; and metabolic disorders (1 source)Body mass index (BMI) 19.9 or less, adult; Translations: [Body mass index (BMI) 19 or less, adult]EpisodicOther skin disorders (1 source)Acne vulgarisEpisodicOther skin disorders (2 sources)Acne; Translations: [Acne, unspecified]EpisodicOther skin disorders (2 sources)Localized swelling, mass and lump, neck; Translations: [Localized swelling, mass and lump, neck]Onset: 07-13-0777RgvseweoXwdsj skin disorders (1 source)Finding of neck region; Translations: [Localized swelling, mass and lump, neck]59-81-1644IsyrhiwhTyybf upper respiratory infections (18 sources)Pharyngitis; Translations: [Acute pharyngitis, unspecified]Onset: 885324-76-6757VvkgnzjtGfgkyv media and related conditions (6 sources)Dysfunction of eustachian tube; Translations: [Unspecified Eustachian tube disorder, unspecified ear]40-72-3540ScfmxlzmBrugruhesgcq (2 sources)Need for prophylactic vaccination and inoculation against unspecified single bacterial disease; Translations: [Need for prophylactic vaccination and inoculation against unspecified single bacterial disease]Onset: 03-20-2016 Unclassified (2 sources)Carbuncle and furuncle of upper arm; Translations: [Carbuncle and furuncle of upper arm]Onset: 99-30-0365Gmnwuguwobne (1 source)Contact dermatitis and other eczema due to sunburn; Translations: [Contact dermatitis and other eczema due to sunburn]Onset: 04-17-2017 Unclassified (1 source)Personal history of traumatic brain injury; Translations: [Personal history of traumatic brain injury]Onset: 77-24-7499Foetb infection (2 sources)Disease caused by 2019-nCoV; Translations: [COVID-19] Past or Other Problems Problem ClassificationProblemDateDocumented DateEpisodic/ChronicHeadache; including migraine (1 source)Headache; Translations: [Headache, unspecified]Onset: 11-14-2015 EpisodicIntracranial injury (1 source)History of traumatic brain injury; Translations: [Personal history of traumatic brain injury]Onset: 49-03-1061UdtjfdlnEdkursjpawnzm (11 sources)Cervical lymphadenopathy; Translations: [Localized enlarged lymph nodes]Onset: 377951-60-8887FbpavzmzEzdwxdxbncvcv gastroenteritis (2 sources)Non-infective enteritis and colitis; Translations: [Noninfective gastroenteritis and colitis, unspecified]Onset: 89-50-6910EsgynuogUmcvwgxwlszq breast conditions (2 sources)Breast lump; Translations: [Unspecified lump in unspecified breast] Onset: 03-87-0019McnwwyloEdkqkznjijb chest pain (5 sources)Chest pain; Translations: [Chest pain, unspecified]Onset: 06-07-2020 31-14-7373XqksxrkrLuilh inflammatory condition of skin (1 source)Solar erythema; Translations: [Contact dermatitis and other eczema due to sunburn]Onset: 86-28-7673MrlddsqzRblni lower respiratory disease (1 source)Cough; Translations: [Cough]Onset: 30-79-9104VtrivyhmUrziu lower respiratory disease (1 source)Cough; Translations: [Cough]Onset: 52-79-4937EtmshtwjJxnkw non- traumatic joint disorders (2 sources)Arthralgia of the ankle and/or foot; Translations: [Pain in unspecified ankle and joints of unspecified foot]Onset: 41-95-9510CunmumnoTmfdl skin disorders (2 sources)Mass in head or neck; Translations: [Swelling, mass, or lump in head and neck]Onset: 16-70-5394TzecmwwtVkuee skin disorders (6 sources)Mass of neck; Translations: [Localized swelling, mass and lump, neck] Onset: 745767-70-9117IgwqexthFtazhfwmftid (1 source)SENT BY FOR CAT SCANOnset: 12-25-2018 Results Test NameValueInterpretationReference RangeFacilityNo Panel InformationOrdered By: Kayla Fitzpatrick on 51-64-1760Xefrb Strep (POC)[facility]36on [id number] lab results from 07/28/2025: MD Rosa Mcgregor MA All labs are good. Patient informed. Says she hasn't been contacted by [facility] to schedule echo yet. I LM with scheduling.NormalKettering Health PrebleBasophils Auto (Bld) [#/Vol]Ordered By: John Romero on 29-64-7338Yzmvsnlkd (Bld) [#/Vol]0.1 10 3/uL 0.0-0.1FProMedica Flower HospitalBasophils/100 WBC Auto (Bld)Ordered By: John Romero on 54-83-5001Ixzwixroz/100 WBC (Bld)0.6 %0.2-2.0[facility] SystemEosinophils/100 WBC Auto (Bld)Ordered By: John Romero on 30-61-6311Iqetgheslyn/100 WBC (Bld)1.8 %0.9-7.0[facility] Erythrocyte distribution width Auto (RBC) [Ratio]Ordered By: John Romero on 00-66-9376Xldrrezzslm distribution width (RBC) [Ratio]11.6 %11.0-15.0[facility] Health SystemGlomerular filtration rate (GFR) estimation in non- AmericanOrdered By: John Romero on 75-75-3423WMD/1.73 sq M.predicted among non-blacks MDRD (S/P/Bld) [Vol rate/Area]mL/min/{1.73_m2}>=60 mL/min/1.73m 2FProMedica Flower HospitalHematocrit Auto (Bld) [Volume fraction]Ordered By: John Romero on 97-19-8517Ahbuhsnzum (Bld) [Volume fraction]40.3 %36.0-48.0 [facility] SystemHemoglobin [Mass/volume] in BloodOrdered By: John Romero on 87-01-4712Nbadpbunzx (Bld) [Mass/Vol]13.8 g/dL12.0-16.0[facility] SystemLaboratory - Chemistry and Chemistry - challengeOrdered By: John Romero on 19-09-1653Btzijjn [Mass/Vol]9.1 mg/dL8.5-10.1FProMedica Flower HospitalChloride [Moles/Vol]107 mmol/O59-341JavshqgjiHolzer Health SystemCO2 [Moles/Vol]27.7 mmol/L21.0-32.0[facility] SystemCreatinine [Mass/Vol]0.97 mg/dL0.55-1.02[facility] GFR/1.73 sq M.predicted MDRD (S/P/Bld) [Vol rate/Area]mL/min/{1.73_m2}>=60 mL/min/1.[address]m [address] [place], [place] [address]Glucose [Mass/Vol]119 mg/dLHigh 74-106[facility] SystemMagnesium [Mass/Vol]1.8 mg/dL1.8-2.4 [facility] SystemPotassium [Moles/Vol]4.1 mmol/L3.5-5.1FMercy Health St. Joseph Warren Hospitalodium [Moles/Vol]144 mmol/N891-653IqrcytokoHolzer Health SystemTSH Qn1.100 m[IU]/L0.358-3.740[facility] Urea nitrogen [Mass/Vol]12.0 mg/dL7.0-18.0[facility] SystemUrea nitrogen/Creatinine [Mass ratio]12.4 mg/mgHolzer Health System Laboratory - Hematology and Cell countsOrdered By: John Romero on 07-28-2025 Immature granulocytes/100 WBC (Bld)0.3 %0.0-0.5FProMedica Flower Hospital Leukocytes [#/volume] corrected for nucleated erythrocytes in Blood by Automated counOrdered By: John Romero on 56-96-2110WQT corrected for nucl RBC Auto (Bld) [#/Vol]7.7 10 3/uL4.0-11.0[facility] SystemLymphocytes Auto (Bld) [#/Vol]Ordered By: John Romero on 26-10-8864Jifeebainay (Bld) [#/Vol]2.3 10 3/uL1.2-3.8[facility] SystemLymphocytes/100 WBC Auto (Bld) Ordered By: John Romero on 96-53-0404Xkksjgvpguf/100 WBC (Bld)29.8 %20.5-60.0 [facility] Auto (RBC) [Entitic mass]Ordered By: John Romero on 90-46-3560MUM (RBC) [Entitic mass]31.4 pg26.7-34.0[facility] SystemMCHC Auto (RBC) [Mass/Vol]Ordered By: John Romero on 07-28-2025 MCHC (RBC) [Mass/Vol]34.2 g/dL29.9-35.2FProMedica Flower HospitalMCV Auto (RBC) [Entitic vol]Ordered By: John Romero on 06-86-9654RSY (RBC) [Entitic vol]91.8 fL81.0-99.0[facility] SystemMonocytes Auto (Bld) [#/Vol]Ordered By: John Romero on 30-02-8013Rtuhbuekl (Bld) [#/Vol]0.5 10 3/uL 0.3-0.8[facility] SystemMonocytes/100 WBC Auto (Bld)Ordered By: John Romero on 39-60-1686Kakimddtq/100 WBC (Bld)6.2 %1.7-12.0Holzer Health SystemNeutrophils Auto (Bld) [#/Vol]Ordered By: John Romero on 24-96-4186Onapvjrovds (Bld) [#/Vol]4.7 10 3/uL1.4-6.5FProMedica Flower HospitalNeutrophils/100 WBC Auto (Bld)Ordered By: John Romero on 07-28-2025 Neutrophils/100 WBC (Bld)61.3 %43.0-75.0Holzer Health SystemNo Panel InformationOrdered By: John Romero on 27-28-3881Pwwzptmzblo # (Auto)0.1 10 3/uL0.0-0.7FProMedica Flower HospitalImmature Granulocyte # (Auto)0.02 10 3/uL0.00-0.03Holzer Health SystemPlatelet mean volume Auto (Bld) [Entitic vol]Ordered By: John Romero on 81-04-1431Kparkdql mean volume (Bld) [Entitic vol]11.2 fL9.5-13.5FProMedica Flower HospitalPlatelets Auto (Bld) [#/Vol]Ordered By: John Romero on 62-81-5967Gizvcblmg (Bld) [#/Vol] 247 10 3/nR218-268HxhjpqfffHolzer Health SystemRBC Auto (Bld) [#/Vol]Ordered By: John Romero on 62-10-1815LMI (Bld) [#/Vol]4.39 10 6/uL4.20-5.40ACMC Healthcare Systemerum or plasma anion gap determinationOrdered By: John Romero on 08-29-6620Xhqxx gap [Moles/Vol]13.4 mmol/LFProMedica Flower HospitalOffice Visiton 55-19-7248Rhkaho-up [id number] Vinny Suarez 1995 F Date Provider Department Center 07/21/2025 JOHN PAIGE [facility] Family History Problem Relation Age of Onset Alcohol abuse Father Family Status - Relation Status Age at Mother Alive Father Alive Level of Service:72780 [place] OFFICE/OUTPATIENT NEW LOW MDM 30 MINUTES Reason for Visit and Comments: New patient to re-establish care [Other] Rapid Heart Rate [516706] High heart rate when running [Other] ADHS [Other] Anxiety [9]NormalKettering Health PrebleCT Neck W contrast Felicita [phone] [address] CT Scan Report Signed Patient: VINNY SUAREZ MR#: [id number] : 1995 Acct:[id number] Age/Sex: 29 / F ADM Date: 08/05/24 Loc: CT Attending Dr: Lashanda Richmond M.D. Ordering Physician: Lashanda Richmond M.D. Date of Service: 08/05/24 Procedure(s): CT soft tissue neck w con Accession Number(s): [id number] cc: Danica Parada M.D. [address] [address] Patient Name: VINNY SUAREZ MRN: [id number] date: 1995 Sex: F Assigned Patient Location: CT Current Patient Location: CT Accession/Order Number: [id number] Exam Date: 08/05/2024 08:05 Report Date: 08/05/2024 15:52 At the request of: LASHANDA RICHMOND Procedure: CT soft tissue neck w con [...] No right-sided sialoadenitis. Electronically authenticated by: DEMETRIO KWONG Date: 08/05/2024 15:52 Dictated By: Demetrio Kwong M.D. Signed By: 08/05/24 1554 DD/ 1552 TD/TT: Java Analyst:TBHRadiology, Radiologist, MD - 08/05/[address] [address] [address] Scan Report Signed Patient: VINNY SUAREZ MR#: [id number] : 1995 Acct:[id number] Age/Sex: 29 / F ADM Date: 08/05/24 Loc: CT Attending Dr: Lashanda Richmond M.D. Ordering Physician: Lashanda Richmond M.D. Date of Service: 08/05/24 Procedure(s): CT soft tissue neck w con Accession Number(s): [id number] cc: Danica Parada M.D. The [address] [address] Patient Name: VINNY SUAREZ MRN: [id number] date: 1995 Sex: F Assigned Patient Location: CT Current Patient Location: CT Accession/Order Number: [id number] Exam Date: 08/05/2024 08:05 Report Date: 08/05/2024 15:52 At the request of: LASHANDACHARLIE MEEKANAMARIA Procedure: CT soft tissue neck w con [...] No right-sided sialoadenitis. Electronically authenticated by: DEMETRIO KWNOG Date: 08/05/2024 15:52 Dictated By: Demetrio Kwong M.D. Signed By: 08/05/241553 DD/ 51 TD/TT: Java Analyst: NOMNavi HealthcareRadiology Study observation (narrative)NOMS HealthcareCT Neck W contrast IVOrdered By: Radiologist Radiology on 08-81-8070[facility] Work Phone: INSULINon 28-52-7513Orkjvtk8.1 uIU/mLCritically low 2.6-24.9The [facility] HospitalComment on above:Performed By: #### INSULIN #### [facility] [address] [place] [address] Dr. Smitha BatistaCBC AUTO DIFFon 47-49-0663LXBA #0.0 103/ulNormal0.0-0.1The [facility] HospitalComment on above:Performed By: #### CBC #### [facility] [address] [place] [address] Dr. Smitha BatistaBasophils/100 WBC (Bld)0.9 %Normal0.2-2.0The [facility] Comment on above:Performed By: #### CBC #### [facility] [address] [place] [address] Dr. Smitha Knox #0.2 103/ulNormal0.0-0.7The [facility] HospitalComment on above: Performed By: #### CBC #### [facility] [address] [place] [address] Dr. Smitha Woodwardosinophils/100 WBC (Bld)3.9 %Normal0.9-7.0The [facility] Comment on above:Performed By: #### CBC #### [facility] [address] [place] [address] Dr. Smitha Woodwardrythrocyte distribution width (RBC) [Ratio]12.3 %Bejydm64.0-15.0 The [facility] HospitalComment on above:Performed By: #### CBC #### [facility] [address] [place] [address] Dr. Smitha BatistaHematocrit (Bld) [Volume fraction]40.1 %Gnjpmo76.0-48.0The [facility] HospitalComment on above:Performed By: #### CBC #### [facility] [address] [place] [address] Dr. Smitha BatistaHemoglobin (Bld) [Mass/Vol]13.8 g/bTCjflmk06.0-16.0The [facility] HospitalComment on above:Performed By: #### CBC #### [facility] [address] [place] [address] Dr. Smitha Bashir #0.01 10e3/ulNormal0.00-0.03The [facility] HospitalComment on above:Performed By: #### CBC #### [facility] [address] [address] [address] Smitha Bashir %0.2 %Normal0.0-0.5The [facility] on above: Performed By: #### CBC #### [facility] [address] [place] [address] Dr. Smitha Roe #2.0 103/ulNormal1.2-3.8The [facility] HospitalCombronson lakeview hospital on above:Performed By: #### CBC #### [facility] [address] [place] [address] Dr. Smitha Rodriguezhocytes/100 WBC (Bld)46.4 %Stobwv50.5-60.0The [facility] on above:Performed By: #### CBC #### [facility] [address] [place] [address] Dr. Smitha SalgueroUAL DIFF REQNONormalThe [facility] HospitalComment on above: Performed By: #### CBC #### [facility] [address] [place] [address] Dr. Smitha Mcbride (RBC) [Entitic mass]31.0 koAorcwy77.7-34.0The [facility] on above:Performed By: #### CBC #### [facility] [address] [place] [address] Dr. Smitha Mcbride (RBC) [Mass/Vol]34.4 g/gNZucccd00.9-35.2The [facility] on above:Performed By: #### CBC #### [facility] [address] [place] [address] Dr. Smitha Mcbride (RBC) [Entitic vol]90.1 xUSoohgp42.0-99.0The [facility] on above:Performed By: #### CBC #### [facility] [address] [place] [address] Dr. Smitha Pearson #0.3 103/ulNormal0.3-0.8The Kindred Healthcarement on above:Performed By: #### CBC #### [facility] [address] [address] [address] Smitha BatistaMonocytes/100 WBC (Bld)6.9 %Normal1.7-12.0The [facility] Comment on above:Performed By: #### CBC #### [facility] [address] [address] [address] Smitha FrankelUT #1.8 103/ulNormal1.4-6.5The [facility] HospitalComment on above:Performed By: #### CBC #### [facility] [address] [place] [address] Dr. Smitha Frankelutrophils/100 WBC (Bld)41.7 %Critically low43.0-75.0The [facility] HospitalComment on above:Performed By: #### CBC #### [facility] [address] [place] [address] Dr. Smitha BatistaPlatelet mean volume (Bld) [Entitic vol]12.2 fLNormal9.5-13.5The [facility] HospitalComment on above:Performed By: #### CBC #### [facility] [address] [place] [address] Dr. Smitha BatistaPLT164 103/muGjygyc190-486Fhm [facility] HospitalComment on above: Performed By: #### CBC #### [facility] [address] [place] [address] Dr. Smitha BatistaRBC4.45 106/ulNormal4.20-5.40The [facility] HospitalComment on above:Performed By: #### CBC #### [facility] [address] [place] [address] Dr. Smitha BatistaWBC4.3 103/ulNormal4.0-11.0The [facility] HospitalCombronson lakeview hospital on above: Performed By: #### CBC #### [facility] [address] [place] [address] Dr. Smitha BatistaFERRITINon 49-36-4199Dmvwuhlo [Mass/Vol]105.0 ng/mLNormal 6.2-137.0The [facility] HospitalComment on above:Performed By: #### FT4, FERR #### [facility] [address] [address] [address] Smitha Sprague T4on 16-83-0894Bpgy T4 [Mass/Vol]0.98 ng/dLNormal0.76-1.46 The [facility] HospitalComment on above:Performed By: #### FT4, FERR #### [facility] [address] [address] [address] Smitha BatistaPROF CHEM 8 (BAS METB)on 22-33-8055Yxggg gap [Moles/Vol]14.6 mmol/LNormalThe [facility] HospitalComment on above:Performed By: #### BMP, TSH #### [facility] [address] [place] [address] Dr. Smitha BatistaCalcium [Mass/Vol]8.9 mg/dLNormal8.5-10.1The [facility] Comment on above:Performed By: #### BMP, TSH #### [facility] [address] [place] [address] Dr. Smitha BatistaChloride [Moles/Vol]107 mmol/SOmqgca13-863Yea [facility] Comment on above:Performed By: #### BMP, TSH #### [facility] [address] [place] [address] Dr. Smitha BatistaCO2 [Moles/Vol]24.3 mmol/MMcbhyy68.0-32.0The [facility] Comment on above:Performed By: #### BMP, TSH #### [facility] [address] [place] [address] Dr. Smitha BatistaCreatinine [Mass/Vol]0.82 mg/dLNormal0.55-1.02The [facility] HospitalComment on above:Performed By: #### BMP, TSH #### [facility] [address] [place] [address] Dr. Smitha WoodwardGFR-AF CITIZEN OF [place]>60Normal>=60The [facility] HospitalComment on above:Performed By: #### BMP, TSH #### [facility] [address] [address] [address] Smitha WoodwardGFR-NON AF CITIZEN OF [place]>60Normal>=60The [facility] HospitalComment on above:Performed By: #### BMP, TSH #### [facility] [address] [address] [address] Smitha BatistaGlucose [Mass/Vol]81 mg/bJYjmmhy81-269Pkj [facility] Comment on above:Performed By: #### BMP, TSH #### [facility] [address] [address] [address] Smitha BatistaPotassium [Moles/Vol]3.9 mmol/LNormal3.5-5.1The [facility] Comment on above:Performed By: #### BMP, TSH #### [facility] [address] [address] [address] Smitha BatistaSodium [Moles/Vol]142 mmol/ZDzpvut815-728Vga [facility] Comment on above:Performed By: #### BMP, TSH #### [facility] [address] [place] [address] Dr. Smitha BatistaUrea nitrogen [Mass/Vol]8.0 mg/dLNormal7.0-18.0The [facility] HospitalComment on above:Performed By: #### BMP, TSH #### [facility] [address] [address] [address] Smitha Altamirano nitrogen/Creatinine [Mass ratio]9.8 mg/mgNormalThe [facility] HospitalComment on above:Performed By: #### BMP, TSH #### [facility] [address] [place] [address] Dr. Smitha Elias 26-79-5366NKB0.299 uIU/mLNormal0.358-3.740The [facility] HospitalComment on above:Performed By: #### BMP, TSH #### [facility] [address] [place] [address] Dr. Smitha Bucio Metabolic Panelon 52-42-8714Aessm gap molar conc9.0 mmol/L Normal6.0-18.0MoVan Wert County HospitalComment on above:Performed By: #### 47991-3, 40723-5q9, 94397-3, 76803-4 #### [facility], [address], [place].Calcium mass conc 9.4 mg/dLNormal8.9-10.3MC[facility] on above:Performed By: #### 90793-2, 56312-8m9, 39229-9, 10790-7 #### [facility], [address], [place].Chloride molar conc 107 mmol/NSgnhoy91-695PygacTrinity Health System on above:Performed By: #### 70435-9, 57542-2u8, 00567-3, 09235-9 #### [facility], [address], [place].CO2 molar conc23 mmol/SGdpjpx16-71AyqisTrinity Health System on above:Performed By: #### 19241-7, 01428-4j7, 91783-2, 60575-1 #### [facility], [address] [place], [place].Creatinine mass conc0.91 mg/dLNormal0.66-1.30MoTrinity Health System on above: Performed By: #### 91597-1, 75902-5m5, 58172-2, 64781-0 #### [facility], [address] [place], [place].Glucose mass conc91 mg/oNTdohxc36-42JoiysCleveland Clinic Union Hospital on above:Result Comment: Updated ADA Reference Range A normal fasting glucose concentration is less than 100 mg/dL. An impaired fasting glucose concentration is 100-125 mg/dL. A provisional diagnosis of diabetes mellitus can be made when a fasting glucose concentration is greater than 125 mg/dL.Performed By: #### 26969-8, 87790-9u5, 45820-2, 66595-6 #### [facility], [address], [place].Potassium molar conc3.8 mmol/LNormal3.6-5.1[facility] HospitalComment on above:Performed By: #### 84492-0, 07080-1b5, 29108-3, 03536-3 #### [facility], [address], [place].Sodium molar conc 139 mmol/JLizttd368-644Delar [facility] HospitalComment on above:Performed By: #### 27979-9, 29045-4h9, 65851-2, 10333-5 #### [facility], [address], [place].Urea nitrogen mass conc (BldV)10 mg/dLNormal8-20[facility] HospitalComment on above: Performed By: #### 40488-8, 44371-5e8, 48850-6, 26815-9 #### [facility], [address], [place].CBC with Differentialon 25-69-1449Mpeblehzh #/vol (Bld)0.00 thou/mcLNormal0.00-0.20[facility] on above:Performed By: #### 26630-2 #### [facility], [address], [place].Basophils #/vol (Bld)0.4 %Normal0.0-2.0[facility] HospitalComment on above:Performed By: #### 27057-4 #### [facility], [address], [place].Eosinophils #/vol (Bld)0.20 thou/mcLNormal0.00-0.70[facility] HospitalComment on above: Performed By: #### 17323-7 #### [facility], [address], [place].Eosinophils/100 WBC (Bld)3.0 %Normal0.0-7.0[facility] HospitalComment on above:Performed By: #### 76063-6 #### [facility], [address] [place] [address].Erythrocyte distribution width Entitic volume (RBC)12.4 %Hdrkep49.0-14.8[facility] SystemComment on above:Performed By: #### 86221-8 #### [facility], [address] [place] [address].Hematocrit Volume Fraction (Bld)43.2 %Quynig04.0-45.0[facility] SystemComment on above: Performed By: #### 80408-5 #### [facility], [address] [place] [address].Hemoglobin mass conc (Bld)14.5 g/xZHkuloj43.0-16.0[facility] HospitalComment on above: Performed By: #### 95200-3 #### [facility], [address] [place] [address].Lymphocytes #/vol (Bld)2.20 thou/mcLNormal1.00-4.80[facility] SystemComment on above: Performed By: #### 80535-0 #### [facility], [address] [place] [address].Lymphocytes/100 WBC (Bld)37.3 %Ofvawl76.0-44.0[facility] HospitalComment on above:Performed By: #### 23802-1 #### [facility], [address] [place] [address].MCH Entitic mass (RBC)30.9 KvfasihzyGkwolm30.0-34.0[facility] HospitalComment on above: Performed By: #### 88488-0 #### [facility], [address] [place] [address].MCHC mass conc (RBC)33.5 g/lUCzssxh72.0-36.0[facility] SystemComment on above: Performed By: #### 14688-7 #### [facility], [address] [place] [address].MCV Entitic volume (RBC)92.3 pLZovcel45.0-97.0[facility] SystemComment on above:Performed By: #### 38963-9 #### [facility], [address] [place] [address].Monocytes #/vol (Bld)0.50 thou/mcLNormal0.00-0.90[facility] SystemComment on above: Performed By: #### 79414-6 #### [facility], [address] [place] [address].Monocytes/100 WBC (Bld)8.2 %Normal0.0-12.0[facility] SystemComment on above:Performed By: #### 97333-3 #### [facility], [address] [place] [address].Neutrophils #/vol (Bld)3.10 thou/mcLNormal1.80-7.70[facility] SystemComment on above: Performed By: #### 81290-4 #### [facility], [address] [place] [address].Neutrophils/100 WBC (Bld)51.1 %Vvjcxu42.0-70.0[facility] SystemComment on above:Performed By: #### 76348-2 #### [facility], [address] [place] [address].Platelet mean volume Entitic volume (Bld)8.3 fLNormal6.2-12.1[facility] SystemComment on above:Performed By: #### 64976-3 #### [facility], [address] [place] [address].Platelets #/vol (Bld)221 thou/waQOhokgx876-561NxmrfVan Wert County HospitalComment on above: Performed By: #### 37682-8 #### [facility], [address] [facility] [place], [place].RBC #/vol (Bld)4.68 million/mcLNormal3.80-5.10[facility] Fair[facility] HospitalComment on above:Performed By: #### 89389-6 #### [facility], [address] [facility] [place], [place].WBC #/vol (Bld)6.0 thou/mcLNormal4.6-10.2[facility] HospitalComment on above:Performed By: #### 18424-5 #### [facility], [address] [facility], [place].CT Ang Chest w and/or w/o Contraston 74-20-2458RIH Chest vessels WO and W contrast IV [...] acute findings. No pulmonary embolus is identified. [facility] thanks you for the opportunity to care for your patient. Workstation ID: [id number] - [id number] FINAL REPORT Dictated By: Billy Guzman MD 12/25/2018 13:59 Assigned Physician: Billy Guzman MD Reviewed and Electronically Signed By: Billy Guzman MD 12/25/2018 14:05 Transcribed by: CHRISTIANO 12/25/2018 13:59 Technologist: Elvi PARIKHLancaster Municipal HospitalCombronson lakeview hospital on above:Order Comment: For inpatients, Nursing to order and initiate prep per [facility] Prep protocolD-Dimer Quantitativeon 41-17-0962Lslbrf D-dimer Qn (PPP)<150Normal 150-230MoVan Wert County HospitalComment on above:Result Comment: NORMAL REFERENCE RANGE 150-230 NG/ML CUT OFF 230 [...] correspond to ng/mL of D-DU or D-Dimer Units.Performed By: #### 10850-4 #### [address]ED [facility] [id number] [address] [address] Emergency Department Discharge Instructions VINNY SUAREZ , Please provide this information to your Primary Care/Specialist Name : VINNY SUAREZ Current Date : 12/25/2018 15:52:28 : 1995 12:00 PM Primary Care Physician: Danica Parada MD Diagnosis : Follow-Up Instructions: VINNY SUAREZ has been given these follow-up instructions: FOLLOW-UP APPOINTMENTS: Provider: Specialty: Address: Date: Danica Parada MD Family Practice [address] [address] (1) Call for an Appointment Comment: early this week or the [facility] Laboratory Orders: Name: Status: Basic Metabolic [...] Servicios de Emergencia Name VINNY SUAREZ MRN (COL)-[id number] PLEASE READ THE FOLLOWING REGARDING YOUR MEDICATIONS Based on the information available during your visit we have given you the medication instructions below. Continue taking medications you took prior to your visit unless you have been told to change.Please share this information with your own doctor. Carry a list of your medications with you in case of an emergency. Update it when medications are stopped, doses are changed, or new medications (including zlni-pyd-uajhkhr products) are added. If you have any questions, check with your doctor. Por la informaci??n disponible yvon cruz visita, las instrucciones de medicaci??n aparecen debajo.Favor de continuar tomando las medicaciones Ud. angelic?? [...] Mouth once a day. Refills: 0. Comment UPDATED MEDICATIONS None UNCHANGED MEDICATIONS None STOP TAKING THESE MEDICATIONS None DO NOT TAKE UNTIL YOU TALK TO YOUR DOCTOR None [facility] [address] [id number] Emergency Department Discharge Instructions Name: VINNY SUAREZ Current Date: 12/25/2018 15:52:28 : 1995 12:00 PM Primary Physician: Danica Parada MD We would like to thank you for choosing [facility] for your emergency medical needs. [...] Some can be serious. This includes the riskof getting an antibiotic-resistant infection later, which may [...] health of those around you. Call the [place] [employer] at 4-842-GVYZ-[place] or the [place] [employer] at 3-013-ZLU-7964 for more information. High blood pressure: Your [...] deadly infections. Discuss this with your child's vehicle operator technician, or Public Health Department. Your family practice doctor can determine if you need pneumonia or flu vaccine. The [facility] Department can be reached at [...] we have not discussed, call or visit yourdoctor right away. If you do not have [...] suicide hotline, anytime day or night, at 4-202-704-TPAW. Pharmacy Information: Below is a list of 24 hour pharmacies that we are aware of. We suggest that you call the specific pharmacy for their hours before traveling to a location. Hours may vary on holidays. [facility] [address] [phone] [place], [place] [address] [phone] [place] [phone] [address] [phone] [place], [place] [phone] [address] [address] [phone] [place], [place] [phone] Take all medications as directed. If you need prescription assistance, contact the following agencies: ?? Partnership for Prescription Assistance at or www.[employer].org ?? [facility] at or www.[employer].org ?? www.[employer] is a site with many valuable coupons Patient Education Materials VINNY SUAREZ has been given the following patient education materials: [facility] Emergency Department [address], [place] [address] Work Release Form This notice verifies that your employee ~Vinny Suarez~ was seen in this facility on ~12/25/18~. He/she may return to work on 12/26/18 with the following restrictions: None: No heavy lifting: (over # pounds) No prolonged standing: Desk Work Only: Other: These restrictions apply through . After this date, your employee should be [...] ambulatory ECG (electrocardiogram). An ECG records your heartbeatpatterns at the time the test is performed. [...] provider to suggest some activities that are safefor you. ???Eating a heart-healthy diet. A registered [...] 08/19/2006 Document Revised: 11/30/2015 Document Reviewed: 06/15/2015 [employer] Interactive Patient Education ?2016 [employer] <><><><><><><><><><><><><><><><><><><><><><><><><> Patient Visit Summary Signature VINNY SUAREZ has been given the following list of patient education materials, prescriptions and follow-up instructions: IFANNY KENNEDY, have received the above patient education materials/instructions and have verbalized understanding: Date Time Patient Signature Date Time Provider SignatureNormalLancaster Municipal HospitalGFRaaon 33-03-4917MFL/1.73 sq M predicted among blacks MDRD vol rate/area (S/P/Bld)mL/min/{1.73_m2}[facility] HospitalComment on above:Result Comment: The MDRD equation has not been validated for those over 70 years, women, patients with serious co-morbid conditions, or with extremes of body size, muscle mass of nutritional status.Performed By: #### 84612-6, 34606-6d7, 52713-5, 98750-5 #### [facility], [address], [place].GFRbbon 12-25-2018 GFR/1.73 sq M predicted among non-blacks MDRD vol rate/area (S/P/Bld) mL/min/{1.73_m2}[facility] HospitalComment on above:Performed By: #### 99456-1, 07533-5f3, 79437-7, 09087-3 #### [facility], [address] [place], [place].Pre-Arrival Formon 09-24-4452Nqq-Arrival FormPre-Arrival Summary Name: Vinny Suarez Current Date: 12/25/2018 [...] both have had dvt, mother with recent pe.NormalMount Mercy Health Fairfield HospitalTroponin Ion 62-95-5426Xppcuidz I.cardiac mass concng/mLNormal<0.06Lancaster Municipal HospitalComment on above:Performed By: #### 72946-8 #### [facility], [address] [place], [place].Troponin I.cardiac mass concng/mLNormal<0.06Lancaster Municipal HospitalComment on above:Performed By: #### 14410-9, 24563-6j3, 52470-4, 95917-2 #### [facility], [address], [place].XR Chest 2 Viewson 12-88-5798ZR Chest 2 viewsTwo-view chest exam Indication: Chest Pain and shortness of breath COMPARISON: None FINDINGS: The lungs are clear and the costophrenic angles are sharp. The cardiomediastinal silhouette and bones are normal. IMPRESSION: Normal chest. [facility] thanks you for the opportunity to care for your patient. Workstation ID: [id number] - [id number] FINAL REPORT Dictated By: Gabe Diaz MD 12/25/2018 13:17 Assigned Physician: Gabe Diaz MD Reviewed and Electronically Signed By: Gabe Diaz MD 12/25/2018 13:18 Transcribed by: CHRISTIANO 12/25/2018 13:17 Technologist: [facility] Vital Signs Date TimeVital SignValuePerforming ZlyzayveuAbggxzhd66-95-4749 10:220400Body jidrlp159.64 cmDanica Parada MD Work Phone: [phone]10-24-2025 10:220400 Body mass index (BMI) [Ratio]17.2 kg/b4DjtgenDanica Parada MD Work Phone: [phone] [place], [place] 1727210-24-2025 10:22040 Body rwojzjelbdq55.4 [degF]Danica Parada MD Work Phone: [phone] [place], [place] 1727210-24-2025 10:040 Body iqljre60.25 kgDanica Parada MD Work Phone: [phone] [place], [place] 1727210-24-2025 10:22-0400 Diastolic blood mm[Hg]Danica Parada MD Work Phone: [phone] [place], [place] 1727210-24-2025 10:22-0400 Heart ahnc590 /Nick Parada MD Work Phone: [phone] [place], [place] 1727210-24-2025 10:220400 Respiratory rate18 /Nick Parada MD Work Phone: [phone])[address] [place], [place] 1727210-24-2025 10:22-0400 SaO2% (BldA) [Mass fraction]99 %Danica Parada MD Work Phone: [phone] [place], [place] 1727210-24-2025 10:22-0400 Systolic blood rxuhfjhf092 mm[Hg]Danica Parada MD Work Phone: [phone] [place], [place] 1727207-28-2025 11:210400 Body .64 cmDanica Parada MD Work Phone: [phone] [place], [place] 1727207-28-2025 11:-0400 Body mass index (BMI) [Ratio]16.7 kg/k6HabmwsDanica Parada MD Work Phone: [phone] [place], [place] 1727207-28-2025 11:040 Body zblhxy51.89 kgDanica Parada MD Work Phone: [facility]07-28-2025 11:21-0400 Diastolic blood guhagose85 mm[Hg]Danica Parada MD Work Phone: [facility]07-28-2025 11:21-0400 Heart otsj220 /Nick Parada MD Work Phone: [facility]07-28-2025 11:21-0400 Systolic blood mwmwghci083 mm[Hg]Danica Parada MD Work Phone: [facility]06-11-2025 10:57-0400 Body .64 cmHolzer Health System06-11-2025 10:57-0400Body mass index (BMI) [Ratio]16.7 kg/j3JtwwckvdkHolzer Health System06-11-2025 10:57-0400Body .83 kgHolzer Health System06-11-2025 10:57-0400Diastolic blood wzaklijs99 mm[Hg][facility] 05-03-2025 10:57-0400Heart xiow297 /[facility] 05-03-2025 10:57-0400Systolic blood efzyoihy494 mm[Hg][facility]12-16-2024 09:17-0500Body komlkv349.6 cmTglo Masterson MD Work Phone: [phone] [place], [place] 5732212-16-2024 09:17-0500Body mass index (BMI) [Ratio]15.98 kg/r6RilkolyShalini Masterson MD Work Phone: 1([phone] [place], [place] 5732212-16-2024 09:17-0500Body hbkhlzwanzw57.2 [degF]Shalini Masterson MD Work Phone: [facility]12-16-2024 09:17-0500Body weight 44.91 kgShalini Masterson MD Work Phone: [facility]11-18-2024 08:30-0500Body height 167.64 cmHolzer Health System11-18-2024 08:30-0500Body mass index (BMI) [Ratio]16 kg/i5YaaesgyivHolzer Health System11-18-2024 08:30-0500Body .01 kgHolzer Health System11-18-2024 08:30-0500Diastolic blood vrjlfzec28 mm[Hg][facility]11-18-2024 08:30-0500 Heart rate97 /[facility]11-18-2024 08:30-0500Systolic blood dhavozcd465 mm[Hg][facility]09-27-2024 09:57-0400 Body yphasm538.6 cmLashanda Richmond MD Work Phone: [phone] HospitalLthssmrqaa68-83-5467 09:57-0400Body mass index (BMI) [Ratio]15.98 kg/q5IlsiptLashanda Richmond MD Work Phone: [phone] HospitalCkqqobaegv21-57-5227 09:57-0400Body .91 kgLashanda Richmond MD Work Phone: [phone] HospitalKbtypjyebd96-99-5620 09:57-0400Diastolic blood xfsjkynl43 mm[Hg]Lashanda Richmond MD Work Phone: [facility] HospitalLuipjpzpgq11-68-7326 09:57-0400Systolic blood uueyrlwx286 mm[Hg]Lashanda Richmond MD Work Phone: [facility] HospitalDlsimwcewp44-66-9759 09:44-0400Body yppksk696.64 cmHolzer Health System07-31-2024 09:44-0400Body mass index (BMI) [Ratio]15.8 kg/i1ZxmyzjqgwHolzer Health System07-31-2024 09:44-0400Body pfxaiiuhexm49.8 [degF][facility]07-31-2024 09:44-0400Body hstxea94.62 kgHolzer Health System07-31-2024 09:44-0400Diastolic blood loxhdzwp70 mm[Hg][facility]07-31-2024 09:44-0400 Heart ggva620 /[facility]07-31-2024 09:44-0400Systolic blood jcragzlg468 mm[Hg][facility]05-31-2024 10:02-0400 Body dmhygm072.64 cmHolzer Health System05-31-2024 10:02-0400Body mass index (BMI) [Ratio]15.7 kg/a3CqwhgksymHolzer Health System05-31-2024 10:02-0400Body .22 kgHolzer Health System05-31-2024 10:02-0400Diastolic blood pndngnim01 mm[Hg][facility] 04-22-2024 10:02-0400Heart rate82 /minHolzer Health System 04-22-2024 10:02-0400Systolic blood ijcxumgq959 mm[Hg][facility]10-09-2023 09:45-0400Body syqmmz459.64 cmDanica Parada Other [facility] Other 10-09-2023 09:45-0400Body mass index (BMI) [Ratio] 15.65 kg/e2DlmozvDanica Parada Other [employer] Other 10-09-2023 09:45-0400Body yuvuml99 kgDanica Parada Other [facility] Other 10-09-2023 09:45-0400Diastolic blood qcqrwdqe36 mm[Hg] Danica Parada Other [employer] Other 10-09-2023 09:45-0400Systolic blood vqhrenas811 mm[Hg] Danica Parada Other [employer] Other 04-06-2023 11:30-0400Body ysrqor737.64 cmDanica Parada Other [facility] Other 04-06-2023 11:30-0400Body mass index (BMI) [Ratio]16.3 kg/c2KtyzoeDanica Parada Other [employer] Other 04-06-2023 11:30-0400Body jcekbn57.81 kgDanica Parada Other [facility] Other 04-06-2023 11:30-0400Diastolic blood ulnlxsny27 mm[Hg] Danica Parada Other [employer] Other 04-06-2023 11:30-9327KjQ7% (BldA) [Mass fraction]95 % Danica Parada Other [facility] Other 04-06-2023 11:30-0400Systolic blood mm[Hg] Danica Parada Other [employer] Other Encounters Encounter DateEncounter TypeCare ProviderFacilityStart: 09-15-2025 End: 59-81-8533igtfuupclcChyoxp E Braun MD Work Phone: -[facility] ClydeStart: 09-15-2025 End: 25-15-0565Iyesgmj encounter procedureKayla Fitzpatrick APRN-[facility] Work Phone: Start: 07-51-5043Cpb-patient / Non-visitScony Romero MD-[facility] Work Phone: Start: 07-21-2025 End: 27-72-7812znvsjtaehxNMNCVProtestant Hospitaltart: 06-19-2025 End: 55-86-0328xagxjkufngPsitxq E Braun MD Work Phone: [facility] Work Phone: Start: 06-19-2025 End: 59-68-9931Qzvsmmv encounter Gertruids Parada MD-[facility] Work Phone: start: 59-93-1069Nuxpvyt encounter Neil Parada MD Work Phone: [facility] Systemtart: 05-03-2025 End: 11-49-4487dingracbytIbxscjxdhCleveland Clinic [facility] Work Phone: Start: 05-03-2025 End: 50-54-1480Xiftdij encounter procedureAtrium Health Providence Physician GroupCenterville Work Phone: Start: 05-03-2025 End: 14-22-5535Wablfhq encounter statusDanica Parada MDACMC Healthcare Systemtart: 11-07-2024 End: 84-88-7636Rzljcp outpatient new 45 minutesShalini Masterson MD Work Phone: aMer[facility] OtolaryngologyComment on above:Localized swelling, mass and lump, neck (Primary Dx); Pulsatile neck massStart: 41-30-1574fdriktkudkPFWEKnox Community Hospital Start: 10-10-2024 End: 60-79-7016ifpzlnqotbYvrtbdetnC[facility] Clinic [facility] Work Phone: Start: 10-10-2024 End: 09-28-9565Vauvdsf encounter procedureAtrium Health Providence Physician GroupCenterville Work Phone: Start: 40-26-6858Xgl-patient / Non-visitAtrium Health Providence Physician GroupCenterville Work Phone: Start: 08-19-2024 End: 44-44-9654viupsqvmoyAYHTVF H TIMMISNot AvailableStart: 08-19-2024 End: 70-99-0710Yukqsa outpatient visit 15 minutesLashanda Richmond MD Work Phone: [facility] NORWALKComment on above:Neck mass (Primary Dx)Start: 08-05-2024 End: 84-60-2168Ocqmzgktk Result EncounterLashanda Richmond MD Work Phone: NOFZ External Department UnsolicitedStart: 08-05-2024 End: 50-80-4439Kpacivnco Result EncounterLashanda Richmond MD Work Phone: NOTX External Department UnsolicitedStart: 07-08-2024 End: 53-13-3973vifdiriwahTIEQDP H TIMMISNot AvailableStart: 93-12-3722iptqqpaedtSt. Vincent Hospital Work Phone: Start: 14-07-2732Hes-patient / Non-visitFirlewisgale hospital [facility] Work Phone: Start: 06-22-2024 End: 62-80-1510nrfipuuwmvJzuarziagProMedica Flower Hospital Work Phone: Start: 06-22-2024 End: 93-01-6550Oqunhur encounter procedureAt[facility] Health [facility] Work Phone: Start: 04-22-2024 End: 98-18-0357idvuvenalkPowhiwfhiProMedica Flower Hospital Work Phone: Start: 04-22-2024 End: 56-31-0443Ueobprj encounter procedureAtrium Health [facility] Work Phone: Start: 70-48-0429Adk-patient / Non-visitAtrium Health [facility] Work Phone: Start: 12-10-2023 End: 56-08-4856zzfqmcmigrQqxgdz Braun Other [facility] [employer] Other Start: 18-88-1473Kyqgrgjti encounterMarcia [facility] Medical Centertart: 12-07-2023 End: 61-51-3932vsqffxdaxzScjbjw Karma Other [facility] [employer] Other Start: 05-94-1219Pmmylzjsc encounterMarcia [facility] Medical Centertart: 11-10-2023 End: 73-70-3440nhortebqaeVlnfcg Karma Other [employer] Other Start: 47-75-4021Fyjrsukam encounterMarcia Rose Marie Peña Medical ClinicStart: 11-04-2023 End: 46-10-3024bspvmunukvKmceed Parada Other [employer] Other Start: 92-91-9503Mdpgusnii encounterMarcia Rose Marie Peña Medical ClinicStart: 10-05-2023 End: 96-83-1248ekhdunowheEewguf Parada Other [employer] Other Start: 69-20-6548Wggpbqtgl encounterMarcia KatherineG [facility] Medical ClinicStart: 09-16-2023 End: 39-66-3487osydcgmrhcPxuimt Parada Other [employer] Other Start: 83-76-9547Cewsksxtd encounterMarcia KatherineG [facility] ClinicStart: 09-07-2023 End: 07-71-0143dihwnwmrdfZbvbdj Parada Other [employer] Other Start: 64-49-8999Fwrbeircd encounterMarcia Rose Marie Peña Medical ClinicStart: 09-04-2023 End: 64-81-5416wiinlncbduDgfnas Parada Other [employer] Other Start: 42-74-4773Rjsuvnbwi encounterMarcia Rose Marie Peña Medical ClinicStart: 08-31-2023 End: 70-85-6320lfvwoypsurGqigra Parada Other [employer] Other Start: 44-41-2126Qsgdpo outpatient visit 15 minutes Danica [facility] ClinicStart: 08-07-2023 End: 02-52-6045ufzapyfzkoYeaqyn Parada Other [employer] Other Start: 44-40-0156Viemhsjbg encounterDanica Peña [facility] ClinicStart: 07-03-2023 End: 95-13-1489ezoitazrayKoltuc Braun Other [employer] Other Start: 67-91-5944Vlrhbjicd encounterDanica Peña Medical ClinicStart: 05-06-2023 End: 92-03-4392kspnsliyzwDvbmwe Parada Other [employer] Other Start: 51-01-1542Lrjnrkywc encounterMarterry Peña [facility] ClinicStart: 02-26-2023 End: 69-43-4315gpufzhydfnRicfvr Braun Other [employer] Other Start: 02-76-9227Nrmako outpatient visit 15 minutes Danica Peña [facility] ClinicStart: 11-04-2022 End: 40-90-5792yyrphwtwtlMT DANICA Ravindra KARMAFacility:I4Tvnvf: 19-04-6938Nfcnc health examinationDanica Parada Other [employer] Other Start: 89-33-5090Yoyqphq encounter procedureMARCIA E BRAUNOhio Health AmbulatoryStart: 02-27-2021 End: 38-01-4666Qggvasw encounter procedureMARCIA E BRAUNRiverside Jew HospitalStart: 12-25-2018 End: 51-56-3043Czgksddti department patient visitCARIDAD Huynh TULSAFacility:[facility] DateProcedureProcedure DetailPerforming ClinicianStart: 57-33-1598Temmr Strep (POC)Danica Parada MD Work Phone: Start: 49-65-0512Tq soft tissue neck w/contrast Michael Richmond MD Work Phone: Plan of Treatment DateCare ActivityDetailAuthorStart: 11-07-2024 End: 43-63-0811LRJ Neck vessels WO and W contrast IVCT ANGIO NECK Imaging Routine Localized swelling, mass and lump, neck Pulsatile neck mass Expected: 11/07/2024, Expires: 11/07/2025[facility] HospitalComment on above:Expected: 11/07/2024, Expires: 11/07/2025Start: 66-23-2261Ubgsird referralSt. [facility] Work Phone: Start: 55-07-1341OZDKE-19 VACCINE ( season) COVID-19 VACCINE ( season)[facility]24 Influenza vaccinationINFLUENZA VACCINE (#1)[facility]: 2024 Patient referralSt[facility] Work Phone: Start: 27-51-7739Yihcesftt for malignant neoplasm of cervixCERVICAL CANCER SCREENING DISCUSSIONParkview Healthtart: 2016 Hepatitis B vaccinationHEP B VACCINE (1 of 3 - 19+ 3-dose series)[facility]: 15-89-9822Dfsri diphtheria, tetanus and acellular pertussis (DTaP) vaccinationTDAP (ADULT)[facility]: 70-37-6761UAX screeningHIV SCREENING DISCUSSIONParkview Healthtart: 66-51-1436Ienpsuaaz C screening HEPATITIS C VIRUS SCREENINGParkview Healthtart: 07-45-8329Gpjxzlc vaccinationTETANMercy Health – The Jewish HospitalPatient EducationStrep throat - ED discharge instructionsSt. [facility] Work Phone: Patient referralSt. [facility] Work Phone: Immunizations Immunization DateImmunizationNotesCare XmwmhdgbZtwwfzdy06-23-3236kkzulxizjqeaz oligosaccharide (groups A, C, Y and W-135) diphtheria toxoid conjugate vaccine (MCV4O)Danica Parada Other [facility] Payers DatePayer CategoryPayerPolicy [id number] [id number] [id number] [facility] [id number] 2..9.43525[id number] [id number] 2..1.266796.3.579.2.06366-30-2841 [id number] 2..1.481158.3.57[id number] 2..1.474127.3.579.[id number] 2..1.716388.3.579.2.39255-98-0266Pozdzrq2432676 2..1.006559.3.57[id number] 2..1.460427.3.579.2.027[id number] 2..1.925330.3.579.[id number] Social History DateTypeDetailFacilityUnknown if ever smokedNolake regional health system [employer] Other Start: 08-19-2024 End: 77-82-6132Ksf Assigned [facility] [employer] Other Start: 04-22-2024 End: 31-29-0806Zncmrus smoking status NHISNever smoked tobacco (finding) [facility] Systemtart: 87-06-8353Rky Assigned At BirthFeOur Lady of Mercy Hospitaltart: 10-10-2024 End: 28-83-1913SauOztsaa (finding)[facility]tart: 07-05-2024 End: 37-51-5599Iiinvio use and exposureSmokeless tobacco non-userNOMS Healthcare Start: 08-19-2024 End: 47-86-1729Jswookf of Social functionNOMS HealthcareStart: 63-25-2099Ila assigned at birthNot on fileBEAVER VALLEY [facility]ITAL HealthcareStart: 18-19-4791Fghpxf identity Identifies as female gender (finding)[facility] SystemStart: 97-75-1644Zlklds orientationHeterosexual (finding)[facility] SystemStart: 07-08-2024 End: 08-66-3944Zunrkvssi beverage intakeEx-drinker (finding)[facility] Healthcare Start: 17-86-5671Gtrhujr CommentVery rareNOPA HealthcareStart: 05-06-0091Slc FemaleNOMS HealthcareNEGATED: Highlighted [facility] CenterNEGATED: Highlighted [facility] Clinical Notes 02-26-2023 to 07-21-2025 Note Date & GchiWpeeBttkzuhs87-06-9950 [facility] Reason for cardiology [...] has a past surgical history that includes [place] tooth extraction. Social History She reports that [...] of the neck with IV contrast at [facility] 08/05/2020 for next IMPRESSION: 1. Multiple [...] Assessment and Plan: Tachyc (more content not included)...[facility] 06-19-2025 Evaluation note* Diagnosis Onset Date Resolution Status Admit Date ADHD (attention deficit hyperactivity di sorder) acuteJuly 2024 11:20amRight foot painacuteJuly 2024 11:20am TachycardiaacuteJuly 2024 11:20amStrep pharyngitisnoneactiveOctober 2024 10:16am [facility] Work Phone: 1(227) 931-888306-11-2025 Evaluation note* Diagnosis Onset Date Resolution Status Admit Date ADHD (attention deficit hyperactivity di sorder) acuteJune 2024 10:57amCervical lymphadenopathyacuteJune 2024 10:57am Wellness examinationacuteJune 2024 10:57am [facility] Work Phone: 1(201) 772-579712-16-2024 History of Present illness Narrative* Shalini Masterson MD - 11/07/2024 9:45 AM EST ENT History & Physical Chief Complaint: New Patient (Swollen lymph node ) Referring Provider: Self, Self HPI: Vinny Suarez is a 29 y.o. female who presents with neck mass. Reports it occurred after a long run. Was seen by [facility] where a CT neck was [...] further evaluate. Will call with CT results Shalini Masterson MD * Ney Bob - 11/07/2024 9:45 AM EST HISTORY OF PRESENT ILLNESS- Vinny Suarez is a 29 y.o. female who comes in with the following complaint(s): swollen lymph node Believes she has a swollen lymph node on right side of neck, does have CT scan with her today documented in this [facility]09-27-2024 History of Present illness Narrative* Lashanda Richmond MD - 08/19/2024 9:50 AM EDT Subjective Patient ID: Vinny Suarez is a 29 y.o. female who presents for Neck Mass (Follow up [facility] 08/05) CT neck reviewed and no abnormality evident, but pt adamant her neck feels swollen with sx exacerbated by running. Family History Problem Relation Name Age of Onset Other (HTN) Father Robel Suarez Hypertension Father Robel Suarez Cancer Maternal Grandmother Peyton Barahona Diabetes Maternal Grandmother Peyton [place] Migraines Mother Kika Suarez Active Ambulatory Problems Diagnosis Date Noted ADHD (attention deficit hyperactivity disorder) ([facility]) 07/05/2024 Cervical lymphadenopathy 07/05/2024 Chest pain 06/07/2020 Migraine ([facility]) 07/05/2024 Neck mass 07/08/2024 Resolved [...] I will get a second opinion at [facility]. documented in this encounterGeneral Leonard Wood Army Community HospitalWvjhvrahvm84-98-0656 Evaluation note* Encounter Date Diagnosis Assessment Notes Treatment Notes Treatment Clinical Notes Aug, LLQ abdominal pain (ICD-10 - R10 .32) Discussed PT for muscle strain v. imaging. Pt opts for imaging w US to r/o enlarged LN or obvious hernia. [facility] Other 06-14-2023 Evaluation note* Encounter Date Diagnosis Assessment Notes Treatment Notes Treatment Clinical Notes Apr, Attention deficit disorder (ADD) in adult (ICD-10 - F98.8) [facility] Other 04-06-2023 Evaluation note* Encounter Date Diagnosis Assessment Notes Treatment Notes Treatment Clinical Notes Feb, Attention deficit disorder (ADD) in adult (ICD-10 - F98.8) Pt prefers stopping the Adderall and switching back to Vyvanse with the coupon. Feb,cne vulgaris (ICD-10 - L70.0)Increase acne. Will continue ocp and add oral antibiotic for a few months. Feb,Irregular menses (ICD-10 - N92.6)continue OCP. Suggested appt w rn gyn. WhatSalon [facility] Other Evaluation noteNo InformationNortDelaware County Memorial Hospital [facility] Other Evaluation noteNo assessment information available [facility] Work Phone: Evaluation note* Diagnosis Onset Date Resolution Status ADHD (attention deficit hyperactivity di sorder) acute [facility] Work Phone: Evaluation note* Diagnosis Onset Date Resolution Status ADHD (attention deficit hyperactivity di sorder) acuteCervical lymphadenopathyacuteMigraineacute [facility] Work Phone: Evaluation note* Diagnosis Onset Date Resolution Status Admit Date Cervical lymphadenopathy acuteNovember 2023 8:23am [facility] Work Phone: Evaluation note* Diagnosis Localized swelling, mass and lump, neck- Primary Swelling, mass, or lump in head and neck Pulsatile neck mass documented in this encounter [facility] System[facility]* Diagnosis Neck mass- Primary Swelling, mass, or lump in head and neck documented in this encounter NOMS HealthcareHistory general Narrative - Reported* Type Description Date Medical History Attention deficit disorder (ADD) in adult Medical HistoryPinwormsMedical HistoryPharyngitisMedical HistoryHypoglycemia Medical HistoryAbnormal loss of weight [facility] Other History general Narrative - Reported* Type Description Date Medical History Attention deficit disorder (ADD) in adult Medical HistoryPinwormsMedical HistoryPharyngitisMedical HistoryHypoglycemia Medical HistoryAbnormal loss of weightSurgical HistoryProblem Title : past surgical history reviewed, Problem Description : past surgical history reviewed, Problem Comment : reviewed - no changes required, Problem Status : Active, Surgical HistoryProblem Title : surgical procedures, hx of, Problem Description : surgical procedures, hx of, Problem Comment : none, Problem Status : Active, [facility] Other Hospital Discharge instructionsAmbulatory Orders* Referral to ENT Time Frame: 06/30/24, Location: None [facility] Work Phone: Hospital Discharge instructionsAmbulatory Orders* Referral to ENT Time Frame: 10/10/24, Location: None [facility] Work Phone: Reason for referral (narrative)No reason for referral information availableSt. [facility] Work Phone: Summary Purpose Family History Relationship Condition Age at Onset Recorded Date/T yumiko Not Specified Malignant neoplasm Unknown Diabetes mellitusUnknownfatherHypertensionUnknown Relationship Condition Age at Onset Recorded Date/T yumiko maternal grandmother Malignant neoplasm Unknown Diabetes mellitusUnknownfatherHypertensionUnknown Advance Directives Advance Directive Response Recorded Date/ Time Advance Directives No April 22 9:55am Advance Directive Response Recorded Date/ Time Advance Directives No April 22 8:55am Hospital Course Note EMERGENCY DEPARTMENT DISCHAR GE SUMMARY PATIENT NAME:VINNY SUAREZ MRN: [id number] AGE: 23 Years SEX: Female PHONE:[phone] DOS: 12/25/2018 11:36 AM : 1995 ATTENDING PHYSICIAN:Caridad Zambrano MD PCP: Karma LAMBERT , Danica Brower CHIEF COMPLAINT: Chest pain Allergies NKA [...] discussio n neck, chin swelling , discuss headachesReason for VisitADHD (attention deficit hyperactivity disorder) Chief Complaint medication discussio n neck, chin swelling , discuss headachesReason for VisitADHD (attention deficit hyperactivity disorder) Cervical lymphadenopathy Migraine Chief Complaint [...] Wellness examination May 03, 2025 10: 57am Chief Complaint Admit Date Right foot pain, high heart rate with ex ercise Angie 28th, 2025 11:20am Sore throat September 15, 2025 1 0:16am Reason for Visit Admit Date ADHD (attention deficit hyperactivity di sorder) June 19, 2025 11:20am Right foot pain June 19, 2025 11:2 0am Tachycardia June 19, 2025 11:2 0am Strep pharyngitis September 15, 2025 1 0:16am Reason for Referral SpecialtyDiagnoses / ProceduresReferred By ContactReferred To Contact Diagnoses Localized swelling, mass and lump, neck Pulsatile neck mass Procedures CT ANGIO NECK CHG CT ANGIOGRAPHY NECK W/CONTRAST/NONCONTRAST Shalini Masterson MD [address] [place] [address] Referral IDStatusReasonStart DateExpiration DateVisits RequestedVisits [id number]/ Additional Source Comments INFORMATION SOURCE (unrecogn ized section and content) DATE CREATED AUTHOR 01/11/2019 [facility] DATE CREATED AUTHOR AUTHOR'S ORGANIZ ATION 03/01/2021 [facility] DATE CREATED AUTHOR AUTHOR'S ORGANIZ ATION 03/03/2021 DATE CREATED AUTHOR AUTHOR'S ORGANIZ ATION 01/19/2023 [facility] DATE CREATED AUTHOR AUTHOR'S ORGANIZ ATION 08/20/2024 [facility] DATE CREATED AUTHOR AUTHOR'S ORGANIZ ATION 11/08/2024 [facility] DATE CREATED AUTHOR AUTHOR'S ORGANIZ ATION 08/11/2025 [facility] REASON FOR VISIT (unrecogniz ed section and content) ReasonCommentsNew PatientSwollen lymph nodeSpecialtyDiagnoses / Procedures Referred By ContactReferred To ContactOtolaryngology Diagnoses Localized enlarged lymph nodes Danica Parada MD [address] [facility] [place] [address] [place] [address] Shalini Masterson MD [address] [place] [address] Referral IDStatusReasonStart DateExpiration DateVisits RequestedVisits [id number]//[id number]y Hospital of [facility] 08/05 Care Teams (unrecognized sec tion and content) Team Status: Active Member Role Status Dates Danica Parada MD Primary Care Provider Active Team Status: Inactive Member Role Status Dates Danica Parada MD Primary Care Provide r, Attending Provider Active Start: May 03, 2025 End: May 03, 2025 Team Status: Active Member Role Status Dates Danica Parada MD Primary Care Provide r, Attending Provider Active Start: October 06, 2024 Team Status: Inactive Member Role Status Dates Danica Parada MD Primary Care Provide r, Attending Provider Active Start: October 10, 2024 End: October 10, 2024 Team Status: Inactive Member Role Status Dates Danica Parada MD Primary Care Provide r, Attending Provider Active Start: April 22, 2024 End: April 22, 2024 Team Status: Inactive Member Role Status Dates Danica Parada MD Primary Care Provide r, Attending Provider Active Start: June 22, 2024 End: June 22, 2024 Team Status: Active Member Role Status Dates Danica Parada MD Primary Care Provider Active Start: January 25, 2024 Nancy Escalera AAtyovana ProviderActiveStart: January 25, 2024 Team Status: Active Member Role Status Dates Danica Parada MD Primary Care Provide r, Attending Provider Active Start: 2024 Team MemberRelationshipSpecialtyStart DateEnd Date Danica Parada MD [address] [place] [id number] [facility] Team Status: Inactive Member Role Status Dates Danica Parada MD Primary Care Provider Active Start: May 03, 2025 End: May 03, 2025Pop Vieira ProviderActiveStart: May 03, 2025 End: May 03, 2025 Team Status: Inactive Member Role Status Dates Danica Parada MD Primary Care Provider Active Start: June 19, 2025 End: June 19, 2025Pop Vieira ProviderActiveStart: June 19, 2025 End: June 19, 2025 Team Status: Active Member Role/Relationship Status Dates Danica Parada MD Primary Care Provider Active Team Status: Inactive Member Role/Relationship Status Dates Danica Parada MD Primary Care Provider Active Start: June 19, 2025 End: June 19, 2025Margaritajil Ravindra Parada Pop ProviderActiveStart: June 19, 2025 End: June 19, 2025 Team Status: Active Member Role/Relationship Status Dates Danica Parada MD Primary Care Provider Active Start: July 28, 2025 Pop Mcgregor ProviderActiveStart: July 28, 2025 Team Status: Inactive Member Role/Relationship Status Dates Danica Parada MD Primary Care Provider Active Start: September 15, 2025 End: September 15, 2025Bang Awad ProviderActiveStart: September 15, 2025 End: September 15, 2025Team MemberRelationshipSpecialtyStart DateEnd Date Danica Parada MD PCP - GeneralFamily Medicine07/01/24 Goals (unrecognized section and content) Goals may [...] BE BASED ON THE PRIMARY CLINICAL RECORDS. [employer] provides no warranty or guarantee of the accuracy or completeness of information in this document.
--- NOTE | 2025-09-29 08:32 | XR_ITS ---
The [place] [id number] Patient Name: EDJAN ESCOBEDO MRN: [id number] date: 1995 Sex: F Assigned Patient Location: [facility] Current Patient Location: [facility] Accession/Order Number: [id number] Exam Date: 09/29/2025 08:35 Report Date: 09/29/2025 09:11 At the request of: JOHN MONCADA MD Procedure: XR ribs BI min 4V w CXR1V PA CHEST WITH BILATERAL RIBS: CLINICAL HISTORY: Increased heart rate when running. Fatigue. COMPARISON: CT 06/08/2020 The chest film shows no infiltrate, effusion or pneumothorax. The cardiac, hilar and mediastinal silhouettes are within normal limits. No vascular congestion is seen. There is subtle dextroscoliotic curvature. AP and both oblique views of the ribs show no acute displaced fractures or bony destruction. XR/XR ribs BI min 4V w CXR1V IMPRESSION: NO ACUTE FINDINGS. Impression dictated by: Heidy Gloria M.D. 09/29/2025 9:11 AM Dictation Location: [place] [address] Electronically authenticated by: [id number] Y Date: 09/29/2025 09:11
== END 2025-09-29 08:26 | disposition home or self-care (01) ==
LOC: RAD 08:26
PROVIDERS: PCP Family Medicine; Visit Provider Internal Medicine Cardiovascular Disease
DX: J90 Pleural effusion, not elsewhere classified (principal)
CPT/HCPCS: 71111

== ENCOUNTER 2025-11-09 04:01 | Emergency (ER) | payer BC, SELFPAY ==
--- OUTSIDE RECORDS SUMMARY | 2019-03-28 05:30 | XMS_ITS | Continuity of Care Document ---
Author Organization [facility] Address [address] [place] [address] Phone Care Team Providers Care Head Of English Name Role Phone Alfred Landry Unavailable Unavailable Procedures Procedure Date IMMUNIZATION ADMIN, EACH ADD HEP A VACCINE, ADULT IM IMMUNIZATION ADMIN TYPHOID VACCINE, IM Advance Directives Directive Yes / No Effective Date File Name No Information Encounters Encounter Description Practice Location Reason(s) For Visit Diagnoses Date Provider Providers Copied on Encounter [facility], [address] [place], [place], [id number], [place] tel:[phone] [facility] No Information Oxana BERNAL Alfred. [address] [place], [place], [id number], [place]. tel:[phone] Family History Family Member Type Diagnosis Age At Onset No Information Immunizations Vaccine Date Status Comments Typhoid administered Source: New Imm unization Record Hep A (adult) administered Source: New Im munization Record Payers Payer name Insurance type Covered democrat ID Authoriza grecia(s) Medical [place] CI [id number] Social History Type Description Quantity Date Captured Comments Sex Female Smoking Status No Information Sexual Orientation Straight or heterosexual March Gender Identity Female Chief Complaint And Reason For Visit No Information Reason For Referral Reason For Referral No Information History Of Present Illness Encounter Date Complaint History Of Prese nt Illness No Information Functional Status Date Functional Assessmen t No Information Instructions Date Instruction Additional Infor mation No Information Assessments Type Assessment Date No Information Patient Care Teams Name Effective Dates (start - stop) Status Members No Information
[2025-11-09 04:04] VITALS: BP 106/68; PULSE 72; TEMP 36.5; O2SAT 100; BMI 16.5
[2025-11-09] MEDS: CARBAMIDE PEROXIDE 6.5% EAR DROPS 300 DROP/15 ML BOTTLE 10 DROP OT (04:15)
--- NOTE | 2025-11-09 04:19 | ED.EAR1 ---
HPI - Ear Problem General Chief complaint: Ear Stated complaint: FOREIGN OBJECT, EAR Time Seen by Provider: 11/09/25 04:12 Source: patient Mode of arrival: walk-in Limitations: no limitations History of Present Illness HPI Narrative: This 30-year-old female presents for evaluation of an insect in her left ear. The patient states she woke up this morning with a foreign body sensation and feeling something moving in her left ear. No additional injuries or complaints. Related Data Home Medications ?Medication ?Instructions ?Recorded ?Confirmed dextroamphetamine-amphetamine ER 30 mg PO DAILY 06/14/23 06/14/23 20 mg 24hr capsule,extend release norethindrone acetate 1 mg-ethinyl 1 tab PO DAILY 06/14/23 06/14/23 estradiol 20 mcg tablet Allergies Allergy/AdvReac Type Severity Reaction Status Date / Time No Known Drug Allergies Allergy Verified 11/09/25 04:07 Review of Systems ROS Status of ROS 10 or more systems reviewed and unremarkable except as noted in history and below PFSH PFSH Social History Smoking status: Never smoker Little interest or pleasure in doing things: not at all Feeling down, depressed, or hopeless: not at all Exam Narrative Exam Narrative: Vital signs and Nursing Notes reviewed: Is afebrile with normal pulse, normal blood pressure, she is not hypoxic with pulse ox of 100% on room air General: Awake, alert, oriented, anxious, uncomfortable appearing, lying comfortably on the stretcher HEENT: Normocephalic atraumatic, mucous membranes are moist and pink, eyes are clear, normal conjunctiva, vision is grossly intact, posterior pharynx is normal in appearance. Visible foreign body/insect in the left external ear canal Skin: Normal in appearance without rash,pallor, petechiae or purpura Neuro: No focal deficits Constitutional Vital Signs, click to edit/add: Last Vital Signs Temp 97.7 F 11/09/25 04:04 Pulse 72 11/09/25 04:04 Resp 17 11/09/25 04:04 BP 106/68 11/09/25 04:04 Pulse Ox 100 11/09/25 04:04 O2 Del Method Room Air 11/09/25 04:04 Course Vital Signs Vital signs: Vital Signs Temperature 97.7 F 11/09/25 04:04 Pulse Rate 72 11/09/25 04:04 Respiratory Rate 17 11/09/25 04:04 Blood Pressure 106/68 11/09/25 04:04 Pulse Oximetry 100 11/09/25 04:04 Oxygen Delivery Method Room Air 11/09/25 04:04 Temperature 97.7 F 11/09/25 04:04 Pulse Rate 72 11/09/25 04:04 Respiratory Rate 17 11/09/25 04:04 Blood Pressure 106/68 11/09/25 04:04 Pulse Oximetry 100 11/09/25 04:04 Oxygen Delivery Method Room Air 11/09/25 04:04 Discharge Plan Discharge Chief Complaint: Ear Clinical Impression: Foreign body of ear, left Patient Disposition: Home, Self-Care Time of Disposition Decision: 04:19 Condition: Good Prescriptions / Home Meds: No Action norethindrone ac-eth estradiol 1-20 mg-mcg tablet 1 tab PO DAILY dextroamphetamine-amphetamine 20 mg capsule,extended release 24hr 30 mg PO DAILY Print Language: Persian Instructions: Ear Foreign Body (ED) Referrals: Caron Ramos MD [Primary Care Provider, Family Practice] - 1 week Procedures ED Procedure Instructions Procedures Procedures: Procedure note; foreign body removal left ear. Ceramide eardrops were instilled into the left ear to kill the living bug. The ear was then flushed with normal saline and the bug floated out. Reevaluation of the patient's left ear shows no foreign body, no external ear canal erythema, normal-appearing tympanic membrane.
--- NOTE | 2025-11-09 04:22 | PC.NURSE ---
at time of triage, patient complained of feeling something moving in her left ear and believing there to be a bug in her ear. She had just awoken and ffelt the sensation and when it didn't go away after a few minutes, she came to the ED. On assessment, there was live insect in the left ear, it was moving and making the patient very anxious and uncomfortable. Dr. Wong is notified and is able to flush the insect out. Patient immediately feels relief.
--- OUTSIDE RECORDS SUMMARY | 2025-11-09 04:26 | XMS_ITS | Clinical Summary ---
Author Organization [facility] Address [address] [place] [address] Care Team Providers Care Cable Armorer Name Role Phone Caron Ramos MD Primary Care Provider [phone] Allergies Active AllergyReactionsCriticalityNoted DateCommentsShellfish Containing ProductsDiarrhea,Itching,Uunwjhf7408/19/2024 Medications MedicationSigDispense QuantityRefillsLast FilledStart DateEnd DateStatus lisdexamfetamine (Vyvanse) 30 mg capsule Take 30 mg by mouth in the morning.Active Junel 12/12, , 1-20 mg-mcg tablet Take 1 tablet by mouth in the morning.Active albuterol 90 mcg/actuation inhaler Inhale 2 puffs in the morning, noon, at afternoon, at bedtime,.Active metoprolol succinate XL (Toprol-XL) 25 mg 24 hr tablet Indications:TachycardiaTake 1 tablet (25 mg) by mouth in the morning. Do not crush or chew. 30 tablet ctive Active Problems ProblemNoted DateDiagnosed DateEustachian tube jzdmmomduir55/07/2025Otitis media, left09/29/2025Right foot pain09/29/2025Wellness spvzapatpry89/07/2025 Rnvcxrdlvyg85/08/2025Neck mass07/08/2024DHD (attention deficit hyperactivity disorder)07/05/2024ervical mzamjtpdwrwrwqz37/13/4020Fapdpfun09/13/2024 Resolved Problems ProblemNoted DateDiagnosed DateResolved DateChest pain Encounters DateTypeDepartmentCare GgpkOemlacgycpj32/10/2025Telephone [facility] [address] [facility] [place] [address] Rosa Pham MA 09/29/2025 3:00 PM ESTOffice Visit [facility] [address] [facility] [place] [address] Shanti Romero MD Tachycardia (Primary Dx); Attention deficit hyperactivity disorder (ADHD), unspecified ADHD type; Migraine without status migrainosus, not intractable, unspecified migraine type; Neck mass09/28/2025Telephone [facility] [address] [facility] [place] [address] Rosaline King MA from Last 3 Months Family History Medical HistoryRelationNameCommentsAlcohol abuseFatherRelationNameStatusComments FatherAliveMotherAlive Social History Tobacco UseTypesPacks/DayYears UsedDateSmoking Tobacco: NeverSmokeless Tobacco: Never Tobacco Cessation:Counseling Given: Not Answered Alcohol UseStandard Drinks/WeekCommentsYes0 (1 standard drink = 0.6 oz pure alcohol)occasionalCommentsUnknownSex and Gender InformationValueDate RecordedSex Assigned at DolkeQimrkc15/26/2025 1:36 PM EDTLegal SexFemale 05/22/2022 12:27 AM EDTGender YixpafihRaudkc52/26/2025 1:36 PM EDTSexual OrientationHeterosexual or Ursqhqvh32/26/2025 1:36 PM EDT Last Filed Vital Signs Vital SignReadingTime TakenCommentsBlood Dnitxqpv416/7609/29/2025 2:55 PM EST Hgbem315009/29/2025 2:55 PM ESTTemperature--Respiratory Rate--Oxygen Saturation 100%09/29/2025 2:55 PM ESTInhaled Oxygen Concentration--Vruyma49.1 kg (106 lb) 09/29/2025 2:55 PM HIHJbeskf037.6 cm (5' 6 )09/29/2025 2:55 PM ESTBody Mass Index17. 2:55 PM EST Plan of Treatment DateTypeDepartmentCare Team (Latest Contact Info)Dsmdpwnqxrd33/16/2026 2:40 PM ESTOffice Visit [facility] [address] [place] [address] Shanti Romero MD [address] MS:[place] [address] Health MaintenanceDue DateLast DoneCommentsDepression Uwvjskipt68/08/2009 Varicella Vaccines (1 of 2 - 13+ 2-dose series)2010Pap Smear2018 Adult Tujytzz94HPV Vaccines (1 - 3-dose SCDM series)2024 COVID-19 Vaccine ( season), 11/18/2021, 01/17/2021, Additional history existsZoster Vaccines (1 of 2)2047HIB TgpaddzwLnrtapfmn62/20/1999, 02/05/1998, 1997, Additional history exists IPV VeqkimfzNicktlhoa69/31/2003, 08/12/1999, 1997, Additional history existsMeningococcal TydiwrkBtzwkjnoj71/28/2016, 04/15/2010Influenza Vaccine Uslhivzgr72/17/2025Meningococcal B VaccineAged OutNo longer eligible based on patient's age to complete this topicPneumococcal Vaccine: Pediatrics (0 to 5 Years) and At-Risk Patients (6 to 64 Years)Aged OutNo longer eligible based on patient's age to complete this topicRotavirus VaccinesAged OutNo longer eligible based on patient's age to complete this topic Insurance Care Teams Team MemberRelationshipSpecialtyStart DateEnd Date Caron Ramos MD [address] [facility] [address] PCP - [facility]07/21/25
--- OUTSIDE RECORDS SUMMARY | 2025-11-09 04:26 | XMS_ITS | Patient Health Record ---
Author Organization [facility] Address [address] [address], [place] [address] Care Team Providers Care Chest Pain Coordinator Name Role Phone Ryan Crowe Unavailable [phone] Allergies Allergen (clinical drug ingredient) Drug/Non Drug [...] use. Encounters Encounter Location Date Provider Diagnosis [facility] [address] [address], [facility] [place] [address] 06/26/2025 Ryan Crowe Arthritis of right foot M19.071 and Sprain of ligament of tarsometatarsal joint of right foot, sequela S93.621S [facility] [address] [place] [address] [address], [facility] [place] [address] 08/11/2025 Ryan Crowe Arthritis of right foot [...] Insured Coverage Start Date Coverage End Date [facility] and [facility] [address] [place] [id number] Sharona Suarez - patient is the insured Medical (General) History Medical History History ICD Code Asthma ADHDSurgical History Surgery Date(Month/Year) [place]
--- OUTSIDE RECORDS SUMMARY | 2025-11-09 04:26 | XMS_ITS | Clinical Summary ---
Author Organization [facility] Address [address] [place] [address] Care Team Providers Care Neon Electrician Name Role Phone Caron Ramos MD Primary Care Provider [phone] Social History Tobacco UseTypesPacks/DayYears UsedDateSmoking Tobacco: Never Assessed CommentsUnknownSex and Gender InformationValueDate RecordedSex Assigned at Not on fileLegal YcpIlgmje82/12/2019 12:49 PM EDTGender WpojweacVzjser25/12/2019 12:47 PM EDTSexual OrientationNot on file Plan of Treatment Health MaintenanceDue DateLast DoneCommentsWellness Visit2000Depression Screening/Follow-Up (PHQ-2/9)2009Varicella Vaccines (1 of 2 - 13+ 2-dose series)2010HIV Sfdvqaylf02/08/2012Hepatitis C Eqxgjsgks42/08/2015Pap Smear 2018Tetanus/Diphtheria/Pertussis (7 - Td or Tdap), 02/20/2003, 08/12/1999, Additional history existsHPV Vaccines (1 - 3-dose SCDM series)2024OVID-19 Vaccine (3 - 2024- season)/, 12/28/2020Influenza Vaccine (#1)2025Zoster Vaccines (1 of 2)2047RSV Vaccines (1 - 1-dose 75+ series)2072Hepatitis B VaccinesCompleted 02/05/1998, 1997, 1997HIB NzwksnzgGoswamepi52/20/1999, 02/05/1998, 1997, Additional history existsIPV GfxzgnfkOfkzozkai05/31/2003, 08/12/1999, 1997, Additional history existsMeningococcal ACWY VaccineAged Out04/15/2010No longer eligible based on patient's age to complete this topic Hepatitis A VaccinesAged Out03/28/2019No longer eligible based on patient's age to complete this topicMeningococcal B VaccineAged OutNo longer eligible based on patient's age to complete this topicPneumococcal VaccineAged OutNo longer eligible based on patient's age to complete this topicRotavirus VaccinesAged Out No longer eligible based on patient's age to complete this topic Insurance * Guarantor: Vinny Escobedo TypeRelation to PatientDate of BirthPhone Billing AddressPersonal/[id number] [phone] (Home) [address] [place] [address] [place] [address] [place] [phone] MemberSubscriberPlan / Payer (Effective 2020-Present)Name:Vinny Escobedo Relation to Subscriber:ChildName:VIPUL ESCOBEDO Date of :1971 Address: [facility] [place] [address] Payer ID:Not on file Type:Not on file Address: [address] [place] [phone] Care Teams Team MemberRelationshipSpecialtyStart DateEnd Date Caron Ramos MD [facility] [place] [address] [facility]
--- OUTSIDE RECORDS SUMMARY | 2025-11-09 04:26 | XMS_ITS | Encounter Summary ---
Author Organization [facility] Address [address] [place] [address] Care Team Providers Care Analytics Senior Manager Name Role Phone Caron Ramos MD Primary Care Provider [phone] Encounter Details DateTypeDepartmentCare Team (Latest Contact Info)Xkoizokaefo84/10/2025Telephone [facility] at [facility] [address] [place] [address] Rosa Pham MA Social History Tobacco UseTypesPacks/DayYears UsedDateSmoking Tobacco: NeverSmokeless Tobacco: NeverAlcohol UseStandard Drinks/WeekCommentsYes0 (1 standard drink = 0.6 oz pure alcohol)occasionalCommentsUnknownSex and Gender InformationValueDate RecordedSex Assigned at TjdpqWcjyja43/26/2025 1:36 PM EDTLegal SexFemale 05/22/2022 12:27 AM EDTGender SzdiacdxMkwkde23/26/2025 1:36 PM EDTSexual OrientationHeterosexual or Oiuilvqs96/26/2025 1:36 PM EDTdocumented as of this encounter Miscellaneous Notes * Telephone Encounter - Rosa Pham MA - 11/07/2025 9:[address] Romero: patient's Holter monitor showed sinus tachycardia when she had symptoms, but let her try another beta niko- Bystolic 5mg once daily and ask her to update us on how she feels on this. LM for patient on her VM asking her to call me back before I send in RX. * Telephone Encounter - Rosa Pham MA - 11/01/2025 4:10 PM EST Patient called stating she doesn't want to take Toprol anymore as she doesn't feel it's helping her. HR is still spiking at times she says. She's been having increased fatigue with it. Says she started in a few days into the Holter monitor she recently wore. I told her I printed off the report today for Dr. Romero to review when she's in the office again on 11/06 and I will call her back with an update. Patient verbalized understanding. documented in this encounter Plan of Treatment DateTypeDepartmentCare Team (Latest Contact Info)Ffnywjccyak10/16/2026 2:40 PM ESTOffice Visit [facility] at [facility] [address] [place] [address] Shanti Romero MD [address] [place] [address] documented as of this encounter Visit Diagnoses Not on filedocumented in this encounter Care Teams Team MemberRelationshipSpecialtyStart DateEnd Date Caron Ramos MD [address] [facility] [address] PCP - General07/21/25documented as of this encounter
--- OUTSIDE RECORDS SUMMARY | 2025-11-09 04:26 | XMS_ITS | Clinical Summary ---
Author Organization [facility] Address [address] [place] [address] Care Team Providers Care Pastry Artist Name Role Phone Caron Ramos MD Primary Care Provider [phone] Allergies Active AllergyReactionsCriticalityNoted DateCommentsShellfish Protein-Containing Drug ProductsDiarrhea,Itching,Vojespx7108/19/2024 Medications MedicationSigDispense QuantityRefillsLast FilledStart DateEnd DateStatus albuterol HFA 90 mcg/act inhaler Inhale 2 puffs every 6 (six) hours if needed for shortness of breathActive lisdexamfetamine (Vyvanse) 30 MG capsule Take 30 mg by mouth in the morning.Active norethindrone-ethinyl estradiol (Microgestin 12/12) 1-20 MG-MCG tablet Take 1 tablet by mouth Daily06/13/2024ctive Active Problems ProblemNoted DateDiagnosed DateNeck mass07/08/2024DHD (attention deficit hyperactivity disorder)4Cervical vmegnxnyghdeksz78/13/2024Migraine 4Chest pain06/07/2020 Family History Medical HistoryRelationNameCommentsHTNFatherMichael BlackHypertensionFather Robel BlackCancerMaternal GrandmotherSharon WeberDiabetesMaternal Grandmother Peyton BarahonaMigrainesMotherTerri BlackRelationNameStatusCommentsFatherMichael BlackMaternal GrandmotherSharon WeberMotherTerri Black Social History Tobacco UseTypesPacks/DayYears UsedDateSmoking Tobacco: NeverSmokeless Tobacco: Never Tobacco Cessation:Counseling Given: Not Answered Alcohol UseStandard Drinks/WeekCommentsNot Currently0 (1 standard drink = 0.6 oz pure alcohol)Very rareCommentsUnknownSex and Gender InformationValueDate RecordedSex Assigned at BirthNot on fileLegal NpiTjxoyr33/15/2023 8:14 PM EDT Gender IdentityNot on fileSexual OrientationNot on file Last Filed Vital Signs Vital SignReadingTime TakenCommentsBlood Oxjkevdg816/77008/19/2024 9:57 AM EDT Pulse--Temperature--Respiratory Rate--Oxygen Saturation--Inhaled Oxygen Concentration--Vqlmqk44.9 kg (99 lb)08/19/2024 9:57 AM MCAWopyus419.6 cm (5' 6 ) 08/19/2024 9:57 AM EDTBody Mass Index15.98008/19/2024 9:57 AM EDT Plan of Treatment Not on file Insurance Care Teams Team MemberRelationshipSpecialtyStart DateEnd Caron Ramos MD PCP - GeneralFamily Medicine07/01/24
--- OUTSIDE RECORDS SUMMARY | 2025-11-09 04:26 | XMS_ITS | Clinical Summary ---
Author Organization [facility] Address [address] [place] [address] Care Team Providers Care [employer] Officer Name Role Phone Unavailable Primary Care Provider Unavailabl e Medications MedicationSigDispense QuantityRefillsLast FilledStart DateEnd DateStatus Lisdexamfetamine (Vyvanse) 30 MG capsule Take by mouth daily every morning.Active Active Problems No known active problems Social History Tobacco UseTypesPacks/DayYears UsedDateSmoking Tobacco: NeverSmokeless Tobacco: Never Tobacco Cessation:Counseling Given: Not Answered CommentsUnknownSex and Gender InformationValueDate RecordedSex Assigned at BirthNot on fileLegal CajMchszr01/21/2024 3:00 PM ESTGender IdentityFemale 11/04/2024 8:19 AM ESTSexual AzdsvmimkbeRluczbph34/13/2024 8:19 AM EST Last Filed Vital Signs Vital SignReadingTime TakenCommentsBlood Pressure--Pulse--Ieuqutliqxd67.8 ??C (98.2 ??F)11/07/2024 9:17 AM ESTRespiratory Rate--Oxygen Saturation--Inhaled Oxygen Concentration--Rgwgby27.9 kg (99 lb)11/07/2024 9:17 AM LWSKfenhg245.6 cm (5' 6 )11/07/2024 9:17 AM ESTBody Mass Index15.9811/07/2024 9:17 AM EST Plan of Treatment Health MaintenanceDue DateLast DoneCommentsHEPATITIS C VIRUS AKTCHSYML1997 VCDELSQ67 1997HIV SCREENING SOYDIEKQIH74/08/2012HEP B VACCINE (1 of 3 - 19+ 3-dose series)2016TDAP (ADULT)2016CERVICAL CANCER SCREENING MQHUVWXKTG66/08/2018HPV VACCINE (1 - 3-dose SCDM series)4COVID-19 VACCINE (1 - 2024-26 season)2025INFLUENZA VACCINE (#1)2025 PNEUMOCOCCAL VACCINE SERIESAged OutNo longer eligible based on patient's age to complete this topic Insurance
== END 2025-11-09 04:34 | disposition home or self-care (01) ==
LOC: ER 04:22
PROVIDERS: Emergency Provider Emergency Medicine; PCP Family Medicine
DX: T16.2XXA Foreign body in left ear, initial encounter (principal); W44.F4XA Insect entering into or through a natural orifice, initial encounter
CPT/HCPCS: 99281